=== PATIENT | female | born 1960 | race African-American/Black ===

== ENCOUNTER 2016-08-27 20:35 | Observation (INO) | payer OTHER ==
[~2016-08-27] VITALS: Ht 165.1 cm; Wt 72.6 kg
[~2016-08-27 20:35] MED LIST: ALDACTONE50 MG PO; APRESOLINE10 MG PO; ASPIRIN81 M1 PO; ATROVENT HFA12.5 GM IH; AZITHROMYCIN500 MG PO; BIAXIN500 MG PO; CALCIUM 600600 MG PO; CARDIZEM120 M2 PO; COLACE100 M1 PO; CORDARONE200 MG PO; COREG12.5 MG PO; COREG25 MG PO; COUMADIN5 MG PO; DESYREL50 MG PO; DIGOXIN0.125 M1 PO; DILANTIN100 MG PO; ELIQUIS2.5 MG PO; FERROUS SULFAT325 MG PO; FOLATE1 MG PO; GLUCOPHAGE1000 MG PO; HYDROCODONE APA PO; LASIX40 M1 PO; LASIX40 MG PO; LEVAQUIN250 MG PO; LEVAQUIN500 MG PO; LEVAQUIN750 MG PO; LIPITOR40 MG PO; LOPRESSOR25 MG PO; LOVENOX40 MG/0.1 SUBQ; MEDROL4 MG PO; METOLAZONE2.5 M1 PO; METOLAZONE5 M1 PO; MOTRIN800 MG PO; NEURONTIN300 MG PO; NORCO 325 MG-7.1 TAB PO; OMEPRAZOLE20 M3 PO; PLAVIX75 MG PO; PREDNISONE20 M1 PO; PREDNISONE20 MG PO; PRILOSEC40 MG PO; PROTONIX40 MG PO; PROVENTIL2.5 MG/3 M INH; SLOW-K8 ME1 PO; TAZTIA XT120 MG PO; TYLENOL #3 300/1 TAB PO; VENTOLIN H0.09 MG/Ac IH; VITAMIN D32000 IU PO; XARELTO15 MG PO; ZESTRIL10 MG PO; ZESTRIL20 MG PO; ZITHROMAX250 MG PO; ZITHROMAX500 M1 IV; ZITHROMAX500 M1 PO; ZYRTEC10 MG PO
[2016-08-27 22:11] VITALS: BP 126/96
--- NOTE | 2016-08-27 23:07 | NUR ---
PATIENT AMBULATED TO BED 8.
--- NOTE | 2016-08-27 23:08 | NUR ---
PT BIB [facility] C/O SOB, RUNNY NOSE, FEVERS, PALPITATIONS. PT STATES MED HX COPD, CHF, DIABETES, HTN, NEUROPATHY. DENIES N/V/D; SKIN IS PINK/WARM/DRY; AAOX4 WITH EVEN AND STEADY GAIT; LUNGS CLEAR BL; HR EVEN AND REGULAR; PT DENIES ANY CP OR COUGH AT THIS TIME; PATIENT STATES PAIN OF 9/10 AT THIS TIME; VSS; PATIENT POSITIONED FOR COMFORT; HOB ELEVATED; BEDRAILS UP X2; BED DOWN. ER MD MADE AWARE OF PT STATUS.
--- NOTE | 2016-08-27 23:10 | NUR ---
Patient being evaluated by physician at bedside.
[2016-08-28] MEDS ORDERED: ASPIRIN 81 MG TAB.CHEW PO ONE (00:35)
[2016-08-28] MEDS ORDERED: ACETAMINOPHEN 325 MG TAB PO PRN (01:15)
[2016-08-28] MEDS ORDERED: DEXTROSE 50% 50 ML SYR IVP PRN (01:15)
[2016-08-28] MEDS ORDERED: ALBUTEROL 0.083% 2.5 MG/3 ML NEBU INH PRN ×2 (01:15→01:20)
[2016-08-28] MEDS ORDERED: ONDANSETRON 4 MG/2 ML VIAL IVP PRN (01:15)
[2016-08-28] MEDS ORDERED: LORazepam 2 MG/ML VIAL IVP PRN (01:15)
[2016-08-28] MEDS ORDERED: INSULIN ASPART SLIDING SCALE 100 UNITS/ML VIAL SUBQ PRN (01:15)
--- NOTE | 2016-08-28 01:30 | NUR ---
Patient will be admitted to care of DR HALL. Admited to TELE. Will go to room 119B. Belongings list completed. Report to VIC CARBONE.
[2016-08-28 01:45] VITALS: BP 136/85
--- NOTE | 2016-08-28 01:45 | NUR ---
Admitted from ER TO TELEMETRY UNIT FOR 23 HOUR OBSERVATION, with chief complaint of PALPITATIONS, SOB , 56 y/o ,Female, Cooperative, AWAKE, A/OX3, WITH OCCASIONAL FORGETFULNESS. LUNGS CLEAR ON BILATERAL AUSCULTATION. ON 02 AT 2 LITERS VIA N/C, SLIGHT SOB, RR - 24, SOB ON EXERTION, OCCASIONAL UNPRODUCTIVE COUGH NOTED, 02 SAT - 98%. ABLE TO AMBULATE WITH ASSISTANCE TO BR. HEAD TO TOE ASSESSMENT DONE WITH CHARGE NURSE LISA, SKIN INTACT. DENIES CHEST PAIN 0/10. ON SEIZURE PRECAUTION, REFUSED SIDE RAILS TO BE PADDED. oriented to call light, bed, phone,television, bathroom, smoking policy,visiting hours, procedures, ID bracelet on. Belongings list checked.
--- NOTE | 2016-08-28 01:55 | NUR ---
Patient's Plan of Care was discussed and reviewed with UX ENGINEER: RAF Ca
[2016-08-28 04:00] VITALS: BP_SYST 119; BP_SYST 129; BP_DIAS 77; BP_DIAS 78
[2016-08-28] MEDS ORDERED: HYDROcodone/APAP 5/325 MG 1 TAB TAB PO PRN (04:00)
--- NOTE | 2016-08-28 04:00 | NUR ---
ASSISTED TO GO TO BR TO VOID FOR THE SECOND TIME. BACK TO BED AFTER VOIDING, SAFETY MAINTAINED. PUT ON 02 CANNULA EXTENSION REQUESTED TO BE ABLE TO TO GO BR WITH 02 CANNULA.
[2016-08-28] MEDS: MORPHINE SULFATE 2 MG/ML SYR IVP PRN ×3 (04:21→17:05)
[2016-08-28] MEDS: BLOOD GLUCOSE MONITORING 1 DEV DEV FS SCH ×3 (06:48→16:44)
[2016-08-28] MEDS: IPRATROPIUM 0.02% 0.5 MG/2.5 ML NEBU INH SCH ×3 (06:57→19:45)
[2016-08-28] MEDS: ALBUTEROL 0.083% 2.5 MG/3 ML NEBU INH SCH ×3 (06:57→19:45)
--- NOTE | 2016-08-28 07:15 | NUR ---
CONDITION REMAIN STABLE. ENDORSED TO [facility] FOR CONTINUITY OF CARE.
--- NOTE | 2016-08-28 07:16 | NUR ---
DECREASED FIO2 TO 2L POST HHN
--- NOTE | 2016-08-28 07:17 | NUR ---
RECEIVED REPORT FROM NIGHT NURSE, RAF HO. PATIENT APPEARED TO BE CALM AWAKE AND RESTING WELL IN BED. NO RESPIRATORY DISTRESS, SOB, OR DISCOMFORT. PATIENT ON O2 2L NC WITH O2 SAT AT 96%. INITIAL ASSESSMENT AND BODY CHECK DONE. PATIENT IS AOX4, SKIN IS INTACT, IV ACCESS TO RIGHT WRIST 24G PATENT. PATIENT DENIED ANY CHEST PAIN OR DISCOMFORT. DISCUSSED PLAN OF CARE, MEDICATION REGIMENT, AND PAIN MANAGEMENT WITH PATIENT, PATIENT VERBALIZED UNDERSTANDING. PLACE PATIENT ON SAFETY/FALL PRECAUTIONS. CALL LIGHT LEFT WITHIN REACH, WILL CONTINUE TO MONITOR.
[2016-08-28] MEDS ORDERED: CLINICAL MONITORING MC PRN (07:55)
[2016-08-28 08:00] VITALS: BP 119/85
[2016-08-28] MEDS ORDERED: metFORMIN 500 MG TAB PO SCH (08:00)
[2016-08-28] MEDS: FERROUS SULFATE 325 MG TABEC PO SCH ×3 (08:48→17:03)
[2016-08-28] MEDS: PHENYTOIN 100 MG CAPER PO SCH ×3 (08:49→17:04)
[2016-08-28] MEDS: FUROSEMIDE 40 MG TAB PO SCH ×2 (08:49→17:00)
[2016-08-28] MEDS ORDERED: LISINOPRIL 10 MG TAB PO SCH (09:00)
[2016-08-28] MEDS ORDERED: DILTIAZEM 120 MG CAPER PO SCH (09:00)
[2016-08-28] MEDS ORDERED: FOLIC ACID 1 MG TAB PO SCH (09:00)
[2016-08-28] MEDS ORDERED: AMIODARONE 200 MG TAB PO SCH (09:00)
[2016-08-28] MEDS ORDERED: DOCUSATE SODIUM 100 MG GELCAP PO SCH (09:00)
[2016-08-28] MEDS ORDERED: CHOLECALCIFEROL 1,000 IU TAB PO SCH (09:00)
[2016-08-28] MEDS ORDERED: hydrALAZINE 10 MG TAB PO SCH (09:00)
[2016-08-28] MEDS ORDERED: RIVAROXABAN 15 MG TAB PO SCH (09:00)
[2016-08-28] MEDS ORDERED: ATORVASTATIN 20 MG TAB PO SCH (09:00)
--- NOTE | 2016-08-28 09:00 | NUR ---
PATIENT HAS BEEN SCREENED AND CATEGORIZED MODERATE NUTRITION RISK. PATIENT WILL BE SEEN WITHIN 3-5 DAYS OF ADMISSION. 08/30/16-09/01/[address]
--- NOTE | 2016-08-28 09:02 | NUR ---
NOTIFIED DR HALL AND SHE AWARE METFORMIN IS CONTRAINDICATED WITH PATIENT HAVING CREATININE OF 1.5. SHE ALSO AWARE PATIENT REPORTED HAVING NEUROPATHY PAIN.
--- NOTE | 2016-08-28 09:04 | NUR ---
MORNING DUE MEDICATION GIVEN, PATIENT TOLERATED WELL. NO SIGN OF DISTRESS NOTED. HOLD LISINOPRIL PO PER PATIENT REFUSAL. PATIENT STATED " I'VE NEVER TAKEN THIS MEDICATION BEFORE." MD NOTIFIED
[2016-08-28] MEDS ORDERED: MAGNESIUM OXIDE 400 MG TAB PO SCH (09:58)
[2016-08-28] MEDS ORDERED: MAG SULF 2000 MG/WATER PREMIX 100 ML IV SCH (09:58)
--- NOTE | 2016-08-28 11:17 | NUR ---
PATIENT RESTING WELL IN BED. NO SIGN OF DISTRESS NOTED. MAGNESIUM IVPB STILL INFUSING WELL. ALL NEEDS ARE MET. CALL LIGHT WITHIN REACH. WILL CONTINUE TO MONITOR.
[2016-08-28 12:00] VITALS: BP 112/71
--- NOTE | 2016-08-28 13:57 | NUR ---
PATIENT APPEAR TO HAVING JUNCTIONAL TACHYCARDIA WITH BBB AND BIPHASIC T ON TELE MONITOR. CHECKED IN ON PATIENT. NO SIGN OF DISTRESS NOTED. PATIENT DENIED ANY PAIN OR CHEST DISCOMFORT. DENIED ANY FEELING OF PALPITATION. ALL NEEDS ARE MET. CALL LIGHT WITHIN REACH. WILL CONTINUE TO MONITOR.
[2016-08-28 16:00] VITALS: BP 108/69
--- NOTE | 2016-08-28 18:42 | NUR ---
SY JIN IS HERE TO SEE PATIENT, STATED PATIENT IS CLEARED FOR DISCHARGE.
--- NOTE | 2016-08-28 19:31 | NUR ---
ENDORSED PATIENT CURRENT PLAN OF CARE TO NIGHT NURSE BAN ART. PATIENT RESTING WELL IN BED. NO SIGN OF DISTRESS NOTED. ALL DISCHARGE PAPERS SIGNED BY PATIENT. ALL DISCHARGE MEDICATION AND FOLLOW UP WITH PCP WITHIN 1 WEEK OF DISCHARGE INSTRUCTIONS GIVEN, PATIENT VERBALIZED UNDERSTANDING.
--- NOTE | 2016-08-28 19:32 | NUR ---
RECEIVED REPORT FROM DAY NURSEOBEY, FOR CONTINUITY OF CARE. PATIENT RESTING IN BED. NO RESPIRATORY DISTRESS, SOB, OR DISCOMFORT. INITIAL ASSESSMENT AND BODY CHECK DONE. PATIENT IS AOX4, SKIN IS INTACT, IV ACCESS TO RIGHT WRIST 24G, PATENT. PATIENT DENIES ANY CHEST PAIN AT THIS TIME. DISCUSSED PLAN OF CARE, MEDICATION REGIMENT, AND PAIN MANAGEMENT WITH PATIENT. PATIENT VERBALIZED UNDERSTANDING. ALL DISCHARGE PAPERWORK PREVIOUSLY EDUCATED/EXPLAINED AND SIGNED. AWAITING FOR MAGNESIUM SULFATE IV MEDICATION TO BE COMPLETE BEFORE D/C. PLACED PATIENT ON SAFETY/SEIZURE PRECAUTIONS. CALL LIGHT LEFT WITHIN REACH, WILL CONTINUE TO MONITOR.
[2016-08-28 20:00] VITALS: BP 106/74
--- NOTE | 2016-08-28 21:21 | NUR ---
PATIENT STATING NO RIDE HOME AND REQUESTING IF WE CAN CALL A TAXI. TAXI CALLED AT THIS TIME. ETA 15-20 MIN.
--- NOTE | 2016-08-28 21:55 | NUR ---
PATIENT D/C HOME AT THIS TIME. PATIENT TRANSFERRED FROM ROOM TO [facility] VIA WHEELCHAIR. ALL ID BANDS AND TELE MONITOR REMOVED, IV REMOVED; TIP STILL INTACT 4X4 GAUZE PLACED. ALL BELONGINGS AND PAPERWORK SENT HOME WITH PATIENT.
[2016-11-16] MEDS ORDERED: LEVAQUIN750 MG PO (12:32)
== END 2016-08-28 21:55 | disposition home or self-care (01) ==
LOC: MED 20:35 → MTU 08-28 00:56
PROVIDERS: ADMIT Hospitalist; ATTEND Hospitalist
PROC: 3E0F7GC Introduction of Other Therapeutic Substance into Respiratory Tract, Via Natural or Artificial Opening (ICD-10-PCS; principal; 2016-08-28)
DX: J44.1 Chronic obstructive pulmonary disease with (acute) exacerbation (principal); I50.9 Heart failure, unspecified; E83.42 Hypomagnesemia; E11.42 Type 2 diabetes mellitus with diabetic polyneuropathy; E11.22 Type 2 diabetes mellitus with diabetic chronic kidney disease; I12.9 Hypertensive chronic kidney disease with stage 1 through stage 4 chronic kidney disease, or unspecified chronic kidney disease; N18.9 Chronic kidney disease, unspecified; I82.409 Acute embolism and thrombosis of unspecified deep veins of unspecified lower extremity; G40.909 Epilepsy, unspecified, not intractable, without status epilepticus; K21.9 Gastro-esophageal reflux disease without esophagitis; F17.210 Nicotine dependence, cigarettes, uncomplicated; Z79.84 Long term (current) use of oral hypoglycemic drugs; Z79.01 Long term (current) use of anticoagulants; Z88.0 Allergy status to penicillin
CPT/HCPCS: 36415; 71010; 80053; 82550; 82553; 82948; 83735; 83880; 84443; 84484; 85025; 87081; 93005; 94640; 94760; 96365; 96366; 96375; 96376; 99285; G0378; J2270; J3475; J7030; J7613; J7644

== ENCOUNTER 2016-09-25 13:25 | Inpatient (IN) | payer OTHER ==
[~2016-09-25] VITALS: Ht 165.1 cm; Wt 83.9 kg
[2016-09-25 13:48] VITALS: BP 125/97
--- NOTE | 2016-09-25 14:51 | NUR ---
PT TO BED 1 AT THIS TIME.
--- NOTE | 2016-09-25 14:53 | NUR ---
56F BIB SELF C/O SOB X SATURDAY; WHEEZES HEARD THROUGHOUT; DEEP, LABORED BREATHING AT THIS TIME; PT NOTED W/ TACHYPNEA ON THE MONITOR AT THIS TIME.; A&OX4; PT C/O CHRONIC ACHING BL HAND/FEET PAIN, 04/21 FOR " A COUPLE OF YEARS"; PT DENIES N/V/D AT THIS TIME; SKIN IS WARM/DRY/INTACT AT THIS TIME; PT STATES USES WALKER AT HOME; PT PLACED ON MONITOR, RESTING IN BED W/ HOB ELEVATED AND IN LOWEST POSITION; POSITIONED FOR COMFORT; ER MD MADE AWARE OF STATUS. WILL CONTINUE TO MONITOR.
--- NOTE | 2016-09-25 15:16 | NUR ---
XRAY AT BEDSIDE.
[2016-09-25] MEDS ORDERED: LEVOFLOXACIN 500 MG/D5W PREMIX 100 ML IV ONE (15:30)
[2016-09-25] MEDS ORDERED: methylPREDNISolone SS 125 MG in WATER STERILE 2 ML IV ONE (15:30)
[2016-09-25] MEDS ORDERED: FUROSEMIDE 40 MG/4 ML VIAL IVP ONE (15:30)
[2016-09-25] MEDS ORDERED: ALBUTEROL 0.083% 2.5 MG/3 ML NEBU INH ONE (15:30)
--- NOTE | 2016-09-25 16:17 | NUR ---
REPORT GIVEN TO BAN WOOD.
--- NOTE | 2016-09-25 16:28 | NUR ---
Patient will be admitted to care of DR. MOYA. Admited to TELEMETRY. Will go to room 119A. Belongings list completed. Report to BAN WOOD.
[2016-09-25] MEDS ORDERED: ONDANSETRON 4 MG/2 ML VIAL IVP PRN (16:30)
[2016-09-25] MEDS ORDERED: LORazepam 2 MG/ML VIAL IVP PRN (16:30)
[2016-09-25] MEDS ORDERED: ACETAMINOPHEN 325 MG TAB PO PRN (16:30)
[2016-09-25] MEDS ORDERED: ALBUTEROL 0.083% 2.5 MG/3 ML NEBU INH PRN (16:35)
[2016-09-25 17:00] VITALS: BP 127/87
[2016-09-25] MEDS ORDERED: IPRATROPIUM HFA MDI 17 MCG/ACTUATION 12.9 GM INH SCH (17:00)
--- NOTE | 2016-09-25 17:00 | NUR ---
ADMITTED PT TO TELE [id number] FROM ED, AAOX4, ABLE TO VERBALIZE NEEDS; VSS, NO C/O PAIN OR S/S ACUTE DISTRESS AT THIS TIME.ROUTINE/PLAN OF CARE DISCUSSED AND REVIEWED, PT VERBALIZES UNDERSTANDING AND COMPLIANCE. O2@2L/MIN VIA NC, SLIGHT LABORED BREATHING UPON EXERTION, SaO2 96%. IV SL, SITE ASYMPTOMATIC. SAFETY PRECAUTIONS OBSERVED AND MAINTAINED, CALL LIGHT IN REACH. WILL CONTINUE TO MONITOR.
[2016-09-25] MEDS: PHENYTOIN 100 MG CAPER PO SCH (17:10)
[2016-09-25] MEDS: FERROUS SULFATE 325 MG TABEC PO SCH (17:10)
[2016-09-25] MEDS ORDERED: GLUCOTROL5 MG PO (17:16)
[2016-09-25] MEDS ORDERED: COREG12.5 MG PO (17:16)
[2016-09-25] MEDS ORDERED: TOPCARE ASPIRIN81 MG PO (17:16)
--- NOTE | 2016-09-25 19:24 | NUR ---
CONDITION STABLE, ENDORSED PLAN OF CARE TO NEW CAR GET READY MECHANIC RN.
--- NOTE | 2016-09-25 19:25 | NUR ---
RECEIVED PT FROM NAHID CEVALLOS PT IS AAOX4 AMBULATORY WITH BARN WORKER BUT PT HAS SOB TO LITTLE EXERTION, PT ON 2 LTS VIA NC;, HL ON RT AC PATENT ON TELEMETRY SR INITIAL ASSESSMENT DONE
[2016-09-25] MEDS: IPRATROPIUM 0.02% 0.5 MG/2.5 ML NEBU INH SCH (19:39)
[2016-09-25 20:00] VITALS: BP 128/98
[2016-09-25] MEDS ORDERED: DOCUSATE SODIUM 100 MG GELCAP PO SCH (21:00)
[2016-09-25] MEDS ORDERED: RIVAROXABAN 15 MG TAB PO SCH (21:00)
[2016-09-25] MEDS ORDERED: metFORMIN 500 MG TAB PO SCH (21:00)
[2016-09-25] MEDS ORDERED: FUROSEMIDE 40 MG TAB PO SCH (21:00)
--- NOTE | 2016-09-25 21:00 | NUR ---
PT IS ASSISTED TO USE BSC VOIDING WELL ON TELEMETRY SR
[2016-09-25] MEDS: PIPER/TAZO 3.375GM/D5W PREMIX 50 ML IV SCH (21:13)
[2016-09-25] MEDS: MORPHINE SULFATE 2 MG/ML SYR IVP PRN (21:41)
[2016-09-25] MEDS: hydrALAZINE 10 MG TAB PO SCH (21:43)
[2016-09-25] MEDS: CARVEDILOL 12.5 MG TAB PO SCH (21:43)
--- NOTE | 2016-09-25 22:29 | NUR ---
AFTER PAIN MEDIC GIVEN PT GETTING SLEEP NOT DISTRESS NOTED
[2016-09-26] VITALS: BP 137/96
--- NOTE | 2016-09-26 00:03 | NUR ---
PT AWAKE USING BSC VOIDING WELL, SOB TO LITTLE EXERTION, ON TELEMETRY SR NOT DISTRESS NOTED
[2016-09-26] MEDS: ALBUTEROL 0.083% 2.5 MG/3 ML NEBU INH PRN (01:40)
[2016-09-26] MEDS: IPRATROPIUM 0.02% 0.5 MG/2.5 ML NEBU INH SCH ×4 (01:40→18:30)
[2016-09-26] MEDS: MORPHINE SULFATE 2 MG/ML SYR IVP PRN ×5 (01:48→22:37)
--- NOTE | 2016-09-26 02:00 | NUR ---
PT SITTING ON BED RESP THERAPY IS HERE AND GIVE A BREATHING TX
[2016-09-26 04:00] VITALS: BP 147/99
--- NOTE | 2016-09-26 04:00 | NUR ---
SPONGE BATH GIVEN , LINEN CHANGED PT ON TELEMETRY SR IV IS REINSERTED ON RT HAND GAUGE 24
[2016-09-26] MEDS: PIPER/TAZO 3.375GM/D5W PREMIX 50 ML IV SCH ×3 (04:19→21:00)
--- NOTE | 2016-09-26 06:18 | NUR ---
PT RESTING ON BED QUIET DENIES ANY PAIN ON TELEMETRY SR BBB , NOT DISTRESS NOTED AT THIS TIME
--- NOTE | 2016-09-26 07:05 | NUR ---
ASSUMED CONTINUITY OF CARE. NO SIGNS AND SYMPTOMS OF ACUTE DISTRESS NOTED. INITIAL ASSESSMENT DONE. HOB ELEVATED. KEEP COMFORTABLE ON BED. EXPLAINED DIAGNOSIS, PLAN OF CARE, PAIN MANAGEMENT TEACHING, USE OF CALL LIGHT/BED/TV/BATHROOM. VERBALIZED UNDERSTANDING. FALL PRECAUTION APPLIED. CALL LIGHT WITHIN REACH.
--- NOTE | 2016-09-26 07:19 | NUR ---
PT IS ENDORSED TO [facility] FOR CONTINUITY OF CARE
[2016-09-26 08:00] VITALS: BP 139/92
--- NOTE | 2016-09-26 08:23 | NUR ---
PATIENT HAS BEEN SCREENED AND CATEGORIZED MODERATE NUTRITION RISK. PATIENT WILL BE SEEN WITHIN 3-5 DAYS OF ADMISSION. 09/28/16-09/30/[address]
--- NOTE | 2016-09-26 08:40 | NUR ---
Patient's Plan of Care was discussed and reviewed with TUG HAND: SARAH
[2016-09-26] MEDS: ECOTRIN 81 MG TABEC PO SCH (08:42)
[2016-09-26] MEDS: FERROUS SULFATE 325 MG TABEC PO SCH ×3 (08:42→16:38)
[2016-09-26] MEDS: FUROSEMIDE 40 MG/4 ML VIAL IVP SCH ×2 (08:44→17:01)
[2016-09-26] MEDS: CHOLECALCIFEROL 1,000 IU TAB PO SCH (08:46)
[2016-09-26] MEDS: AMIODARONE 200 MG TAB PO SCH (08:46)
[2016-09-26] MEDS: ATORVASTATIN 20 MG TAB PO SCH (08:46)
[2016-09-26] MEDS: CARVEDILOL 12.5 MG TAB PO SCH ×2 (08:46→21:03)
[2016-09-26] MEDS: hydrALAZINE 10 MG TAB PO SCH ×2 (08:47→21:03)
[2016-09-26] MEDS: PHENYTOIN 100 MG CAPER PO SCH ×3 (08:47→16:37)
[2016-09-26] MEDS: FOLIC ACID 1 MG TAB PO SCH (08:48)
[2016-09-26] MEDS ORDERED: ENOXAPARIN 40 MG/0.4 ML SYR SUBQ SCH (09:00)
[2016-09-26] MEDS ORDERED: LISINOPRIL 10 MG TAB PO SCH (09:00)
[2016-09-26] MEDS ORDERED: DILTIAZEM 120 MG CAPER PO SCH (09:00)
[2016-09-26 12:00] VITALS: BP 119/90
--- NOTE | 2016-09-26 12:00 | NUR ---
VITALS SIGNS STABLE. NO C/O PAIN. WILL MONITOR.
--- NOTE | 2016-09-26 13:20 | NUR ---
FAXED INITIAL REVIEW TO [facility] [phone] PHONE DIANNE [phone]
--- NOTE | 2016-09-26 15:45 | NUR ---
ASSISTED TO BEDSIDE COMMODE. TOLERATED WELL. NO SOB, NOTED. CONTINUE MONITORING.
[2016-09-26 16:00] VITALS: BP 124/93
--- NOTE | 2016-09-26 19:15 | NUR ---
BEDSIDE REPORT GIVEN TO MICHELLE CROW -BAN. IN STABLE CONDITION.
--- NOTE | 2016-09-26 19:16 | NUR ---
RECEIVED REPORT FROM DAY PRISON GUARD SUPERVISOR AT BEDSIDE, PATIENT IS AAOX4 SITTING UP IN BED, PATIENT ON O2 2L NC, NO SOB OR SIGN OF DISTRESS. PATIENT HAS IV TO RH 24G PATENT, SALINE LOCKED. BLE EDEMA NOTED. DISCUSSED PLAN OF CARE WITH PATIENT, PATIENT VERBALIZED UNDERSTANDING, SAFETY MEASURES CHECKED, CALL LIGHT WITHIN REACH. WILL CONTINUE TO MONITOR.
[2016-09-26 20:00] VITALS: BP 113/86
--- NOTE | 2016-09-26 20:59 | NUR ---
GOT A CALL FROM BAN MARTINEZ THAT PT IS SOB UPON ARRIVAL PATIENT SAT 100% ON 2 L NC. BS CLEAR. HR 84. RR 20. PT IS OKAY. BAN MARTINEZ AT BEDSIDE . WILL CONTINUE TO MONITOR.
--- NOTE | 2016-09-26 21:16 | NUR ---
PM MEDS ADMINISTERED PATIENT TOLERATED WELL. PATIENT C/O SOB, CHECKED PATIENTS O2 SAT, WAS AT 100% ON 2L NC, CALLED RT PER PATIENT REQUEST. PATIENT NOTIFIED SHE IS NOT DUE FOR ANOTHER BREATHING TX YET. PATIENT LUNGS CLEAR. ADVISED PATIENT TO LAY DOWN WITH HOB UP TO AID IN BREATHING. CALL LIGHT WITHIN REACH. WILL CONTINUE TO MONITOR.
--- NOTE | 2016-09-26 22:45 | NUR ---
PATIENT C/O PAIN IN HANDS AND FEET, ADMINISTERED PAIN MED PER MD ORDER, CALL LIGHT WITHIN REACH.WILL CONTINUE TO MONITOR.
--- NOTE | 2016-09-26 23:22 | NUR ---
PATIENT SLEEPING, COMFORTABLE IN BED, NO SOB OR SIGN OF DISTRESS, CALL LIGHT WITHIN REACH. WILL CONTINUE TO MONITOR.
[2016-09-27] VITALS: BP 109/80
--- NOTE | 2016-09-27 00:08 | NUR ---
VITAL SIGNS STABLE, PATIENT UP TO USE THE BEDSIDE COMMODE. PATIENT STATES THE SOB FELT EARLIER HAS GONE AWAY. CALL LIGHT WITHIN REACH. WILL CONTINUE TO MONITOR.
[2016-09-27] MEDS: IPRATROPIUM 0.02% 0.5 MG/2.5 ML NEBU INH SCH ×2 (01:05→06:37)
--- NOTE | 2016-09-27 01:45 | NUR ---
PATIENT SLEEPING COMFORTABLY IN BED, NO SOB OR SIGN OF DISTRESS, CALL LIGHT WITHIN REACH. WILL CONTINUE TO MONITOR.
[2016-09-27 04:00] VITALS: BP 115/81
--- NOTE | 2016-09-27 04:56 | NUR ---
PATIENT SLEEPING, NO SOB OR SIGN OF DISTRESS, VITAL SIGNS STABLE, WILL CONTINUE TO MONITOR
[2016-09-27] MEDS: PIPER/TAZO 3.375GM/D5W PREMIX 50 ML IV SCH (05:13)
[2016-09-27] MEDS: ALBUTEROL 0.083% 2.5 MG/3 ML NEBU INH PRN (06:37)
--- NOTE | 2016-09-27 07:15 | NUR ---
ASSUMED CONTINUITY OF CARE. NO SIGNS AND SYMPTOMS OF ACUTE DISTRESS NOTICED. INITIAL ASSESSMENT DONE. KEEP COMFORTABLE ON BED. EXPLAINED DIAGNOSIS, PLAN OF CARE, PAIN MANAGEMENT TEACHING, USE OF CALL LIGHT/BED/TV/BATHROOM. VERBALIZED UNDERSTANDING. FALL PRECAUTION APPLIED. CALL LIGHT WITHIN REACH.
--- NOTE | 2016-09-27 07:15 | NUR ---
ENDORSED PATIENT TO DAY MEDICAL TECHNOLOGIST HEMATOLOGY AT BEDSIDE, PATIENT IN STABLE CONDITION
[2016-09-27 08:00] VITALS: BP 127/95
--- NOTE | 2016-09-27 08:00 | NUR ---
Patient's Plan of Care was discussed and reviewed with STONE UNLOADER: REX FRANCOIS
[2016-09-27] MEDS ORDERED: LEVAQUIN750 MG PO (08:06)
[2016-09-27] MEDS: CHOLECALCIFEROL 1,000 IU TAB PO SCH (08:43)
[2016-09-27] MEDS: FERROUS SULFATE 325 MG TABEC PO SCH (08:44)
[2016-09-27] MEDS: CARVEDILOL 12.5 MG TAB PO SCH (08:44)
[2016-09-27] MEDS: PHENYTOIN 100 MG CAPER PO SCH (08:44)
[2016-09-27] MEDS: AMIODARONE 200 MG TAB PO SCH (08:44)
[2016-09-27] MEDS: hydrALAZINE 10 MG TAB PO SCH (08:44)
[2016-09-27] MEDS: ECOTRIN 81 MG TABEC PO SCH (08:45)
[2016-09-27] MEDS: ATORVASTATIN 20 MG TAB PO SCH (08:45)
[2016-09-27] MEDS: FOLIC ACID 1 MG TAB PO SCH (08:46)
[2016-09-27] MEDS: FUROSEMIDE 40 MG/4 ML VIAL IVP SCH (09:00)
[2016-09-27] MEDS ORDERED: LEVOFLOXACIN 750 MG/D5W PREMIX 150 ML IV SCH (09:00)
--- NOTE | 2016-09-27 09:00 | NUR ---
EXPLAINED DIAGNOSIS, MD D/C ORDER, D/C INSTRUCTIONS AND TEACHING, MD FOLLOW-UP, MD D/C PRESCRIPTION LIST EDUCATION, DISEASE MANAGEMENT, DIET. VERBALIZED UNDERSTANDING.
--- NOTE | 2016-09-27 09:14 | NUR ---
PT REFUSED LASIX IVP, RISKS AND BENEFITS EXPLAINED, PT VERBALIZED UNDERSTANDING.
--- NOTE | 2016-09-27 10:52 | NUR ---
CM NOTE CONCURRENT REVIEW FAXED TO [facility] / FAX# [phone], ATTN: DIANNE #[phone]
--- NOTE | 2016-09-27 11:10 | NUR ---
D/C HOME VIA WHEELCHAIR WITH ASSISTANCE FROM SHANNEN RIOS. AWAKE, ALERT, AND ORIENTED X4. SPEECH CLEAR. NO C/O PAIN. NO SOB, NOTED. IN STABLE CONDITION. INFORMED CHARGE NURSE BALJEET BEARD.
[2016-11-16] MEDS ORDERED: LEVAQUIN750 MG PO (12:32)
== END 2016-09-27 11:10 | disposition home or self-care (01) | DRG 194 ==
LOC: MED 13:25 → MTU 16:13
PROVIDERS: ADMIT Hospitalist; ATTEND Hospitalist
DX: I13.0 Hypertensive heart and chronic kidney disease with heart failure and stage 1 through stage 4 chronic kidney disease, or unspecified chronic kidney disease (principal); J96.10 Chronic respiratory failure, unspecified whether with hypoxia or hypercapnia; J18.9 Pneumonia, unspecified organism; I42.9 Cardiomyopathy, unspecified; E11.22 Type 2 diabetes mellitus with diabetic chronic kidney disease; J44.0 Chronic obstructive pulmonary disease with (acute) lower respiratory infection; D64.9 Anemia, unspecified; I50.9 Heart failure, unspecified; Z99.81 Dependence on supplemental oxygen; I48.0 Paroxysmal atrial fibrillation; N18.9 Chronic kidney disease, unspecified; J44.1 Chronic obstructive pulmonary disease with (acute) exacerbation; K21.9 Gastro-esophageal reflux disease without esophagitis; G40.909 Epilepsy, unspecified, not intractable, without status epilepticus; F17.210 Nicotine dependence, cigarettes, uncomplicated; Z79.01 Long term (current) use of anticoagulants; Z86.718 Personal history of other venous thrombosis and embolism; Z88.0 Allergy status to penicillin

== ENCOUNTER 2016-10-04 14:28 | Emergency (ER) | payer OTHER ==
[~2016-10-04] VITALS: Ht 165.1 cm; Wt 74.8 kg
[~2016-10-04 14:28] MED LIST changes: +GLUCOTROL5 MG PO; +TOPCARE ASPIRIN81 MG PO
[2016-10-04 14:45] VITALS: BP 128/101
--- NOTE | 2016-10-04 14:56 | NUR ---
Patient to bed 06.
--- NOTE | 2016-10-04 15:04 | NUR ---
PATIENT PRESENTS TO ED WITH C/O PAIN TO LLQ ABD THAT RADIATES TO BACK X 1 WEEK, PT. REPORTS DIFFICULTY URINATING. DENIES N/V/D; SKIN IS PINK/WARM/DRY; AAOX4; LUNGS CLEAR BL; HR EVEN AND REGULAR; PT DENIES ANY FEVER, CP, AT THIS TIME; PATIENT STATES PAIN OF 4/10 AT THIS TIME; VSS; PATIENT POSITIONED FOR COMFORT; HOB ELEVATED; BEDRAILS UP X2; BED DOWN. ER MD MADE AWARE OF PT STATUS.
--- NOTE | 2016-10-04 15:18 | NUR ---
Dr. Rasmussen evaluating patient at bedside.
[2016-10-04] MEDS ORDERED: HYDROcodone/APAP 5/325 MG 1 TAB TAB PO ONE (15:25)
[2016-10-04 17:10] VITALS: BP 122/90
--- NOTE | 2016-10-04 17:10 | NUR ---
Patient discharged with v/s stable. Written and verbal after care instructions given and explained. Patient alert, oriented and verbalized understanding of instructions. Wheel Chair Assisted with to car. All questions addressed prior to discharge. ID band removed. Patient advised to follow up with PMD. Rx of NORCO 5 /325 AND MOTRIN 600MG given. Patient educated on indication of medication including possible reaction and side effects. Opportunity to ask questions provided and answered.
[2016-11-16] MEDS ORDERED: LEVAQUIN750 MG PO (12:32)
== END 2016-10-04 17:10 | disposition home or self-care (01) ==
LOC: MED 14:28
DX: R60.0 Localized edema (principal); J44.9 Chronic obstructive pulmonary disease, unspecified; I11.0 Hypertensive heart disease with heart failure; I50.9 Heart failure, unspecified; K21.9 Gastro-esophageal reflux disease without esophagitis; Z88.0 Allergy status to penicillin; Z79.82 Long term (current) use of aspirin
CPT/HCPCS: 36415; 80053; 85025; 85610; 85730; 93971; 99285; Q0092

== ENCOUNTER 2016-10-14 05:53 | Inpatient (IN) | payer OTHER ==
[~2016-10-14] VITALS: Ht 167.6 cm; Wt 83.9 kg
[2016-10-14] VITALS (16 sets, daily range): BP systolic 110–161; BP diastolic 41–118
--- NOTE | 2016-10-14 05:53 | NUR ---
0551 [facility] TO ER BED 1
[2016-10-14] MEDS ORDERED: ALBUTEROL SULFATE/IPRATROPIU 3 ML SOL IH ONE (05:55)
[2016-10-14] MEDS ORDERED: methylPREDNISolone SS 125 MG in WATER STERILE 2 ML IV ONE (05:55)
[2016-10-14] MEDS ORDERED: NITROGLYCERIN 0.4 MG TAB SL ONE ×3 (05:55→06:45)
[2016-10-14] MEDS ORDERED: methylPREDNISolone SS 125 MG/2 ML VIAL ONE (06:01)
--- NOTE | 2016-10-14 06:01 | NUR ---
PATIENT PRESENTS TO ED BIBA WITH RESPIRATORY DISTRESS. AMS STATES C/O SOB x 30 MINUTES AGO. PRINCETON FIRE/EMS STATES PT WAS AT HOME CALDED 911, DUE TO SOB. PT ARRIVED WITH CPAP, CPAP APPLIED ON THE FIELD. SKIN IS PINK/WARM/DRY; HR TACHYCARDIC; PATIENT POSITIONED FOR COMFORT; HOB ELEVATED; BEDRAILS UP X2; BED DOWN. ER MD MADE AWARE OF PT STATUS.
[2016-10-14] MEDS ORDERED: LEVOFLOXACIN 750 MG/D5W PREMIX 150 ML IV ONE (06:20)
[2016-10-14] MEDS ORDERED: FUROSEMIDE 40 MG/4 ML VIAL IVP ONE ×2 (06:20→07:22)
--- NOTE | 2016-10-14 06:37 | NUR ---
ABG RESULTS REPORTED TO DR CASH NO CHANGES MADE DR NATH CANCEL HHN ORDER
[2016-10-14] MEDS ORDERED: NITROGLYCERIN 50 MG/D5W PREMIX 250 ML IV ONE (06:45)
--- NOTE | 2016-10-14 07:11 | NUR ---
REPORT CALLED TO BAN MA; FOR CONTINUITY OF CARE.
[2016-10-14] MEDS ORDERED: FUROSEMIDE 100 MG/10 ML VIAL IV ONE (07:15)
--- NOTE | 2016-10-14 07:20 | NUR ---
PATIENT TRANSFERRED TO ICU BED 5 VIA GURNEY.
[2016-10-14] MEDS: SODIUM CHLORIDE FLUSH 10 ML SYR IVF SCH ×2 (07:30→19:41)
--- NOTE | 2016-10-14 07:30 | NUR ---
REC'D PT ON VISION BIPAP SETTINGS 07/17 RR12 FIO2 100% ALARMS ON AND FUNCTIONING PROPERLY, AMBU BAG AT BEDSIDE PT WEARING LARGE FACE MASK PT IS SITTING UP IN BED B\S ARE COARSE BILATERALLY, PT WAS MOVED FROM ER 1 TO ICU 5 PLACED BACK ON BIPAP WITH SAME SETTINGS
--- NOTE | 2016-10-14 07:35 | NUR ---
RECEIVED PT FROM FOR COPD EXACERBATION, PT AAO x4, ON BIPAP, BIPAP SETTINGS 12/6 RR12 FIO2 100% ALARMS ON AND FUNCTIONING PROPERLY, AMBU BAG AT BEDSIDE PT WEARING LARGE FACE MASK, ST ON THE MONITOR, LUNG SOUND DIMINISHED TO LOWER BL LOBES, BOWEL SOUNDS PRESENT TO ALL QUADRANTS, BLADER NON DISTENDED, ABLE TO MOVE ALL EXTREMITIES, SKIN INTACT, HOB ELEVATED , BED IN LOW POSITION, WILL CONTINUE TO MONITOR.
[2016-10-14] MEDS: METOLAZONE 5 MG TAB PO SCH (09:03)
--- NOTE | 2016-10-14 09:12 | NUR ---
BIPAP CHECK, PT IS NOW RESTING, DECREASED FIO2 TO 70% AND NOTIFIED BAN GRIGGS
--- NOTE | 2016-10-14 10:00 | NUR ---
CALLED PT DAUGHTER, WIAYDIN COME BACK IN THE EVENING TO SHE HER MOM
[2016-10-14] MEDS ORDERED: ALBUTEROL 0.083% 2.5 MG/3 ML NEBU INH PRN (10:30)
--- NOTE | 2016-10-14 10:33 | NUR ---
PT OFF THE BIPAP PER DR. HALL AND PLACED ON 4L OXY[address] DR[address] CORADO NOTIFIED
[2016-10-14] MEDS ORDERED: traMADol 50 MG TAB PO PRN (10:50)
--- NOTE | 2016-10-14 11:14 | NUR ---
CALLED TO BEDSIDE BY PT TO PLACED BACK ON BIPAP WITH THE SAME SETTINGS
[2016-10-14] MEDS: MORPHINE SULFATE 2 MG/ML SYR IVP PRN ×4 (11:30→23:14)
[2016-10-14] MEDS ORDERED: DEXTROSE 50% 50 ML SYR IVP PRN (11:50)
--- NOTE | 2016-10-14 12:00 | NUR ---
PT HAD LUNCH 25%, BREATHING OK, OXYMIZER USED WHILE EATING
[2016-10-14] MEDS ORDERED: hydrALAZINE 25 MG TAB PO SCH (12:45)
[2016-10-14] MEDS ORDERED: amLODIPine 5 MG TAB PO SCH (12:45)
[2016-10-14] MEDS ORDERED: AMIODARONE 200 MG TAB PO SCH (12:45)
[2016-10-14] MEDS: methylPREDNISolone SS 125 MG/2 ML VIAL IVP SCH ×2 (12:56→18:44)
[2016-10-14] MEDS ORDERED: IPRATROPIUM HFA MDI 17 MCG/ACTUATION 12.9 GM INH SCH (13:00)
[2016-10-14] MEDS: PHENYTOIN 100 MG CAPER PO SCH ×2 (13:00→16:31)
[2016-10-14] MEDS: FERROUS SULFATE 325 MG TABEC PO SCH ×2 (13:00→16:29)
--- NOTE | 2016-10-14 13:00 | NUR ---
CALLED TO BEDSIDE TO TAKE PT OFF BIPAP TO EAT PLACED ON 4LOXYMIZER
[2016-10-14] MEDS: IPRATROPIUM 0.02% 0.5 MG/2.5 ML NEBU INH SCH ×2 (13:16→19:23)
--- NOTE | 2016-10-14 13:24 | NUR ---
PT PLACED BACK ON BIPAP AFTER EATING LUNCH, PT IS AWAKE AND ALERT, PT IS NOW RESTING
[2016-10-14] MEDS ORDERED: CARVEDILOL 12.5 MG TAB PO SCH (13:45)
--- NOTE | 2016-10-14 15:06 | NUR ---
PT OFF BIPAP PLACED ON 4LN OXYMIZER
--- NOTE | 2016-10-14 15:10 | NUR ---
RT AT BEDSIDE, PT COMFORTABLE, NO S/S OF ANY DISTRESS, PT ON BIPAP.
--- NOTE | 2016-10-14 15:18 | NUR ---
PT WANTED BACK ON BIPAP DUE TO LOW O2 SAT OF 77% PT IS NOW RESTING
[2016-10-14] MEDS ORDERED: CLINICAL MONITORING MC PRN (16:00)
[2016-10-14] MEDS: BLOOD GLUCOSE MONITORING 1 DEV DEV FS SCH ×2 (16:26→20:51)
[2016-10-14] MEDS: glipiZIDE 5 MG TAB PO SCH (16:29)
[2016-10-14] MEDS: INSULIN LISPRO SLIDING SCALE 100 UNITS/ML VIAL SUBQ PRN (16:35)
--- NOTE | 2016-10-14 16:35 | NUR ---
PT IS OFF BIPAP ON 4LOXYMIZER BAN GRIGGS AT BEDSIDE
--- NOTE | 2016-10-14 19:12 | NUR ---
REPORT GIVEN TO BAN DOMINGUEZ , WILL CONTINUE CARE FOR THE PT.
--- NOTE | 2016-10-14 19:15 | NUR ---
RECEIVED REPORT FROM DAY NURSEANSON. PATIENT RESTING IN BED, WATCHING TELEVISION, CURRENTLY ON BIPAP; 07/17, RR 12, O2: 50%. INITIAL ASSESSMENT AND BODY CHECK DONE. PATIENT IS AOX4, SKIN IS INTACT, IV ACCESS TO RIGHT WRIST 24G, PATENT. PATIENT HAS F/C IN PLACE DRAINING CLEAR, YELLOW. NO RESPIRATORY DISTRESS, SOB, OR DISCOMFORT NOTED AT THIS TIME. DISCUSSED PLAN OF CARE, MEDICATION REGIMENT, AND PAIN MANAGEMENT WITH PATIENT. PATIENT VERBALIZED UNDERSTANDING. PLACED PATIENT ON SAFETY/FALL PRECAUTIONS. PATIENT POSITIONED FOR COMFORT, BED IN LOWEST POSITION, SIDE RAILS UP. WILL CONTINUE TO MONITOR.
[2016-10-14] MEDS: BUDESONIDE 0.5 MG/2 ML NEBU INH SCH (19:23)
[2016-10-14] MEDS: ALBUTEROL 0.083% 2.5 MG/3 ML NEBU INH PRN (19:23)
[2016-10-14] MEDS: FUROSEMIDE 100 MG/10 ML VIAL IV SCH (20:53)
[2016-10-14] MEDS: hydrALAZINE 25 MG TAB PO SCH (20:53)
--- NOTE | 2016-10-14 20:53 | NUR ---
DUE MEDS ADMINISTERED. PATIENT TOLERATED WELL. NO RESPIRATORY DISTRESS, SOB, OR DISCOMFORT. BIPAP IN PLACE, PATIENT TOLERATING WELL. PATIENT POSITIONED FOR COMFORT. BED IN LOWEST POSITION, SIDE RAILS UP, HOB ELEVATED TO 30 DEGREES. WILL CONTINUE TO MONITOR.
--- NOTE | 2016-10-14 23:22 | NUR ---
PATIENT RESTING IN BED, WATCHING TELEVISION. BIPAP IN PLACE, TOLERATING WELL. NO RESPIRATORY DISTRESS, SOB, OR DISCOMFORT. PATIENT POSITIONED FOR COMFORT. BED IN LOWEST POSITION, SIDE RAILS UP, HOB ELEVATED TO 30 DEGREES. WILL CONTINUE TO MONITOR.
[2016-10-15] VITALS (13 sets, daily range): BP systolic 112–130; BP diastolic 69–93
[2016-10-15] MEDS: methylPREDNISolone SS 125 MG/2 ML VIAL IVP SCH ×4 (00:15→17:01)
[2016-10-15] MEDS: IPRATROPIUM 0.02% 0.5 MG/2.5 ML NEBU INH SCH ×4 (01:09→20:00)
[2016-10-15] MEDS: ALBUTEROL 0.083% 2.5 MG/3 ML NEBU INH PRN ×3 (01:09→12:54)
--- NOTE | 2016-10-15 01:10 | NUR ---
PATIENT REQUESTING SNACKS, PROVIDED TO PATIENT. PATIENT EATING IN BED, OXIMIZER IN PLACE. PATIENT TOLERATING WELL; O2 SAT 95%. BED IN LOWEST POSITION, SIDE RAILS UP. PATIENT POSITIONED FOR COMFORT, HOB ELEVATED TO 30 DEGREES, WILL CONTINUE TO MONITOR.
--- NOTE | 2016-10-15 03:09 | NUR ---
PATIENT ASLEEP. NO RESPIRATORY DISTRESS, SOB, OR DISCOMFORT. BED IN LOWEST POSITION, SIDE RAILS UP, HOB BED AT 30 DEGREES. WILL CONTINUE TO MONITOR.
[2016-10-15] MEDS: MORPHINE SULFATE 2 MG/ML SYR IVP PRN ×5 (03:38→20:57)
[2016-10-15] MEDS: LEVOFLOXACIN 250 MG/D5 PREMIX 50 ML IV SCH (05:17)
--- NOTE | 2016-10-15 05:17 | NUR ---
PATIENT REQUESTED TO REMOVE BIPAP AND BE PLACED ON OXIMIZER. PATIENT ON 8L OXIMIZER, TOLERATING WELL. O2 SAT: 94%. NO RESPIRATORY DISTRESS, SOB, OR DISCOMFORT. PATIENT RESTING IN BED, WATCHING TELEVISION. BED IN LOWEST POSITION, POSITION FOR COMFORT, HOB 30 DEGREES, SIDE RAILS UP. WILL CONTINUE TO MONITOR.
--- NOTE | 2016-10-15 05:25 | NUR ---
PT TAKEN OFF BIPAP TO GIVE PT A BREAK. PT PLACED ON OXYMIZER AT 6L BUT SATS WERE 85% SO INCREASED FIO2 TO 8L. SATS 93%. WILL TITRATE
[2016-10-15] MEDS: glipiZIDE 5 MG TAB PO SCH ×2 (06:44→16:41)
[2016-10-15] MEDS: INSULIN LISPRO SLIDING SCALE 100 UNITS/ML VIAL SUBQ PRN ×4 (06:46→20:29)
[2016-10-15] MEDS: BUDESONIDE 0.5 MG/2 ML NEBU INH SCH ×2 (06:47→20:00)
[2016-10-15] MEDS: SODIUM CHLORIDE FLUSH 10 ML SYR IVF SCH ×2 (06:47→20:23)
[2016-10-15] MEDS: BLOOD GLUCOSE MONITORING 1 DEV DEV FS SCH ×4 (06:47→20:20)
--- NOTE | 2016-10-15 07:05 | NUR ---
REPORT GIVEN TO DAY NURSE, ANSON RN, FOR CONTINUITY OF CARE. PATIENT RESTING IN BED, WATCHING TELEVISION. NO RESPIRATORY DISTRESS, SOB, OR DISCOMFORT. ALL NEEDS ATTENDED TO DURING SHIFT, PATIENT POSITIONED FOR COMFORT. BED IN LOWEST POSITION, SIDE RAILS UP, HOB ELEVATED TO 30 DEGREES.
--- NOTE | 2016-10-15 07:30 | NUR ---
RECEIVED REPORT FROM BAN DOMINGUEZ. NO S/S OF ANY ACUTE DISTRESS NOTED, PT ON OXYMIZER 8L O2 ONGOING, LUNG SOUNDS ARE DIMINISHED TO LOWER LOBES, SR ON THE MONITOR, BOWEL SOUNDS ARE PRESENT TO ALL QUADRANTS, BLADDER NON DISTENDED, AND VARGAS CATHETER INTACT AND DRAINING YELLOW CLEAR URINE. ABLE TO MOVE ALL EXTREMITIES, SWELLING TO LOWER EXTREMITIES IS GOING DOWN, SKIN INTACT WITH MULTIPLE BRUISES, DENIES PAIN AT THIS MOMENT. WILL CONTINUE TO MONITOR.
[2016-10-15] MEDS: FUROSEMIDE 100 MG/10 ML VIAL IV SCH ×2 (08:21→20:23)
--- NOTE | 2016-10-15 08:21 | NUR ---
PATIENT HAS BEEN SCREENED AND CATEGORIZED MODERATE NUTRITION RISK. PATIENT WILL BE SEEN WITHIN 3-5 DAYS OF ADMISSION. 10/16/16-10/18/[address]
[2016-10-15] MEDS: ECOTRIN 81 MG TABEC PO SCH (08:22)
[2016-10-15] MEDS: FOLIC ACID 1 MG TAB PO SCH (08:22)
[2016-10-15] MEDS: AMIODARONE 200 MG TAB PO SCH (08:22)
[2016-10-15] MEDS: hydrALAZINE 25 MG TAB PO SCH ×2 (08:22→20:23)
[2016-10-15] MEDS: CARVEDILOL 12.5 MG TAB PO SCH (08:23)
[2016-10-15] MEDS: ATORVASTATIN 20 MG TAB PO SCH (08:23)
[2016-10-15] MEDS: CHOLECALCIFEROL 1,000 IU TAB PO SCH (08:24)
[2016-10-15] MEDS: amLODIPine 5 MG TAB PO SCH (08:24)
[2016-10-15] MEDS: METOLAZONE 5 MG TAB PO SCH (08:24)
[2016-10-15] MEDS: ENOXAPARIN 40 MG/0.4 ML SYR SUBQ SCH (08:25)
[2016-10-15] MEDS: FERROUS SULFATE 325 MG TABEC PO SCH ×3 (08:26→16:42)
[2016-10-15] MEDS: PHENYTOIN 100 MG CAPER PO SCH ×3 (08:26→16:42)
[2016-10-15] MEDS ORDERED: NON-FORMULARY ITEM (Cholecalciferol (Vitamin D3) (Vitamin D3) 1,000 IU) PO SCH (09:00)
--- NOTE | 2016-10-15 09:44 | NUR ---
DAUGHTER JENNIFER IS AT BED SIDE
--- NOTE | 2016-10-15 11:06 | NUR ---
DECREASE OXYMIZER TO 6L SPO2 95
--- NOTE | 2016-10-15 11:43 | NUR ---
PT ASLEEP, NO S/S OF ANY DISTRESS, WILL CONTINUE TO MONITOR.
--- NOTE | 2016-10-15 13:38 | NUR ---
PT REPOSITIONED, ORAL CARE GIVEN, NO S/S OF ACUTE DISTRESS NOTED.
--- NOTE | 2016-10-15 15:24 | NUR ---
DECREASE OXYMIZER TO 5 L SPO2 96
--- NOTE | 2016-10-15 16:42 | NUR ---
FAXED INITIAL REVIEW TO [facility] [phone] PHONE DIANNE [phone]
--- NOTE | 2016-10-15 17:35 | NUR ---
DR. CORADO AT BEDSIDE, UPDATED DRSukumar WITH PTS LATEST STATUS AND LABS
[2016-10-15] MEDS ORDERED: MAGNESIUM OXIDE 400 MG TAB PO SCH (17:45)
[2016-10-15] MEDS ORDERED: methylPREDNISolone SS 125 MG/2 ML VIAL IVP SCH (18:00)
--- NOTE | 2016-10-15 18:43 | NUR ---
VARGAS CATHETER DISCONTINUED, NO S/S OF ANY DISTRESS NOTED CATHETER INTACT
--- NOTE | 2016-10-15 19:28 | NUR ---
RECEIVED TRANSFERRING PATIENT TO TELE UNIT FROM ICU AND REPORT FROM BAN GRIGGS, AT BEDSIDE. INITIAL ASSESSMENT AND BODY CHECK DONE. PATIENT AAO X 4, ABLE TO FOLLOW COMMAND AND MAKE NEEDS KNOWN AND AMBULATORY WITH BOILER HOUSE SUPERVISOR. NO S/S OF DISTRESS OR SOB NOTED UPON TRANSFERRING. SKIN WARM/ DRY TO TOUCH WITH NORMAL COLOR AND INTACT. NOTED SOME BRUISES TO BUE AND +2 EDEMA TO BLE. INSTRUCTED PATIENT TO ROOM/UNIT. ALSO, DISCUSSED PLAN OF CARE, PAIN MANAGEMENT AND MEDICATION REGIMEN WITH PATIENT AND PATIENT VERBALIZED UNDERSTANDING. PLACED PATIENT ON SAFETY/FALL/SEIZURE PRECAUTIONS AND WILL CONTINUE TO MONITOR. CALL LIGHT LEFT WITHIN REACH.
--- NOTE | 2016-10-15 19:30 | NUR ---
PT SAFELY TRANSFERRED TO [facility] FLOOR, BAN MC AT BEDSIDE, GIVEN REPORT AT BEDSIDE.
--- NOTE | 2016-10-15 21:40 | NUR ---
ADMINISTERED DUE AND PAIN MEDICATIONS MD'S ORDERED WITH EDUCATION GIVEN. PATIENT COMPLYING WITH MEDICATIONS AND TOLERATED WELL. PATIENT ALREADY URINATE AFTER D/C VARGAS CATHETER. ALL NEEDS ARE ATTENDED. KEPT PATIENT IN COMFORTABLE POSITION/WARM AND WILL CONTINUE TO MONITOR.
[2016-10-16] VITALS: BP 123/76
[2016-10-16] MEDS: methylPREDNISolone SS 40 MG/ML VIAL IVP SCH ×3 (00:03→12:08)
--- NOTE | 2016-10-16 00:44 | NUR ---
PATIENT RESTED WELL AND REMAINED IN STABLE CONDITION. NO APPARENT DISTRESS NOTED. WILL CONTINUE TO MONITOR.
[2016-10-16] MEDS: IPRATROPIUM 0.02% 0.5 MG/2.5 ML NEBU INH SCH ×2 (00:53→07:14)
[2016-10-16 04:00] VITALS: BP 119/78
[2016-10-16] MEDS: MORPHINE SULFATE 2 MG/ML SYR IVP PRN ×2 (04:15→09:05)
--- NOTE | 2016-10-16 04:20 | NUR ---
PATIENT IS CLINICALLY STABLE WITH UNCHANGED V/S. ADMINISTERED PAIN MEDICATION FOR C/O GENERALIZED PAIN, 03/21. WILL CONTINUE TO MONITOR FOR EFFECTIVENESS.
[2016-10-16] MEDS: LEVOFLOXACIN 250 MG/D5 PREMIX 50 ML IV SCH (05:20)
[2016-10-16] MEDS: BLOOD GLUCOSE MONITORING 1 DEV DEV FS SCH ×2 (05:28→11:30)
[2016-10-16] MEDS: INSULIN LISPRO SLIDING SCALE 100 UNITS/ML VIAL SUBQ PRN (05:30)
[2016-10-16] MEDS: glipiZIDE 5 MG TAB PO SCH (06:44)
[2016-10-16] MEDS: SODIUM CHLORIDE FLUSH 10 ML SYR IVF SCH (06:44)
--- NOTE | 2016-10-16 07:10 | NUR ---
ENDORSED PLAN OF CARE TO [facility], AT BEDSIDE. PATIENT REMAINED IN STABLE CONDITION WITHOUT S/S OF DISTRESS NOTED.
--- NOTE | 2016-10-16 07:10 | NUR ---
RECEIVED FROM [facility] SHIFT.PT IS AT THE COMMODE WITH [facility]ER INPLACE. NO REPORT OF PAIN AND CP WILL CONTINUE TO MONITOR. CALL LIGHT WITHIN REACH
[2016-10-16] MEDS: BUDESONIDE 0.5 MG/2 ML NEBU INH SCH (07:23)
--- NOTE | 2016-10-16 08:19 | NUR ---
PAGED DR YOUNGBLOOD. PER DR HLAL (AT THE STATION) PT IS BEING TAKEN CARE OF BY DR YOUNGBLOOD
[2016-10-16] MEDS ORDERED: POTASSIUM CHLORIDE 10 MEQ TABER PO SCH ×2 (09:00→11:00)
[2016-10-16] MEDS ORDERED: MAGNESIUM OXIDE 400 MG TAB PO SCH (09:00)
[2016-10-16] MEDS: FUROSEMIDE 100 MG/10 ML VIAL IV SCH (09:09)
[2016-10-16] MEDS: hydrALAZINE 25 MG TAB PO SCH (09:09)
[2016-10-16] MEDS: ATORVASTATIN 20 MG TAB PO SCH (09:11)
[2016-10-16] MEDS: AMIODARONE 200 MG TAB PO SCH (09:12)
[2016-10-16] MEDS: CHOLECALCIFEROL 1,000 IU TAB PO SCH (09:12)
[2016-10-16] MEDS: METOLAZONE 5 MG TAB PO SCH (09:12)
[2016-10-16] MEDS: FOLIC ACID 1 MG TAB PO SCH (09:13)
[2016-10-16] MEDS: FERROUS SULFATE 325 MG TABEC PO SCH ×2 (09:13→12:07)
[2016-10-16] MEDS: ECOTRIN 81 MG TABEC PO SCH (09:13)
[2016-10-16] MEDS: CARVEDILOL 12.5 MG TAB PO SCH (09:15)
[2016-10-16] MEDS: amLODIPine 5 MG TAB PO SCH (09:15)
[2016-10-16] MEDS: ENOXAPARIN 40 MG/0.4 ML SYR SUBQ SCH (09:20)
[2016-10-16] MEDS: PHENYTOIN 100 MG CAPER PO SCH ×2 (09:28→12:07)
[2016-10-16 10:53] VITALS: BP 123/85
--- NOTE | 2016-10-16 12:12 | NUR ---
PT IS PENDING FOR DISCHARGE. PER DR CORADO. CM IS WORKKING ON OXYGEN AT HOME TO TRNASFER THE APTIENT. PT REFUSED BS CHECK "I AM GOING HOME ALREADY".
[2016-10-16 12:42] VITALS: BP 131/77
--- NOTE | 2016-10-16 12:54 | NUR ---
PATIENT IS ADAMANTLY WANTED TO GO HOME NOW. DISCHRAGE ORDER IN PLACE. CALLED SONJA HERNANDEZ TO NOTIFY AND FOLLOW UP RE: NEED FOR OXYGEN AT HOME. " PER CM, IF THE PATIENT WANTS TO GO HOME WITHOUT THE OXYGEN, SHE CAN GO HOME. WE CANNOT HOLD HER HERE." EXPLAINED TO THE PATIENT. PATIENT INSISTED OF GOING HOME NOW.
--- NOTE | 2016-10-16 13:00 | NUR ---
REMOVED IV,INTACT. NO SX OF INFILTRATION. PERSONAL BELONGING GIVEN TO THE PATIENT.PRESCRIPTION ENDORSED TO PATIENT AND DAUGHTER. PT SIGNED DISCHARGE INSTRUCTION,, PLACED IN THE CHART
--- NOTE | 2016-10-16 13:08 | NUR ---
FAXED CONCURRENT REVIEW TO [facility] [phone] PHONE DIANNE [phone] DIANNE SAID SHE WOULD CONTACT CHARTER FOR FOLLOW UP. DEVENDRA HERE FROM [employer] WITH PORTABLE O2 TANK.
--- NOTE | 2016-10-16 13:22 | NUR ---
WHEELED PATIENT OUT. [employer] CAME AND SEND HER WITH 2 PORTABLE ETANK. PT WAS SENT HOME WITH OXYMIZER AT 5 LPM. PT LEFT HOSPITAL IN SAFE AND STABLE CONDITIN
[2016-11-16] MEDS ORDERED: LEVAQUIN750 MG PO (12:32)
== END 2016-10-16 13:22 | disposition home or self-care (01) | DRG 194 ==
LOC: MED 05:53 → MIC 06:57 → MTU 10-15 19:09
PROVIDERS: ADMIT Hospitalist; ATTEND Hospitalist
PROC: 5A09357 Assistance with Respiratory Ventilation, Less than 24 Consecutive Hours, Continuous Positive Airway Pressure (ICD-10-PCS; principal; 2016-10-14)
DX: I13.0 Hypertensive heart and chronic kidney disease with heart failure and stage 1 through stage 4 chronic kidney disease, or unspecified chronic kidney disease (principal); J96.00 Acute respiratory failure, unspecified whether with hypoxia or hypercapnia; I42.9 Cardiomyopathy, unspecified; N18.3 Chronic kidney disease, stage 3 (moderate); J18.9 Pneumonia, unspecified organism; I50.23 Acute on chronic systolic (congestive) heart failure; J44.1 Chronic obstructive pulmonary disease with (acute) exacerbation; K21.9 Gastro-esophageal reflux disease without esophagitis; E11.9 Type 2 diabetes mellitus without complications; G40.909 Epilepsy, unspecified, not intractable, without status epilepticus; E78.5 Hyperlipidemia, unspecified; F17.210 Nicotine dependence, cigarettes, uncomplicated; Z88.0 Allergy status to penicillin; Z91.19 Patient's noncompliance with other medical treatment and regimen

== ENCOUNTER 2016-11-13 15:50 | Inpatient (IN) | payer OTHER ==
[~2016-11-13] VITALS: Ht 165.1 cm; Wt 77.6 kg
[~2016-11-13 15:50] MED LIST changes: -ALDACTONE50 MG PO; +AMIO200T PO; -APRESOLINE10 MG PO; +ASPI-1081 PO; -ASPIRIN81 M1 PO; +ATOR40TA PO; +ATRMDI IH; -ATROVENT HFA12.5 GM IH; -AZITHROMYCIN500 MG PO; -BIAXIN500 MG PO; -CALCIUM 600600 MG PO; -CARDIZEM120 M2 PO; +CARV12.5 PO; -COLACE100 M1 PO; -CORDARONE200 MG PO; -COREG12.5 MG PO; -COREG25 MG PO; -COUMADIN5 MG PO; -DESYREL50 MG PO; -DIGOXIN0.125 M1 PO; -DILANTIN100 MG PO; -ELIQUIS2.5 MG PO; +FERR325E14 PO; -FERROUS SULFAT325 MG PO; -FOLATE1 MG PO; +FOLI1TAB19 PO; +FURO-570 PO; +GLIP5TAB4 PO; -GLUCOPHAGE1000 MG PO; -GLUCOTROL5 MG PO; +HYDR-3229 PO; -HYDROCODONE APA PO; -LASIX40 M1 PO; -LASIX40 MG PO; -LEVAQUIN250 MG PO; -LEVAQUIN500 MG PO; -LEVAQUIN750 MG PO; +LEVO750T2 PO; -LIPITOR40 MG PO; -LOPRESSOR25 MG PO; -LOVENOX40 MG/0.1 SUBQ; -MEDROL4 MG PO; -METOLAZONE2.5 M1 PO; -METOLAZONE5 M1 PO; -MOTRIN800 MG PO; -NEURONTIN300 MG PO; -NORCO 325 MG-7.1 TAB PO; -OMEPRAZOLE20 M3 PO; +PHEN100C3 PO; -PLAVIX75 MG PO; -PREDNISONE20 M1 PO; -PREDNISONE20 MG PO; -PRILOSEC40 MG PO; +PRON INH; -PROTONIX40 MG PO; -PROVENTIL2.5 MG/3 M INH; -SLOW-K8 ME1 PO; -TAZTIA XT120 MG PO; -TOPCARE ASPIRIN81 MG PO; -TYLENOL #3 300/1 TAB PO; -VENTOLIN H0.09 MG/Ac IH; +VITA20002 PO; -VITAMIN D32000 IU PO; -XARELTO15 MG PO; -ZESTRIL10 MG PO; -ZESTRIL20 MG PO; -ZITHROMAX250 MG PO; -ZITHROMAX500 M1 IV; -ZITHROMAX500 M1 PO; -ZYRTEC10 MG PO
[2016-11-13 15:53] VITALS: BP 149/100
[2016-11-13] MEDS ORDERED: methylPREDNISolone SS 125 MG/2 ML VIAL IVP ONE (16:15)
[2016-11-13] MEDS ORDERED: ALBUTEROL SULFATE/IPRATROPIU 3 ML SOL IH ONE (16:15)
[2016-11-13 16:22] VITALS: BP 156/107
[2016-11-13 17:23] LABS: BASOPHILS # (AUTO) 0.1 K/uL (0.00-0.22); BASOPHILS % (AUTO) 0.9 % (0.0-2.0); EOSINOPHILS # (AUTO) 0.2 K/uL (0-0.4); EOSINOPHILS % (AUTO) 2.1 % (0.0-4.0); HEMATOCRIT 30.5 % (36-48); HEMOGLOBIN 9.8 g/dL (12.0-16.0); LYMPHOCYTES # (AUTO) 0.8 K/uL (2.5-16.5); LYMPHOCYTES % (AUTO) 11.8 % (20.5-51.1); MEAN CORPUSCULAR HEMOGLOBIN 30 pg (27-31); MEAN CORPUSCULAR HGB CONC 32 g/dL (33-37); MEAN CORPUSCULAR VOLUME 94 fL (80-94); MONOCYTES # (AUTO) 0.4 K/uL (0.8-1.0); MONOCYTES % (AUTO) 5.3 % (1.7-9.3); NEUTROPHILS # (AUTO) 5.7 K/uL (1.8-7.7); NEUTROPHILS % (AUTO) 79.9 % (42.2-75.2); PLATELET COUNT (AUTO) 233 K/uL (140-450); RED BLOOD CELL COUNT(AUTO) 3.27 MIL/uL (4.20-5.40); RED CELL DISTRIBUTION WIDTH 15.8 % (11.6-13.7); WHITE BLOOD COUNT (AUTO) 7.2 K/uL (4.8-10.8)
[2016-11-13] MEDS ORDERED: LEVOFLOXACIN 750 MG/D5W PREMIX 150 ML IV ONE (17:30)
[2016-11-13 17:37] LABS: ANION GAP 15.5 (8-16); CALCIUM 8.5 mg/dL (8.5-10.1); CARBON DIOXIDE 22.4 mmol/L (21-32); CREATININE 1.3 mg/dL (0.6-1.3); POTASSIUM 3.9 mmol/L (3.5-5.1)
[2016-11-13 17:40] LABS: INR 1.2 (0.8-1.2); PARTIAL THROMBOPLASTIN TIME 25.1 secs (22-35.6); PROTHROMBIN TIME 11.8 secs (10.8-13.4)
[2016-11-13] MEDS ORDERED: HYDROmorphone 1 MG/ML AMP IVP ONE (17:40)
[2016-11-13 17:42] LABS: TOTAL BILIRUBIN 0.4 mg/dL (0.0-1.0)
[2016-11-13] MEDS ORDERED: ACETAMINOPHEN 325 MG TAB PO PRN (18:30)
[2016-11-13] MEDS ORDERED: ONDANSETRON 4 MG/2 ML VIAL IVP PRN (18:30)
[2016-11-13] MEDS ORDERED: INSULIN LISPRO SLIDING SCALE 100 UNITS/ML VIAL SUBQ PRN (18:35)
[2016-11-13] MEDS: ALBUTEROL 0.083% 2.5 MG/3 ML NEBU IH SCH ×2 (19:00→20:35)
[2016-11-13] MEDS: IPRATROPIUM 0.02% 0.5 MG/2.5 ML NEBU IH SCH ×2 (19:00→20:34)
[2016-11-13] MEDS ORDERED: MORPHINE SULFATE 4 MG/ML SYR IVP ONE (19:05)
[2016-11-13 20:00] VITALS: BP 134/83
[2016-11-13] MEDS: BLOOD GLUCOSE MONITORING 1 DEV DEV FS SCH (20:58)
[2016-11-13] MEDS: hydrALAZINE 10 MG TAB PO SCH (21:11)
[2016-11-13] MEDS: FUROSEMIDE 40 MG/4 ML VIAL IVP SCH (21:11)
[2016-11-13] MEDS: CARVEDILOL 12.5 MG TAB PO SCH (21:11)
[2016-11-13] MEDS: MORPHINE SULFATE 2 MG/ML SYR IVP PRN (23:34)
[2016-11-14] VITALS: BP 119/77
[2016-11-14] MEDS: IPRATROPIUM 0.02% 0.5 MG/2.5 ML NEBU IH SCH ×4 (01:25→19:53)
[2016-11-14] MEDS: ALBUTEROL 0.083% 2.5 MG/3 ML NEBU IH SCH ×4 (01:25→19:53)
[2016-11-14 04:00] VITALS: BP 123/82
[2016-11-14] MEDS: FUROSEMIDE 40 MG/4 ML VIAL IVP SCH ×3 (04:32→20:27)
[2016-11-14] MEDS: MORPHINE SULFATE 2 MG/ML SYR IVP PRN ×4 (04:47→21:16)
[2016-11-14] MEDS: BLOOD GLUCOSE MONITORING 1 DEV DEV FS SCH ×4 (05:42→20:38)
[2016-11-14 06:20] LABS: BASOPHILS % (AUTO) 0.1 % (0.0-2.0); EOSINOPHILS % (AUTO) 0.9 % (0.0-4.0); HEMATOCRIT 29.4 % (36-48); HEMOGLOBIN 9.5 g/dL (12.0-16.0); LYMPHOCYTES # (AUTO) 0.4 K/uL (2.5-16.5); MEAN CORPUSCULAR HEMOGLOBIN 30 pg (27-31); MEAN CORPUSCULAR HGB CONC 32 g/dL (33-37); MEAN CORPUSCULAR VOLUME 94 fL (80-94); MONOCYTES # (AUTO) 0.2 K/uL (0.8-1.0); MONOCYTES % (AUTO) 4.5 % (1.7-9.3); NEUTROPHILS # (AUTO) 4.4 K/uL (1.8-7.7); NEUTROPHILS % (AUTO) 85.5 % (42.2-75.2); PLATELET COUNT (AUTO) 211 K/uL (140-450); RED BLOOD CELL COUNT(AUTO) 3.12 MIL/uL (4.20-5.40)
[2016-11-14] MEDS: glipiZIDE 5 MG TAB PO SCH ×2 (06:35→16:28)
[2016-11-14 06:51] LABS: ALBUMIN 2.9 g/dL (3.4-5.0); CALCIUM 8.1 mg/dL (8.5-10.1); CARBON DIOXIDE 23.1 mmol/L (21-32); CREATININE 1.4 mg/dL (0.6-1.3); POTASSIUM 4.1 mmol/L (3.5-5.1); TOTAL BILIRUBIN 0.3 mg/dL (0.0-1.0); TOTAL PROTEIN, SERUM 6.9 g/dL (6.4-8.2)
[2016-11-14 08:00] VITALS: BP 131/86
[2016-11-14] MEDS: CARVEDILOL 12.5 MG TAB PO SCH ×2 (08:57→20:27)
[2016-11-14] MEDS: CHOLECALCIFEROL 1,000 IU TAB PO SCH (08:57)
[2016-11-14] MEDS: FOLIC ACID 1 MG TAB PO SCH (08:57)
[2016-11-14] MEDS: PHENYTOIN 100 MG CAPER PO SCH ×3 (08:57→16:27)
[2016-11-14] MEDS: FERROUS SULFATE 325 MG TABEC PO SCH ×3 (08:57→16:27)
[2016-11-14] MEDS: ECOTRIN 81 MG TABEC PO SCH (08:57)
[2016-11-14] MEDS: AMIODARONE 200 MG TAB PO SCH (08:57)
[2016-11-14] MEDS: ATORVASTATIN 20 MG TAB PO SCH (08:58)
[2016-11-14] MEDS: hydrALAZINE 10 MG TAB PO SCH ×2 (08:58→20:26)
[2016-11-14 12:00] VITALS: BP 121/80
[2016-11-14 16:00] VITALS: BP 116/77
[2016-11-14 20:00] VITALS: BP 124/83
[2016-11-14] MEDS: LEVOFLOXACIN 500 MG/D5W PREMIX 100 ML IV SCH (20:27)
[2016-11-15] VITALS: BP 117/88
[2016-11-15] MEDS: IPRATROPIUM 0.02% 0.5 MG/2.5 ML NEBU IH SCH ×4 (00:10→19:10)
[2016-11-15] MEDS: ALBUTEROL 0.083% 2.5 MG/3 ML NEBU IH SCH ×4 (00:10→19:10)
[2016-11-15] MEDS: MORPHINE SULFATE 2 MG/ML SYR IVP PRN ×6 (02:03→22:06)
[2016-11-15 04:00] VITALS: BP 119/77
[2016-11-15] MEDS: FUROSEMIDE 40 MG/4 ML VIAL IVP SCH ×3 (04:48→21:20)
[2016-11-15] MEDS: BLOOD GLUCOSE MONITORING 1 DEV DEV FS SCH ×4 (06:10→21:20)
[2016-11-15 07:25] LABS: BASOPHILS % (AUTO) 0.3 % (0.0-2.0); EOSINOPHILS # (AUTO) 0.2 K/uL (0-0.4); EOSINOPHILS % (AUTO) 2.4 % (0.0-4.0); HEMATOCRIT 31.3 % (36-48); HEMOGLOBIN 9.8 g/dL (12.0-16.0); LYMPHOCYTES # (AUTO) 1.1 K/uL (2.5-16.5); LYMPHOCYTES % (AUTO) 15.7 % (20.5-51.1); MEAN CORPUSCULAR HEMOGLOBIN 30 pg (27-31); MEAN CORPUSCULAR HGB CONC 31 g/dL (33-37); MEAN CORPUSCULAR VOLUME 95 fL (80-94); MONOCYTES # (AUTO) 0.6 K/uL (0.8-1.0); MONOCYTES % (AUTO) 8.4 % (1.7-9.3); NEUTROPHILS % (AUTO) 73.2 % (42.2-75.2); PLATELET COUNT (AUTO) 228 K/uL (140-450); RED BLOOD CELL COUNT(AUTO) 3.28 MIL/uL (4.20-5.40); RED CELL DISTRIBUTION WIDTH 16.3 % (11.6-13.7); WHITE BLOOD COUNT (AUTO) 6.9 K/uL (4.8-10.8)
[2016-11-15 07:30] LABS: ANION GAP 14.6 (8-16); CALCIUM 8.4 mg/dL (8.5-10.1); CARBON DIOXIDE 24.1 mmol/L (21-32); CREATININE 1.5 mg/dL (0.6-1.3); POTASSIUM 3.7 mmol/L (3.5-5.1)
[2016-11-15] MEDS: glipiZIDE 5 MG TAB PO SCH ×2 (07:30→17:12)
[2016-11-15 08:00] VITALS: BP 113/75
[2016-11-15] MEDS: hydrALAZINE 10 MG TAB PO SCH ×2 (08:46→21:21)
[2016-11-15] MEDS: CHOLECALCIFEROL 1,000 IU TAB PO SCH (08:46)
[2016-11-15] MEDS: AMIODARONE 200 MG TAB PO SCH (08:46)
[2016-11-15] MEDS: ATORVASTATIN 20 MG TAB PO SCH (08:46)
[2016-11-15] MEDS: FOLIC ACID 1 MG TAB PO SCH (08:46)
[2016-11-15] MEDS: ECOTRIN 81 MG TABEC PO SCH (08:46)
[2016-11-15] MEDS: FERROUS SULFATE 325 MG TABEC PO SCH ×3 (08:47→17:12)
[2016-11-15] MEDS: CARVEDILOL 12.5 MG TAB PO SCH ×2 (08:47→21:21)
[2016-11-15] MEDS: PHENYTOIN 100 MG CAPER PO SCH ×3 (08:47→17:12)
[2016-11-15 12:00] VITALS: BP 112/69
[2016-11-15 16:00] VITALS: BP 132/81
[2016-11-15 20:00] VITALS: BP 118/71
[2016-11-15] MEDS: LEVOFLOXACIN 500 MG/D5W PREMIX 100 ML IV SCH (21:19)
[2016-11-16] VITALS: BP 101/69
[2016-11-16] MEDS: IPRATROPIUM 0.02% 0.5 MG/2.5 ML NEBU IH SCH ×3 (01:06→13:50)
[2016-11-16] MEDS: ALBUTEROL 0.083% 2.5 MG/3 ML NEBU IH SCH ×3 (01:07→13:50)
[2016-11-16] MEDS: MORPHINE SULFATE 2 MG/ML SYR IVP PRN ×3 (02:20→11:34)
[2016-11-16 04:00] VITALS: BP 117/73
[2016-11-16] MEDS: FUROSEMIDE 40 MG/4 ML VIAL IVP SCH ×2 (05:15→13:00)
[2016-11-16] MEDS: BLOOD GLUCOSE MONITORING 1 DEV DEV FS SCH ×2 (06:22→12:01)
[2016-11-16] MEDS: glipiZIDE 5 MG TAB PO SCH (06:28)
[2016-11-16 08:00] VITALS: BP 121/76
[2016-11-16] MEDS: ECOTRIN 81 MG TABEC PO SCH (09:38)
[2016-11-16] MEDS: hydrALAZINE 10 MG TAB PO SCH (09:39)
[2016-11-16] MEDS: PHENYTOIN 100 MG CAPER PO SCH ×2 (09:39→13:08)
[2016-11-16] MEDS: AMIODARONE 200 MG TAB PO SCH (09:39)
[2016-11-16] MEDS: FERROUS SULFATE 325 MG TABEC PO SCH ×2 (09:39→13:08)
[2016-11-16] MEDS: ATORVASTATIN 20 MG TAB PO SCH (09:39)
[2016-11-16] MEDS: CARVEDILOL 12.5 MG TAB PO SCH (09:39)
[2016-11-16] MEDS: FOLIC ACID 1 MG TAB PO SCH (09:40)
[2016-11-16] MEDS: CHOLECALCIFEROL 1,000 IU TAB PO SCH (09:40)
[2016-11-16 11:06] LABS: BASOPHILS % (AUTO) 0.4 % (0.0-2.0); EOSINOPHILS # (AUTO) 0.1 K/uL (0-0.4); EOSINOPHILS % (AUTO) 2.4 % (0.0-4.0); HEMATOCRIT 34.6 % (36-48); HEMOGLOBIN 11.1 g/dL (12.0-16.0); LYMPHOCYTES # (AUTO) 0.9 K/uL (2.5-16.5); LYMPHOCYTES % (AUTO) 16.7 % (20.5-51.1); MEAN CORPUSCULAR HEMOGLOBIN 30 pg (27-31); MEAN CORPUSCULAR HGB CONC 32 g/dL (33-37); MEAN CORPUSCULAR VOLUME 95 fL (80-94); MONOCYTES # (AUTO) 0.7 K/uL (0.8-1.0); MONOCYTES % (AUTO) 11.9 % (1.7-9.3); NEUTROPHILS % (AUTO) 68.6 % (42.2-75.2); PLATELET COUNT (AUTO) 244 K/uL (140-450); RED BLOOD CELL COUNT(AUTO) 3.65 MIL/uL (4.20-5.40); RED CELL DISTRIBUTION WIDTH 16.1 % (11.6-13.7); WHITE BLOOD COUNT (AUTO) 5.7 K/uL (4.8-10.8)
[2016-11-16 12:00] VITALS: BP 104/70
[2016-11-16 12:21] LABS: CALCIUM 8.5 mg/dL (8.5-10.1); CARBON DIOXIDE 31.2 mmol/L (21-32); CREATININE 1.2 mg/dL (0.6-1.3); POTASSIUM 3.2 mmol/L (3.5-5.1)
[2016-11-16] MEDS ORDERED: LEVO750T2 PO (12:32)
== END 2016-11-16 14:45 | disposition home or self-care (01) | DRG 133 ==
LOC: MED 15:50 → MTU 18:34
PROVIDERS: ADMIT Hospitalist; ATTEND Hospitalist
PROC: 5A09357 Assistance with Respiratory Ventilation, Less than 24 Consecutive Hours, Continuous Positive Airway Pressure (ICD-10-PCS; principal; 2016-11-13)
DX: J96.21 Acute and chronic respiratory failure with hypoxia (principal); J18.9 Pneumonia, unspecified organism; I13.0 Hypertensive heart and chronic kidney disease with heart failure and stage 1 through stage 4 chronic kidney disease, or unspecified chronic kidney disease; J44.0 Chronic obstructive pulmonary disease with (acute) lower respiratory infection; E11.22 Type 2 diabetes mellitus with diabetic chronic kidney disease; I50.9 Heart failure, unspecified; I25.10 Atherosclerotic heart disease of native coronary artery without angina pectoris; J44.1 Chronic obstructive pulmonary disease with (acute) exacerbation; D64.9 Anemia, unspecified; N18.3 Chronic kidney disease, stage 3 (moderate); G40.909 Epilepsy, unspecified, not intractable, without status epilepticus; K21.9 Gastro-esophageal reflux disease without esophagitis; I10 Essential (primary) hypertension; I48.0 Paroxysmal atrial fibrillation; E78.5 Hyperlipidemia, unspecified; Z88.0 Allergy status to penicillin; Z87.891 Personal history of nicotine dependence; Z95.810 Presence of automatic (implantable) cardiac defibrillator; Z79.01 Long term (current) use of anticoagulants; Z99.81 Dependence on supplemental oxygen; Z86.718 Personal history of other venous thrombosis and embolism
CPT/HCPCS: 36415; 71010; 80048; 80053; 82948; 83880; 84484; 85025; 85610; 85730; 87040; 87081; 93005; 94640; 96365; 96375; 99291; 99292; J1170; J1940; J1956; J2270; J2930; J7030; J7613; J7620; J7644; Q0092

== ENCOUNTER 2016-12-01 22:09 | Observation (INO) | payer OTHER ==
[~2016-12-01] VITALS: Ht 165.1 cm; Wt 78.0 kg
--- NOTE | 2016-12-01 01:10 | NUR ---
PATIENT IS CURRENTLY AWAKE ALERT ORIENTED RESTING IN BED ADMIT DX CHF EXACERBATION NO COMPLAINS OF PAIN OR CHEST PAIN UPON ADMISSION.CONNECTED TO OXYGEN AT 2LITERS VIA NASAL CANNULA. PATIENT'S FEET CHECKED BY BAN BLOCK UNABLE TO ASSESS PATIENT BACK AND STOMACH PATIENT REFUSES TO REMOVE HER PJ PANTS.TELEMONITOR PLACED ON THE PATIENT.IV SL TO RT HAND G#22.PLAN OF CARE DISCUSSED WITH THE PATIENT AND ALSO EDUCATED ON FALL AND SAFETY PRECAUTIONS AND CALL LIGHT AND ROOM AND VISITING HOURS.MRSA OF THE NARES WILL BE COLLECTED AND WILL BE SENT TO THE LAB. Addendum: 12/02/16 at 0319 by Vanessa Sanchez LVN WRONG DATE ENTRY.
[2016-12-01 22:13] VITALS: BP 113/74
[2016-12-01] MEDS ORDERED: NACL 0.9% 1,000 ML IV ONE ×2 (22:25)
[2016-12-01] MEDS ORDERED: ALBUTEROL SULFATE/IPRATROPIU 3 ML SOL IH ONE ×2 (22:25→22:33)
[2016-12-01] MEDS ORDERED: methylPREDNISolone SS 125 MG in WATER STERILE 2 ML IV ONE (22:25)
--- NOTE | 2016-12-01 22:31 | NUR ---
PT TAKEN TO BED 6
--- NOTE | 2016-12-01 22:33 | NUR ---
Respiratory Therapist at bedside for respiratory intervention
--- NOTE | 2016-12-01 22:35 | NUR ---
56 Y/O F W/C/O c/o cough and congestion, short of breath, CHEST TIGHTNESS, AND HEADACHES X2 DAYS AND runny nose for 3 months. PT O2 SAT 93% ER MD NOTIFIED, PT ON O2 3LT. ER MD MADE AWARE. med hx: chf/copd
[2016-12-01] MEDS ORDERED: NITROGLYCERIN 2% 1 GM PKT TP ONE (22:45)
[2016-12-01 23:05] LABS: BASOPHILS # (AUTO) 0.1 K/uL (0.00-0.22); BASOPHILS % (AUTO) 1.1 % (0.0-2.0); EOSINOPHILS # (AUTO) 0.1 K/uL (0-0.4); EOSINOPHILS % (AUTO) 1.2 % (0.0-4.0); HEMATOCRIT 34.3 % (36-48); HEMOGLOBIN 11.3 g/dL (12.0-16.0); LYMPHOCYTES % (AUTO) 16.6 % (20.5-51.1); MEAN CORPUSCULAR HEMOGLOBIN 31 pg (27-31); MEAN CORPUSCULAR HGB CONC 33 g/dL (33-37); MEAN CORPUSCULAR VOLUME 94 fL (80-94); MONOCYTES # (AUTO) 0.4 K/uL (0.8-1.0); MONOCYTES % (AUTO) 6.8 % (1.7-9.3); NEUTROPHILS # (AUTO) 4.7 K/uL (1.8-7.7); NEUTROPHILS % (AUTO) 74.3 % (42.2-75.2); PLATELET COUNT (AUTO) 245 K/uL (140-450); RED BLOOD CELL COUNT(AUTO) 3.66 MIL/uL (4.20-5.40); RED CELL DISTRIBUTION WIDTH 15.6 % (11.6-13.7); WHITE BLOOD COUNT (AUTO) 6.3 K/uL (4.8-10.8)
[2016-12-01 23:07] LABS: ANION GAP 15.9 (8-16); CARBON DIOXIDE 22.1 mmol/L (21-32); CREATININE 1.3 mg/dL (0.6-1.3)
[2016-12-01 23:12] LABS: ALBUMIN 3.3 g/dL (3.4-5.0); TOTAL BILIRUBIN 0.4 mg/dL (0.0-1.0); TOTAL PROTEIN, SERUM 7.4 g/dL (6.4-8.2)
[2016-12-01 23:13] LABS: INR 1.2 (0.8-1.2); PROTHROMBIN TIME 11.6 secs (10.8-13.4)
[2016-12-01 23:16] LABS: LACTIC ACID 0.7 mmol/L (0.4-2.0)
[2016-12-01] MEDS ORDERED: MORPHINE SULFATE 4 MG/ML SYR IVP ONE (23:20)
[2016-12-01] MEDS ORDERED: FUROSEMIDE 40 MG/4 ML VIAL IVP ONE (23:25)
--- NOTE | 2016-12-02 00:15 | NUR ---
N ADR NOTED FOR LASIX.
[2016-12-02] MEDS ORDERED: ONDANSETRON 4 MG/2 ML VIAL IVP PRN (00:30)
--- NOTE | 2016-12-02 00:44 | NUR ---
Patient will be admitted to care of . Admited to TELEMETRY. Will go to [id number]. Belongings list completed. Report to BAN VENTURA.
[2016-12-02 01:02] LABS: CREATINE KINASE MB 1.2 ng/mL (0-3.6)
--- NOTE | 2016-12-02 01:08 | NUR ---
PT TRASPORTED TO TELEMTRY ROOM 111B VIA GURNEY, BY RN AND EMT. NO S/S OF DISTRESS DURING TRASPORTED WERE NOTED.
--- NOTE | 2016-12-02 01:10 | NUR ---
PATIENT IS CURRENTLY AWAKE ALERT ORIENTED RESTING IN BED ADMIT DX CHF EXACERBATION NO COMPLAINS OF PAIN OR CHEST PAIN UPON ADMISSION.CONNECTED TO OXYGEN AT 2LITERS VIA NASAL CANNULA. PATIENT'S FEET CHECKED BY RN MCKAYLA UNABLE TO ASSESS PATIENT BACK AND STOMACH PATIENT REFUSES TO REMOVE HER PJ PANTS.TELEMONITOR PLACED ON THE PATIENT.IV SL TO RT HAND G#22.PLAN OF CARE DISCUSSED WITH THE PATIENT AND ALSO EDUCATED ON FALL AND SAFETY PRECAUTIONS AND CALL LIGHT AND ROOM AND VISITING HOURS.MRSA OF THE NARES WILL BE COLLECTED AND WILL BE SENT TO THE LAB.
[2016-12-02 01:22] VITALS: BP 144/95
--- NOTE | 2016-12-02 01:30 | NUR ---
PATIENT REQUESTING FOR A BEDSIDE COMMODE AND IT WAS PROVIDED FOR THE PATIENT. BELONGINGS LIST DONE AND I ALSO INCLUDED THAT PATIENT BROUGHT AND HAS HER OXYGEN TANK AND CARRIER WELL HER NASAL CANNULA.
--- NOTE | 2016-12-02 01:44 | NUR ---
Patient's Plan of Care was discussed and reviewed with REPOSSESSION AGENT: AUDREY CHOPRA
[2016-12-02] MEDS ORDERED: AMIODARONE 200 MG TAB PO SCH (02:15)
[2016-12-02] MEDS ORDERED: PHENYTOIN 100 MG/4 ML UDC PO SCH (02:15)
--- NOTE | 2016-12-02 02:19 | NUR ---
I ADMINISTERED PATIENT AMIODARONE TABLET AND WILL ALSO GIVE DILANTIN ORDERED.EDUCATION GIVEN TO THE PATIENT ON THIS MEDICATION AND SHE VERBALIZES UNDESTANDING AND HAS AGREED TO TAKE THEM.
--- NOTE | 2016-12-02 02:25 | NUR ---
PATIENT WAS ASKING WHEN IS HER NEXT BREATHING TREATMENT.I CALLED RESP THERAPIST ANTON AND I ASKED HER BECAUSE WHEN I CHECKED EMR ITS PINK FOR 0100 ANTON SAID SHE WILL COME AND SEE THE PATIENT.PATIENT AWARE.
[2016-12-02 02:34] LABS: APPEARANCE,URINE CLEAR (CLEAR); BILIRUBIN,URINE NEGATIVE (NEGATIVE); BLOOD, URINE NEGATIVE (NEGATIVE); COLOR,URINE YELLOW (YELLOW); LEUKOCYTE ESTERASE ,URINE NEGATIVE (NEGATIVE); NITRITE, URINE NEGATIVE (NEGATIVE); PH,URINE 5.5 (5.0-9.0); PROTEIN,URINE NEGATIVE (NEGATIVE); UGLUCOSE NEGATIVE (NEGATIVE); UROBILINOGEN,URINE 0.2 EU/dL (0.2 - 1)
[2016-12-02 02:44] LABS: BACTERIA,URINE OCCASSIONAL /HPF (None Seen); RBC,URINE 0-5 (RARE) /HPF (0-5); SQUAMOUS EPITHELIAL CELL,UR 0-3 (FEW) /LPF (0-3 (FEW)); WBC,URINE 0-5 (RARE) /HPF (0-5)
--- NOTE | 2016-12-02 03:11 | NUR ---
PATIENT IS CURRENTLY AWAKE WATCHING TV NO PAIN OR DISCOMFORT WILL CONTINUE TO MONITOR.CALL LIGHT WITHIN REACH.
[2016-12-02] MEDS: IPRATROPIUM 0.02% 0.5 MG/2.5 ML NEBU INH SCH ×4 (03:29→18:15)
[2016-12-02] MEDS: ALBUTEROL 0.083% 2.5 MG/3 ML NEBU INH SCH ×4 (03:29→18:15)
[2016-12-02] MEDS: MORPHINE SULFATE 4 MG/ML SYR IVP PRN ×2 (04:12→09:04)
[2016-12-02 04:45] VITALS: BP 133/77
--- NOTE | 2016-12-02 06:30 | NUR ---
PATIENT IS CURRENTLY RESTING IN BED AT THIS TIME.O2 INCREASED TO 3L PT STATES,"I FEEL MUCH BETTER." PATIENT NEEDS CONTINUE TO BE MET WILL CONTINUE TO MONITOR.CALL LIGHT WITHIN REACH.
--- NOTE | 2016-12-02 07:20 | NUR ---
AWAKE AND ALERT RESPONSIVE TO OPEN DEVELOPER OPERATOR IN SFW POSITION NO DISTRESS NOTED PATIENT C/O OF NASAL DRYNESS WITH SUPPLEMENTAL OXYGEN USE POST THERAPY ADDED HUMIDIFIER
--- NOTE | 2016-12-02 07:21 | NUR ---
RECEIVED PT AWAKE AND LYING ON BED, AAOX4 WITH O2 ON 3LPM VIIA NC, NO S/S OF DISTRESS, WITH IV ACCESS ON RIGHT HAND 22G PATENT AND INTACT. SKIN IS INTACT. WITH COMMODE AT BEDSIDE. DISCUSSED PLAN OF CARE, PT VERBALIZED UNDERSTANDING. SAFETY PRECAUTIONS ENFORCED. CALL LIGHT WITHIN REACH, WILL CONTINUE TO MONITOR.
[2016-12-02 08:00] VITALS: BP 128/83
[2016-12-02 08:10] LABS: CREATINE KINASE MB 1.3 ng/mL (0-3.6)
[2016-12-02] MEDS ORDERED: FUROSEMIDE 40 MG/4 ML VIAL IVP ONE ×2 (09:00→18:33)
[2016-12-02] MEDS: ATORVASTATIN 20 MG TAB PO SCH (09:02)
--- NOTE | 2016-12-02 09:03 | NUR ---
DUE MEDS GIVEN, PT TOLERATED WELL. COMPLAINED OF GENERALIZED BODY PAIN 04/21, WILL ADMINISTER MORPHINE AND REASSESS
[2016-12-02] MEDS ORDERED: DEXTROSE 50% 50 ML SYR IVP PRN (09:05)
[2016-12-02] MEDS: ENOXAPARIN 40 MG/0.4 ML SYR SUBQ SCH (09:05)
[2016-12-02] MEDS ORDERED: FUROSEMIDE 40 MG/4 ML VIAL IVP SCH (09:20)
--- NOTE | 2016-12-02 09:28 | NUR ---
EDUCATED PT ON FLUID RESTRICTION OF 1500 ML/DAY. PT VERBALIZED UNDERSTANDING
--- NOTE | 2016-12-02 11:50 | NUR ---
SPONGE BATH DONE WITH VARNISH BLENDER, SKIN IS INTACT. CALL LIGHT WITHIN REACH, WILL CONTINUE TO MONITOR
[2016-12-02 12:00] VITALS: BP 112/75
[2016-12-02] MEDS: BLOOD GLUCOSE MONITORING 1 DEV DEV FS SCH ×3 (12:25→21:05)
[2016-12-02] MEDS: INSULIN LISPRO SLIDING SCALE 100 UNITS/ML VIAL SUBQ PRN ×4 (12:30→21:32)
--- NOTE | 2016-12-02 13:13 | NUR ---
PT WATCHING TV AT THIS TIME. ALL NEEDS ATTENDED, WILL CONTINUE TO MONITOR
[2016-12-02] MEDS: MORPHINE SULFATE 2 MG/ML SYR IVP PRN ×3 (14:11→22:54)
--- NOTE | 2016-12-02 15:40 | NUR ---
PT ASLEEP. ALL NEEDS ATTENDED. CALL LIGHT WITHIN REACH, WILL CONTINUE TO MONITOR.
[2016-12-02 15:46] LABS: CREATINE KINASE MB 1.4 ng/mL (0-3.6)
[2016-12-02 16:00] VITALS: BP 121/88
--- NOTE | 2016-12-02 17:58 | NUR ---
PT OBSERVED TO HAVE SHORTNESS OF BREATH, REQUESTED TO BE PUT ON BIPAP. CALLED RT TO BEDSIDE.
[2016-12-02] MEDS ORDERED: FUROSEMIDE 20 MG/2 ML VIAL IVP SCH (18:20)
--- NOTE | 2016-12-02 18:20 | NUR ---
DR HALL AT NURSES' STATION, WILL CARRY OUT NEW ORDERS
--- NOTE | 2016-12-02 18:50 | NUR ---
PT NOW ON BIPAP PRN, COMPLAINS OF PAIN, WILL ADMINISTER MORPHINE
--- NOTE | 2016-12-02 19:11 | NUR ---
ENDORSED PT TO BAN VARGAS FOR CONTINUITY OF CARE IN STABLE CONDITION
--- NOTE | 2016-12-02 19:15 | NUR ---
RECEIVED PT ON BED ON HIGH FOWLERS POSITION, PRESENTLY ON BIPAP, TOLERATING, NO SOB NOTED, CRACKLES ON AUSCULTATION, VITAL SIGNS STABLE, POC DISCUSSED, AWARE ON FLUID RESTRICTION 1500/DAY AND STRICT I&O, SAFETY MEASURES IN PLACE, CALL LIGHT WITHIN REACH.
[2016-12-02 20:00] VITALS: BP 127/88
--- NOTE | 2016-12-02 20:20 | NUR ---
PT USES BEDSIDE COMMODE AND VOIDED FREELY, ALL NEEDS ATTENDED.
--- NOTE | 2016-12-02 20:55 | NUR ---
PT TOOK BIPAP MASK OFF. WANTS TO TAKE A BREAK.PT WILL CALL WHEN SHE WANTS BACK ON. NO SOB NOTED. 02 PLACED BACK ON PT 3LNC
[2016-12-02] MEDS: FUROSEMIDE 40 MG/4 ML VIAL IVP SCH (21:00)
--- NOTE | 2016-12-02 21:05 | NUR ---
BLOOD SUGAR CHECKED WITH 167 RESULT, COVERAGE GIVEN, SNACK PROVIDED, DUE LASIX NOT GIVEN, RECEIVED A DOSE OF LASIX AT 1832 GIVEN BY AM RN, MONITORED CLOSELY.
--- NOTE | 2016-12-02 21:10 | NUR ---
1900 PLACED PT OB BIPAP PER DR CHAVIRA ORDER. IPAP 12 EPAP 6 RR 12 ANF KEEP SATS GREATER THAN 90%. PT WILL WHERE IT PRN NEEDED.
--- NOTE | 2016-12-02 23:00 | NUR ---
VITAL SIGNS STABLE, ON O2 AT 3L/NC, NO SOB NOTED, MEDICATED PRN FOR GENERALIZED PAIN, CONTINUE TO MONITOR CLOSELY.
--- NOTE | 2016-12-02 23:06 | NUR ---
2300 CHECKED ON PT. STILL OFF BIPAP. NO SOB NOTED.PT ON 3LNC SATS 98%
--- NOTE | 2016-12-02 23:15 | NUR ---
N ADR FOR SOLUMEROL NOTED.
[2016-12-03] VITALS (7 sets, daily range): BP systolic 119–140; BP diastolic 76–96
[2016-12-03] MEDS: IPRATROPIUM 0.02% 0.5 MG/2.5 ML NEBU INH SCH ×4 (00:53→19:31)
[2016-12-03] MEDS: ALBUTEROL 0.083% 2.5 MG/3 ML NEBU INH SCH ×4 (00:53→19:31)
--- NOTE | 2016-12-03 01:01 | NUR ---
PLACED PT ON BIPAP AND INLINE HHNTX GIVEN. PT HAS CLEAR BS AND NO SOB. PT WANTS TO WEAR BIPAP TO HELP HER SLEEP
[2016-12-03] MEDS: MORPHINE SULFATE 2 MG/ML SYR IVP PRN ×2 (02:50→06:49)
--- NOTE | 2016-12-03 02:55 | NUR ---
MEDICATED PRN FOR GENERALIZED PAIN, PT REQUESTED TO BE OFF ON BIPAP AT THIS TIME, PUT BACK ON O2 AT 3L/NC, SAT-98%, NO SOB NOTED, RT ILENE MADE AWARE.
--- NOTE | 2016-12-03 03:07 | NUR ---
0300 BIPAP TAKEN OFF BY BAN VARGAS AND PLACED BACK ON 3LNC. PT HAS NO SOB. WILL PUT IT BACK ON IF SHE NEEDS IT
--- NOTE | 2016-12-03 05:45 | NUR ---
AM LABS DRAWN, BLOOD SUGAR CHECKED WITH 129 RESULT, CONTINUE ON O2 AT 3L/NC, NO SOB NOTED, MONITORED CLOSELY.
[2016-12-03 06:03] LABS: BASOPHILS % (AUTO) 0.3 % (0.0-2.0); EOSINOPHILS # (AUTO) 0.1 K/uL (0-0.4); HEMATOCRIT 32.3 % (36-48); HEMOGLOBIN 10.6 g/dL (12.0-16.0); LYMPHOCYTES # (AUTO) 1.6 K/uL (2.5-16.5); LYMPHOCYTES % (AUTO) 17.8 % (20.5-51.1); MEAN CORPUSCULAR HEMOGLOBIN 31 pg (27-31); MEAN CORPUSCULAR HGB CONC 33 g/dL (33-37); MEAN CORPUSCULAR VOLUME 94 fL (80-94); MONOCYTES # (AUTO) 0.5 K/uL (0.8-1.0); MONOCYTES % (AUTO) 5.7 % (1.7-9.3); NEUTROPHILS # (AUTO) 6.8 K/uL (1.8-7.7); NEUTROPHILS % (AUTO) 75.2 % (42.2-75.2); PLATELET COUNT (AUTO) 221 K/uL (140-450); RED BLOOD CELL COUNT(AUTO) 3.44 MIL/uL (4.20-5.40); RED CELL DISTRIBUTION WIDTH 16.2 % (11.6-13.7)
[2016-12-03 06:18] LABS: ALBUMIN 3.1 g/dL (3.4-5.0); ANION GAP 14.9 (8-16); CARBON DIOXIDE 22.9 mmol/L (21-32); CREATININE 1.5 mg/dL (0.6-1.3); POTASSIUM 3.8 mmol/L (3.5-5.1)
--- NOTE | 2016-12-03 06:50 | NUR ---
MEDICATED PRN FOR PAIN, O2 AT 3L/NC, NO RESP DISTRESS NOTED, CONTINUE TO MONITOR CLOSELY.
[2016-12-03] MEDS: BLOOD GLUCOSE MONITORING 1 DEV DEV FS SCH ×4 (07:00→20:53)
--- NOTE | 2016-12-03 07:00 | NUR ---
RECEIVED PT ON 3L NC SPO2 97%. PT IS NOT SOB AND NOT IN RESPIRATORY DISTRESS AT THIS TIME.BIPAP IS BEDSIDE NOT INDICATED AT THIS TIME. WILL CONTINUE TO MONITOR.
--- NOTE | 2016-12-03 07:05 | NUR ---
RECEIVED REPORT FROM NIGHT NURSE AT BEDSIDE. PT IS CURRENTLY GETTING A BREATHING TREATMENT. PT IS AAOX4. PT'S IV IS ON THE RIGHT HAND 20 GAUGE. SKIN IS INTACT. BSC IS AT BEDSIDE. PT DENIES ANY PAIN. PT BED IS LOWERED AND CALL LIGHT IS WITHIN REACH. WILL CONTINUE TO MONITOR.
[2016-12-03 07:06] LABS: TOTAL BILIRUBIN 0.3 mg/dL (0.0-1.0)
[2016-12-03 07:07] LABS: MAGNESIUM 1.6 mg/dL (1.8-2.4); PHOSPHORUS 3.9 mg/dL (2.5-4.9)
[2016-12-03 07:19] LABS: TOTAL PROTEIN, SERUM 7.1 g/dL (6.4-8.2)
--- NOTE | 2016-12-03 07:20 | NUR ---
PT AWAKE, PRESENTLY GETTING BREATHING TX, REPORT GIVEN TO BAN DOMINGUEZ FOR CONTINUITY OF CARE.
--- NOTE | 2016-12-03 07:55 | NUR ---
PATIENT HAS BEEN SCREENED AND CATEGORIZED HIGH NUTRITION RISK. PATIENT WILL BE SEEN WITHIN 1-2 DAYS OF ADMISSION. 12/02/16-12/03/[address]
[2016-12-03] MEDS: FUROSEMIDE 40 MG/4 ML VIAL IVP SCH ×2 (09:06→20:54)
[2016-12-03] MEDS: ASPIRIN 81 MG TAB.CHEW PO SCH (09:06)
[2016-12-03] MEDS: ATORVASTATIN 20 MG TAB PO SCH (09:06)
[2016-12-03] MEDS: ENOXAPARIN 40 MG/0.4 ML SYR SUBQ SCH (09:14)
[2016-12-03] MEDS ORDERED: MORPHINE SULFATE 2 MG/ML SYR IVP PRN (09:15)
--- NOTE | 2016-12-03 09:20 | NUR ---
MADE DR. HALL AWARE OF MAGNESIUM LEVEL OF 1.6.
--- NOTE | 2016-12-03 09:20 | NUR ---
ADMINISTERED SCHEDULED MEDS. PT TOLERATED WELL. PT SHOW NO S/S OF DISTRESS AND NO SOB. PT IS ON 3L 02 NC.
[2016-12-03] MEDS ORDERED: MAG SULF 2000 MG/WATER PREMIX 50 ML IV SCH (10:00)
[2016-12-03] MEDS: HYDROcodone/APAP 10/325 MG 1 TAB TAB PO PRN ×2 (10:48→21:06)
--- NOTE | 2016-12-03 12:00 | NUR ---
PT IS SLEEPING. SHOWS NO S/S OF DISTRESS AND NO SOB. WILL CONTINUE TO MONITOR.
--- NOTE | 2016-12-03 13:15 | NUR ---
PT IS WATCHING TV AND RESTING IN BED. PT SHOWS NO S/S OF DISTRESS AND NO SOB.
--- NOTE | 2016-12-03 15:01 | NUR ---
12/06/15 RD INITIAL ASSESSMENT COMPLETED PLEASE REFER TO NUTRITION ASSESSMENT UNDER CARE ACTIVITY FOR ESTIMATED NUTRITIONAL NEEDS. RD RECOMMENDATIONS: 1. CONTINUE NA2GM DIET WITH 1500 ML FLUID RESTRICTION PER MD 2. RECOMMEND ADDING CCHO 60 GM FEATURES TO CURRENT DIET ORDER 3. RD WILL F/U 3-5 DAYS; MODERATE RISK. SAHIL PEERZ RD
[2016-12-03] MEDS: HYDROcodone/APAP 5/325 MG 1 TAB TAB PO PRN (15:36)
--- NOTE | 2016-12-03 19:10 | NUR ---
GAVE PT REPORT AT BEDSIDE. PT ENDORSED IN STABLE CONDITION.
--- NOTE | 2016-12-03 19:45 | NUR ---
RECEIVED PT IN STABLE CONDITION FROM AM NURSE. AWAKE,ALERT AND ORIENTED X4. ON TELE MONITOR. NO ACUTE DISTRESS NOTED. GETTING BREATHING TREATMENT AT THIS TIME. HL ON RT HAND #22, CLEAR AND PATENT. PLAN OF CARE DISCUSSED AND VERBALIZED UNDERSTANDING. CALL LIGHT PLACED WITHIN EASY REACH. INSTRUCTED TO CALL IF NEED TO USE BSC FOR ASSISTANCE. WILL CONTINUE TO MONITOR.
--- NOTE | 2016-12-03 20:53 | NUR ---
BLOOD SUGAR WAS CHECKED RESULT 133. NO INSULIN COVERAGE NEEDED. PROVIDED SOME SNACK.
--- NOTE | 2016-12-03 22:30 | NUR ---
SLEEPING AT THIS TIME. NO S/S OF ANY DISTRESS NOTED. WILL CONTINUE TO MONITOR.
--- NOTE | 2016-12-03 23:45 | NUR ---
AWAKE. NO C/O ANY PAIN AT THIS TIME. VITAL SIGNS TAKEN. STABLE.
[2016-12-04] MEDS: IPRATROPIUM 0.02% 0.5 MG/2.5 ML NEBU INH SCH ×2 (00:48→07:36)
[2016-12-04] MEDS: ALBUTEROL 0.083% 2.5 MG/3 ML NEBU INH SCH ×2 (00:48→07:36)
[2016-12-04] MEDS: HYDROcodone/APAP 10/325 MG 1 TAB TAB PO PRN (02:59)
--- NOTE | 2016-12-04 04:00 | NUR ---
NO ACUTE DISTRESS NOTED DURING THE NIGHT.
[2016-12-04 04:10] VITALS: BP 129/85
[2016-12-04] MEDS: BLOOD GLUCOSE MONITORING 1 DEV DEV FS SCH ×2 (06:11→11:30)
--- NOTE | 2016-12-04 06:20 | NUR ---
BLOOD SUGAR WAS CHECKED RESULT 104. NO INSULIN COVERAGE NEEDED.
--- NOTE | 2016-12-04 07:10 | NUR ---
RECEIVED PATIENT REPORT AT BEDSIDE. PATIENT AWAKE, ALERT AND ORIENTED. NO S/S OF DISTRESS NOTED. PATIENT ON 3L O2. IV LINE NOTED TO THE RIGHT WRIST SALINE LOCKED. PATIENT ON TELE MONITORING. BED LOWERED WITH CALL WITHIN REACH. WILL CONTINUE TO MONITOR
--- NOTE | 2016-12-04 07:23 | NUR ---
ENDORSED PT IN STABLE CONDITION TO AM NURSE.
[2016-12-04 07:47] VITALS: BP 119/83
[2016-12-04] MEDS: ATORVASTATIN 20 MG TAB PO SCH (08:33)
[2016-12-04] MEDS: ASPIRIN 81 MG TAB.CHEW PO SCH (08:34)
[2016-12-04] MEDS: FUROSEMIDE 40 MG/4 ML VIAL IVP SCH (08:34)
[2016-12-04] MEDS: ENOXAPARIN 40 MG/0.4 ML SYR SUBQ SCH (09:00)
[2016-12-04] MEDS: HYDROcodone/APAP 5/325 MG 1 TAB TAB PO PRN (09:38)
--- NOTE | 2016-12-04 09:53 | NUR ---
PATIENT IN BED WATCHING TELEVISION. NO S/S OF DISTRESS NOTED
[2016-12-04 10:35] LABS: ANION GAP 11.6 (8-16); CALCIUM 9.3 mg/dL (8.5-10.1); CARBON DIOXIDE 27.8 mmol/L (21-32); CREATININE 1.4 mg/dL (0.6-1.3); POTASSIUM 3.4 mmol/L (3.5-5.1)
--- NOTE | 2016-12-04 11:30 | NUR ---
PT REFUSED VITAL SIGNS AND BLOOD GLUCOSE MONITORING.
--- NOTE | 2016-12-04 11:50 | NUR ---
NOTIFIED DR. HALL OF POTASSIUM 3.4, BUN 35, CREATININE 1.4. ORDERS RECEIVED. CLEARED PT FOR DISCHARGE.
[2016-12-04] MEDS ORDERED: POTASSIUM CHLORIDE 10 MEQ TABER PO SCH (11:54)
--- NOTE | 2016-12-04 12:35 | NUR ---
PT HAS BEEN DISCHARGED. PT RECEIVED DISCHARGE INSTRUCTIONS AND ALL PAPERWORK WAS SIGNED. ALL QUESTIONS WERE ANSWERED. ALL BELONGINGS ARE IN THE PT'S POSSESSION. IV DISCONTINUED WITH CANNULA INTACT. WRISTBANDS AND TELE MONITOR REMOVED. OFFERED PT WHEELCHAIR. PT WHEELED OFF UNIT WITH DAUGHTER AT PT'S SIDE. PT SHOWS NO S/S OF DISTRESS. PT IS IN STABLE CONDITION.
[2016-12-05] MEDS ORDERED: FUROSEMIDE 40 MG/4 ML VIAL IVP SCH (09:00)
== END 2016-12-04 12:35 | disposition home or self-care (01) ==
LOC: MED 22:10 → MTU 12-02 00:36
PROVIDERS: ADMIT Hospitalist; ATTEND Hospitalist
DX: I50.22 Chronic systolic (congestive) heart failure (principal); J44.1 Chronic obstructive pulmonary disease with (acute) exacerbation; E11.22 Type 2 diabetes mellitus with diabetic chronic kidney disease; N18.3 Chronic kidney disease, stage 3 (moderate); K21.9 Gastro-esophageal reflux disease without esophagitis; G40.909 Epilepsy, unspecified, not intractable, without status epilepticus; E78.5 Hyperlipidemia, unspecified; J96.10 Chronic respiratory failure, unspecified whether with hypoxia or hypercapnia; F17.210 Nicotine dependence, cigarettes, uncomplicated; Z99.81 Dependence on supplemental oxygen; Z91.14 Patient's other noncompliance with medication regimen; Z86.718 Personal history of other venous thrombosis and embolism; Z79.01 Long term (current) use of anticoagulants
CPT/HCPCS: 36415; 71010; 80048; 80053; 81001; 82550; 82553; 82948; 83605; 83735; 83880; 84100; 84484; 85025; 85610; 87040; 87081; 87086; 93005; 94640; 94660; 96365; 96366; 96372; 96374; 96375; 96376; 99285; G0378; J1650; J1815; J1940; J2270; J2405; J2930; J3475; J7030; J7613; J7620; J7644; Q0092

== ENCOUNTER 2017-01-13 19:11 | Emergency (ER) | payer OTHER ==
[~2017-01-13] VITALS: Ht 165.1 cm; Wt 84.4 kg
[~2017-01-13 19:11] MED LIST changes: +ALDACTONE50 MG PO; -AMIO200T PO; +APRESOLINE10 MG PO; -ASPI-1081 PO; +ASPIRIN81 M1 PO; -ATOR40TA PO; -ATRMDI IH; +ATROVENT HFA12.5 GM IH; +AZITHROMYCIN500 MG PO; +BIAXIN500 MG PO; +CALCIUM 600600 MG PO; +CARDIZEM120 M2 PO; -CARV12.5 PO; +COLACE100 M1 PO; +CORDARONE200 MG PO; +COREG12.5 MG PO; +COREG25 MG PO; +COUMADIN5 MG PO; +DESYREL50 MG PO; +DIGOXIN0.125 M1 PO; +DILANTIN100 MG PO; +ELIQUIS2.5 MG PO; -FERR325E14 PO; +FERROUS SULFAT325 MG PO; +FOLATE1 MG PO; -FOLI1TAB19 PO; -FURO-570 PO; -GLIP5TAB4 PO; +GLUCOPHAGE1000 MG PO; +GLUCOTROL5 MG PO; -HYDR-3229 PO; +HYDROCODONE APA PO; +LASIX40 M1 PO; +LASIX40 MG PO; +LEVAQUIN250 MG PO; +LEVAQUIN500 MG PO; +LEVAQUIN750 MG PO; -LEVO750T2 PO; +LIPITOR40 MG PO; +LOPRESSOR25 MG PO; +LOVENOX40 MG/0.1 SUBQ; +MEDROL4 MG PO; +METOLAZONE2.5 M1 PO; +METOLAZONE5 M1 PO; +MOTRIN800 MG PO; +NEURONTIN300 MG PO; +NORCO 325 MG-7.1 TAB PO; +OMEPRAZOLE20 M3 PO; -PHEN100C3 PO; +PLAVIX75 MG PO; +PREDNISONE20 M1 PO; +PREDNISONE20 MG PO; +PRILOSEC40 MG PO; -PRON INH; +PROTONIX40 MG PO; +PROVENTIL2.5 MG/3 M INH; +SLOW-K8 ME1 PO; +TAZTIA XT120 MG PO; +TOPCARE ASPIRIN81 MG PO; +TYLENOL #3 300/1 TAB PO; +VENTOLIN H0.09 MG/Ac IH; -VITA20002 PO; +VITAMIN D32000 IU PO; +XARELTO15 MG PO; +ZESTRIL10 MG PO; +ZESTRIL20 MG PO; +ZITHROMAX250 MG PO; +ZITHROMAX500 M1 IV; +ZITHROMAX500 M1 PO; +ZYRTEC10 MG PO
[2017-01-13 19:27] VITALS: BP 120/78
--- NOTE | 2017-01-13 20:16 | NUR ---
Francois de jesus in [facility] - 01/13/17 at 2018 by MEDJAD TO ER BED 8
--- NOTE | 2017-01-13 21:11 | NUR ---
TO ER BED 7
[2017-01-13] MEDS ORDERED: HYDROmorphone 1 MG/ML AMP IM ONE (21:20)
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
[2017-01-14] VITALS: BP 117/69
--- NOTE | 2017-01-14 | NUR ---
Patient discharged with v/s stable. Written and verbal after care instructions given and explained. Patient alert, oriented and verbalized understanding of instructions. Ambulatory with steady gait. All questions addressed prior to discharge. ID band removed. Patient advised to follow up with PMD. Rx of NORCO 5/325 given. Patient educated on indication of medication including possible reaction and side effects. Opportunity to ask questions provided and answered.
== END 2017-01-14 | disposition home or self-care (01) ==
LOC: MED 19:11
DX: R07.89 Other chest pain (principal); J44.9 Chronic obstructive pulmonary disease, unspecified; I50.9 Heart failure, unspecified; E11.9 Type 2 diabetes mellitus without complications; K21.9 Gastro-esophageal reflux disease without esophagitis; I12.9 Hypertensive chronic kidney disease with stage 1 through stage 4 chronic kidney disease, or unspecified chronic kidney disease; N18.3 Chronic kidney disease, stage 3 (moderate); Z88.1 Allergy status to other antibiotic agents
CPT/HCPCS: 71010; 93005; 96372; 99284; J1170; Q0092

== ENCOUNTER 2017-01-14 07:32 | Emergency (ER) | payer OTHER ==
[~2017-01-14] VITALS: Ht 165.1 cm; Wt 84.4 kg
[2017-01-14 07:41] VITALS: BP 170/100
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
--- NOTE | 2017-01-14 08:54 | NUR ---
CHEMO MCLEOD AT BEDSIDE.
--- NOTE | 2017-01-14 08:59 | NUR ---
BS OF 61;ER NOTIFIED;PROVIDED JUICE;WILL RE CHECK BS;
--- NOTE | 2017-01-14 09:34 | NUR ---
CHEOM MCLEOD AT BEDSIDE;RECHECK BS OF 78.
--- NOTE | 2017-01-14 09:53 | NUR ---
RECHECKED GLUCOSE;BS OF 97;ER NOTIFIED.
--- NOTE | 2017-01-14 10:31 | NUR ---
PT RESTING ON BED;NO ACUTE DSITRESS NOTED;WILL CONTINUE TO MONITOR PT.
--- NOTE | 2017-01-14 11:05 | NUR ---
Patient discharged with v/s stable. Written and verbal after care instructions given and explained. Patient alert, oriented and verbalized understanding of instructions. Wheel Chair Assisted with to car. All questions addressed prior to discharge. ID band removed. Patient advised to follow up with PMD. Rx of SEPTRA given. Patient educated on indication of medication including possible reaction and side effects. Opportunity to ask questions provided and answered.
[2017-01-14 11:06] VITALS: BP 142/98
== END 2017-01-14 11:05 | disposition home or self-care (01) ==
LOC: MED 07:32
DX: T82.7XXA Infection and inflammatory reaction due to other cardiac and vascular devices, implants and grafts, initial encounter (principal); Z88.0 Allergy status to penicillin

== ENCOUNTER 2017-02-14 21:01 | Observation (INO) | payer OTHER ==
[~2017-02-14] VITALS: Ht 165.1 cm; Wt 82.6 kg
[~2017-02-14 21:01] MED LIST changes: -ALDACTONE50 MG PO; +AMIO200T PO; -APRESOLINE10 MG PO; +ASPI-1081 PO; -ASPIRIN81 M1 PO; +ATOR40TA PO; +ATRMDI IH; -ATROVENT HFA12.5 GM IH; -AZITHROMYCIN500 MG PO; -BIAXIN500 MG PO; -CALCIUM 600600 MG PO; -CARDIZEM120 M2 PO; +CARV12.5 PO; -COLACE100 M1 PO; -CORDARONE200 MG PO; -COREG12.5 MG PO; -COREG25 MG PO; -COUMADIN5 MG PO; -DESYREL50 MG PO; -DIGOXIN0.125 M1 PO; -DILANTIN100 MG PO; -ELIQUIS2.5 MG PO; +FERR325E14 PO; -FERROUS SULFAT325 MG PO; -FOLATE1 MG PO; +FOLI1TAB19 PO; +FURO-570 PO; +GLIP5TAB4 PO; -GLUCOPHAGE1000 MG PO; -GLUCOTROL5 MG PO; +HYDR-3229 PO; -HYDROCODONE APA PO; -LASIX40 M1 PO; -LASIX40 MG PO; -LEVAQUIN250 MG PO; -LEVAQUIN500 MG PO; -LEVAQUIN750 MG PO; -LIPITOR40 MG PO; -LOPRESSOR25 MG PO; -LOVENOX40 MG/0.1 SUBQ; -MEDROL4 MG PO; -METOLAZONE2.5 M1 PO; -METOLAZONE5 M1 PO; -MOTRIN800 MG PO; -NEURONTIN300 MG PO; -NORCO 325 MG-7.1 TAB PO; -OMEPRAZOLE20 M3 PO; +PHEN100C3 PO; -PLAVIX75 MG PO; -PREDNISONE20 M1 PO; -PREDNISONE20 MG PO; -PRILOSEC40 MG PO; +PRON INH; -PROTONIX40 MG PO; -PROVENTIL2.5 MG/3 M INH; -SLOW-K8 ME1 PO; -TAZTIA XT120 MG PO; -TOPCARE ASPIRIN81 MG PO; -TYLENOL #3 300/1 TAB PO; -VENTOLIN H0.09 MG/Ac IH; +VITA20002 PO; -VITAMIN D32000 IU PO; -XARELTO15 MG PO; -ZESTRIL10 MG PO; -ZESTRIL20 MG PO; -ZITHROMAX250 MG PO; -ZITHROMAX500 M1 IV; -ZITHROMAX500 M1 PO; -ZYRTEC10 MG PO
[2017-02-14 21:13] VITALS: BP 150/93
--- NOTE | 2017-02-14 21:52 | NUR ---
PT RETURN FROM XRAY TO THE LOBBY
[2017-02-14 21:56] LABS: BASOPHILS # (AUTO) 0.2 K/uL (0.00-0.22); BASOPHILS % (AUTO) 3.3 % (0.0-2.0); EOSINOPHILS # (AUTO) 0.1 K/uL (0-0.4); EOSINOPHILS % (AUTO) 1.8 % (0.0-4.0); HEMOGLOBIN 12.6 g/dL (12.0-16.0); LYMPHOCYTES # (AUTO) 1.7 K/uL (2.5-16.5); LYMPHOCYTES % (AUTO) 34.9 % (20.5-51.1); MEAN CORPUSCULAR HEMOGLOBIN 30 pg (27-31); MEAN CORPUSCULAR HGB CONC 32 g/dL (33-37); MEAN CORPUSCULAR VOLUME 93 fL (80-94); MONOCYTES # (AUTO) 0.3 K/uL (0.8-1.0); MONOCYTES % (AUTO) 6.1 % (1.7-9.3); NEUTROPHILS # (AUTO) 2.5 K/uL (1.8-7.7); NEUTROPHILS % (AUTO) 53.9 % (42.2-75.2); PLATELET COUNT (AUTO) 221 K/uL (140-450); RED BLOOD CELL COUNT(AUTO) 4.18 MIL/uL (4.20-5.40); RED CELL DISTRIBUTION WIDTH 15.8 % (11.6-13.7); WHITE BLOOD COUNT (AUTO) 4.8 K/uL (4.8-10.8)
[2017-02-14 22:05] LABS: ANION GAP 20.4 (8-16); CALCIUM 8.5 mg/dL (8.5-10.1); CARBON DIOXIDE 16.6 mmol/L (21-32); CREATININE 1.7 mg/dL (0.6-1.3)
[2017-02-14 22:16] LABS: ALBUMIN 3.4 g/dL (3.4-5.0); TOTAL BILIRUBIN 0.3 mg/dL (0.0-1.0); TOTAL PROTEIN, SERUM 7.5 g/dL (6.4-8.2)
[2017-02-14 22:18] LABS: INR 1.3 (0.8-1.2); PARTIAL THROMBOPLASTIN TIME 27.4 secs (22-35.6); PROTHROMBIN TIME 12.9 secs (10.8-13.4)
--- NOTE | 2017-02-15 00:04 | NUR ---
PT TAKEN TO BED 3
--- NOTE | 2017-02-15 00:17 | NUR ---
56 Y/O F W/C/O HEART PALPITATIONS, CHEST PAIN THAT COMES AND GOES AND SOB X 2 DAYS. MED HX COPD, HEART SURGERIES, DEFRIBILATOR IMPLANT ON DECEMBER 2016, DM, HTN, SEIZURE, ON OXYGEN AT 3LPM VIA NASAL CANNULA AT HOME. PT STATED SHE HAD NAUSEA AND VOMITING AND BOWEL MOVEMENT X 3 SOFT STOOL YESTERDAY AT HOME, TINGLING SENSATION FINGERS AND TOES, LEFT ARM PAIN; SKIN IS PINK/WARM/DRY; AAOX4 WITH EVEN AND STEADY GAIT; PATIENT STATES PAIN OF 8/10 AT THIS TIME; VSS; PATIENT POSITIONED FOR COMFORT; HOB ELEVATED; BEDRAILS UP X2; BED DOWN. ER MD MADE AWARE OF PT STATUS.
--- NOTE | 2017-02-15 00:30 | NUR ---
BP 168/91 , ERMD DR SALEH AWARE. WILL CONTINUE TO MONITOR.
--- NOTE | 2017-02-15 01:02 | NUR ---
Dr. Varela evaluating patient at bedside.
--- NOTE | 2017-02-15 01:07 | NUR ---
ACCU CHECK, BSL 87MG/DL. DR. SALEH AWARE.
[2017-02-15] MEDS ORDERED: MORPHINE SULFATE 4 MG/ML SYR IVP ONE (01:10)
--- NOTE | 2017-02-15 01:29 | NUR ---
Patient will be admitted to care of DR. MOYA. Admited to TELE . Will go to [facility] 112A. Belongings list completed. Report to BAN DAVIES.
[2017-02-15] MEDS ORDERED: LORazepam 2 MG/ML VIAL IVP PRN (01:30)
[2017-02-15] MEDS ORDERED: ALBUTEROL 0.083% 2.5 MG/3 ML NEBU INH PRN (01:30)
[2017-02-15] MEDS ORDERED: NITROGLYCERIN 0.4 MG TAB SL PRN (01:30)
[2017-02-15] MEDS ORDERED: INSULIN LISPRO SLIDING SCALE 100 UNITS/ML VIAL SUBQ PRN (01:35)
[2017-02-15] MEDS ORDERED: DEXTROSE 50% 50 ML SYR IVP PRN (01:35)
--- NOTE | 2017-02-15 01:35 | NUR ---
PT TRANSFERRED TO THE FLOOR VIA GURNEY ACCOMPANIED BY RN AND EMT ATTACHED TO SPRAY PAINTER ON A GUARDED CONDITION.
--- NOTE | 2017-02-15 01:43 | NUR ---
RECEIVED FROM FIRE PREVENTION CHIEF ON [place] SLEEPING. WAKES UP WHEN TOUCHED OR CALLED BY NAME. A/O X 4. ROM X 4. CLEAR SPEECH. CALL LIGHT WITH IN REACH AND CARE PLANS FOR THE NIGHT DISCUSSED WITH HER. DX. OF CHEST PAIN. TELEMETRY MONITORING. IVF SITE TO RFA#20. AFEBRILE. PACING 79.
[2017-02-15 02:04] VITALS: BP 154/95
--- NOTE | 2017-02-15 03:15 | NUR ---
DAUGHTER AT BEDSIDE AND PT. SLEEPING AT THIS TIME. TELEMETRY MONITORING. PACING 100%.
[2017-02-15] MEDS: HYDROcodone/APAP 5/325 MG 1 TAB TAB PO PRN ×6 (04:58→21:52)
[2017-02-15 05:00] VITALS: BP 153/98
[2017-02-15] MEDS: BLOOD GLUCOSE MONITORING 1 DEV DEV FS SCH ×4 (05:48→20:37)
[2017-02-15 06:03] LABS: ANION GAP 16.8 (8-16); CALCIUM 8.2 mg/dL (8.5-10.1); CARBON DIOXIDE 20.1 mmol/L (21-32); CREATININE 1.7 mg/dL (0.6-1.3); POTASSIUM 3.9 mmol/L (3.5-5.1)
--- NOTE | 2017-02-15 06:16 | NUR ---
TELEMETRY MONITORING. NO SOB. MEDICATED WITH PAIN RELIEVER EARLIER. DENIES PAIN AT THIS TIME. A/O X 4.
[2017-02-15 06:34] LABS: BASOPHILS # (AUTO) 0.2 K/uL (0.00-0.22); BASOPHILS % (AUTO) 3.4 % (0.0-2.0); EOSINOPHILS # (AUTO) 0.1 K/uL (0-0.4); EOSINOPHILS % (AUTO) 2.3 % (0.0-4.0); HEMATOCRIT 35.9 % (36-48); HEMOGLOBIN 11.7 g/dL (12.0-16.0); LYMPHOCYTES # (AUTO) 1.6 K/uL (2.5-16.5); MEAN CORPUSCULAR HEMOGLOBIN 30 pg (27-31); MEAN CORPUSCULAR HGB CONC 33 g/dL (33-37); MEAN CORPUSCULAR VOLUME 92 fL (80-94); MONOCYTES # (AUTO) 0.3 K/uL (0.8-1.0); MONOCYTES % (AUTO) 5.3 % (1.7-9.3); NEUTROPHILS # (AUTO) 3.5 K/uL (1.8-7.7); PLATELET COUNT (AUTO) 160 K/uL (140-450); RED BLOOD CELL COUNT(AUTO) 3.89 MIL/uL (4.20-5.40); RED CELL DISTRIBUTION WIDTH 15.8 % (11.6-13.7); WHITE BLOOD COUNT (AUTO) 5.7 K/uL (4.8-10.8)
[2017-02-15 06:41] LABS: CREATINE KINASE MB 1.9 ng/mL (0-3.6)
[2017-02-15] MEDS: IPRATROPIUM 0.02% 0.5 MG/2.5 ML NEBU INH SCH ×3 (07:05→19:08)
--- NOTE | 2017-02-15 07:25 | NUR ---
REPORT RECEIVED FROM SENIOR LINUX ADMINISTRATOR, PT AWAKE ALERT, RESP EVEN UNLABORED ON ROOM AIR IN NAD, SKIN WARM DRY COLOR WNL, PLAN OF CARE DISCUSSED, CARDIOLOGY NURSE AT BEDSIDE EXPLAINING LEXASCAN, PT MADE AWARE OF NPO UNTIL STUDY GONE, PT VERBALIZED FULL UNDERSTANDING. PT ON HEAD STILL OPERATOR, CALL VALADEZ AT BEDSIDE, SIDE RAILS UP, BED LOCKED IN LOW POSITION, WILL CONTINUE TO MONITOR.
[2017-02-15 08:00] VITALS: BP 142/92
[2017-02-15] MEDS ORDERED: REGADENOSON 0.4 MG/5 ML SYR IV SCH (08:00)
--- NOTE | 2017-02-15 08:51 | NUR ---
MEDICATION DURING NPO CLARIFIED WITH DR BOYD ON THE PHONE, OK TO GIVE ALL MORNING MEDS EXCEPT LASIX, HOLD LASIX THIS AM PER DR BOYD.
[2017-02-15] MEDS: hydrALAZINE 10 MG TAB PO SCH ×2 (09:00→20:38)
[2017-02-15] MEDS: FUROSEMIDE 40 MG TAB PO SCH ×2 (09:00→17:09)
[2017-02-15] MEDS: ENOXAPARIN 40 MG/0.4 ML SYR SUBQ SCH (09:00)
[2017-02-15] MEDS: FERROUS SULFATE 325 MG TABEC PO SCH ×3 (09:02→17:00)
[2017-02-15] MEDS: CARVEDILOL 12.5 MG TAB PO SCH ×2 (09:02→20:37)
[2017-02-15] MEDS: ATORVASTATIN 20 MG TAB PO SCH (09:03)
[2017-02-15] MEDS: PHENYTOIN 100 MG CAPER PO SCH ×3 (09:04→17:09)
[2017-02-15] MEDS: AMIODARONE 200 MG TAB PO SCH (09:04)
[2017-02-15] MEDS: FOLIC ACID 1 MG TAB PO SCH (09:05)
--- NOTE | 2017-02-15 09:40 | NUR ---
PATIENT HAS BEEN SCREENED AND CATEGORIZED MODERATE NUTRITION RISK. PATIENT WILL BE SEEN WITHIN 3-5 DAYS OF ADMISSION. 02/17/17-02/19/[address]
--- NOTE | 2017-02-15 10:45 | NUR ---
PT IN NUCLEAR MED FOR STRESS TEST
[2017-02-15 12:53] VITALS: BP 140/90
--- NOTE | 2017-02-15 12:59 | NUR ---
PT BACK FROM NUCLEAR MED, PT C/O FOOT PAIN, 04/21, MEDICATED WITH NORCO AT THIS TIME.
--- NOTE | 2017-02-15 13:04 | NUR ---
LEXISCAN STRESS TEST COMPLETED
--- NOTE | 2017-02-15 13:55 | NUR ---
PT TAKEN BACK TO CARDIOLOGY FOR FURTHER TESTING
--- NOTE | 2017-02-15 14:30 | NUR ---
PT BACK FROM NUCLEAR MED/CARDIOLOGY, PT BACK ON TELE MONITOR, REMAINS ON 2L NC O2, REPORTS FEELING NAUSEAOUS, PRN ZOFRAN GIVEN AT THIS TIME, PT AWAKE ALERT, RESP EVEN UNLABORED, SPEAKS CLEARLY IN NAD, DENIES CHEST PAIN OR SOB, CALL VALADEZ WITHIN REACH, WILL CONTINUE TO MONITOR
[2017-02-15] MEDS: ONDANSETRON 4 MG/2 ML VIAL IVP PRN ×2 (14:36→18:30)
--- NOTE | 2017-02-15 15:50 | NUR ---
PT SITTING UP IN BED RESTING QUIETLY, RESP EVEN UNLABORED, REMAINS ON 2L NC, DENIES NAUSEA NOW, VSS, DENIES PAIN, PT DENIES ANY IMMEDIATE NEEDS NOW, PT REMAINS ON PICKLE SOLUTION MAKER, WILL CONTINUE TO MONITOR.
[2017-02-15 15:55] VITALS: BP 132/83
--- NOTE | 2017-02-15 17:15 | NUR ---
PT SITTING UP IN BED, TAKING ON THE PHONE, REFUSED SCHEDULED IRON, STATES "I DON'T NEED ANYMORE IRON TODAY" PT C/O FOOT PAIN AGAIN NORCO GIVEN PER ORDER, PT REMAINS ON SPECIAL TESTER, WILL CONTINUE TO MONITOR.
--- NOTE | 2017-02-15 19:27 | NUR ---
Patient's Plan of Care was discussed and reviewed with ANIMAL ECOLOGIST: MOOK
--- NOTE | 2017-02-15 19:28 | NUR ---
PATIENT IS CURRENTLY RESTING IN BED WITH OXYGEN AT 2L VIA NASAL CANNULA.PATIENT IS ABLE TO USE THE BEDSIDE COMMODE.PATIENT DENIES ANY SOB OR CHEST PAIN AT THIS TIME.NEEDS MET WILL CONTINUE TO MONITOR.CALL LIGHT WITHIN REACH WILL CONTINUE TO MONITOR.
--- NOTE | 2017-02-15 19:28 | NUR ---
REPORT GIVEN TO CARTON WRAPPER, PT IN STABLE CONDITION.
[2017-02-15 20:00] VITALS: BP 130/85
--- NOTE | 2017-02-15 20:38 | NUR ---
PATIENT WAS GIVEN EDUCATION ON ROUTINE NIGHT MEDICATION AND PATIENT VERBALIZES UNDERSTANDING.WILL CONTINUE TO MONITOR.CALL LIGHT WITHIN REACH WILL CONTINUE TO MONITOR.
--- NOTE | 2017-02-15 21:52 | NUR ---
PATIENT COMPLAINS OF PAIN WAS MEDICATED WITH NORCO FOR SEVERE PAIN 04/21 ORDERED WILL CONTINUE TO MONITOR.
[2017-02-15 23:34] LABS: CREATINE KINASE MB 2.2 ng/mL (0-3.6)
[2017-02-16] VITALS: BP 124/84
--- NOTE | 2017-02-16 | NUR ---
PATIENT CURRENTLY RESTING IN BED AT THIS TIME NO COMPLAINS OF CHEST PAIN OR SOB.CALL LIGHT WITHIN REACH WILL CONTINUE TO MONITOR.
[2017-02-16] MEDS: IPRATROPIUM 0.02% 0.5 MG/2.5 ML NEBU INH SCH ×3 (00:18→12:59)
[2017-02-16] MEDS: HYDROcodone/APAP 5/325 MG 1 TAB TAB PO PRN ×4 (01:52→15:12)
--- NOTE | 2017-02-16 01:52 | NUR ---
PATIENT COMPLAINS OF SEVERE PAIN 9/10 MEDICATED WITH NORCO ORDERED.WILL CONTINUE TO MONITOR.
--- NOTE | 2017-02-16 02:30 | NUR ---
PATIENT RESTING IN BED AWAKE ON AND OFF.PATIENT DENIES PAIN AT THIS TIME.CALL LIGHT WITHIN REACH WILL CONTINUE TO MONITOR.
[2017-02-16 04:07] VITALS: BP 125/77
--- NOTE | 2017-02-16 04:35 | NUR ---
PATIENT STABLE RESTING IN BED NO DISTRESS WILL CONTINUE TO MONITOR.
--- NOTE | 2017-02-16 04:57 | NUR ---
PATIENT RESTING IN BED NO RESP DISTRESS NOTED.NEEDS MET.WILL CONTINUE TO MONITOR.
[2017-02-16] MEDS: BLOOD GLUCOSE MONITORING 1 DEV DEV FS SCH ×2 (06:17→12:06)
--- NOTE | 2017-02-16 06:40 | NUR ---
PATIENT STABLE RESTING IN BED IN NO DISTRESS WILL CONTINUE TO MONITOR.
--- NOTE | 2017-02-16 07:15 | NUR ---
PATIENT STABLE REPORT ENDORSED TO BAN JALLOH SHE WILL RESUME CARE OF THE PATIENT.
[2017-02-16 08:00] VITALS: BP 119/81
[2017-02-16 08:36] LABS: ANION GAP 15.7 (8-16); CALCIUM 8.8 mg/dL (8.5-10.1); CARBON DIOXIDE 21.7 mmol/L (21-32); CREATININE 1.7 mg/dL (0.6-1.3); POTASSIUM 3.4 mmol/L (3.5-5.1)
[2017-02-16] MEDS: FUROSEMIDE 40 MG TAB PO SCH (08:38)
[2017-02-16] MEDS: PHENYTOIN 100 MG CAPER PO SCH ×2 (08:38→12:32)
[2017-02-16] MEDS: AMIODARONE 200 MG TAB PO SCH (08:38)
[2017-02-16] MEDS: ATORVASTATIN 20 MG TAB PO SCH (08:39)
[2017-02-16] MEDS: FERROUS SULFATE 325 MG TABEC PO SCH ×2 (08:40→12:35)
[2017-02-16] MEDS: CARVEDILOL 12.5 MG TAB PO SCH (08:40)
[2017-02-16] MEDS: FOLIC ACID 1 MG TAB PO SCH (08:40)
[2017-02-16] MEDS: hydrALAZINE 10 MG TAB PO SCH (08:44)
[2017-02-16] MEDS: ENOXAPARIN 40 MG/0.4 ML SYR SUBQ SCH (08:44)
[2017-02-16 08:55] LABS: CREATINE KINASE MB 1.7 ng/mL (0-3.6)
[2017-02-16] MEDS ORDERED: ASPIRIN 325 MG TAB PO SCH (09:00)
[2017-02-16] MEDS: ONDANSETRON 4 MG/2 ML VIAL IVP PRN (11:34)
[2017-02-16 12:00] VITALS: BP 123/82
--- NOTE | 2017-02-16 12:30 | NUR ---
PT MEDICATED WITH DUE MES, PT MARYA WELL, STATES NAUSEA IMPROVED, MARYA LUNCH WELL, RESP EVEN UNALBORED, SPEAKS CLEARLY IN NAD, WILL CONTINUE TO MONTIOR
--- NOTE | 2017-02-16 15:12 | NUR ---
PT C/O INCREASED PAIN, MEDICATED WITH NORCO
[2017-02-16 16:00] VITALS: BP 128/80
--- NOTE | 2017-02-16 16:00 | NUR ---
DISCHARGE INSTRUCTION GIVEN AND EXPLAINED TO PT, PT VERBALIZED FULL UNDERSTANDING, PT TO F/U WITH PRIMARY IN 2-3DAYS AND GPS NAVIGATION INSTALLER WITHIN 2WKS, PT UP OUT OF BED WITHOUT ASSIST, IV DC'D, CATH TIP INTACT, BLEEDING CONTROLLED, DC HOME NOW, PT CALLED CAB TO TAKE HOME, ESCORTED OUT IN WHEEL CHAIR.
[2017-02-16] MEDS ORDERED: MAGNESIUM OXIDE 400 MG TAB PO SCH (17:00)
[2017-02-16] MEDS ORDERED: POTASSIUM CHLORIDE 10 MEQ TABER PO SCH (17:00)
== END 2017-02-16 16:00 | disposition home or self-care (01) ==
LOC: MED 21:01 → MTU 02-15 01:31
PROVIDERS: ADMIT Hospitalist; ATTEND Hospitalist
DX: R07.9 Chest pain, unspecified (principal); R00.0 Tachycardia, unspecified; I25.10 Atherosclerotic heart disease of native coronary artery without angina pectoris; I50.9 Heart failure, unspecified; J96.10 Chronic respiratory failure, unspecified whether with hypoxia or hypercapnia; J44.9 Chronic obstructive pulmonary disease, unspecified; N18.9 Chronic kidney disease, unspecified; K21.9 Gastro-esophageal reflux disease without esophagitis; G40.909 Epilepsy, unspecified, not intractable, without status epilepticus; I82.409 Acute embolism and thrombosis of unspecified deep veins of unspecified lower extremity
CPT/HCPCS: 36415; 71010; 80048; 80053; 80061; 82550; 82553; 82948; 83735; 83880; 84484; 85025; 85610; 85730; 87081; 93005; 93017; 93307; 94640; 94760; 96374; 99285; A9500; A9502; G0378; J1815; J2270; J2405; J2785; J7644; 96375; 96376; J1650

== ENCOUNTER 2017-02-26 10:39 | Emergency (ER) | payer OTHER ==
[~2017-02-26] VITALS: Ht 165.1 cm; Wt 80.7 kg
[2017-02-26 10:59] VITALS: BP 104/76
--- NOTE | 2017-02-26 16:36 | NUR ---
Patient to OF.
--- NOTE | 2017-02-26 16:43 | NUR ---
Dr. Mixon evaluating patient.
[2017-02-26] MEDS ORDERED: HYDROcodone/APAP 5/325 MG 1 TAB TAB PO ONE (16:50)
[2017-02-26] MEDS ORDERED: KETOROLAC 60 MG/2 ML VIAL IM ONE (16:50)
--- NOTE | 2017-02-26 16:51 | NUR ---
SEEN BY DR. MERLOS IN OF.WILL MEDICATE FOR PAIN
[2017-02-26 17:26] VITALS: BP 130/90
--- NOTE | 2017-02-26 17:29 | NUR ---
Patient discharged with v/s stable. Written and verbal after care instructions given and explained. Patient alert, oriented and verbalized understanding of instructions. Wheel Chair Assisted with to home. All questions addressed prior to discharge. ID band removed. Patient advised to follow up with PMD. Rx of NORCO,CLINDAMYCIN given. Patient educated on indication of medication including possible reaction and side effects. Opportunity to ask questions provided and answered.
== END 2017-02-26 17:29 | disposition home or self-care (01) ==
LOC: MED 10:39
DX: L03.116 Cellulitis of left lower limb (principal); J44.9 Chronic obstructive pulmonary disease, unspecified; E11.22 Type 2 diabetes mellitus with diabetic chronic kidney disease; I13.0 Hypertensive heart and chronic kidney disease with heart failure and stage 1 through stage 4 chronic kidney disease, or unspecified chronic kidney disease; N18.3 Chronic kidney disease, stage 3 (moderate); I50.1 Left ventricular failure, unspecified; Z88.0 Allergy status to penicillin
CPT/HCPCS: 73562; 96372; 99284; J1885

== ENCOUNTER 2017-03-25 14:29 | Emergency (ER) | payer OTHER ==
[~2017-03-25] VITALS: Ht 165.1 cm; Wt 81.6 kg
[2017-03-25 14:54] VITALS: BP 112/80
--- NOTE | 2017-03-25 15:24 | NUR ---
Patient transferred to OF via wheelchair by yadira. RN evaluating patient in OF.
--- NOTE | 2017-03-25 15:33 | NUR ---
LOREN Martinez evaluating patient in OF.
--- NOTE | 2017-03-25 15:35 | NUR ---
PATIENT PRESENTS TO ED WITH CHIEF COMPLAINTS OF LEFT HIP PAIN . DENIES N/V/D; SKIN IS PINK/WARM/DRY; AAOX4 WITH EVEN AND STEADY GAIT; LUNGS CLEAR BL; HR EVEN AND REGULAR; PT DENIES ANY FEVER, CP, SOB, OR COUGH AT THIS TIME; PATIENT STATES PAIN OF 10/10 AT THIS TIME; VSS; PATIENT POSITIONED FOR COMFORT; HOB ELEVATED; BEDRAILS UP X2; BED DOWN. ER MD MADE AWARE OF PT STATUS.
--- NOTE | 2017-03-25 15:35 | NUR ---
Patient transferred to bed 7 via wheelchair by [facility] for further care. RN evaluating patient at bedside.
[2017-03-25] MEDS ORDERED: KETOROLAC 60 MG/2 ML VIAL IM ONE ×2 (15:40→17:20)
--- NOTE | 2017-03-25 15:57 | NUR ---
PATIENT TAKEN TO XR FOR L/SPINE AND LT. HIP XR VIA WHEELCHAIR
[2017-03-25] MEDS ORDERED: MORPHINE SULFATE 4 MG/ML SYR IM ONE (16:30)
[2017-03-25 18:25] VITALS: BP 130/93
--- NOTE | 2017-03-25 18:30 | NUR ---
Patient discharged with v/s stable. Written and verbal after care instructions given and explained. Patient alert, oriented and verbalized understanding of instructions. Wheel Chair Assisted with to home. All questions addressed prior to discharge. ID band removed. Patient advised to follow up with PMD. Rx of CELEBREX, BACTRIM DS AND NORCO given. Patient educated on indication of medication including possible reaction and side effects. Opportunity to ask questions provided and answered.
== END 2017-03-25 18:30 | disposition home or self-care (01) ==
LOC: MED 14:29
DX: M71.22 Synovial cyst of popliteal space [Baker], left knee (principal); M16.12 Unilateral primary osteoarthritis, left hip; M54.5 Low back pain; K21.9 Gastro-esophageal reflux disease without esophagitis; E11.22 Type 2 diabetes mellitus with diabetic chronic kidney disease; I13.0 Hypertensive heart and chronic kidney disease with heart failure and stage 1 through stage 4 chronic kidney disease, or unspecified chronic kidney disease; N18.3 Chronic kidney disease, stage 3 (moderate); J45.909 Unspecified asthma, uncomplicated; J44.9 Chronic obstructive pulmonary disease, unspecified; Z79.82 Long term (current) use of aspirin; Z79.899 Other long term (current) drug therapy; Z79.84 Long term (current) use of oral hypoglycemic drugs; Z88.0 Allergy status to penicillin
CPT/HCPCS: 72100; 73502; 81002; 96372; 99284; J1885; J2270

== ENCOUNTER 2017-06-24 13:08 | Observation (INO) | payer OTHER ==
[~2017-06-24] VITALS: Ht 165.1 cm; Wt 86.6 kg
[~2017-06-24 13:08] MED LIST changes: -ASPI-1081 PO; +ASPI-1129 PO; +FAMO-90 PO; -FOLI1TAB19 PO; -VITA20002 PO
[2017-06-24 13:40] VITALS: BP 108/76
--- NOTE | 2017-06-24 13:50 | NUR ---
PT AMBULATED TO BED 3.
--- NOTE | 2017-06-24 13:52 | NUR ---
56F BIB FAMILY C/O RT FOOT PAIN, SHARP, NON-RADIATING, 9/10 X 1 WEEK; PT STATES NO TRAUMA OR INJURY TO RT FOOT AT THIS TIME; SWELLING NOTED TO RT FOOT AT THIS TIME; RT PEDAL PULSE PALPABLE, RT CAP REFILL < 2 SECONDS, NO LOSS OF SENSATION TO RT FOOT AT THIS TIME; PT NOTED WITH ERYTHEMA TO RT EYE X 1 DAY; PT STATES " I JUST WOKE UP LIKE THIS"; PT STATES NO VISION LOSS OR BLURRY VISION AT THIS TIME; PT AA&OX4, PERRLA, BL LUNG SOUNDS CLEAR, RR EVEN/UNLABORED, SKIN IS WARM/DRY/INTACT AT THIS TIME; STEADY GAIT; PT RESTING IN BED WITH HOB ELEVATED AND IN LOWEST POSITION; POSITIONED FOR COMFORT; ER MD MADE AWARE OF STATUS. WILL CONTINUE TO MONITOR.
--- NOTE | 2017-06-24 13:56 | NUR ---
ER MD DR. SLAEH EVALUATING PT AT BEDSIDE.
[2017-06-24] MEDS ORDERED: NACL 0.9% 1,000 ML IV SCH (14:04)
[2017-06-24] MEDS ORDERED: VANCOMYCIN 1,000 MG in DEXTROSE 5% 250 ML IV ONE (14:05)
[2017-06-24] MEDS ORDERED: KETOROLAC 30 MG/ML VIAL IVP ONE (14:05)
--- NOTE | 2017-06-24 14:19 | NUR ---
XRAY AT BEDSIDE.
[2017-06-24] MEDS ORDERED: VANCOMYCIN 1,000 MG VIAL ONE (14:27)
[2017-06-24 14:55] LABS: BASOPHILS # (AUTO) 0.1 K/uL (0.00-0.22); BASOPHILS % (AUTO) 1.8 % (0.0-2.0); EOSINOPHILS # (AUTO) 0.2 K/uL (0-0.4); EOSINOPHILS % (AUTO) 3.8 % (0.0-4.0); LYMPHOCYTES # (AUTO) 1.6 K/uL (2.5-16.5); LYMPHOCYTES % (AUTO) 25.4 % (20.5-51.1); MEAN CORPUSCULAR HEMOGLOBIN 32 pg (27-31); MEAN CORPUSCULAR HGB CONC 33 g/dL (33-37); MEAN CORPUSCULAR VOLUME 95 fL (80-94); MONOCYTES # (AUTO) 0.6 K/uL (0.8-1.0); MONOCYTES % (AUTO) 10.2 % (1.7-9.3); NEUTROPHILS # (AUTO) 3.7 K/uL (1.8-7.7); NEUTROPHILS % (AUTO) 58.8 % (42.2-75.2); PLATELET COUNT (AUTO) 205 K/uL (140-450); RED BLOOD CELL COUNT(AUTO) 3.48 MIL/uL (4.20-5.40); RED CELL DISTRIBUTION WIDTH 14.6 % (11.6-13.7); WHITE BLOOD COUNT (AUTO) 6.2 K/uL (4.8-10.8)
[2017-06-24 15:09] LABS: ANION GAP 14.3 (8-16); CARBON DIOXIDE 24.9 mmol/L (21-32); CREATININE 2.2 mg/dL (0.6-1.3); POTASSIUM 4.2 mmol/L (3.5-5.1)
--- NOTE | 2017-06-24 15:10 | NUR ---
PT APPEARS TO BE RESTING COMFORTABLY IN BED; RR EVEN/UNLABORED; POSITIONED FOR COMFORT; WILL CONTINUE TO MONITOR.
[2017-06-24 15:15] LABS: ALBUMIN 3.3 g/dL (3.4-5.0); TOTAL BILIRUBIN 0.2 mg/dL (0.0-1.0)
[2017-06-24 15:21] LABS: BILIRUBIN,URINE NEGATIVE (NEGATIVE); BLOOD, URINE NEGATIVE (NEGATIVE); LEUKOCYTE ESTERASE ,URINE NEGATIVE (NEGATIVE); NITRITE, URINE NEGATIVE (NEGATIVE); UGLUCOSE NEGATIVE (NEGATIVE)
[2017-06-24 15:22] LABS: APPEARANCE,URINE CLEAR (CLEAR); COLOR,URINE YELLOW (YELLOW)
[2017-06-24 15:26] LABS: PROTHROMBIN TIME 10.6 secs (10.8-13.4)
[2017-06-24] MEDS ORDERED: MORPHINE SULFATE 4 MG/ML SYR IVP ONE (16:10)
[2017-06-24] MEDS ORDERED: ONDANSETRON 4 MG/2 ML VIAL IVP PRN (16:20)
[2017-06-24] MEDS ORDERED: ACETAMINOPHEN 325 MG TAB PO PRN (16:20)
--- NOTE | 2017-06-24 16:41 | NUR ---
Patient will be admitted to care of DR. HOGAN. Admited to MED SURG OBS. Will go to room 108B. Belongings list completed. Report to [facility].
[2017-06-24 16:50] VITALS: BP 132/81
--- NOTE | 2017-06-24 16:50 | NUR ---
PATIENT ARRIVED ON [facility] UNIT VIA GURNEY/BED. PATIENT AMBULATED TO BED FROM [facility] WITH UNSTEADY GAIT AND STANDBY ASSISTANCE. PATIENT IN STABLE CONDITION, NO DISTRESS NOTED. DENIES ANY PAIN AT THIS TIME. LEFT FA 20 G IV INTACT, PATENT, ON SALINE LOCK. AAOX4, CALM, COOPERATIVE, APPROPRIATE AFFECT. SKIN COLOR APPROPRIATE TO ETHNICITY, WARM TO TOUCH. SKIN IS INTACT THROUGHOUT BODY. LEFT FOOT CELLULITIS WITH NON-PITTING EDEMA, NO OPEN/LESIONS WOUNDS ON FOOT. HAS LEFT UPPER CHEST SCAR DUE TO IMPLANT OF DEFIBRILLATOR. MRSA OF NARES TAKEN PER PROTOCOL, ORIENTED PATIENT TO ROOM, REVIEWED PLAN OF CARE WITH PATIENT. PATIENT VERBALIZED UNDERSTANDING. SAFETY MEASURES IN PLACE, CALL LIGHT WITHIN REACH, BEDSIDE COMMODE PLACED NEXT TO BEDSIDE, ID BANDS PLACED ON PATIENT WRIST. WILL CONTINUE TO MONITOR.
--- NOTE | 2017-06-24 18:15 | NUR ---
PATIENT SITTING IN BED WITH GRANDSON AT BEDSIDE. NO DISTRESS NOTED, RESPIRATORY EVEN, UNLABORED ON O2 3L/MIN VIA NC. DENIES ANY PAIN. SAFETY MEASURES IN PLACE. WILL CONTINUE TO MONITOR.
--- NOTE | 2017-06-24 19:20 | NUR ---
GAVE REPORT TO ROTARY CUTTER OPERATOR NURSE FOR CONTINUITY OF CARE. PATIENT IN STABLE CONDITION.
--- NOTE | 2017-06-24 19:21 | NUR ---
RECEIVED REPORT FROM AM NURSE. PT IS AAOX4. ON 02 3L VIA NC. IV ACCESS IS INTACT, PATENT AND ASYMPTOMATIC. RIGHT FOOT CELLULITIS. BOWEL SOUNDS ACTIVE ON ALL FOUR QUADRANTS, NO SIGNS OF ACUTE DISTRESS NOTED. SKIN COLOR APPROPRIATE TO ETHNICITY, SKIN TEMP WARM TO TOUCH. PLAN OF CARE DISCUSSED, PT VERBALIZED UNDERSTANDING. BED IN LOW POSITION, BILATERAL HALF SIDE RAILS UP, CALL LIGHT WITHIN REACH, WILL CONTINUE TO MONITOR.
[2017-06-24 20:00] VITALS: BP 135/80
[2017-06-24] MEDS: MORPHINE SULFATE 2 MG/ML SYR IVP PRN (20:08)
--- NOTE | 2017-06-24 23:17 | NUR ---
PT IS SLEEPING, EASY TO AROUSE. ON 02 3L NC. NO SIGNS OF ACUTE DISTRESS. BED IN LOW POSITION, BILATERAL HALF SIDE RAILS UP, CALL LIGHT WITHIN REACH, WILL CONTINUE TO MONITOR.
[2017-06-25] VITALS: BP 122/71
[2017-06-25] MEDS: MORPHINE SULFATE 2 MG/ML SYR IVP PRN ×2 (03:00→07:00)
[2017-06-25 07:01] LABS: EOSINOPHILS # (AUTO) 0.2 K/uL (0-0.4); EOSINOPHILS % (AUTO) 4.3 % (0.0-4.0); HEMATOCRIT 31.4 % (36-48); HEMOGLOBIN 10.2 g/dL (12.0-16.0); LYMPHOCYTES # (AUTO) 1.2 K/uL (2.5-16.5); LYMPHOCYTES % (AUTO) 25.3 % (20.5-51.1); MEAN CORPUSCULAR HEMOGLOBIN 32 pg (27-31); MEAN CORPUSCULAR HGB CONC 33 g/dL (33-37); MEAN CORPUSCULAR VOLUME 97 fL (80-94); MONOCYTES # (AUTO) 0.5 K/uL (0.8-1.0); MONOCYTES % (AUTO) 10.2 % (1.7-9.3); NEUTROPHILS # (AUTO) 2.9 K/uL (1.8-7.7); NEUTROPHILS % (AUTO) 59.2 % (42.2-75.2); PLATELET COUNT (AUTO) 180 K/uL (140-450); RED BLOOD CELL COUNT(AUTO) 3.25 MIL/uL (4.20-5.40); RED CELL DISTRIBUTION WIDTH 14.6 % (11.6-13.7); WHITE BLOOD COUNT (AUTO) 4.8 K/uL (4.8-10.8)
--- NOTE | 2017-06-25 07:15 | NUR ---
ENDORSED PT TO AM NURSE FOR CONTINUITY OF CARE. PT IN STABLE CONDITION.
--- NOTE | 2017-06-25 07:16 | NUR ---
PATIENT SITTING IN BED WITH BREAKFAST TRAY IN FRONT. IN STABLE CONDITION. NO DISTRESS NOTED. RESPIRATIONS EVEN, UNLABORED ON ROOM AIR. AAOX4, CALM, COOPERATIVE. IV INTACT, PATENT, ON SALINE LOCK. SKIN COLOR APPROPRIATE TO ETHNICITY, WARM TO TOUCH. RIGHT FOOT NON-PITTING EDEMA NOTED, SKIN IS INTACT. PAIN ON RIGHT FOOT WITHIN TOLERABLE AT THIS TIME. LUNGS CTA ON ALL LOBES. REVIEWED PLAN OF CARE WITH PATIENT. PATIENT VERBALIZED UNDERSTANDING. SAFETY MEASURES IN PLACE, CALL LIGHT WITHIN REACH. WILL CONTINUE TO MONITOR. Addendum: 06/25/17 at 0827 by Quentin Hurley RN DISREGARD "ON ROOM AIR" ABOVE. PATIENT ON O2 3L/MIN VIA NC
[2017-06-25 07:37] LABS: ALBUMIN 2.8 g/dL (3.4-5.0); ANION GAP 14.1 (8-16); CARBON DIOXIDE 23.3 mmol/L (21-32); MAGNESIUM 1.9 mg/dL (1.8-2.4); PHOSPHORUS 4.1 mg/dL (2.5-4.9); POTASSIUM 4.4 mmol/L (3.5-5.1); TOTAL BILIRUBIN 0.2 mg/dL (0.0-1.0)
--- NOTE | 2017-06-25 07:43 | NUR ---
ENDORSED PT TO AM NURSE FOR CONTINUITY OF CARE. PT IN STABLE CONDITION. Addendum: 06/25/17 at 0746 by Carmelina Sanchez RN DISREGARD ABOVE NOTATION.
[2017-06-25 08:00] VITALS: BP 125/74
[2017-06-25] MEDS ORDERED: ENOXAPARIN 40 MG/0.4 ML SYR SUBQ SCH ×2 (09:00)
[2017-06-25] MEDS ORDERED: ENOXAPARIN 30 MG/0.3 ML SYR SUBQ SCH (09:00)
--- NOTE | 2017-06-25 09:00 | NUR ---
DR. HOGAN AT BEDSIDE REVIEWING PLAN OF CARE WITH PATIENT. PATIENT TO BE DISCHARGED HOME TODAY WITH ORAL ANTIBIOTICS. PATIENT AWARE. WILL CONTINUE TO MONITOR.
--- NOTE | 2017-06-25 09:19 | NUR ---
PATIENT HAS BEEN SCREENED AND CATEGORIZED MODERATE NUTRITION RISK. PATIENT WILL BE SEEN WITHIN 3-5 DAYS OF ADMISSION. 06/27/17-06/29/[address]
[2017-06-25] MEDS ORDERED: CLIN300C2 PO (10:00)
--- NOTE | 2017-06-25 10:10 | NUR ---
PATIENT SITTING IN BED. NO DISTRESS NOTED. PATIENT IN A HURRY TO GO HOME DAUGHTER IS WAITING IN [facility] VIA PRIVATE VEHICLE. EXPLAINED TO PATIENT VERBAL INSTRUCTIONS FROM DR. HOGAN TO CONTINUE ORAL ANTIBIOTICS AT HOME THAT THE PATIENT IS CURRENTLY ON AND TO FOLLOW-UP WITH PCP WITHIN 1 WEEK. PATIENT VERBALIZED UNDERSTANDING. ASKED PATIENT TO WAIT FOR RN TO FINISH DISCHARGE PAPER WORK, BUT PATIENT NOT WILLING TO WAIT FOR PAPERWORK. PATIENT ALL DRESSED UP AND STARTED AMBULATING, WITH STEADY GAIT, BY HERSELF OUT TO [facility]. COULD NOT CONVINCE PATIENT TO STAY FOR 3 MINUTES FOR THE DISCHARGE PAPERWORK. DISCHARGE PAPERWORK IN PATIENT FILE UNSIGNED. IV REMOVED WITH MINIMAL BLOOD AND CANNULA COMPLETELY INTACT. PATIENT DISCHARGED HOME VIA PRIVATE VEHICLE. ALL BELONGINGS WITH PATIENT. PATIENT OWN OXYGEN TANK WITH PATIENT ON 3L/MIN VIA NC. IN STABLE CONDITION UPON DISCHARGE.
== END 2017-06-25 10:10 | disposition home or self-care (01) ==
LOC: MED 13:08 → MTU 16:24
PROVIDERS: ADMIT Hospitalist; ATTEND Hospitalist
DX: L03.115 Cellulitis of right lower limb (principal); E11.43 Type 2 diabetes mellitus with diabetic autonomic (poly)neuropathy; J44.9 Chronic obstructive pulmonary disease, unspecified; I50.9 Heart failure, unspecified; I11.0 Hypertensive heart disease with heart failure; I25.10 Atherosclerotic heart disease of native coronary artery without angina pectoris; I25.2 Old myocardial infarction; Z95.0 Presence of cardiac pacemaker; Z87.891 Personal history of nicotine dependence
CPT/HCPCS: 36415; 71010; 80053; 81003; 82550; 82553; 83605; 83735; 83880; 84100; 84484; 85025; 85610; 85730; 87040; 87081; 87086; 93005; 96365; 96366; 96375; 96376; 99285; G0378; J1885; J2270; J3370; J7030; J7060; Q0092

== ENCOUNTER 2017-06-30 13:34 | Inpatient (IN) | payer OTHER ==
[~2017-06-30] VITALS: Ht 165.1 cm; Wt 86.2 kg
[~2017-06-30 13:34] MED LIST changes: +CLIN300C2 PO
[2017-06-30 13:41] VITALS: BP 128/84
--- NOTE | 2017-06-30 13:44 | NUR ---
Patient ambulated to bed 3. RN evaluating patient at bedside.
--- NOTE | 2017-06-30 13:48 | NUR ---
56F BIB FAMILY C/O BL CHEST PAIN, SHARP, RADIATES TO BACK AND RT ABDOMEN, 9/10 X YESTERDAY; PT C/O 1 EPISODE OF DIARRHEA, BUT STATES NO NAUSEA OR VOMITING AT THIS TIME; ABDOMEN SOFT, NON-TENDER, ACTIVE BOWEL SOUNDS X 4 QUADRANTS; PT AA&OX4, PERRLA, BL LUNG SOUNDS CLEAR, RR EVEN/UNLABORED, SKIN IS WARM/DRY/INTACT AT THIS TIME; PT NOTED WITH HEALED SCAR TO LEFT CHEST FROM INSERTION OF DEFIBRILLATOR; PT STATES NO PAIN TO SITE AT THIS TIME; STEADY GAIT; PT RESTING IN BED WITH HOB ELEVATED AND IN LOWEST POSITION; POSITIONED FOR COMFORT; ER MD MADE AWARE OF STATUS. WILL CONTINUE TO MONITOR.
--- NOTE | 2017-06-30 13:50 | NUR ---
Dr. Mixon evaluating patient at bedside.
[2017-06-30] MEDS ORDERED: PANTOPRAZOLE 40 MG INJ VIAL IVP ONE (14:10)
[2017-06-30] MEDS ORDERED: KETOROLAC 15 MG/ML VIAL IVP ONE (14:10)
[2017-06-30] MEDS ORDERED: ASPIRIN 81 MG TAB.CHEW PO ONE (14:10)
--- NOTE | 2017-06-30 14:27 | NUR ---
PT STATES TOOK ASPIRIN TODAY; ER MD DR. SHAFER INFORMED AND STATES TO NOT GIVE PT ASPIRIN. WILL CONTINUE TO MONITOR.
[2017-06-30 14:51] LABS: BASOPHILS # (AUTO) 0.2 K/uL (0.00-0.22); BASOPHILS % (AUTO) 2.5 % (0.0-2.0); EOSINOPHILS # (AUTO) 0.1 K/uL (0-0.4); EOSINOPHILS % (AUTO) 2.3 % (0.0-4.0); HEMATOCRIT 31.3 % (36-48); HEMOGLOBIN 10.6 g/dL (12.0-16.0); LYMPHOCYTES # (AUTO) 1.4 K/uL (2.5-16.5); LYMPHOCYTES % (AUTO) 22.7 % (20.5-51.1); MEAN CORPUSCULAR HEMOGLOBIN 32 pg (27-31); MEAN CORPUSCULAR HGB CONC 34 g/dL (33-37); MEAN CORPUSCULAR VOLUME 95 fL (80-94); MONOCYTES # (AUTO) 0.8 K/uL (0.8-1.0); MONOCYTES % (AUTO) 12.1 % (1.7-9.3); NEUTROPHILS # (AUTO) 3.8 K/uL (1.8-7.7); NEUTROPHILS % (AUTO) 60.4 % (42.2-75.2); PLATELET COUNT (AUTO) 245 K/uL (140-450); RED BLOOD CELL COUNT(AUTO) 3.28 MIL/uL (4.20-5.40); RED CELL DISTRIBUTION WIDTH 15.1 % (11.6-13.7); WHITE BLOOD COUNT (AUTO) 6.4 K/uL (4.8-10.8)
--- NOTE | 2017-06-30 14:52 | NUR ---
XRAY AT BEDSIDE.
[2017-06-30] MEDS ORDERED: fentaNYL 0.05 MG/ML VIAL IVP ONE (15:05)
[2017-06-30 15:25] LABS: CARBON DIOXIDE 32.7 mmol/L (21-32); CREATININE 1.8 mg/dL (0.6-1.3); POTASSIUM 3.7 mmol/L (3.5-5.1)
[2017-06-30 15:31] LABS: ALBUMIN 3.3 g/dL (3.4-5.0); TOTAL BILIRUBIN 0.2 mg/dL (0.0-1.0)
--- NOTE | 2017-06-30 15:46 | NUR ---
US AT BEDSIDE.
[2017-06-30 15:48] LABS: PROTHROMBIN TIME 10.8 secs (10.8-13.4)
--- NOTE | 2017-06-30 17:12 | NUR ---
Dr. Mixon re-evaluating patient at bedside.
[2017-06-30] MEDS ORDERED: NACL 0.9% 1,000 ML IV SCH (17:13)
[2017-06-30] MEDS ORDERED: ALBUTEROL 0.083% 2.5 MG/3 ML NEBU INH PRN (17:15)
[2017-06-30] MEDS ORDERED: LORazepam 2 MG/ML VIAL IVP PRN (17:15)
[2017-06-30] MEDS ORDERED: ACETAMINOPHEN 325 MG TAB PO PRN (17:15)
[2017-06-30] MEDS ORDERED: ONDANSETRON 4 MG/2 ML VIAL IVP PRN (17:15)
--- NOTE | 2017-06-30 17:25 | NUR ---
RECEIVED REPORT FROM ER NURSE MYNOR. WILL GET ROOM 11B READY AND AWAIT FOR PT ARRIVAL.
--- NOTE | 2017-06-30 17:26 | NUR ---
Patient will be admitted to care of DR. HOGAN. Admited to MED-SURG. Will go to room 111B. Belongings list completed. Report to BAN MARTIN.
--- NOTE | 2017-06-30 18:00 | NUR ---
PT ARRIVED TO UNIT VIA GURNEY ACCOMPANIED BY RN. TRANSFERRED TO BED WITH MINIMAL ASSIST. PT IS AWAKE AND ORIENTED. INTRODUCED SELF AND UPDATED BOARD. VS: BP 149/87 HR 71 O2 99% ON O2 NC 3L. RR 22 TEMP 97.1 DEGREES. ID BAND APPLIED. MRSA SWAB DONE. IV ON LEFT HAND 24G INTACT. PT IS NPO AT THIS TIME. BED IN LOW POSITION, WHEELS LOCKED. CALL LIGHT WITHIN REACH. PLACED BEDSIDE COMMODE IN ROOM. WILL CONTINUE TO MONITOR.
--- NOTE | 2017-06-30 18:10 | NUR ---
DR. BAUTISTA CAME AND SAW PT.
[2017-06-30] MEDS: MORPHINE SULFATE 2 MG/ML SYR IVP PRN ×2 (18:18→22:20)
[2017-06-30 18:38] LABS: APPEARANCE,URINE CLEAR (CLEAR); BILIRUBIN,URINE NEGATIVE (NEGATIVE); BLOOD, URINE NEGATIVE (NEGATIVE); LEUKOCYTE ESTERASE ,URINE NEGATIVE (NEGATIVE); NITRITE, URINE NEGATIVE (NEGATIVE); PH,URINE 7.5 (5.0-9.0); UGLUCOSE NEGATIVE (NEGATIVE)
[2017-06-30 18:40] LABS: COLOR,URINE YELLOW (YELLOW)
--- NOTE | 2017-06-30 19:17 | NUR ---
ENDORSED PT TO HEADING MAKER NURSE VIANEY AT BEDSIDE. PT IS LYING IN BED RIGHT NOW IN STABLE CONDITION.
--- NOTE | 2017-06-30 19:18 | NUR ---
RECEIVED BEDSIDE REPORT FROM DAY SHIFT NURSE, EDWIN RN, PT STABLE, NO DISTRESS NOTED, AAOX4, IV TO THE L HAND 24G SL, PATENT, DRESSING CLEAN DRY AND INTACT, REPORTING HAVING NO PAIN AT THIS MOMENT, CALL LIGHT WITHIN REACH, ALL SAFETY PRECAUTION MET, INITIAL ASSESSMENT DONE.
[2017-06-30 19:30] VITALS: BP 149/81
[2017-06-30] MEDS ORDERED: DEXTROSE 50% 50 ML SYR IVP PRN (19:35)
--- NOTE | 2017-06-30 20:25 | NUR ---
PT PICKED UP FOR CT, ON GURNEY WITH 2L NC, NO DISTRESS NOTED.
--- NOTE | 2017-06-30 20:47 | NUR ---
PT BACK ON THE UNIT, NO DISTRESS NOTED, CALL LIGHT WITHIN REACH, WILL CONTINUE TO MONITOR.
[2017-06-30] MEDS: BLOOD GLUCOSE MONITORING 1 DEV DEV FS SCH (21:15)
[2017-06-30] MEDS ORDERED: LORazepam 1 MG TAB PO PRN (21:50)
--- NOTE | 2017-06-30 21:51 | NUR ---
PT C/O OF FEELING HUNGRY, PAGED DR. ALVAREZ, [address] ALVAREZ, ORDERED CLEAR LIQ DIET, WILL CONTINUE WITH ORDER. Addendum: 06/30/17 at 2158 by Ciara Khan RN [address] ALVAREZ REGARDING NS ORDER, TO SL PT. WILL CONTINUE WITH ORDER.
--- NOTE | 2017-06-30 22:20 | NUR ---
PT C/O OF PAIN 6/10 ON THE ABD RADIATING TO THE BACK, PAIN MEDICATION GIVEN, PT TOLERATED WELL, WILL CONTINUE TO MONITOR.
[2017-07-01 00:05] VITALS: BP 130/81
--- NOTE | 2017-07-01 00:53 | NUR ---
CHECKED ON PT, PT SLEEPING, NO DISTRESS NOTED, CALL LIGHT WITHIN REACH, WILL CONTINUE TO MONITOR.
[2017-07-01] MEDS: MORPHINE SULFATE 2 MG/ML SYR IVP PRN (02:27)
--- NOTE | 2017-07-01 03:10 | NUR ---
PT C/O OF PAIN ON IV SITE, IV STILL PATENT BUT HURTS DURING FLUSHING, IV D/C, NEW IV INSERTED ON R FA 24G, IV PATENT, DRESSING CLEAN DRY AND INTACT, PT TOLERATED WELL, PT RESTING, NO DISTRESS NOTED, CALL LIGHT WITHIN REACH, WILL CONTINUE TO MONITOR.
--- NOTE | 2017-07-01 04:25 | NUR ---
CHECKED ON PT, PT SLEEPING, NO DISTRESS NOTED, CALL LIGHT WITHIN REACH, WILL CONTINUE TO MONITOR.
[2017-07-01] MEDS: HYDROmorphone 1 MG/ML AMP IVP PRN ×5 (04:59→22:26)
--- NOTE | 2017-07-01 04:59 | NUR ---
PT C/O PAIN 10/10 ON THE BACK, PT CRYING AND MOANING, PAIN MEDICATION ADMINISTERED, PT TOLERATED WELL, STABLE, NO DISTRESS, CALL LIGHT WITHIN REACH, WILL CONTINUE TO MONITOR.
--- NOTE | 2017-07-01 06:10 | NUR ---
AMBULATE PT TO BEDSIDE COMMODE AND BACK TO BED, PT TOLERATED WELL, NO DISTRESS NOTED, CALL LIGHT WITHIN REACH, WILL CONTINUE TO MONITOR.
[2017-07-01] MEDS: BLOOD GLUCOSE MONITORING 1 DEV DEV FS SCH ×4 (06:19→20:31)
--- NOTE | 2017-07-01 07:23 | NUR ---
GAVE BEDSIDE REPORT TO DAY SHIFT NURSE JESSI RN, PT STABLE NO DISTRESS NOTED.
--- NOTE | 2017-07-01 07:25 | NUR ---
RECEIVED BEDSIDE REPORT FROM COSMETIC SALES NURSE, NO S/S OF DISTRESS NOTED, PT IS AAOX4. IV NOTED TO THE LEFT FA 24G SL, INTACT AND PATENT, FLUSHED WITH NS, NO RESISTANCE FELT. PAIN IS TOLERABLE AT THIS MOMENT, CALL LIGHT WITHIN REACH, ALL SAFETY PRECAUTION MET, INITIAL ASSESSMENT DONE. WILL CONTINUE TO MONITOR.
[2017-07-01 07:27] LABS: ANION GAP 14.4 (8-16); CARBON DIOXIDE 28.3 mmol/L (21-32); CREATININE 1.8 mg/dL (0.6-1.3); POTASSIUM 3.7 mmol/L (3.5-5.1)
[2017-07-01 07:31] LABS: BASOPHILS # (AUTO) 0.1 K/uL (0.00-0.22); BASOPHILS % (AUTO) 1.7 % (0.0-2.0); EOSINOPHILS # (AUTO) 0.2 K/uL (0-0.4); EOSINOPHILS % (AUTO) 3.1 % (0.0-4.0); HEMOGLOBIN 10.4 g/dL (12.0-16.0); LYMPHOCYTES # (AUTO) 1.4 K/uL (2.5-16.5); LYMPHOCYTES % (AUTO) 23.6 % (20.5-51.1); MEAN CORPUSCULAR HEMOGLOBIN 33 pg (27-31); MEAN CORPUSCULAR HGB CONC 34 g/dL (33-37); MEAN CORPUSCULAR VOLUME 96 fL (80-94); MONOCYTES # (AUTO) 0.7 K/uL (0.8-1.0); MONOCYTES % (AUTO) 11.7 % (1.7-9.3); NEUTROPHILS # (AUTO) 3.7 K/uL (1.8-7.7); NEUTROPHILS % (AUTO) 59.9 % (42.2-75.2); PLATELET COUNT (AUTO) 193 K/uL (140-450); RED BLOOD CELL COUNT(AUTO) 3.21 MIL/uL (4.20-5.40); RED CELL DISTRIBUTION WIDTH 14.9 % (11.6-13.7); WHITE BLOOD COUNT (AUTO) 6.1 K/uL (4.8-10.8)
[2017-07-01 08:00] VITALS: BP 104/74
--- NOTE | 2017-07-01 09:00 | NUR ---
PT C/O OF PAIN 04/21 ABD PAIN, WILL GIVE PAIN MEDICATION, WILL CONTINUE TO MONITOR VITALS AND RESPIRATION EFFORT.
[2017-07-01] MEDS: INSULIN LISPRO SLIDING SCALE 100 UNITS/ML VIAL SUBQ PRN ×2 (12:52→20:33)
--- NOTE | 2017-07-01 12:55 | NUR ---
PATIENT HAS BEEN SCREENED AND CATEGORIZED MODERATE NUTRITION RISK. PATIENT WILL BE SEEN WITHIN 3-5 DAYS OF ADMISSION. 07/03/17-07/05/[address]
--- NOTE | 2017-07-01 13:03 | NUR ---
PT C/O OF PAIN 03/21 ABD PAIN, WILL GIVE PAIN MEDICATION, WILL CONTINUE TO MONITOR VITALS AND RESPIRATION EFFORT.
--- NOTE | 2017-07-01 13:27 | NUR ---
CM NOTE INITIAL REVIEW FAXED TO [facility] [phone] DIANNE # [phone]
[2017-07-01 16:00] VITALS: BP 110/67
--- NOTE | 2017-07-01 18:00 | NUR ---
PT C/O OF PAIN 04/21 ABD PAIN, WILL GIVE PAIN MEDICATION, WILL CONTINUE TO MONITOR VITALS AND RESPIRATION EFFORT. PT ON 2L O2 VIA NC.
--- NOTE | 2017-07-01 19:35 | NUR ---
ENDORSED PT TO FURNACE MECHANIC NURSE FOR CONTINUITY OF CARE. PT REPORT GIVEN AT BEDSIDE. PT IS IN STABLE CONDITION.
--- NOTE | 2017-07-01 19:36 | NUR ---
RECEIVED PT IN STABLE CONDITION FROM AM NURSE. AWAKE,ALERT AND ORIENTED X4. ON MED SURG. WITH O23L/NC. NO ACUTE DISTRESS NOTED. NO C/O ANY PAIN AT THIS TIME. PLAN OF CARE DISCUSSED AND VERBALIZED UNDERSTANDING. BED ON LOW POSITION. CALL LIGHT PLACED WITHIN EASY REACH. WILL CONTINUE TO MONITOR.
--- NOTE | 2017-07-01 20:33 | NUR ---
BLOOD SUGAR WAS CHECKED RESULT 166. INSULIN COVERAGE GIVEN SUBQ. HAD SOME JUICE . WILL CONTINUE TO MONITOR.
[2017-07-01 22:24] VITALS: BP 141/85
--- NOTE | 2017-07-01 22:56 | NUR ---
MADE ROUNDS. PT IS ASLEEP. NO MORE S/S OF ANY PAIN NOTED.
[2017-07-01 23:47] VITALS: BP 128/75
--- NOTE | 2017-07-02 01:40 | NUR ---
ASSISTED UP TO BSC, VOIDED WELL. BACK TO BED WITH SOME DISCOMFORT. ASSISTED TO POSITION COMFORTABLY IN BED.
[2017-07-02] MEDS: HYDROmorphone 1 MG/ML AMP IVP PRN ×3 (02:33→21:32)
--- NOTE | 2017-07-02 03:45 | NUR ---
IV ACCESS ON THE LT FA INFILTRATED. DISCONTINUED, A NEW IV ACCESS STARTED BY ER NURSE ON THE LT SHOULDER G#24. CLEAR AND PATENT.
[2017-07-02] MEDS: BLOOD GLUCOSE MONITORING 1 DEV DEV FS SCH ×4 (06:15→21:19)
--- NOTE | 2017-07-02 06:15 | NUR ---
BLOOD SUGAR THIS AM 95. NO INSULIN NEEDED.
[2017-07-02] MEDS ORDERED: MAG SULF 2000 MG/WATER PREMIX 50 ML IV SCH (07:15)
--- NOTE | 2017-07-02 07:30 | NUR ---
RECEIVED PT IN BED. AWAKE. ALERT ORIENTEDX4. NO SOB NOTED AT THIS TIME. ON O2 AT 2LPM NC. PT AMBULATORY WITH ASSIST. SAFETY PRECAUTION IN PLACE. CALL LIGHT WITHIN REACH.
--- NOTE | 2017-07-02 07:31 | NUR ---
ENDORSED PT IN STABLE CONDITION TO AM NURSE.
[2017-07-02 08:00] VITALS: BP 144/78
--- NOTE | 2017-07-02 08:50 | NUR ---
DR. HOGAN CAME TO SEE PT. MADE AWARE THAT PT REFUSED HEPARIN SQ. DR. HOGAN MADE ORDERS AND CARRIED OUT.
--- NOTE | 2017-07-02 10:56 | NUR ---
CALLED DR. HOGAN REGARDING MED REC NOT CONTINUED, TO REVIEW AND CONTINUE MED REC. AND PT COMPLAINS OF LEFT HIP PAIN. WITH ORDERS MADE AND CARRIED OUT TORB.
[2017-07-02] MEDS: MORPHINE SULFATE 2 MG/ML SYR IVP PRN (11:05)
[2017-07-02] MEDS ORDERED: ALBUTEROL 0.083% 2.5 MG/3 ML NEBU INH PRN (11:40)
[2017-07-02] MEDS: PHENYTOIN 100 MG CAPER PO SCH ×2 (12:11→17:41)
--- NOTE | 2017-07-02 12:34 | NUR ---
CALLED DR. MCGRAW MADE AWARE OF NEPHRO CONSULT. HE SAID THAT HE WILL COME TO SEE PT BERNABE.
[2017-07-02 13:03] LABS: ANION GAP 13.6 (8-16); CARBON DIOXIDE 27.6 mmol/L (21-32); CREATININE 1.7 mg/dL (0.6-1.3); POTASSIUM 4.2 mmol/L (3.5-5.1); TOTAL BILIRUBIN 0.3 mg/dL (0.0-1.0)
--- NOTE | 2017-07-02 14:36 | NUR ---
CM NOTE CONCURRENT REVIEW FAXED TO [facility] [phone] DIANNE # [phone]
[2017-07-02 16:00] VITALS: BP 133/82
[2017-07-02] MEDS: HYDROcodone/APAP 5/325 MG 1 TAB TAB PO PRN (16:02)
[2017-07-02] MEDS: FUROSEMIDE 40 MG TAB PO SCH (17:41)
--- NOTE | 2017-07-02 19:30 | NUR ---
RECEIVE DPT IN STABLE CONDITION FROM AM NURSE. AWAKE,ALERT AND ORIENTED X4. ON MED SURG . BEDREST. WITH ASSISTANCE ON BSC. HAS O22L/NC. NO RESPIRATORY DISTRESS NOTED. HAS OCCASIONAL NON PRODUCTIVE COUGH. IV ACCESS ON THE LT FA#24. CLEAR AND PATENT. PLAN OF CARE DISCUSSED AND VERBALIZED UNDERSTANDING. BED ON LOW POSITION, FREQUENT ROUNDS NEEDED. CALL LIGHT PLACED WITHIN EASY REACH. WILL CONTINUE TO MONITOR.
--- NOTE | 2017-07-02 19:42 | NUR ---
PT KEPT, CLEAN, DRY AND COMFORTABLE, NEEDS ATTENDED. ENDORSED TO NEXT SHIFT, PT ON STABLE CONDITION, FOR CONTINUITY OF CARE.
[2017-07-02] MEDS: CARVEDILOL 12.5 MG TAB PO SCH (21:19)
[2017-07-02 21:20] VITALS: BP 137/84
--- NOTE | 2017-07-02 21:30 | NUR ---
PT C/O SEVERE PAIN ON THE LOWER BACK 05/21. SHE SAID THE NORCO DIDN'T REALLY WORK EARLIER. WILL MEDICATE ORDERED.
[2017-07-02] MEDS: hydrALAZINE 10 MG TAB PO SCH (21:32)
[2017-07-02] MEDS: INSULIN LISPRO SLIDING SCALE 100 UNITS/ML VIAL SUBQ PRN (21:54)
--- NOTE | 2017-07-02 21:54 | NUR ---
BLOOD SUGAR WAS CHECKED RESULT 178. INSULIN COVERAGE GIVEN SUBQ. PROVIDED WITH SOME SANDWICH AND JUICE. WILL CONTINUE TO MONITOR.
--- NOTE | 2017-07-02 23:00 | NUR ---
PT SLEEPING AT THIS TIME. NO S/S OF ANY DISCOMFORT NOR PAIN NOTED.
[2017-07-02 23:59] VITALS: BP 119/73
[2017-07-03 02:36] VITALS: BP 130/78
[2017-07-03] MEDS: HYDROmorphone 1 MG/ML AMP IVP PRN (02:39)
--- NOTE | 2017-07-03 03:45 | NUR ---
MADE ROUNDS . PT IS ASLEEP. NO S/SOF ANY DISCOMFORT NOR PAIN NOTED.
[2017-07-03] MEDS: BLOOD GLUCOSE MONITORING 1 DEV DEV FS SCH ×2 (06:04→11:44)
--- NOTE | 2017-07-03 06:04 | NUR ---
BLOOD SUGAR THIS AM 141. NO INSULIN NEEDED.
--- NOTE | 2017-07-03 07:28 | NUR ---
ENDORSED PT IN STABLE CONDITION TO AM NURSE.
[2017-07-03 08:00] VITALS: BP 122/70
[2017-07-03] MEDS ORDERED: CYCLOBENZAPRINE 10 MG TAB PO PRN (08:25)
[2017-07-03] MEDS ORDERED: ECOTRIN 81 MG TABEC PO SCH (09:00)
[2017-07-03] MEDS ORDERED: AMIODARONE 200 MG TAB PO SCH (09:00)
[2017-07-03] MEDS ORDERED: FAMOTIDINE 20 MG TAB PO SCH (09:00)
[2017-07-03] MEDS: CAPSAICIN 0.025% CRE 60 GM TUBE TP SCH ×2 (09:00→13:00)
[2017-07-03] MEDS ORDERED: ACET-2858 PO (09:04)
[2017-07-03] MEDS ORDERED: CYCL10TA14 PO (09:07)
[2017-07-03] MEDS ORDERED: CAPS0.026 TP (09:07)
[2017-07-03] MEDS: PHENYTOIN 100 MG CAPER PO SCH ×2 (09:12→14:09)
[2017-07-03] MEDS: CARVEDILOL 12.5 MG TAB PO SCH (09:12)
[2017-07-03] MEDS: FUROSEMIDE 40 MG TAB PO SCH (09:13)
[2017-07-03] MEDS: HYDROcodone/APAP 5/325 MG 1 TAB TAB PO PRN (09:37)
[2017-07-03] MEDS: hydrALAZINE 10 MG TAB PO SCH (09:37)
--- NOTE | 2017-07-03 10:39 | NUR ---
CM NOTE CONCURRENT REVIEW FAXED TO [facility] [phone] DIANNE PH# [phone]. PER HAN OF [facility] PH# [phone], [facility] CAN TAKE THE PATIENT AND THEY CAN SEND A NURSE TOMORROW IF PATIENT GETS DISCHARGED TODAY. [facility] SONJA DEAN AND NURSE GEOVANNA AWARE. Addendum: 07/03/17 at 1522 by Cande Bey CM LATE ENTRY PER [facility] SONJA DEAN, FOR [facility]# [id number]
--- NOTE | 2017-07-03 11:00 | NUR ---
PT NOTE 2754 CHART REVIEWED; Pt REFUSED TO PARTICIPATE WITH PT DUE TO PAIN ON HIPS WITH MOVEMENT REPORTED 9/10 DESPITE INTAKE OF PAIN MEDS. Pt WAS EDUCATED ON HEP INSTEAD. PVE1 ([phone]) PVE(2) 1ST 2 ATTEMPTS FOR PT TX, Pt REQUESTED TO HAVE PAIN MEDS PRIOR TO TX; UPON RETURN AFTER 30 MINS, Pt REQUESTED THIS PTTO COME BACK AT A LATER TIME FOR PAIN MEDS TO TAKE EFFECT. ([phone])
[2017-07-03] MEDS: INSULIN LISPRO SLIDING SCALE 100 UNITS/ML VIAL SUBQ PRN (11:46)
--- NOTE | 2017-07-03 14:11 | NUR ---
RECEIVED REPORT FROM BAN AUSTIN, PT LYING IN BED ON RA, PT DENIES PAIN, NO S/S OF ACUTE DISTRESS, WILL CONT TO MONITOR.
--- NOTE | 2017-07-03 14:11 | NUR ---
ENDORSE THE CARE TO DHARMESH
--- NOTE | 2017-07-03 15:55 | NUR ---
PT READY FOR DISCHARGE, IV TAKEN OUT TIP INTACT, NO S/S OF ACUTE DISTRESS, PT WHEELED TO FRONT LOBBY WITH PATROL SERGEANT SHERIFF'S OFFICE VIA WHEELCHAIR, DAUGHTER WAITING IN FRONT LOBBY, PT STABLE CONDITION.
== END 2017-07-03 15:50 | disposition home health service (06) | DRG 282 ==
LOC: MED 13:34 → MTU 17:13
PROVIDERS: ADMIT Hospitalist; ATTEND Hospitalist
DX: K85.10 Biliary acute pancreatitis without necrosis or infection (principal); E11.22 Type 2 diabetes mellitus with diabetic chronic kidney disease; N17.9 Acute kidney failure, unspecified; I13.0 Hypertensive heart and chronic kidney disease with heart failure and stage 1 through stage 4 chronic kidney disease, or unspecified chronic kidney disease; I50.20 Unspecified systolic (congestive) heart failure; N18.3 Chronic kidney disease, stage 3 (moderate); K86.1 Other chronic pancreatitis; Z99.81 Dependence on supplemental oxygen; J44.9 Chronic obstructive pulmonary disease, unspecified; D64.9 Anemia, unspecified; K80.20 Calculus of gallbladder without cholecystitis without obstruction; M16.12 Unilateral primary osteoarthritis, left hip; E11.40 Type 2 diabetes mellitus with diabetic neuropathy, unspecified; I25.10 Atherosclerotic heart disease of native coronary artery without angina pectoris; E66.9 Obesity, unspecified; Z68.31 Body mass index [BMI] 31.0-31.9, adult; Z88.0 Allergy status to penicillin; I25.2 Old myocardial infarction; Z86.73 Personal history of transient ischemic attack (TIA), and cerebral infarction without residual deficits; Z98.891 History of uterine scar from previous surgery; Z79.899 Other long term (current) drug therapy; Z86.718 Personal history of other venous thrombosis and embolism; Z83.3 Family history of diabetes mellitus; Z82.49 Family history of ischemic heart disease and other diseases of the circulatory system; Z83.79 Family history of other diseases of the digestive system; Z87.891 Personal history of nicotine dependence; Z95.810 Presence of automatic (implantable) cardiac defibrillator
CPT/HCPCS: 36415; 71010; 73501; 76705; 80048; 80053; 81003; 82948; 83690; 83735; 83880; 84484; 85025; 85610; 85730; 87081; 93005; 96374; 96375; 97140; 99285; C9113; J1170; J1644; J1815; J1885; J2270; J3010; J3475; J7030; J7613; Q0092

== ENCOUNTER 2017-07-20 16:16 | Inpatient (IN) | payer OTHER ==
[~2017-07-20] VITALS: Ht 165.1 cm; Wt 88.9 kg
[~2017-07-20 16:16] MED LIST changes: +ACET-2858 PO; +CAPS0.026 TP; -CLIN300C2 PO; +CYCL10TA14 PO
[2017-07-20 17:12] VITALS: BP 128/83
--- NOTE | 2017-07-20 17:15 | NUR ---
NOTIFIED OF PT---PERFECT BIND MACHINE OPERATOR AWARE---WORKING ON GETTING BED AVAILABLE. WILL START IV AND MEDS IN TRIAGE
[2017-07-20] MEDS ORDERED: diphenhydrAMINE 50 MG/ML VIAL IVP ONE (17:20)
[2017-07-20] MEDS ORDERED: methylPREDNISolone SS 125 MG/2 ML VIAL IVP ONE (17:20)
--- NOTE | 2017-07-20 17:43 | NUR ---
Patient transferred to bed 10 via wheelchair by tech. RN evaluating patient at bedside.
--- NOTE | 2017-07-20 18:01 | NUR ---
PATIENT PRESENTS TO ED WITH C/O TONGUE SWELLING , DROOLING X 1400HRS TODAY---- TAKING CYCLOBENZAPRINE (FLEXERIL) 10MG TID 06/18/2017 HX----CHF (3L nc), CAD, SEIZURE, PACEMAKER Defibrillator RX--- DENIES N/V/D; SKIN IS PINK/WARM/DRY; AAOX4 WITH EVEN AND STEADY GAIT; LUNGS CLEAR BL; HR EVEN AND REGULAR; PT DENIES ANY FEVER, CP, SOB, OR COUGH AT THIS TIME; PATIENT STATES PAIN OF 0/10 AT THIS TIME; VSS; PATIENT POSITIONED FOR COMFORT; HOB ELEVATED; BEDRAILS UP X2; BED DOWN. ER MD MADE AWARE OF PT STATUS.
--- NOTE | 2017-07-20 19:07 | NUR ---
Patient being evaluated by Dr. Jarrell at bedside.
--- NOTE | 2017-07-20 19:25 | NUR ---
Pt found sitting in [facility] bed calm, relaxed, no distress noted. AOX4. Oxygen 3L nasal canula. O2 sat 98%. Pt denies any pain. Pt reports she woke up from a nap and her tongue was swollen. Unknown etiology. Respirations even and unlabored. VSS. Family at bedside. Comfort needs met.
[2017-07-20] MEDS ORDERED: ONDANSETRON 4 MG/2 ML VIAL IVP ONE ×2 (19:30→21:40)
[2017-07-20] MEDS ORDERED: GLUCAGON 1 MG VIAL IVP ONE (19:30)
--- NOTE | 2017-07-20 19:30 | NUR ---
REPORT GIVEN TO BAN ROSAS FOR CONTINUATION OF CARE
[2017-07-20 20:38] LABS: BASOPHILS # (AUTO) 0.1 K/uL (0.00-0.22); BASOPHILS % (AUTO) 1.4 % (0.0-2.0); EOSINOPHILS # (AUTO) 0.1 K/uL (0-0.4); EOSINOPHILS % (AUTO) 0.7 % (0.0-4.0); HEMATOCRIT 35.1 % (36-48); HEMOGLOBIN 11.4 g/dL (12.0-16.0); LYMPHOCYTES # (AUTO) 1.1 K/uL (2.5-16.5); LYMPHOCYTES % (AUTO) 11.6 % (20.5-51.1); MEAN CORPUSCULAR HEMOGLOBIN 32 pg (27-31); MEAN CORPUSCULAR HGB CONC 33 g/dL (33-37); MEAN CORPUSCULAR VOLUME 97 fL (80-94); MONOCYTES # (AUTO) 0.1 K/uL (0.8-1.0); PLATELET COUNT (AUTO) 289 K/uL (140-450); RED BLOOD CELL COUNT(AUTO) 3.61 MIL/uL (4.20-5.40); RED CELL DISTRIBUTION WIDTH 16.3 % (11.6-13.7); WHITE BLOOD COUNT (AUTO) 9.4 K/uL (4.8-10.8)
--- NOTE | 2017-07-20 20:48 | NUR ---
Patient resting comfortably in bed. Family is at bedside. VSS. No distress noted. Comfort needs met.
[2017-07-20 20:52] LABS: PROTHROMBIN TIME 10.7 secs (10.8-13.4)
[2017-07-20 20:55] LABS: NEUTROPHILS % (AUTO) 85.3 % (42.2-75.2)
[2017-07-20 20:56] LABS: ALBUMIN 3.4 g/dL (3.4-5.0); ANION GAP 16.3 (8-16); CARBON DIOXIDE 19.9 mmol/L (21-32); CREATININE 1.6 mg/dL (0.6-1.3); POTASSIUM 5.2 mmol/L (3.5-5.1); TOTAL BILIRUBIN 0.3 mg/dL (0.0-1.0)
--- NOTE | 2017-07-20 21:11 | NUR ---
Dr. Jarrell re-evaluating patient at bedside.
[2017-07-20] MEDS ORDERED: MORPHINE SULFATE 4 MG/ML SYR IVP ONE (21:40)
--- NOTE | 2017-07-20 22:25 | NUR ---
PT PMD DR CORADO AT BEDSIDE FOR EVAL
--- NOTE | 2017-07-20 22:27 | NUR ---
Patient appears to be resting comfortably in bed. Vital Signs within normal limits. Respirations even and unlabored.
[2017-07-20] MEDS ORDERED: ONDANSETRON 4 MG/2 ML VIAL IVP PRN (22:35)
[2017-07-20] MEDS ORDERED: ALBUTEROL 0.083% 2.5 MG/3 ML NEBU INH PRN (22:35)
[2017-07-20] MEDS ORDERED: ACETAMINOPHEN 325 MG TAB PO PRN (22:35)
--- NOTE | 2017-07-20 23:24 | NUR ---
Patient will be admitted to care of DR MICHAEL. Admited to TELE. Will go to room. Belongings list completed. Report to .
[2017-07-20 23:25] VITALS: BP 127/82
--- NOTE | 2017-07-20 23:25 | NUR ---
ADMITTED 57F FROM ER. CAME BY JANA . ABLE TO AMBULATE FROM [facility] TO BED. ON O23L/NC. AWAKE,ALERT AND ORIENTED X4. TELE MONITOR STARTED. CAME DUE TO SWELLING OF TONGUE WITH SOME SOB. PT SAID SHE HAS DEFIBRILLATOR PUT IN December. NO C/O PAIN AT THIS TIME. WITH HL ON LT AC AND RT HAND BOTH G#22. CLEAR AND PATENT. INITIAL SKIN ASSESSMENT DONE, INTACT . PLAN OF CARE DISCUSSED AND VERBALIZED UNDERSTANDING. NO RESPIRATORY DISTRESS NOTED AT THIS TIME. BUT HAS OCCASIONAL PRODUCTIVE COUGH. ORIENTED TO HOSPITAL ROUTINES. BED ON LOW POSITION, FREQUENT ROUNDS NEEDED. CALL LIGHT PLACED WITHIN EASY REACH. WILL FOLLOW UP ADMIT ORDERS.
--- NOTE | 2017-07-21 01:00 | NUR ---
PAGED DR. RAI TO CLARIFY ORDER FOR PLASMA. DR. Meliza GROSSMAN RESIDENCE MANAGER. CALLED BACK. HE SAID TO TALK TO ER DOCTOR REGARDING THIS FOR HE WAS NOT THE ONE WHO ORDERED IT.
--- NOTE | 2017-07-21 01:20 | NUR ---
CALLED ER AND ABLE TO TALKED TO CHEMO RAM RESAW OPERATOR. SHE SAID DR. ALLEN TO CANCEL THE PLASMA ORDER.
--- NOTE | 2017-07-21 01:30 | NUR ---
CALLED LAB AND TALKED TO HERNANDO. MADE HER AWARE THAT PRBC WITH NO ORDER AND PLASMA NOT NEEDED PER ER DR. ALLEN. WILL CANCEL PLASMA.
[2017-07-21] MEDS ORDERED: DEXTROSE 50% 50 ML SYR IVP PRN (01:45)
--- NOTE | 2017-07-21 01:45 | NUR ---
PAGED AGAIN DR. GROSSMAN. CALLED BACK . WITH DIET ,PAIN MED AND BS CHECK ORDERS.
--- NOTE | 2017-07-21 02:00 | NUR ---
ASSISTED UP TO BSC. VOIDED WELL. BACK TO BED WITH NO SOB NOTED.
[2017-07-21 03:03] VITALS: BP 124/72
[2017-07-21] MEDS: MORPHINE SULFATE 2 MG/ML SYR IVP PRN ×3 (03:05→21:15)
--- NOTE | 2017-07-21 03:35 | NUR ---
MADE ROUNDS. ASLEEP. NO S/S OF ANY DISCOMFORT NOR PAIN NOTED. WILL CONTINUE TO MONITOR.
[2017-07-21] MEDS ORDERED: methylPREDNISolone SS 40 MG in WATER STERILE 1 ML IV SCH (05:00)
[2017-07-21] MEDS: methylPREDNISolone SS 40 MG/ML VIAL IVP SCH ×3 (05:25→21:09)
--- NOTE | 2017-07-21 05:30 | NUR ---
AWAKE. NO DISTRESS NOTED. WITH O2 3L/NC. REQUESTED FOR SOME JELLO. TOLERATING WELL.
[2017-07-21] MEDS: BLOOD GLUCOSE MONITORING 1 DEV DEV FS SCH ×4 (06:10→21:08)
--- NOTE | 2017-07-21 06:10 | NUR ---
BLOOD SUGAR CHECKED THIS AM RESULT 135. NO INSULIN COVERAGE NEEDED.
--- NOTE | 2017-07-21 07:15 | NUR ---
ENDORSED PT IN STABLE CONDITION TO AM NURSE.
--- NOTE | 2017-07-21 07:20 | NUR ---
REPORT RECEIVED FROM SALES APPLICATIONS ENGINEER NURSE PERCY, PT RESTING QUIETLY IN NAD, RESP EVEN UNLABORED ON 2L NC O2,, SKIN WARM DRY COLOR WNL FOR RACE, PT AAOX4, SPEAKS CLEARLY, NO DROOLING NOTED, NO SOB, BS CLEAR BILAT, SWELLING OF NECK NOTED, PT STATES SWELLING HAS IMPROVED ALOT SINCE MEDS GIVEN IN ER, PT MARYA PO CLEAR LIQ WELL WITHOUT PROBLEM, C/O NECK PAIN 04/21, WILL MEDICATE PER ORDER, PLAN OF CARE REVIEWED, SAFETY MEASURES IN PLACE, CALL VALADEZ WITHIN REACH, SIDE RAILS UP, IV SITE INTACT, WILL CONTINEU TO MONITOR.
[2017-07-21] MEDS: HYDROcodone/APAP 5/325 MG 1 TAB TAB PO PRN ×2 (07:39→16:14)
[2017-07-21 08:00] VITALS: BP 144/89
--- NOTE | 2017-07-21 10:00 | NUR ---
PATIENT HAS BEEN SCREENED AND CATEGORIZED MODERATE NUTRITION RISK. PATIENT WILL BE SEEN WITHIN 3-5 DAYS OF ADMISSION. 07/23/17-07/25/[address]
--- NOTE | 2017-07-21 11:50 | NUR ---
PT STATES THROAT PAIN IS BACK AFTER EATING ORANGE, PT SPEAKS CLEARLY, SWELLING UNCHANGED FROM THIS AM, NO DROOLING OR DIFFICULTY BREATHING, MEDICATED WITH MORPHINE, WILL CONTINUE TO MONITOR.
[2017-07-21] MEDS: INSULIN LISPRO SLIDING SCALE 100 UNITS/ML VIAL SUBQ PRN ×2 (11:56→17:34)
[2017-07-21 12:00] VITALS: BP 143/87
[2017-07-21 13:21] LABS: HEMATOCRIT 32.5 % (36-48); HEMOGLOBIN 10.7 g/dL (12.0-16.0); MEAN CORPUSCULAR HEMOGLOBIN 32 pg (27-31); MEAN CORPUSCULAR HGB CONC 33 g/dL (33-37); MEAN CORPUSCULAR VOLUME 97 fL (80-94); PLATELET COUNT (AUTO) 263 K/uL (140-450); RED BLOOD CELL COUNT(AUTO) 3.36 MIL/uL (4.20-5.40); RED CELL DISTRIBUTION WIDTH 16.5 % (11.6-13.7); WHITE BLOOD COUNT (AUTO) 11.1 K/uL (4.8-10.8)
[2017-07-21 13:31] LABS: ANION GAP 18.4 (8-16); CARBON DIOXIDE 20.6 mmol/L (21-32); CREATININE 1.7 mg/dL (0.6-1.3)
[2017-07-21 13:37] LABS: ALBUMIN 3.2 g/dL (3.4-5.0); TOTAL BILIRUBIN 0.2 mg/dL (0.0-1.0)
[2017-07-21 13:38] LABS: BASOPHILS % (MANUAL) 0 % (0-2); EOSINOPHILS % (MANUAL) 0 % (0-4); LYMPHOCYTES % (MANUAL) 11 % (20-46); MONOCYTES % (MANUAL) 1 % (5-12)
[2017-07-21 16:00] VITALS: BP 148/93
--- NOTE | 2017-07-21 17:28 | NUR ---
INSULIN GIVEN PER SLIDING SCALE, PT MARYA WELL, PT TALKING WITH SMILES IN GOOD MOOD, NO C/O PAIN OR DISCOMFORT, SAFETY MEASURES IN PLACE, WILL CONTINUE TO MONITOR.
--- NOTE | 2017-07-21 18:15 | NUR ---
NG FEEDING STARTED AT 10ML/HR Addendum: 07/21/17 at 1927 by Sherice Caldwell RN PLEASE DISREGARD ABOVE NOTE, WRONG PT.
--- NOTE | 2017-07-21 19:05 | NUR ---
REPORT GIVEN TO BATCH DUMPER NURSE, PT IN STABLE CONDITION WITH TRACH TO ARLENE HODGSON FEEDING IN PROGRESS. Addendum: 07/21/17 at 1927 by Sherice Caldwell RN WRONG PT, PLEASE DISREGARD ABOVE NOTE
--- NOTE | 2017-07-21 19:10 | NUR ---
REPORT GIVEN TO TAXI SERVICER NURSE, PT IN STABLE CONDITION.
--- NOTE | 2017-07-21 19:15 | NUR ---
RECEIVED PT IN STABLE CONDITION FROM AM NURSE. AWAKE,ALERT AND ORIENTED X4. ON TELE MONITOR. O22L/NC. NO RESPIRATORY PROBLEM NOTED AT THIS TIME. BEDREST WITH BSC. UP WITH SOME ASSISTANCE. NO C/O ANY PAIN AT THIS TIME. HL ON RT HAND $20 AND LT AC #22. BOTH CLEAR AND PATENT. PT SAID SHE WAS ABLE TO TOLERATE DIET TODAY. FREQUENT ROUNDS NEEDED. BED ON LOW POSITION, CALL LIGHT PLACED WITHIN EASY REACH. PLAN OF CARE DISCUSSED AND VERBALIZED UNDERSTANDING. WILL CONTINUE TO MONITOR.
[2017-07-21 20:00] VITALS: BP 141/91
--- NOTE | 2017-07-21 21:00 | NUR ---
BLOOD SUGAR WAS CHECKED RESULT 127. NO INSULIN COVERAGE NEEDED. PROVIDED WITH SOME SNACKS. WILL CONTINUE TO MONITOR.
--- NOTE | 2017-07-21 22:00 | NUR ---
MADE ROUNDS. PT SLEEPING AT THIS TIME. NO S/S FO ANY DISTRESS NOTED.
--- NOTE | 2017-07-21 23:00 | NUR ---
SCD MACHINE TO BE PLACED TO PT BLE PROTOCOL FOR VTE RISK PT.
[2017-07-22 00:10] VITALS: BP 148/69
--- NOTE | 2017-07-22 01:00 | NUR ---
MADE ROUNDS. PT ASLEEP. NO S/S OF ANY DISCOMFORT NOR DISTRESS NOTED.
[2017-07-22 03:42] VITALS: BP 149/90
--- NOTE | 2017-07-22 04:00 | NUR ---
SLEPT WELL DURING THE NIGHT. NO DISTRESS NOTED.
[2017-07-22] MEDS: methylPREDNISolone SS 40 MG/ML VIAL IVP SCH (04:34)
[2017-07-22] MEDS: HYDROcodone/APAP 5/325 MG 1 TAB TAB PO PRN (04:44)
[2017-07-22] MEDS: BLOOD GLUCOSE MONITORING 1 DEV DEV FS SCH (06:07)
--- NOTE | 2017-07-22 06:07 | NUR ---
BLOOD SUGAR THIS AM 151. INSULIN COVERAGE GIVEN.
[2017-07-22] MEDS: INSULIN LISPRO SLIDING SCALE 100 UNITS/ML VIAL SUBQ PRN (06:08)
--- NOTE | 2017-07-22 07:23 | NUR ---
ENDORSED PT IN STABLE CONDITION TO AM NURSE.
--- NOTE | 2017-07-22 07:24 | NUR ---
RECEIVED REPORT FROM NEWS LIBRARY DIRECTOR NURSE PERCY AT BEDSIDE FOR CONTINUITY OF CARE. PT IS AWAKE AND ORIENTED. INTRODUCED SELF AND UPDATED BOARD. PT IS ON CONTINUOUS OS NC 2L. NO SIGNS OF RESPIRATORY DISTRESS. PT DENIES PAIN. BED IN LOW POSITION, WHEELS LOCKED, CALL LIGHT WITHIN REACH AND BSC NEXT TO LEFT SIDE OF BED. PT IN STABLE CONDITION. WILL CONTINUE TO MONITOR.
[2017-07-22 08:00] VITALS: BP 147/98
[2017-07-22] MEDS ORDERED: LORATADINE 10 MG TAB PO SCH (09:00)
--- NOTE | 2017-07-22 09:30 | NUR ---
PT REFUSED 0900 MEDS. STATED SHE IS READY TO GO HOME. AWARE OF D/C TODAY. NO SIGNS OF DISTRESS. CALL LIGHT WITHIN REACH. WILL CONTINUE TO MONITOR.
--- NOTE | 2017-07-22 11:00 | NUR ---
PT D/C'D TO GO HOME. GAVE D/C FORMS AND INSTRUCTIONS. PT VERBALIZED UNDERSTANDING AND SIGNED FORMS. REMOVED IV FROM RIGHT HAND 20G AND LEFT AC 22G. IV CATHETER TIP INTACT. APPLIED DRESSING AND PRESSURE TO SITE. NO BLEEDING NOTED. REMOVED TELE BOX AND ID BANDS. PT CHANGED IN OWN CLOTHES AND LEFT WITH ALL PERSONAL BELONGINGS AND HOME OXYGEN. PT LEFT UNIT VIA WHEELCHAIR ACCOMPANIED BY RN. PT LEFT INSTABLE CONDITION.
--- NOTE | 2017-07-22 15:13 | NUR ---
CM NOTE RETRO REVIEW W/ DISCHARGE SUMMARY FAXED TO [facility] / FAX# [phone], ATTN: DIANNE #[phone]
== END 2017-07-22 11:00 | disposition home or self-care (01) | DRG 811 ==
LOC: MED 16:16 → MTU 22:35
PROVIDERS: ADMIT Internal Medicine; ATTEND Internal Medicine
DX: T78.3XXA Angioneurotic edema, initial encounter (principal); N17.9 Acute kidney failure, unspecified; I11.0 Hypertensive heart disease with heart failure; I50.9 Heart failure, unspecified; E87.5 Hyperkalemia; J44.9 Chronic obstructive pulmonary disease, unspecified; E11.9 Type 2 diabetes mellitus without complications; E66.9 Obesity, unspecified; Z68.32 Body mass index [BMI] 32.0-32.9, adult; Z88.0 Allergy status to penicillin; I25.2 Old myocardial infarction; E78.00 Pure hypercholesterolemia, unspecified; Z86.73 Personal history of transient ischemic attack (TIA), and cerebral infarction without residual deficits; G40.909 Epilepsy, unspecified, not intractable, without status epilepticus; Z95.1 Presence of aortocoronary bypass graft; I25.10 Atherosclerotic heart disease of native coronary artery without angina pectoris; Z95.810 Presence of automatic (implantable) cardiac defibrillator; Z87.891 Personal history of nicotine dependence; X58.XXXA Exposure to other specified factors, initial encounter; Y93.89 Activity, other specified; Y92.89 Other specified places as the place of occurrence of the external cause; Y99.8 Other external cause status; Z79.4 Long term (current) use of insulin; T46.4X5A Adverse effect of angiotensin-converting-enzyme inhibitors, initial encounter
CPT/HCPCS: 36415; 80053; 82948; 84484; 85025; 85610; 85730; 86886; 86900; 86901; 86920; 87081; 93005; 96372; 96374; 96375; 96376; 99291; J0171; J1200; J1610; J2270; J2405; J2920; J2930; J7613

== ENCOUNTER 2017-08-17 11:49 | Emergency (ER) | payer OTHER ==
[~2017-08-17] VITALS: Ht 165.1 cm; Wt 85.9 kg
[2017-08-17 12:10] VITALS: BP 103/78
--- NOTE | 2017-08-17 14:20 | NUR ---
Patient to bed 3. RN evaluating patient at bedside.
--- NOTE | 2017-08-17 14:24 | NUR ---
PATIENT PRESENTS TO ED WITH RIGHT UPPER QUAD ABD PAIN X 3 DAYS . PT STATES THE PAIN RADIATES TO THE BACK, SHE STATES SHE HAS COPD AND IS ALWAYS SOB . DENIES N/V/D; SKIN IS PINK/WARM/DRY; AAOX4 WITH EVEN AND STEADY GAIT; LUNGS CLEAR BL; HR EVEN AND REGULAR; PT DENIES ANY FEVER, CP, OR COUGH AT THIS TIME; PATIENT STATES PAIN OF 10/10 AT THIS TIME; VSS; PATIENT POSITIONED FOR COMFORT; HOB ELEVATED; BEDRAILS UP X2; BED DOWN. ER MD MADE AWARE OF PT STATUS.
[2017-08-17] MEDS ORDERED: MORPHINE SULFATE 2 MG/ML SYR IVP ONE (14:50)
[2017-08-17] MEDS ORDERED: ALBUTEROL SULFATE/IPRATROPIU 3 ML SOL IH ONE (14:50)
[2017-08-17] MEDS ORDERED: KETOROLAC 30 MG/ML VIAL IVP ONE (14:50)
[2017-08-17 15:38] LABS: BASOPHILS # (AUTO) 0.1 K/uL (0.00-0.22); EOSINOPHILS # (AUTO) 0.1 K/uL (0-0.4); HEMOGLOBIN 11.9 g/dL (12.0-16.0); LYMPHOCYTES # (AUTO) 1.3 K/uL (2.5-16.5); LYMPHOCYTES % (AUTO) 12.7 % (20.5-51.1); MEAN CORPUSCULAR HEMOGLOBIN 32 pg (27-31); MEAN CORPUSCULAR HGB CONC 33 g/dL (33-37); MEAN CORPUSCULAR VOLUME 96 fL (80-94); MONOCYTES # (AUTO) 0.8 K/uL (0.8-1.0); MONOCYTES % (AUTO) 7.7 % (1.7-9.3); NEUTROPHILS # (AUTO) 8.2 K/uL (1.8-7.7); NEUTROPHILS % (AUTO) 77.6 % (42.2-75.2); PLATELET COUNT (AUTO) 213 K/uL (140-450); RED BLOOD CELL COUNT(AUTO) 3.76 MIL/uL (4.20-5.40); RED CELL DISTRIBUTION WIDTH 14.9 % (11.6-13.7); WHITE BLOOD COUNT (AUTO) 10.5 K/uL (4.8-10.8)
[2017-08-17 15:48] LABS: ANION GAP 13.5 (8-16); CARBON DIOXIDE 22.8 mmol/L (21-32); CREATININE 1.6 mg/dL (0.6-1.3); POTASSIUM 4.3 mmol/L (3.5-5.1)
--- NOTE | 2017-08-17 15:48 | NUR ---
PATIENT REFUSED IV, DR TEJEDA NOTIFIED OK TO GIVE MEDS IM
[2017-08-17 16:00] LABS: ALBUMIN 3.3 g/dL (3.4-5.0); TOTAL BILIRUBIN 0.4 mg/dL (0.0-1.0)
--- NOTE | 2017-08-17 17:18 | NUR ---
Patient discharged with v/s stable. Written and verbal after care instructions given and explained. Patient alert, oriented and verbalized understanding of instructions. Ambulatory with steady gait. All questions addressed prior to discharge. ID band removed. Patient advised to follow up with PMD. Rx of PANCREASE MT AND TRAMADOL given. Patient educated on indication of medication including possible reaction and side effects. Opportunity to ask questions provided and answered.
[2017-08-17 17:21] VITALS: BP 122/81
[2017-08-18 21:08] LABS: PROTHROMBIN TIME 10.1 secs (10.8-13.4)
== END 2017-08-17 17:18 | disposition home or self-care (01) ==
LOC: MED 11:49
DX: K86.1 Other chronic pancreatitis (principal); J44.9 Chronic obstructive pulmonary disease, unspecified; I11.0 Hypertensive heart disease with heart failure; I50.9 Heart failure, unspecified; E11.9 Type 2 diabetes mellitus without complications; Z95.1 Presence of aortocoronary bypass graft; Z88.0 Allergy status to penicillin
CPT/HCPCS: 36415; 71045; 80053; 82948; 83880; 84484; 85025; 85610; 85730; 93005; 94640; 96372; 99285; J1885; J2270; J7620; Q0092

== ENCOUNTER 2017-09-23 17:45 | Emergency (ER) | payer OTHER ==
[~2017-09-23] VITALS: Ht 162.6 cm; Wt 82.7 kg
[2017-09-23 18:53] VITALS: BP 159/101
--- NOTE | 2017-09-23 19:06 | NUR ---
PT W/C ASSISTED TO BED 1.
--- NOTE | 2017-09-23 19:14 | NUR ---
PT TAKEN TO X-RAY VIA WHEELCHAIR W/ N.C AND OXYGEN.
--- NOTE | 2017-09-23 19:15 | NUR ---
PT C/O SOB, COUGH, N/V/D, HEADACHE X5 DAYS. RR ARE EVEN AND LABORED, BL UPPER BS CLEAR, BL LOWER BASES DIMINSHED, PT STATES SHE HAS PRODUCTIVE COUGH W/ WHITE SPUTUM. ABD IS ROUND, SOFT, TENDER, ACTIVE BS X4. PT STATES SHE HAS COPD AND USES N.C. AT HOME, ON 3L AT THIS TIME O2 98%. HEADACHE 8/10, NON RADIATING, SHARP PAIN. HX PACE MAKER, DM, COPD
[2017-09-23] MEDS ORDERED: LORazepam 2 MG/ML VIAL IVP ONE (20:00)
[2017-09-23 21:08] LABS: BASOPHILS # (AUTO) 0.2 K/uL (0.00-0.22); EOSINOPHILS # (AUTO) 0.1 K/uL (0-0.4); HEMATOCRIT 35.3 % (36-48); HEMOGLOBIN 11.8 g/dL (12.0-16.0); LYMPHOCYTES # (AUTO) 1.8 K/uL (2.5-16.5); MEAN CORPUSCULAR HEMOGLOBIN 30 pg (27-31); MEAN CORPUSCULAR HGB CONC 34 g/dL (33-37); MEAN CORPUSCULAR VOLUME 90 fL (80-94); MONOCYTES # (AUTO) 0.4 K/uL (0.8-1.0); NEUTROPHILS # (AUTO) 3.8 K/uL (1.8-7.7); PLATELET COUNT (AUTO) 256 K/uL (140-450); RED BLOOD CELL COUNT(AUTO) 3.91 MIL/uL (4.20-5.40); RED CELL DISTRIBUTION WIDTH 15.1 % (11.6-13.7); WHITE BLOOD COUNT (AUTO) 6.3 K/uL (4.8-10.8)
[2017-09-23 21:12] LABS: ANION GAP 18.1 (8-16); CARBON DIOXIDE 18.7 mmol/L (21-32); CREATININE 1.2 mg/dL (0.6-1.3); POTASSIUM 3.8 mmol/L (3.5-5.1)
[2017-09-23 21:18] LABS: ALBUMIN 3.4 g/dL (3.4-5.0); TOTAL BILIRUBIN 0.4 mg/dL (0.0-1.0)
[2017-09-23 21:33] LABS: BARBITURATE, URINE NEG. ng/ml (NEG <=200); BENZODIAZEPINE, URINE NEG. ng/mL (NEG <=200); CANNABINOID, URINE NEG. ng/mL (NEG <=50); COCAINE, URINE NEG. ng/mL (NEG <=300); OPIATE, URINE NEG. ng/mL (NEG <=2000); PHENCYCLIDINE SCREEN,URINE NEG. ng/mL (NEG <=25)
[2017-09-23] MEDS ORDERED: ACETAMINOPHEN EXTRA STRENGTH 500 MG TAB PO ONE (22:30)
[2017-09-23 22:45] VITALS: BP 145/89
--- NOTE | 2017-09-23 22:46 | NUR ---
Patient discharged with v/s stable. Written and verbal after care instructions given and explained. Patient alert, oriented and verbalized understanding of instructions. Wheel Chair Assisted with by caregiver. All questions addressed prior to discharge. ID band removed. Patient advised to follow up with PMD. Rx of CODEINE PHOSPAHTE/PROMETHAZINE, ZITHROMAX given. Patient educated on indication of medication including possible reaction and side effects. Opportunity to ask questions provided and answered.
[2017-09-23] MEDS ORDERED: guaiFENesin 20 MG/ML UDC PO ONE (22:50)
[2017-09-23] MEDS ORDERED: guaiFENesin 20 MG/ML UDC ONE (22:50)
== END 2017-09-23 22:46 | disposition home or self-care (01) ==
LOC: MED 17:45
DX: J44.1 Chronic obstructive pulmonary disease with (acute) exacerbation (principal); E11.9 Type 2 diabetes mellitus without complications; I10 Essential (primary) hypertension; Z79.899 Other long term (current) drug therapy; Z79.82 Long term (current) use of aspirin; Z88.0 Allergy status to penicillin; Z87.891 Personal history of nicotine dependence
CPT/HCPCS: 36415; 71046; 80053; 80305; 82948; 83880; 84484; 85025; 85610; 85730; 93005; 96374; 99285; J2060

== ENCOUNTER 2017-11-06 14:53 | Inpatient (IN) | payer OTHER ==
[~2017-11-06] VITALS: Ht 165.1 cm; Wt 85.3 kg
[2017-11-06 15:07] VITALS: BP 107/68
--- NOTE | 2017-11-06 15:13 | NUR ---
PATIENT PRESENTS TO ED WITH ABDOMINAL PAIN IN UPPER QUADRENT AND SOB ; SKIN IS PINK/WARM/DRY; AAOX4 WITH EVEN AND STEADY GAIT; LUNGS CLEAR BL; HR EVEN AND REGULAR; PT DENIES ANY FEVER, CP OR COUGH AT THIS TIME; PATIENT STATES PAIN OF 10/10 AT THIS TIME; VSS; PATIENT POSITIONED FOR COMFORT; HOB ELEVATED; BEDRAILS UP X2; BED DOWN. ER MD MADE AWARE OF PT STATUS.
[2017-11-06] MEDS ORDERED: NACL 0.9% 1,000 ML IV ONE ×2 (15:35→17:45)
[2017-11-06] MEDS ORDERED: MORPHINE SULFATE 4 MG/ML SYR IVP ONE ×2 (15:35→17:45)
--- NOTE | 2017-11-06 16:00 | NUR ---
ct at bedside
[2017-11-06 16:40] LABS: BASOPHILS # (AUTO) 0.1 K/uL (0.00-0.22); EOSINOPHILS # (AUTO) 0.1 K/uL (0-0.4); NEUTROPHILS # (AUTO) 3.2 K/uL (1.8-7.7); WHITE BLOOD COUNT (AUTO) 5.3 K/uL (4.8-10.8)
[2017-11-06 16:46] LABS: BASOPHILS % (AUTO) 1.7 % (0.0-2.0); EOSINOPHILS % (AUTO) 2.7 % (0.0-4.0); HEMATOCRIT 34.4 % (36-48); HEMOGLOBIN 11.1 g/dL (12.0-16.0); LYMPHOCYTES # (AUTO) 1.4 K/uL (2.5-16.5); LYMPHOCYTES % (AUTO) 26.9 % (20.5-51.1); MEAN CORPUSCULAR HEMOGLOBIN 30 pg (27-31); MEAN CORPUSCULAR HGB CONC 32 g/dL (33-37); MEAN CORPUSCULAR VOLUME 93.1 fL (80-94); MONOCYTES # (AUTO) 0.5 K/uL (0.8-1.0); MONOCYTES % (AUTO) 9.9 % (1.7-9.3); NEUTROPHILS % (AUTO) 58.8 % (42.2-75.2); PLATELET COUNT (AUTO) 185 K/uL (140-450); RED CELL DISTRIBUTION WIDTH 17.7 % (11.6-13.7)
[2017-11-06 17:23] LABS: CARBON DIOXIDE 22.7 mmol/L (21-32); CREATININE 1.2 mg/dL (0.6-1.3); POTASSIUM 3.7 mmol/L (3.5-5.1)
[2017-11-06 17:29] LABS: ALBUMIN 3.1 g/dL (3.4-5.0); TOTAL BILIRUBIN 0.3 mg/dL (0.0-1.0)
[2017-11-06] MEDS ORDERED: NACL 0.9% 1,000 ML IV SCH (17:41)
[2017-11-06] MEDS ORDERED: ONDANSETRON 4 MG/2 ML VIAL IVP PRN (17:45)
[2017-11-06] MEDS ORDERED: ALBUTEROL 0.083% 2.5 MG/3 ML NEBU INH PRN (17:45)
[2017-11-06] MEDS ORDERED: ALBUTEROL SULFATE/IPRATROPIU 3 ML SOL IH ONE (17:45)
[2017-11-06] MEDS ORDERED: MORPHINE SULFATE 2 MG/ML SYR IVP PRN (17:45)
[2017-11-06] MEDS ORDERED: ACETAMINOPHEN 325 MG TAB PO PRN (17:45)
[2017-11-06] MEDS ORDERED: CYCLOBENZAPRINE 10 MG TAB PO PRN (17:55)
[2017-11-06] MEDS ORDERED: DEXT 5% / NACL 0.9% 1,000 ML IV ONE (18:00)
[2017-11-06] MEDS ORDERED: INSULIN LISPRO SLIDING SCALE 100 UNITS/ML VIAL SUBQ PRN (18:00)
[2017-11-06] MEDS: DEXT 5% / NACL 0.9% 1,000 ML IV SCH ×2 (18:05→22:46)
--- NOTE | 2017-11-06 18:30 | NUR ---
PATIENT ARRIVED ON UNIT, WHILE ASSESSING PATIENT DR HOGAN CAME TO SEE PATIENT, PATIENT WAS EXPLAINED POC AND SHE DISAGREES WITH DR'S ORDERS. PATIENT WAS UPSET ONCE DR ORDERED FOR HER TO BE NPO. STATED THE BENEFITS OF BEING NPO IN REGARDS TO HER DX OF ACUTE PANCREATITIS. PATIENT DISAGREES AND STATES, "I AM HUNGRY, I ONLY HAD COFFEE ON AN EMPTY STOMACH. I WANT SOME FOOD, I WILL EAT WHAT I HAVE IN MY PURSE." DR HOGAN DISCUSSED THE RISKS OF HER HAVING FOOD AND PATIENT INSISTED SHE WANTS TO EAT. PATIENT IS NON COMPLIANT AND REFUSES TO FOLLOW DR ORDERS. PER DR HOGAN OKAY FOR PATIENT TO EAT AFTER CT OF ABD/PELVIS EXAM. ASKED PATIENT IF IT WAS OKAY TO TAKE V/S AT THIS TIME AND SHE STATED, "COME BACK LATER." UNABLE TO TAKE V/S OR MRSA SCREEN.
--- NOTE | 2017-11-06 18:32 | NUR ---
Patient will be admitted to care of dr hastings. Admited to tele rm 112b. all Belongings list completed and sent with pt. Report to jolly.
[2017-11-06] MEDS ORDERED: SODIUM PHOSPHATE 118 ML ENEM RC ONE (18:50)
--- NOTE | 2017-11-06 18:55 | NUR ---
CALLED SURGICAL TECHNICIAN AND STATED, " I DON'T KNOW WHAT TIME I CAN DO THE CT SCAN, IF YOU WANT IT NOW BRING PATIENT TO ME." MEKHI LINARES WAS ASKED TO TAKE PATIENT TO CT SCAN HOWEVER PATIENT IS IN THE BATHROOM AT THIS TIME.
[2017-11-06] MEDS: ALBUTEROL 0.083% 2.5 MG/3 ML NEBU INH SCH (19:00)
[2017-11-06] MEDS: IPRATROPIUM 0.02% 0.5 MG/2.5 ML NEBU INH SCH (19:00)
--- NOTE | 2017-11-06 19:15 | NUR ---
PATIENT IN BED AND WAS NOTIFIED SHE MAY EAT AFTER SHE HAS THE CT SCAN, PATIENT WAS UPSET AND STATED, "AM I GETTING IT NOW." PATIENT WILL BE WHEELED TO RADIOLOGY, WHILE PATIENT WAS WALKING TO SIT ON THE WHEELCHAIR, PATIENT DECIDED TO USE THE RESTROOM AGAIN. SHE STATED, "TELL DR HOGAN I DON'T NEED THE ENEMA ANYMORE, I HAD A BOWEL MOVEMENT A LITTLE WHILE AGO AND I FEEL LIKE I'MA HAVE ONE NOW." PATIENT ON 3L VIA NC, AMB WIT STEADY GAIT TO RESTROOM, PATIENT SL AT THIS TIME, IV NOTED ON THE LEFT HAND 24G. PATIENT IV BOLUS STOPPED AT THIS TIME.
--- NOTE | 2017-11-06 19:20 | NUR ---
PATIENT REPORT GIVEN TO NIGHT NURSE, PATIENT ENDORSED IN STABLE CONDITION.
--- NOTE | 2017-11-06 19:25 | NUR ---
RECEIVED PT FROM DAY SHIFT NURSE JUANITA-BAN. PT RESTING IN BED. AOX4. LEFT HAND #24G D5 1/2NS @500ML/HR BOLUS. PT IS NPO AFTER MIDNIGHT. ON 3L/NC. AMBULATORY. BED IN LOWEST POSITION. CALL LIGHT WITHIN REACH. WILL CONTINUE TO MONITOR.
--- NOTE | 2017-11-06 19:40 | NUR ---
PT WAS TAKEN BY VIJAY GAMING FOR CT SCAN VIA WHEELCHAIR. PT STABLE AT THIS TIME. OXYGEN TANK TAKEN, 3L/NC.
[2017-11-06 20:00] VITALS: BP 114/73
--- NOTE | 2017-11-06 20:00 | NUR ---
PT RETURNED BACK TO UNIT.
--- NOTE | 2017-11-06 20:18 | NUR ---
WAS NOT ABLE TO GIVE PATIENT Q6 BREATHING TX DUE TO IT NOT BEING IN THE PIXIS YET. HOWEVER, I DID AN ASSESSMENT ON THE PATIENT AND SHE APPEARED TO BE IN NO DISTRESS. @2018
[2017-11-06] MEDS: CARVEDILOL 12.5 MG TAB PO SCH (20:32)
[2017-11-06] MEDS: hydrALAZINE 10 MG TAB PO SCH (20:32)
[2017-11-06] MEDS: FUROSEMIDE 40 MG TAB PO SCH (20:44)
[2017-11-06] MEDS: BLOOD GLUCOSE MONITORING 1 DEV DEV FS SCH (20:45)
--- NOTE | 2017-11-06 21:00 | NUR ---
PB 114/73- BP MEDICATION NOT GIVEN. PT REFUSED LASIX STATING THAT SHE ONLY TAKES THAT MEDICATION IN THE MORNING. BLOOD GLUCOSE 93, NO INSULIN GIVEN. PT EATING A SANDWICH.
[2017-11-06] MEDS: MORPHINE SULFATE 4 MG/ML SYR IVP PRN (22:53)
--- NOTE | 2017-11-06 22:55 | NUR ---
PT C/O PAIN 05/21. PAIN MEDICATION ADMINISTERED PRN ORDERED. TOLERATED WELL. NASAL CANNULA EXTENDED TUBING APPLIED. NO S/S OF RESPIRATORY DISTRESS NOTED AT THIS TIME. BED IN LOWEST POSITION. CALL LIGHT WITHIN REACH. WILL CONTINUE TO MONITOR.
[2017-11-07] VITALS: BP 112/73
--- NOTE | 2017-11-07 00:10 | NUR ---
PT SLEEPING IN BED AT THIS TIME. NO S/S OF RESPIRATORY DISTRESS AT THIS TIME. PAIN 5/10 PT STATED THAT IT IS AT A TOLERABLE LEVEL. WILL CONTINUE TO MONITOR.
[2017-11-07] MEDS: ALBUTEROL 0.083% 2.5 MG/3 ML NEBU INH SCH ×4 (01:12→19:00)
[2017-11-07] MEDS: IPRATROPIUM 0.02% 0.5 MG/2.5 ML NEBU INH SCH ×4 (01:12→19:00)
--- NOTE | 2017-11-07 02:05 | NUR ---
PT SLEEPING IN BED. NO S/S OF RESPIRATORY DISTRESS OR DISCOMFORT NOTED AT THIS TIME. BED IN LOWEST POSITION. CALL LIGHT WITHIN REACH. WILL CONTINUE TO MONITOR.
[2017-11-07] MEDS: MORPHINE SULFATE 4 MG/ML SYR IVP PRN ×3 (03:47→20:04)
[2017-11-07 04:00] VITALS: BP 113/78
--- NOTE | 2017-11-07 05:45 | NUR ---
PT REFUSED LAB DRAW BY INVESTMENT ASSOCIATE.
[2017-11-07] MEDS: BLOOD GLUCOSE MONITORING 1 DEV DEV FS SCH ×4 (06:36→21:14)
--- NOTE | 2017-11-07 06:49 | NUR ---
LABS WERE DRAWN. PT SAID SHE WAS HALF ASLEEP WHEN SKIN WASHER CAME INTO HER ROOM AND THERE WAS A MISUNDERSTANDING. SHE WANTED HIM TO COME BACK WHEN SHE WAS AWAKE TO LET HER SLEEP. BLOOD GLUCOSE 115, INSULIN NOT NEEDED.
--- NOTE | 2017-11-07 07:26 | NUR ---
ENDORSED TO DAY SHIFT NURSE JEMAL. PT STABLE AT THIS TIME.
--- NOTE | 2017-11-07 07:30 | NUR ---
ENDORSEMENT RECEIVED FROM TORPEDO WORKER NURSE. PATIENT IS AWAKE, ALERT. RESPIRATION EVEN, UNLABOR ON 3L NC. SKIN DRY AND WARM. IV PATENT AND INTACT. COMPLAINED PAIN 8/10 ON RUQ, WILL MEDICATE PER ORDER. DENIED SOB AT THIS TIME. PLAN OF CARE WAS DISCUSSED WITH PATIENT. BED AT LOW POSITION, SIDE RAILS UP. CALL LIGHT WITHIN REACH
[2017-11-07 07:33] LABS: ALBUMIN 2.8 g/dL (3.4-5.0); ANION GAP 12.2 (8-16); CARBON DIOXIDE 23.2 mmol/L (21-32); POTASSIUM 4.4 mmol/L (3.5-5.1); TOTAL BILIRUBIN 0.3 mg/dL (0.0-1.0)
[2017-11-07 07:35] LABS: BASOPHILS # (AUTO) 0.1 K/uL (0.00-0.22); BASOPHILS % (AUTO) 1.4 % (0.0-2.0); EOSINOPHILS # (AUTO) 0.1 K/uL (0-0.4); EOSINOPHILS % (AUTO) 2.4 % (0.0-4.0); HEMATOCRIT 32.1 % (36-48); HEMOGLOBIN 10.4 g/dL (12.0-16.0); LYMPHOCYTES # (AUTO) 1.1 K/uL (2.5-16.5); LYMPHOCYTES % (AUTO) 19.3 % (20.5-51.1); MEAN CORPUSCULAR HEMOGLOBIN 30 pg (27-31); MEAN CORPUSCULAR HGB CONC 32 g/dL (33-37); MEAN CORPUSCULAR VOLUME 93.6 fL (80-94); MONOCYTES # (AUTO) 0.5 K/uL (0.8-1.0); MONOCYTES % (AUTO) 8.8 % (1.7-9.3); NEUTROPHILS % (AUTO) 68.1 % (42.2-75.2); PLATELET COUNT (AUTO) 173 K/uL (140-450); RED BLOOD CELL COUNT(AUTO) 3.43 MIL/uL (4.20-5.40); RED CELL DISTRIBUTION WIDTH 18.1 % (11.6-13.7); WHITE BLOOD COUNT (AUTO) 5.8 K/uL (4.8-10.8)
[2017-11-07 08:00] VITALS: BP 111/72
[2017-11-07] MEDS: ATORVASTATIN 20 MG TAB PO SCH (08:24)
[2017-11-07] MEDS: hydrALAZINE 10 MG TAB PO SCH ×2 (08:25→21:22)
[2017-11-07] MEDS: FAMOTIDINE 20 MG TAB PO SCH (08:25)
[2017-11-07] MEDS: PHENYTOIN 100 MG CAPER PO SCH ×3 (08:25→18:35)
[2017-11-07] MEDS: CARVEDILOL 12.5 MG TAB PO SCH ×2 (08:25→21:22)
[2017-11-07] MEDS: ECOTRIN 81 MG TABEC PO SCH (08:26)
[2017-11-07] MEDS: FUROSEMIDE 40 MG TAB PO SCH ×2 (08:33→21:00)
[2017-11-07] MEDS ORDERED: CAPSAICIN 0.025% CRE 60 GM TUBE TP SCH (09:00)
[2017-11-07] MEDS ORDERED: AMIODARONE 200 MG TAB PO SCH (09:00)
[2017-11-07] MEDS ORDERED: FERROUS SULFATE 325 MG TABEC PO SCH (09:00)
--- NOTE | 2017-11-07 09:00 | NUR ---
PATIENT AWAKE, ALERT. DR. HOGAN AND DR HERNANDEZ WERE AT BEDSIDE, DISCUSSING AT LENGTH REGARDING PATIENT'S CONDITION.
--- NOTE | 2017-11-07 10:09 | NUR ---
INSTRUCTION REGARDING HYDA SCAN WAS EXPLAINED TO THE PATIENT. PATIENT VERBALIZED UNDERSTANDING THAT SHE NEEDS TO BE NPO, AND NO OPIOID FOR 6 HOURS.
[2017-11-07] MEDS: DEXT 5% /NACL 0.9% 1,000 ML IV SCH ×2 (10:54→23:45)
--- NOTE | 2017-11-07 11:13 | NUR ---
PATIENT HAS BEEN SCREENED AND CATEGORIZED MODERATE NUTRITION RISK. PATIENT WILL BE SEEN WITHIN 3-5 DAYS OF ADMISSION. 11/09/17 - 11/11/[address]
[2017-11-07 12:00] VITALS: BP 111/70
[2017-11-07] MEDS: CAPSAICIN 0.025% CRE 60 GM TUBE TP SCH ×3 (12:39→17:00)
--- NOTE | 2017-11-07 12:53 | NUR ---
CM NOTE INITIAL REVIEW FAXED TO [facility] [phone] DIANNE [phone]
--- NOTE | 2017-11-07 15:00 | NUR ---
PATIENT WAS TRANSFERRED TO [facility]. ENDORSEMENT GIVEN TO MARIO FOR CONTINUITY OF CARE. PATIENT IS STABLE AT THIS TIME
[2017-11-07 16:00] VITALS: BP 133/88
--- NOTE | 2017-11-07 16:02 | NUR ---
ADMINISTERED MORPHINE 2MG IVP FOR NM. PT IN RADIOLOGY FOR HYDA SCAN
--- NOTE | 2017-11-07 17:35 | NUR ---
PT BACK FROM HYDA SCAN. NO SIGNS OF DISTRESS. PT EATING DINNER TRAY. WILL CONTINUE TO MONITOR
--- NOTE | 2017-11-07 19:20 | NUR ---
REPORT GIVE TO LIAISON OFFICER NURSE REHAN AT BEDSIDE FOR CONTINUITY OF CARE. PT IN STABLE CONDITION.
--- NOTE | 2017-11-07 19:21 | NUR ---
RECEIVED PT FROM DAY SHIFT NURSE MARIO-BAN. PT RESTING IN BED. AOX4. LEFT HAND #24G. ON 3L/NC. AMBULATORY. DISCUSSED PLAN OF CARE WITH PT. AWAITING HIDA SCAN RESULTS. NO S/S OF RESPIRATORY DISTRESS OR DISCOMFORT NOTED AT THIS TIME. BED IN LOWEST POSITION. CALL LIGHT WITHIN REACH. WILL CONTINUE TO MONITOR.
[2017-11-07 20:00] VITALS: BP 134/94
--- NOTE | 2017-11-07 20:04 | NUR ---
PT C/O PAIN 05/21. MEDICATED PER MD ORDER PRN. PT TOLERATED WELL. WILL CONTINUE TO MONITOR.
--- NOTE | 2017-11-07 21:14 | NUR ---
BLOOD GLUCOSE 120. NO INSULIN NEEDED. PT TOLERATED WELL. WILL CONTINUE TO MONITOR.
--- NOTE | 2017-11-07 21:22 | NUR ---
SCHEDULED MEDICATIONS GIVEN. PT REFUSED LASIX STATING SHE ONLY TAKES THIS MED IN THE MORNING. ALSO REFUSED HEPARIN INJECTION DESPITE EDUCATION PROVIDED. REQUESTING RT BREATHING TX. WILL CONTINUE TO MONITOR.
[2017-11-08] VITALS: BP 124/77
[2017-11-08] MEDS: ALBUTEROL 0.083% 2.5 MG/3 ML NEBU INH SCH ×2 (00:18→06:44)
[2017-11-08] MEDS: IPRATROPIUM 0.02% 0.5 MG/2.5 ML NEBU INH SCH ×2 (00:19→06:44)
[2017-11-08] MEDS: MORPHINE SULFATE 4 MG/ML SYR IVP PRN ×2 (00:55→05:00)
--- NOTE | 2017-11-08 00:55 | NUR ---
PT C/O PAIN 05/21. MEDICATED PER DR ORDER PRN. PT TOLERATED WELL. WILL CONTINUE TO MONITOR.
[2017-11-08 04:00] VITALS: BP 146/91
--- NOTE | 2017-11-08 04:14 | NUR ---
PT RESTING IN BED. PAIN 5/10 PT STATES THIS IS A TOLERABLE LEVEL. BED IN LOWEST POSITION. CALL LIGHT WITHIN REACH. NO S/S OF RESPIRATORY DISTRESS. WILL CONTINUE TO MONITOR.
--- NOTE | 2017-11-08 05:09 | NUR ---
PT C/O PAIN 05/21. MEDICATED PER MD ORDER PRN. WILL CONTINUE TO MONITOR.
--- NOTE | 2017-11-08 05:41 | NUR ---
PT REFUSED LAB DRAW SINCE SHE IS TO BE DISCHARGED LATER THIS MORNING.
[2017-11-08] MEDS: BLOOD GLUCOSE MONITORING 1 DEV DEV FS SCH (05:55)
--- NOTE | 2017-11-08 05:57 | NUR ---
BLOOD GLUCOSE 96. NO INSULIN COVERAGE NEEDED. ENCOURAGED PT TO EAT SNACK. WILL CONTINUE TO MONITOR.
--- NOTE | 2017-11-08 07:13 | NUR ---
ENDORSED PT CARE TO NURSE RICH-RN. PT IN STABLE CONDITION AT THIS TIME.
--- NOTE | 2017-11-08 07:14 | NUR ---
RECEIVED REPORT FROM INFORMATION SYSTEMS AUDIT MANAGER NURSE AT BEDSIDE FOR CONTINUITY OF CARE. PT RESTING IN BED. AOX4. LEFT HAND #24G SL, PATENT, ASYMPTOMATIC, AND INTACT. ON 3L O2 VIA NC. AMBULATORY. UPDATED BOARD DISCUSSED PLAN OF CARE WITH PT. PATIENT VERBALIZED UNDERSTANDING. NO S/S OF RESPIRATORY DISTRESS OR DISCOMFORT NOTED AT THIS TIME. PT C/O HEADACHE. WILL ADMINISTER TYLENOL AND REASSESS. SAFETY PRECAUTION IN PLACE, BED IN LOWEST POSITION. CALL LIGHT WITHIN REACH. WILL CONTINUE TO MONITOR PATIENT.
[2017-11-08 08:00] VITALS: BP 135/91
[2017-11-08] MEDS: FAMOTIDINE 20 MG TAB PO SCH (08:03)
[2017-11-08] MEDS: PHENYTOIN 100 MG CAPER PO SCH (08:03)
[2017-11-08] MEDS: ATORVASTATIN 20 MG TAB PO SCH (08:04)
[2017-11-08] MEDS: ECOTRIN 81 MG TABEC PO SCH (08:04)
[2017-11-08] MEDS: CARVEDILOL 12.5 MG TAB PO SCH (08:04)
[2017-11-08] MEDS: FUROSEMIDE 40 MG TAB PO SCH (08:04)
[2017-11-08] MEDS: hydrALAZINE 10 MG TAB PO SCH (08:04)
--- NOTE | 2017-11-08 08:05 | NUR ---
ORDERED MEDICATIONS ADMINISTERED. PATIENT TOLERATED THEM WELL. PATIENT REFUSED HEPARIN AND TRIXAICIN STATING THAT SHE WILL BE GOING HOME TODAY SO DO NOT WANT THOSE TWO MEDICATIONS. TYLENOL PRN ALSO GIVEN FOR PATIENT'S HEADACHE. WILL REASSESS. PATIENT REFUSED HER BREAKFAST, ONLY WANTED A BANANA. PATIENT ALSO STATED THAT SHE WAS COLD, TEMP, 98.2, WARM BLANKET GIVEN. VITAL SIGNS WITHIN NORMAL LIMITS. SAFETY PRECAUTION IN PLACE, CALL LIGHT WITHIN REACH, WILL CONTINUE TO MONITOR PATIENT.
[2017-11-08] MEDS: CAPSAICIN 0.025% CRE 60 GM TUBE TP SCH (09:00)
--- NOTE | 2017-11-08 10:20 | NUR ---
PAGED DR. HOGAN AT 1011, HE CALLED BACK AT 1014. UPDATED HIM WITH THE RESULTS OF THE HIDA SCAN. DR. HOGAN WANTED TO TALK TO THE PATIENT VIA TELEPHONE. PATIENT AND DR. HOGAN SPOKE. WILL AWAIT HIS UPDATED ORDERS. PATIENT SITTING UP IN BED, RESTLESS BECAUSE SHE WANTS TO BE DISCHARGED. SPOKE TO HER DAUGHTER AND STATED THAT "HER DAUGHTER WILL BE HERE BY 11:30 AND I WILL BE LEAVING." SAFETY PRECAUTION IN PLACE, CALL LIGHT WITHIN REACH, WILL CONTINUE TO MONITOR PATIENT. WILL UPDATE HER WHEN THE DISCHARGE ORDER IS IN.
--- NOTE | 2017-11-08 10:42 | NUR ---
PAGED DR. HOGAN AGAIN TO SEE IF HE WILL BE DISCHARGING PATIENT TODAY. AWAITING HIS CALL BACK.
--- NOTE | 2017-11-08 11:10 | NUR ---
PAGED DR HOGAN AGAIN ABOUT PATIENT'S DISCHARGE PLANNING AND ORDER.
--- NOTE | 2017-11-08 11:15 | NUR ---
DR. HOGAN CALLED BACK, DISCHARGE ORDERED. WILL INFORM PATIENT AND GET PAPERWORK STARTED.
--- NOTE | 2017-11-08 11:16 | NUR ---
CM NOTE CONCURRENT REVIEW FAXED TO [facility] [phone] DIANNE [phone]
[2017-11-08] MEDS ORDERED: ACET-8386 PO (11:18)
--- NOTE | 2017-11-08 11:18 | NUR ---
DISCHARGE INSTRUCTION AND EDUCATION GIVEN. PATIENT VERBALIZED UNDERSTANDING. IV REMOVED, IV CATHETER INTACT. MINIMAL BLOOD NOTED. ID BANDS CUT. TELE MONITOR REMOVED. PATIENT GETTING DRESSED IN PREPARATION TO BE DISCHARGED, WILL BE PICKED UP BY GRANDDAUGHTER.
[2017-11-08] MEDS ORDERED: LACT10SO1 PO (11:19)
[2017-11-08] MEDS ORDERED: COL100L GT/PO (11:21)
--- NOTE | 2017-11-08 11:30 | NUR ---
PATIENT WAS WHEELED OFF THE FLOOR BY RN, ACCOMPANIED BY GRANDDAUGHTER. PATIENT TOOK ALL HER BELONGINGS WITH HER. PATIENT IN STABLE CONDITION.
--- NOTE | 2017-11-22 14:34 | NUR ---
Discharge summary faxed to [facility] AT [phone]
== END 2017-11-08 11:30 | disposition home or self-care (01) | DRG 282 ==
LOC: MED 14:53 → MTU 17:54
PROVIDERS: ADMIT Hospitalist; ATTEND Hospitalist
DX: K85.90 Acute pancreatitis without necrosis or infection, unspecified (principal); J96.00 Acute respiratory failure, unspecified whether with hypoxia or hypercapnia; N18.4 Chronic kidney disease, stage 4 (severe); E11.22 Type 2 diabetes mellitus with diabetic chronic kidney disease; E11.40 Type 2 diabetes mellitus with diabetic neuropathy, unspecified; E44.1 Mild protein-calorie malnutrition; K80.10 Calculus of gallbladder with chronic cholecystitis without obstruction; K86.1 Other chronic pancreatitis; E66.9 Obesity, unspecified; K59.00 Constipation, unspecified; J44.9 Chronic obstructive pulmonary disease, unspecified; I25.10 Atherosclerotic heart disease of native coronary artery without angina pectoris; I12.9 Hypertensive chronic kidney disease with stage 1 through stage 4 chronic kidney disease, or unspecified chronic kidney disease; M19.90 Unspecified osteoarthritis, unspecified site; E03.9 Hypothyroidism, unspecified; G40.909 Epilepsy, unspecified, not intractable, without status epilepticus; Z99.81 Dependence on supplemental oxygen; Z88.0 Allergy status to penicillin; Z68.31 Body mass index [BMI] 31.0-31.9, adult; Z79.82 Long term (current) use of aspirin; Z79.899 Other long term (current) drug therapy; Z87.891 Personal history of nicotine dependence; Z98.51 Tubal ligation status; Z79.4 Long term (current) use of insulin; Z95.5 Presence of coronary angioplasty implant and graft; Z95.810 Presence of automatic (implantable) cardiac defibrillator; Z53.29 Procedure and treatment not carried out because of patient's decision for other reasons; K57.90 Diverticulosis of intestine, part unspecified, without perforation or abscess without bleeding; Z60.2 Problems related to living alone
CPT/HCPCS: 36415; 71045; 76705; 78445; 80053; 82948; 83605; 83690; 85025; 87040; 87081; 94640; 96374; 99285; J2270; J7030; J7042; J7613; J7620; J7644; Q0092

== ENCOUNTER 2018-02-14 11:50 | Emergency (ER) | payer OTHER ==
[~2018-02-14] VITALS: Ht 165.1 cm; Wt 81.6 kg
[~2018-02-14 11:50] MED LIST changes: +ACET-8386 PO; +COL100L GT/PO; +LACT10SO1 PO
[2018-02-14 11:53] VITALS: BP 108/68
--- NOTE | 2018-02-14 12:03 | NUR ---
PATIENT WHEELCHAIR ASSISTED TO BED 2.
--- NOTE | 2018-02-14 12:14 | NUR ---
57/F PRESENT TO ER C/O RT FOOT PAIN x ONE WEEK. PT DENIES INJURY OR TRAUMA. HX: DM, RENAL PROBLEMS, COPD, CHF, HTN AND EPILEPSY; DENIES N/V/D; SKIN IS PINK/WARM/DRY; AAOX4 WITH EVEN AND STEADY GAIT; LUNGS CLEAR BL; HR EVEN AND REGULAR; PT DENIES ANY FEVER, CP, SOB, OR COUGH AT THIS TIME; PATIENT STATES PAIN OF 10/10 AT THIS TIME; VSS; PATIENT POSITIONED FOR COMFORT; HOB ELEVATED; BEDRAILS UP X2; BED DOWN. ER MD MADE AWARE OF PT STATUS.
[2018-02-14] MEDS ORDERED: ACETAMINOPHEN 325 MG TAB PO ONE (12:15)
[2018-02-14 13:35] VITALS: BP 112/71
--- NOTE | 2018-02-14 13:35 | NUR ---
Patient discharged with v/s stable. Written and verbal after care instructions given and explained. Patient alert, oriented and verbalized understanding of instructions. Wheel Chair Assisted with to the lobby. All questions addressed prior to discharge. ID band removed. Patient advised to follow up with PMD. Rx of norco given. Patient educated on indication of medication including possible reaction and side effects. Opportunity to ask questions provided and answered.
== END 2018-02-14 13:35 | disposition home or self-care (01) ==
LOC: MED 11:50
DX: M79.671 Pain in right foot (principal); R20.0 Anesthesia of skin; J44.9 Chronic obstructive pulmonary disease, unspecified; E11.9 Type 2 diabetes mellitus without complications; I10 Essential (primary) hypertension; Z95.0 Presence of cardiac pacemaker; Z79.899 Other long term (current) drug therapy; Z88.0 Allergy status to penicillin
CPT/HCPCS: 73610; 73630; 99284; Q0092

== ENCOUNTER 2018-03-20 12:47 | Inpatient (IN) | payer OTHER ==
[~2018-03-20] VITALS: Ht 165.1 cm; Wt 105.7 kg
[2018-03-20 12:48] VITALS: BP 154/84
--- NOTE | 2018-03-20 13:03 | NUR ---
PT TAKEN TO BED 10 AT THIT TIME VIA W/C. ABLE TO TRANSFER HERSELF FROM WHEELCHAIR TO BED W/O INCIDENT. SAFETY PRECAUTIONS IN PLACE. CHEMO MCLEOD NOTIFIED. REPORT GIVEN TO BAN BACON.
[2018-03-20] MEDS ORDERED: methylPREDNISolone SS 125 MG/2 ML VIAL IM ONE (13:10)
[2018-03-20] MEDS ORDERED: ALBUTEROL SULFATE/IPRATROPIU 3 ML SOL IH ONE (13:10)
--- NOTE | 2018-03-20 13:20 | NUR ---
57 YO F PRESENTS W/ SOB X 3 DAYS EXACERBATION, WORSE TODAY. TALKING IN FULL, APPROPRIATE AND COMPLETE SENTENCES, BUT TIRES, GETS OUT OF BREATH EASILY. HAS HAD A HEADACHE ON AND OFF, BUT IT WENT AWAY ABOUT 30 MINUTES AGO. PRESENTS W/ O2 AT 3L/MIN, SATTING AT 95% AT THIS TIME. LUNG OTERO CLEAR AT THIS TIME, BUT PT IS TACHYPNIC. DENIES CHEST PAIN AT THIS TIME. REPORTS THAT SHE HAS BEEN NAUSEOUS, WITH DRY HEAVE/CLEAR VOMIT, BUT NONE TODAY. RIGHT FOOT IN A BOOT RELATED TO SOME RIGHT FOOT SWELLING. NO FRACTURES, TOLD IT WAS TENDON INFLAMMATION. HX: COPD, DM, CHF, KIDNEY DISEASE, HTN, A-FIB
[2018-03-20 14:45] LABS: BASOPHILS % (AUTO) 0.9 % (0.0-2.0); EOSINOPHILS # (AUTO) 0.1 K/uL (0-0.4); EOSINOPHILS % (AUTO) 1.6 % (0.0-4.0); HEMATOCRIT 33.7 % (36-48); HEMOGLOBIN 11.1 g/dL (12.0-16.0); LYMPHOCYTES # (AUTO) 1.3 K/uL (2.5-16.5); LYMPHOCYTES % (AUTO) 29.6 % (20.5-51.1); MEAN CORPUSCULAR HEMOGLOBIN 31 pg (27-31); MEAN CORPUSCULAR HGB CONC 33 g/dL (33-37); MEAN CORPUSCULAR VOLUME 93.5 fL (80-94); MONOCYTES # (AUTO) 0.3 K/uL (0.8-1.0); MONOCYTES % (AUTO) 7.1 % (1.7-9.3); NEUTROPHILS # (AUTO) 2.6 K/uL (1.8-7.7); NEUTROPHILS % (AUTO) 60.8 % (42.2-75.2); PLATELET COUNT (AUTO) 199 K/uL (140-450); RED CELL DISTRIBUTION WIDTH 17.3 % (11.6-13.7); WHITE BLOOD COUNT (AUTO) 4.3 K/uL (4.8-10.8)
--- NOTE | 2018-03-20 14:45 | NUR ---
PT. RESTING COMFROTABLY IN BED, RR EVEN AND UNLABORED. WILL CONTINUE TO MONITOR.
[2018-03-20] MEDS ORDERED: KETOROLAC 15 MG/ML VIAL IVP ONE (15:20)
[2018-03-20] MEDS ORDERED: LEVOFLOXACIN 750 MG/D5W PREMIX 150 ML IV ONE (15:20)
[2018-03-20] MEDS ORDERED: FUROSEMIDE 40 MG/4 ML VIAL IVP ONE (15:20)
[2018-03-20 15:23] LABS: ANION GAP 16.1 (8-16); CARBON DIOXIDE 22.5 mmol/L (21-32); POTASSIUM 3.6 mmol/L (3.5-5.1)
[2018-03-20 15:31] LABS: ALBUMIN 3.6 g/dL (3.4-5.0); TOTAL BILIRUBIN 0.4 mg/dL (0.0-1.0)
[2018-03-20] MEDS ORDERED: ACETAMINOPHEN 325 MG TAB PO PRN (15:40)
[2018-03-20] MEDS ORDERED: ONDANSETRON 4 MG/2 ML VIAL IVP PRN (15:40)
--- NOTE | 2018-03-20 15:45 | NUR ---
PT. RESTING COMFORTABLY IN BED, RR EVEN AND UNLABORED. FAMILY MEMBER AT BEDSIDE. WILL CONTINUE TO MONITOR
--- NOTE | 2018-03-20 16:45 | NUR ---
PATIENT ADMITTED TO THE UNIT FROM ER. PATIENT AWAKE, ALERT AND ORIENTED. PATIENT RECEIVING 3L O2 VIA NC. SOB UPON EXERTION NOTED. O2 SAT 92% AT THIS TIME. NO C/O PAIN. PATIENT PLACED ON TELE MONITORING. BED LOWERED WITH CALL LIGHT WITHIN REACH. WILL CONTINUE TO MONITOR
--- NOTE | 2018-03-20 16:46 | NUR ---
Patient will be admitted to care of DR. PEREZ . Admited to TELE . Will go to room 112A. Belongings list completed. Report to BAN DOMINGUEZ .
[2018-03-20 16:52] VITALS: BP 141/97
--- NOTE | 2018-03-20 17:00 | NUR ---
ASSISTED PATIENT TO THE BEDSIDE COMMODE. PATIENT VOIDED
[2018-03-20] MEDS: BLOOD GLUCOSE MONITORING 1 DEV DEV FS SCH ×2 (17:05→21:18)
[2018-03-20] MEDS: FUROSEMIDE 40 MG/4 ML VIAL IVP SCH (17:13)
--- NOTE | 2018-03-20 17:40 | NUR ---
INFORMED DR PEREZ OF PATIENT'S LACTIC ACID LEVEL OF 2.8. ORDERS TO DRAW LACTIC ACID LEVELS IN THE MORNING TOMORROW
[2018-03-20] MEDS: ALBUTEROL 0.083% 2.5 MG/3 ML NEBU IH PRN (17:44)
[2018-03-20] MEDS ORDERED: methylPREDNISolone SS 40 MG in WATER STERILE 1 ML IV SCH (18:00)
[2018-03-20] MEDS: INSULIN LISPRO SLIDING SCALE 100 UNITS/ML VIAL SUBQ PRN ×2 (18:01→21:21)
[2018-03-20] MEDS: MORPHINE SULFATE 2 MG/ML SYR IVP PRN ×2 (18:46→22:51)
--- NOTE | 2018-03-20 19:15 | NUR ---
RECEIVED BEDSIDE REPORT FROM DAY SHIFT NURSE ALBERTO RN, PT IN STABLE CONDITION, NO DISTRESS NOTED, IV TO L THUMB 22G PATENT, INTACT, PT ON 3LPM O2 VIA NC, NO SOB, PT ABLE TO AMBULATE TO BEDSIDE COMMODE, INITIAL ASSESSMENT DONE, ALL SAFETY PRECAUTION MET, WILL CONTINUE TO MONITOR.
--- NOTE | 2018-03-20 19:20 | NUR ---
PT REFUSED BLOOD DRAW FOR LACTIC ACID THAT WAS ORDERED.
[2018-03-20] MEDS: IPRATROPIUM 0.02% 0.5 MG/2.5 ML NEBU IH SCH (19:26)
[2018-03-20] MEDS: ALBUTEROL 0.083% 2.5 MG/3 ML NEBU IH SCH (19:26)
[2018-03-20 20:00] VITALS: BP 147/99
--- NOTE | 2018-03-20 20:30 | NUR ---
PT STATED DOES NOT WANT SCD ON, REQUESTED TO TAKE OF SCD, INFORMED PT REGARDING SCD. PT STATED UNDERSTANDING BUT STILL DOES NOT WANT THE SCD ON.
--- NOTE | 2018-03-20 21:21 | NUR ---
CHECKED ON PT BLOOD SUGAR, 185, INSULIN GIVEN PER PROTOCOL, PT TOLERATED WELL, NO DISTRESS NOTED, CALL LIGHT WITHIN REACH, WILL CONTINUE TO MONITOR.
--- NOTE | 2018-03-20 22:51 | NUR ---
PT STATED HAVING GENERALIZED PAIN, MAINLY IN THE JOINTS, PAIN MEDICATION ORDERED ADMINISTERED, PT TOLERATED WELL, NO DISTRESS NOTED, CALL LIGHT WITHIN REACH, WILL CONTINUE TO MONITOR.
[2018-03-21] VITALS: BP 151/105
[2018-03-21] MEDS ORDERED: methylPREDNISolone SS 40 MG/ML VIAL IVP SCH
--- NOTE | 2018-03-21 00:01 | NUR ---
CHECKED ON PT, PT RESTING, NO DISTRESS NOTED, CALL LIGHT WITHIN REACH, WILL CONTINUE TO MONITOR.
[2018-03-21] MEDS: IPRATROPIUM 0.02% 0.5 MG/2.5 ML NEBU IH SCH ×4 (00:43→19:04)
[2018-03-21] MEDS: ALBUTEROL 0.083% 2.5 MG/3 ML NEBU IH SCH ×4 (00:43→19:04)
--- NOTE | 2018-03-21 02:11 | NUR ---
PT RESTING, NO DISTRESS NOTED, CALL LIGHT WITHIN REACH, WILL CONTINUE TO MONITOR.
[2018-03-21 04:00] VITALS: BP 141/97
[2018-03-21] MEDS: MORPHINE SULFATE 2 MG/ML SYR IVP PRN ×5 (04:26→23:01)
--- NOTE | 2018-03-21 04:26 | NUR ---
PT STATED FEELING PAIN, PAIN MEDICATION GIVEN PT TOLERATED WELL, NO DISTRESS NOTED, CALL LIGHT WITHIN REACH, WILL CONTINUE TO MONITOR.
[2018-03-21 05:57] LABS: BASOPHILS % (AUTO) 0.2 % (0.0-2.0); HEMATOCRIT 33.7 % (36-48); LYMPHOCYTES # (AUTO) 0.5 K/uL (2.5-16.5); MEAN CORPUSCULAR HEMOGLOBIN 30 pg (27-31); MEAN CORPUSCULAR HGB CONC 33 g/dL (33-37); NEUTROPHILS # (AUTO) 3.1 K/uL (1.8-7.7); NEUTROPHILS % (AUTO) 84.8 % (42.2-75.2); PLATELET COUNT (AUTO) 171 K/uL (140-450); RED BLOOD CELL COUNT(AUTO) 3.62 MIL/uL (4.20-5.40); RED CELL DISTRIBUTION WIDTH 17.1 % (11.6-13.7); WHITE BLOOD COUNT (AUTO) 3.6 K/uL (4.8-10.8)
[2018-03-21] MEDS: BLOOD GLUCOSE MONITORING 1 DEV DEV FS SCH ×4 (06:30→21:26)
[2018-03-21] MEDS: INSULIN LISPRO SLIDING SCALE 100 UNITS/ML VIAL SUBQ PRN ×2 (06:31→13:00)
[2018-03-21 06:44] LABS: ALBUMIN 3.7 g/dL (3.4-5.0); ANION GAP 17.4 (8-16); CARBON DIOXIDE 22.3 mmol/L (21-32); CREATININE 1.1 mg/dL (0.6-1.3); POTASSIUM 3.7 mmol/L (3.5-5.1); TOTAL BILIRUBIN 0.6 mg/dL (0.0-1.0)
--- NOTE | 2018-03-21 07:10 | NUR ---
RECEIVED PATIENT REPORT AT BEDSIDE. PATIENT AWAKE AND ALERT. PATIENT CURRENTLY RECEIVING BREATHING TX. NO S/S OF DISTRESS. PATIENT ON TELE MONITORING. BED LOWERED WITH CALL LIGHT WITHIN REACH. WILL CONTINUE TO MONITOR
--- NOTE | 2018-03-21 07:30 | NUR ---
ENDORSED PT TO DAY SHIFT NURSE ALBERTO RN, PT STABLE, NO DISTRESS NOTED, CALL LIGHT WITHIN REACH.
[2018-03-21 07:45] VITALS: BP 142/96
[2018-03-21] MEDS: FUROSEMIDE 40 MG/4 ML VIAL IVP SCH ×2 (08:27→16:51)
[2018-03-21] MEDS: PANTOPRAZOLE 40 MG INJ VIAL IVP SCH (08:31)
[2018-03-21] MEDS: ENOXAPARIN 40 MG/0.4 ML SYR SUBQ SCH (08:35)
--- NOTE | 2018-03-21 11:00 | NUR ---
PATIENT AWAKE IN BED, WATCHING TELEVISION. NO S/S OF DISTRESS NOTED
--- NOTE | 2018-03-21 11:20 | NUR ---
PATIENT HAS BEEN SCREENED AND CATEGORIZED MODERATE NUTRITION RISK. PATIENT WILL BE SEEN WITHIN 3-5 DAYS OF ADMISSION. 03/23/18 -03/25/[address]
[2018-03-21 11:44] VITALS: BP 139/93
[2018-03-21] MEDS ORDERED: GABAPENTIN 100 MG CAP ONE (12:49)
[2018-03-21] MEDS: GABAPENTIN 300 MG, GABAPENTIN 100 MG PO SCH ×6 (12:54→21:28)
[2018-03-21] MEDS ORDERED: GABAPENTIN 100 MG CAP PO SCH (13:00)
--- NOTE | 2018-03-21 13:07 | NUR ---
CM NOTE INITIAL REVIEW FAXED TO [facility] [phone] DIANNE # [phone]
[2018-03-21] MEDS ORDERED: CYCLOBENZAPRINE 10 MG TAB PO PRN (13:50)
[2018-03-21] MEDS ORDERED: NON-FORMULARY ITEM (Lactulose 30 ML) PO PRN (13:50)
[2018-03-21] MEDS ORDERED: DOCUSATE 100 MG/10 ML UDC PO PRN (13:50)
--- NOTE | 2018-03-21 14:45 | NUR ---
PATIENT VOIDED IN THE BEDSIDE COMMODE. NO S/S OF DISTRESS NOTED
[2018-03-21 16:34] VITALS: BP 133/91
[2018-03-21] MEDS: PHENYTOIN 100 MG CAPER PO SCH (16:49)
[2018-03-21] MEDS: FERROUS SULFATE 325 MG TABEC PO SCH (16:50)
--- NOTE | 2018-03-21 19:25 | NUR ---
PATIENT REPORT GIVEN AT BEDSIDE. PATIENT ENDORSED IN STABLE CONDITION
--- NOTE | 2018-03-21 19:26 | NUR ---
RECEIVED REPORT FROM DAY SHIFT NURSE LIDA-RN AT BEDSIDE. PT AOX4- CURRENTLY RECEIVING BREATHING TX. IV SITE LEFT THUMB 22G-SL, ON 3L/NC. DISCUSSED PLAN OF CARE AND PT VERBALIZED UNDERSTANDING. NO S/S OF RESPIRATORY DISTRESS OR DISCOMFORT NOTED AT THIS TIME. BED LOWEST POSITION, BOTH SIDE RAILS UP, BED BREAKS ON. BED SIDE TABLE AND CALL LIGHT ARE WITHIN REACH. WILL CONTINUE TO MONITOR
[2018-03-21 20:00] VITALS: BP 130/88
--- NOTE | 2018-03-21 20:00 | NUR ---
VITAL SIGNS TAKEN AND TOLERATED WELL. BLOOD GLUCOSE 138-NO INSULIN COVERAGE NEEDED. NO S/S OF RESPIRATORY DISTRESS OR DISCOMFORT NOTED AT THIS TIME. WILL CONTINUE TO MONITOR.
[2018-03-21] MEDS: hydrALAZINE 10 MG TAB PO SCH (21:28)
[2018-03-21] MEDS: CARVEDILOL 12.5 MG TAB PO SCH (21:29)
--- NOTE | 2018-03-21 21:30 | NUR ---
SCHEDULED MEDICATION GIVEN AND TOLERATED WELL. NO S/S OF RESPIRATORY DISTRESS OR DISCOMFORT NOTED AT THIS TIME. WILL CONTINUE TO MONITOR.
--- NOTE | 2018-03-21 23:01 | NUR ---
PT C/O PAIN 6/10 LEFT HIP PAIN. MEDICATED PT WITH MORPHINE SULFATE. PT TOLERATED WELL. NO S/S OF RESPIRATORY DISTRESS. WILL CONTINUE TO MONITOR.
[2018-03-22] VITALS: BP 122/80
--- NOTE | 2018-03-22 | NUR ---
VITAL SIGNS TAKEN AND TOLERATED WELL. NO S/S OF RESPIRATORY DISTRESS OR DISCOMFORT NOTED AT THIS TIME. WILL CONTINUE TO MONITOR.
[2018-03-22] MEDS: ALBUTEROL 0.083% 2.5 MG/3 ML NEBU IH SCH ×3 (00:29→13:36)
[2018-03-22] MEDS: ALBUTEROL 0.083% 2.5 MG/3 ML NEBU IH PRN (00:30)
--- NOTE | 2018-03-22 02:00 | NUR ---
PT RESTING IN BED. NO S/S OF RESPIRATORY DISTRESS OR DISCOMFORT NOTED AT THIS TIME. WILL CONTINUE TO MONITOR.
[2018-03-22 04:00] VITALS: BP 124/86
--- NOTE | 2018-03-22 04:00 | NUR ---
VITAL SIGNS TAKEN AND TOLERATED WELL. PT C/O PAIN 01/19- WILL MEDICATE WITH MORPHINE. NO S/S OF RESPIRATORY DISTRESS. WILL CONTINUE TO MONITOR.
[2018-03-22] MEDS: MORPHINE SULFATE 2 MG/ML SYR IVP PRN ×3 (04:26→14:32)
--- NOTE | 2018-03-22 04:30 | NUR ---
MEDICATED WITH MORPHINE FOR PAIN 01/19. PT TOLERATED WELL. NO S/S OF RESPIRATORY DISTRESS OR DISCOMFORT NOTED AT THIS TIME. WILL CONTINUE TO MONITOR.
--- NOTE | 2018-03-22 06:00 | NUR ---
BLOOD GLUCOSE 113- NO INSULIN COVERAGE
[2018-03-22 07:13] LABS: BASOPHILS % (AUTO) 0.5 % (0.0-2.0); EOSINOPHILS % (AUTO) 0.3 % (0.0-4.0); HEMATOCRIT 33.2 % (36-48); HEMOGLOBIN 10.7 g/dL (12.0-16.0); LYMPHOCYTES % (AUTO) 23.6 % (20.5-51.1); MEAN CORPUSCULAR HEMOGLOBIN 30 pg (27-31); MEAN CORPUSCULAR HGB CONC 32 g/dL (33-37); MEAN CORPUSCULAR VOLUME 94.2 fL (80-94); MONOCYTES # (AUTO) 0.5 K/uL (0.8-1.0); MONOCYTES % (AUTO) 5.6 % (1.7-9.3); PLATELET COUNT (AUTO) 169 K/uL (140-450); RED BLOOD CELL COUNT(AUTO) 3.52 MIL/uL (4.20-5.40); RED CELL DISTRIBUTION WIDTH 17.5 % (11.6-13.7); WHITE BLOOD COUNT (AUTO) 8.6 K/uL (4.8-10.8)
--- NOTE | 2018-03-22 07:19 | NUR ---
ENDORSED PT CARE TO DAY SHIFT NURSE JYOTI FOR CONTINUITY OF CARE.
--- NOTE | 2018-03-22 07:20 | NUR ---
RECEIVED REPORT FROM DIAL PAINTER NURSE REHAN AT BEDSIDE FOR CONTINUITY OF CARE. PT IS AWAKE AND ORIENTED X4. INTRODUCED SELF AND UPDATED BOARD. PT ON O2 NC 3L/MIN. NO SOB. NO COUGH. O2 SAT 97%. BSC ON LEFT SIDE OF BED. IV TO L THUMB 22G SL. SKIN INTACT. PT COMPLAINED OF L SIDE PAIN "THAT GOES IN AND OUT SOMETIMES." NO PAIN MED REQUESTED. NO SIGNS OF DISTRESS. CALL LIGHT WITHIN REACH. BED IN LOW POSITION. WHEELS LOCKED. WILL CONTINUE TO MONITOR.
[2018-03-22 07:29] LABS: ALBUMIN 3.7 g/dL (3.4-5.0); ANION GAP 10.9 (8-16); CARBON DIOXIDE 25.3 mmol/L (21-32); CREATININE 1.3 mg/dL (0.6-1.3); POTASSIUM 3.2 mmol/L (3.5-5.1); TOTAL BILIRUBIN 0.6 mg/dL (0.0-1.0)
[2018-03-22] MEDS: BLOOD GLUCOSE MONITORING 1 DEV DEV FS SCH ×2 (07:30→11:40)
[2018-03-22] MEDS: IPRATROPIUM 0.02% 0.5 MG/2.5 ML NEBU IH SCH ×2 (07:42→13:36)
[2018-03-22 08:00] VITALS: BP 119/84
[2018-03-22] MEDS ORDERED: AMIODARONE 200 MG TAB PO SCH (09:00)
[2018-03-22] MEDS ORDERED: NON-FORMULARY ITEM (Aspirin (Aspirin EC) 81 MG) PO SCH (09:00)
[2018-03-22] MEDS ORDERED: ECOTRIN 81 MG TABEC PO SCH (09:00)
[2018-03-22] MEDS ORDERED: ATORVASTATIN 20 MG TAB PO SCH (09:00)
[2018-03-22] MEDS: ENOXAPARIN 40 MG/0.4 ML SYR SUBQ SCH (09:00)
[2018-03-22] MEDS: FERROUS SULFATE 325 MG TABEC PO SCH ×2 (09:37→12:47)
[2018-03-22] MEDS: PANTOPRAZOLE 40 MG INJ VIAL IVP SCH (09:38)
[2018-03-22] MEDS: CARVEDILOL 12.5 MG TAB PO SCH (09:38)
[2018-03-22] MEDS: FUROSEMIDE 40 MG/4 ML VIAL IVP SCH (09:38)
[2018-03-22] MEDS: PHENYTOIN 100 MG CAPER PO SCH ×2 (09:38→12:47)
[2018-03-22] MEDS: hydrALAZINE 10 MG TAB PO SCH (09:39)
[2018-03-22] MEDS: GABAPENTIN 300 MG, GABAPENTIN 100 MG PO SCH ×4 (09:39→12:47)
--- NOTE | 2018-03-22 09:48 | NUR ---
ADMINISTERED SCHEDULED MEDS. PT REFUSED LOVENOX. STATED SHE DOES NOT WANT TO TAKE MED. TOLD PT THAT IT IS BLOOD THINNER AND BENEFITS OF MED. PT STILL REFUSED. NON ADMIN LOVENOX AND RETURNED TO [facility]. PT WAS COMPLAINING OF PAIN ON L HIP 01/19. ADMINISTERED MORPHINE IVP FOR PAIN. PT TOLERATED ADMIN MEDS WELL. NO SIGNS OF DISTRESS. WITH PHYSICAL THERAPY NOW. WILL CONTINUE TO MONITOR.
[2018-03-22 11:56] VITALS: BP 119/88
--- NOTE | 2018-03-22 12:04 | NUR ---
PT AWAKE AND ORIENTED. NO COMPLAINTS AT THIS TIME. PT WAS ASKING FOR DR. CALVO WHEN SHE WILL GET DISCHARGED. SAID NO ORDER FOR D/C TODAY BUT WILL WAIT FOR DR. PEREZ WHEN SHE GETS HERE.
[2018-03-22] MEDS ORDERED: GABAPENTIN 300 MG CAP ONE (12:42)
--- NOTE | 2018-03-22 13:10 | NUR ---
PT WAS ASKING ABOUT D/C TODAY. TOLD HER NO ORDER STILL. PAGED DR. PEREZ. NO CALL BACK RETURN YET.
[2018-03-22] MEDS ORDERED: POTASSIUM CHLORIDE 10 MEQ TABER PO SCH (13:30)
[2018-03-22] MEDS ORDERED: LACT10SO1 PO (15:56)
[2018-03-22] MEDS ORDERED: ACET-2858 PO (15:56)
[2018-03-22] MEDS ORDERED: FAMO-90 PO (15:57)
--- NOTE | 2018-03-22 16:00 | NUR ---
PT D/C TO GO HOME. GAVE D/C FORMS, INSTRUCTIONS, RX, LABS, AND FOLLOW UP APPOINTMENT. PT VERBALIZED UNDERSTANDING AND SIGNED FORMS. REMOVED IV TO L THUMB. IV CATHETER TIP INTACT, APPLIED DRESSING AND PRESSURE TO SITE. NO BLEEDING NOTED. REMOVED ID BAND AND TELE MONITOR. PT CHANGED IN OWN CLOTHES AND LEFT WITH ALL PERSONAL BELONGINGS AND PORTABLE O2 TANK FROM HOME. LEFT UNIT VIA WHEELCHAIR ACCOMPANIED BY RN AND FAMILY MEMBER. PT LEFT IN STABLE CONDITION.
--- NOTE | 2018-03-24 10:44 | NUR ---
CM NOTE DC SUMMARY FAXED TO [facility] [phone] DIANNE # [phone]
== END 2018-03-22 16:00 | disposition home or self-care (01) | DRG 194 ==
LOC: MED 12:47 → MTU 15:44
PROVIDERS: ADMIT Hospitalist; ATTEND Hospitalist
DX: I13.0 Hypertensive heart and chronic kidney disease with heart failure and stage 1 through stage 4 chronic kidney disease, or unspecified chronic kidney disease (principal); J96.20 Acute and chronic respiratory failure, unspecified whether with hypoxia or hypercapnia; E87.2 Acidosis; E11.22 Type 2 diabetes mellitus with diabetic chronic kidney disease; I50.43 Acute on chronic combined systolic (congestive) and diastolic (congestive) heart failure; N18.9 Chronic kidney disease, unspecified; J44.1 Chronic obstructive pulmonary disease with (acute) exacerbation; D64.9 Anemia, unspecified; E78.5 Hyperlipidemia, unspecified; F17.200 Nicotine dependence, unspecified, uncomplicated; Z88.0 Allergy status to penicillin; Z95.810 Presence of automatic (implantable) cardiac defibrillator; I25.10 Atherosclerotic heart disease of native coronary artery without angina pectoris
CPT/HCPCS: 36415; 71045; 80053; 82948; 83605; 83880; 84484; 85025; 87040; 87081; 94640; 96372; 96374; 96375; 97110; 99285; C9113; J1650; J1815; J1885; J1940; J1956; J2270; J2930; J7613; J7620; J7644; Q0092

== ENCOUNTER 2018-04-05 21:36 | Inpatient (IN) | payer OTHER ==
[~2018-04-05] VITALS: Ht 175.3 cm; Wt 76.7 kg
[~2018-04-05 21:36] MED LIST changes: -ACET-8386 PO
--- NOTE | 2018-04-05 21:36 | NUR ---
2130- PT BIBA BLS. TAKEN TO BED 4
[2018-04-05 21:43] VITALS: BP 122/95
--- NOTE | 2018-04-05 21:47 | NUR ---
PT BIBA FOR ETOH AND POSSIBLE SEIZURE ACTIVITY AT HOME. PT REPORTS DRINKING VODKA AT HOME TODAY AFTER BEING UPSET BECAUSE OF A ARGUMENT. PT IS CALM AND COOPERATIVE AT THIS TIME. PT ARRIVES ON 3L OXYGEN. RR EVEN AND UNLABORED, PT POSITIONED UPRIGHT, BL BS DIMINISHED TO LOWER LOBES, CLEAR TO UPPER LOBES. PMH CHF, COPD, SEIZURES, DM, HTN, PT ALSO HAS DEFIBRILLATOR. ALLERGY TO PCN
--- NOTE | 2018-04-05 21:50 | NUR ---
Dr. Lares evaluating patient at bedside.
--- NOTE | 2018-04-05 22:06 | NUR ---
X-Ray at bedside.
[2018-04-05 22:59] LABS: BASOPHILS # (AUTO) 0.1 K/uL (0.00-0.22); BASOPHILS % (AUTO) 1.2 % (0.0-2.0); EOSINOPHILS # (AUTO) 0.1 K/uL (0-0.4); EOSINOPHILS % (AUTO) 1.7 % (0.0-4.0); HEMATOCRIT 36.6 % (36-48); HEMOGLOBIN 11.8 g/dL (12.0-16.0); LYMPHOCYTES # (AUTO) 1.8 K/uL (2.5-16.5); LYMPHOCYTES % (AUTO) 40.9 % (20.5-51.1); MEAN CORPUSCULAR HEMOGLOBIN 30 pg (27-31); MEAN CORPUSCULAR HGB CONC 32 g/dL (33-37); MEAN CORPUSCULAR VOLUME 93.7 fL (80-94); MONOCYTES # (AUTO) 0.4 K/uL (0.8-1.0); MONOCYTES % (AUTO) 8.7 % (1.7-9.3); NEUTROPHILS # (AUTO) 2.1 K/uL (1.8-7.7); NEUTROPHILS % (AUTO) 47.5 % (42.2-75.2); PLATELET COUNT (AUTO) 214 K/uL (140-450); RED BLOOD CELL COUNT(AUTO) 3.91 MIL/uL (4.20-5.40); RED CELL DISTRIBUTION WIDTH 17.5 % (11.6-13.7); WHITE BLOOD COUNT (AUTO) 4.4 K/uL (4.8-10.8)
[2018-04-05 23:12] LABS: ANION GAP 13.7 (8-16); CARBON DIOXIDE 25.8 mmol/L (21-32); CREATININE 1.2 mg/dL (0.6-1.3); POTASSIUM 3.5 mmol/L (3.5-5.1)
[2018-04-05 23:16] LABS: ALBUMIN 3.7 g/dL (3.4-5.0); TOTAL BILIRUBIN 0.2 mg/dL (0.0-1.0)
[2018-04-05 23:47] LABS: APPEARANCE,URINE CLEAR (CLEAR); BILIRUBIN,URINE NEGATIVE (NEGATIVE); BLOOD, URINE TRACE-L (NEGATIVE); COLOR,URINE YELLOW (YELLOW); LEUKOCYTE ESTERASE ,URINE NEGATIVE (NEGATIVE); NITRITE, URINE NEGATIVE (NEGATIVE); UGLUCOSE NEGATIVE (NEGATIVE)
[2018-04-05 23:57] LABS: RBC,URINE 0-5 (RARE) /HPF (0-5)
[2018-04-05 23:58] LABS: WBC,URINE 0-5 (RARE) /HPF (0-5)
--- NOTE | 2018-04-06 | NUR ---
PT LAYING IN BED, VSS, WILL CONTINUE TO MONITOR.
[2018-04-06] MEDS ORDERED: VANCOMYCIN 1,000 MG in DEXTROSE 5% 250 ML IV ONE (00:25)
[2018-04-06] MEDS ORDERED: LEVOFLOXACIN 750 MG/D5W PREMIX 150 ML IV ONE (00:25)
--- NOTE | 2018-04-06 00:40 | NUR ---
PT WHEELCHAIR ASSISTED TO BATHROOM.
[2018-04-06] MEDS ORDERED: ALBUTEROL 0.083% 2.5 MG/3 ML NEBU INH PRN (00:55)
[2018-04-06] MEDS ORDERED: ONDANSETRON 4 MG/2 ML VIAL IVP PRN (00:55)
[2018-04-06] MEDS ORDERED: PHENYTOIN 1,000 MG in NACL 0.9% 100 ML IV ONE (00:55)
[2018-04-06] MEDS: ALBUTEROL 0.083% 2.5 MG/3 ML NEBU INH SCH ×2 (01:00→07:59)
[2018-04-06] MEDS ORDERED: PHENYTOIN 250 MG/5 ML VIAL IV ONE (01:12)
[2018-04-06] MEDS ORDERED: VANCOMYCIN 1,000 MG VIAL ONE (01:12)
[2018-04-06] MEDS ORDERED: HYDROcodone/APAP 10/325 MG 1 TAB TAB PO ONE (01:25)
[2018-04-06 01:37] LABS: CREATINE KINASE MB 0.7 ng/mL (0-3.6)
--- NOTE | 2018-04-06 01:50 | NUR ---
Patient will be admitted to care of DR STAPLETON. Admited to TELE. Will go to room 119-B. Belongings list completed. Report to [facility].
--- NOTE | 2018-04-06 01:50 | NUR ---
VANCO, AND DILANTIN MIXED AND SENT TO FLOOR TO BE INFUSED BY FLOOR NURSE. 0ML INFUSED IN ER, LEVAQUIN RUNNING UPON TRANSFER PT NADR.
--- NOTE | 2018-04-06 01:53 | NUR ---
ADMITTED PT FROM ER VIA JANA. AAOX4. NO C/O PAIN OR SOB. ON O2 AT 3L/MIN VIA NC. IV TO RIGHT FA #22G, LEVOFLOXACIN ANTIBIOTIC INFUSING WELL. SKIN INTACT. ORIENTED PT TO ROOM. RECEIVED VANCOMYCIN BAG AND DILANTIN BAG FROM ER NURSE. WILL GIVE/ADMINISTER AFTER LEVOFLOXACIN. SAFETY PRECAUTION IN PLACE. CALL LIGHT WITHIN REACH.
[2018-04-06 02:00] VITALS: BP 138/90
--- NOTE | 2018-04-06 02:15 | NUR ---
PT ASKED FOR SNACK. SNACK PROVIDED. NEEDS MET AT THIS TIME. SAFETY PRECAUTION IN PLACE. CALL LIGHT WITHIN REACH.
--- NOTE | 2018-04-06 03:28 | NUR ---
LEVOFLOXACIN DONE. PT LYING COMFORTABLY IN BED. NO RESP DISTRESS NOTED.
--- NOTE | 2018-04-06 03:32 | NUR ---
STARTED DILANTIN 1000MG IN NS 100 ML AT 240 ML/HR.
--- NOTE | 2018-04-06 03:39 | NUR ---
PT COME TO MED SURG AT 0200, ORDER IN OCT WAS FOR 99, PT IS NOT IN DISTRESS OR SOB
[2018-04-06 04:00] VITALS: BP 104/79
--- NOTE | 2018-04-06 04:35 | NUR ---
DILANTIN DONE. PT C/O BACK PAIN 02/18. PAGED DR. MOYA, DR. WISEMAN PROJECT MANAGER ENTERTAINMENT AND MEDIA. DR. WISEMAN ORDERED NORCO 10/325 MG PO ONCE.
--- NOTE | 2018-04-06 04:50 | NUR ---
PT C/O BURNING SENSATION ON THE IV SITE. PT WAS SO MAD AND ASKED TO STOP VANCOMYCIN. PER PT SHE DOESN'T WANT THE IV ANTIBIOTIC VANCO. I ASKED THE PT IF WE CAN TRY AGAIN LATER OR START ANOTHER IV LINE, PT REFUSED. EXPLAINED TO PT THE BENEFITS OF THE MEDICINE AND RISK OF REFUSING IT. PT STILL REFUSED.
[2018-04-06] MEDS ORDERED: HYDROcodone/APAP 10/325 MG 1 TAB TAB PO SCH (05:00)
--- NOTE | 2018-04-06 06:18 | NUR ---
TRIED TO FLUSH IV LINE. PER PT IT'S BURNING. PT ASKED ME TO REMOVE THE CANNULA. REMOVED CANNULA. TIP INTACT. PT REFUSED TO INSERT ANOTHER LINE.
--- NOTE | 2018-04-06 07:20 | NUR ---
ENDORSED PT TO DAY SHIFT NURSE. PT IN STABLE CONDITION.
--- NOTE | 2018-04-06 07:30 | NUR ---
RECEIVED REPORT FROM PACKER NURSE. PT IS SLEEPING IN BED BUT EASILY AWAKEN, PT IS AAOX4, AMBULATORY, PT HAS NO IV ACCESS, PT DOES NOT WANT A NEW IV LINE AT THIS TIME, PT IS ON 3L NC, PT USES BEDSIDE COMMODE, NO S/S OF RESPIRATORY DISTRESS OR DISCOMFORT NOTED, DISCUSSED PLAN OF CARE WITH PT, PT VERBALIZED UNDERSTANDING, SAFETY/FALL/SEIZURE PRECAUTIONS ARE IN PLACE, CALL LIGHT IS WITHIN REACH, WILL CONTINUE TO MONITOR.
[2018-04-06 08:00] VITALS: BP 116/86
[2018-04-06] MEDS ORDERED: ENOXAPARIN 40 MG/0.4 ML SYR SUBQ SCH (09:00)
--- NOTE | 2018-04-06 09:45 | NUR ---
PT RESTING IN BED, NO S/S OF RESPIRATORY DISTRESS OR DISCOMFORT NOTED, CALL LIGHT WITHIN REACH.
[2018-04-06] MEDS ORDERED: AZIT250T3 PO (10:20)
[2018-04-06] MEDS ORDERED: FUROSEMIDE 20 MG/2 ML VIAL IVP SCH (10:20)
[2018-04-06] MEDS ORDERED: METH4TAB1 PO (10:20)
--- NOTE | 2018-04-06 10:20 | NUR ---
DR. MOYA HERE TO SEE PATIENT.
[2018-04-06] MEDS ORDERED: ACETAMINOPHEN 325 MG TAB PO PRN (10:55)
[2018-04-06] MEDS ORDERED: FUROSEMIDE 40 MG TAB PO SCH (11:25)
--- NOTE | 2018-04-06 11:59 | NUR ---
DISCHARGE INSTRUCTIONS GIVEN, ID WRIST BAND REMOVED, PT DID NOT HAVE AN IV IN PLACE. PT STATED SHE WAS GOING TO CALL HER FAMILY TO ASK THEM TO BRING HER A PAIR OF SHOES AND HER PORTABLE OXYGEN.
--- NOTE | 2018-04-06 12:30 | NUR ---
PT STABLE UPON DISCHARGE. ACCOMPANIED BY HER FAMILY MEMBER.
[2018-04-07] MEDS ORDERED: LEVOFLOXACIN 500 MG/D5W PREMIX 100 ML IV SCH
--- NOTE | 2018-04-07 07:23 | NUR ---
RETRO FAXED ER REPORT AND H&P TO [facility] [phone] NO DISCHARGE SUMMARY
== END 2018-04-06 12:30 | disposition home or self-care (01) | DRG 133 ==
LOC: MED 21:36 → MTU 04-06 01:03
PROVIDERS: ADMIT Hospitalist; ATTEND Hospitalist
DX: J96.20 Acute and chronic respiratory failure, unspecified whether with hypoxia or hypercapnia (principal); I50.43 Acute on chronic combined systolic (congestive) and diastolic (congestive) heart failure; E11.22 Type 2 diabetes mellitus with diabetic chronic kidney disease; I48.91 Unspecified atrial fibrillation; J44.1 Chronic obstructive pulmonary disease with (acute) exacerbation; G40.909 Epilepsy, unspecified, not intractable, without status epilepticus; I13.0 Hypertensive heart and chronic kidney disease with heart failure and stage 1 through stage 4 chronic kidney disease, or unspecified chronic kidney disease; E78.5 Hyperlipidemia, unspecified; F10.129 Alcohol abuse with intoxication, unspecified; Y90.7 Blood alcohol level of 200-239 mg/100 ml; F17.210 Nicotine dependence, cigarettes, uncomplicated; N18.9 Chronic kidney disease, unspecified; Z95.810 Presence of automatic (implantable) cardiac defibrillator; Z88.0 Allergy status to penicillin; Z79.899 Other long term (current) drug therapy; Z79.84 Long term (current) use of oral hypoglycemic drugs
CPT/HCPCS: 36415; 71045; 80053; 80185; 81001; 82550; 82553; 83880; 84484; 85025; 87040; 87081; 87086; 93005; 94640; 96374; 99291; G0482; J1165; J1940; J1956; J3370; J7030; J7613; Q0092

== ENCOUNTER 2018-04-22 08:04 | Inpatient (IN) | payer OTHER ==
[~2018-04-22] VITALS: Ht 162.6 cm; Wt 70.8 kg
[~2018-04-22 08:04] MED LIST changes: +AZIT250T3 PO; +METH4TAB1 PO
--- NOTE | 2018-04-22 08:11 | NUR ---
PT TAKEN IN WHEELCHAIR TO BED 11
[2018-04-22 08:15] VITALS: BP 130/95
--- NOTE | 2018-04-22 08:20 | NUR ---
PATIENT PRESENTS TO ED WITH COMPLAINTS OF SOB X 2 DAYS. PATIENT HAS AUDIBLE WHEEZING LYNDA. RT WAS CALLED FOR BREATHING TREATMENT, AWAITING DR. KELLER ORDERS. SKIN APPEARS FELICIANO. PATIENT STATES PAIN OF 9/10 AT THIS TIME; VSS; PATIENT POSITIONED FOR COMFORT; HOB ELEVATED; BEDRAILS UP X2; BED DOWN. ER MD MADE AWARE OF PT STATUS.
[2018-04-22] MEDS ORDERED: ASPIRIN 81 MG TAB.CHEW PO ONE (08:30)
[2018-04-22] MEDS ORDERED: methylPREDNISolone SS 125 MG/2 ML VIAL IVP ONE (08:30)
[2018-04-22] MEDS ORDERED: ALBUTEROL 0.083% 2.5 MG/3 ML NEBU INH ONE (08:30)
[2018-04-22] MEDS ORDERED: IPRATROPIUM 0.02% 0.5 MG/2.5 ML NEBU INH ONE (08:30)
[2018-04-22 08:57] LABS: BASOPHILS % (AUTO) 0.2 % (0.0-2.0); EOSINOPHILS % (AUTO) 0.1 % (0.0-4.0); HEMATOCRIT 30.4 % (36-48); HEMOGLOBIN 9.9 g/dL (12.0-16.0); LYMPHOCYTES # (AUTO) 0.6 K/uL (2.5-16.5); LYMPHOCYTES % (AUTO) 7.2 % (20.5-51.1); MEAN CORPUSCULAR HEMOGLOBIN 30 pg (27-31); MEAN CORPUSCULAR HGB CONC 33 g/dL (33-37); MEAN CORPUSCULAR VOLUME 93.3 fL (80-94); MONOCYTES # (AUTO) 0.4 K/uL (0.8-1.0); MONOCYTES % (AUTO) 5.4 % (1.7-9.3); NEUTROPHILS # (AUTO) 6.9 K/uL (1.8-7.7); NEUTROPHILS % (AUTO) 87.1 % (42.2-75.2); PLATELET COUNT (AUTO) 202 K/uL (140-450); RED BLOOD CELL COUNT(AUTO) 3.26 MIL/uL (4.20-5.40); RED CELL DISTRIBUTION WIDTH 17.5 % (11.6-13.7)
--- NOTE | 2018-04-22 09:09 | NUR ---
STARTED ATROVENT TX AT 0829, WAS CALLED TO RAPID RESPONSE AT 124 AT 0831. FINISHED CHARTING AT 09 IN DIFFERENT TIMEFRAME. PT EXPRESSED FEELING LESS SHORT OF BREATH AND WAS RETURNED TO 2L NASAL CANNULA.
[2018-04-22 09:20] LABS: ALBUMIN 3.5 g/dL (3.4-5.0); ANION GAP 15.2 (8-16); CARBON DIOXIDE 20.9 mmol/L (21-32); CREATININE 1.5 mg/dL (0.6-1.3); POTASSIUM 4.1 mmol/L (3.5-5.1); TOTAL BILIRUBIN 0.4 mg/dL (0.0-1.0)
[2018-04-22] MEDS ORDERED: NITROGLYCERIN 2% 1 GM PKT TP ONE (09:45)
[2018-04-22] MEDS ORDERED: ONDANSETRON 4 MG/2 ML VIAL IVP PRN (10:00)
[2018-04-22] MEDS ORDERED: ALBUTEROL 0.083% 2.5 MG/3 ML NEBU IH PRN (10:00)
[2018-04-22] MEDS ORDERED: ACETAMINOPHEN 325 MG TAB PO PRN (10:00)
[2018-04-22] MEDS ORDERED: LORazepam 2 MG/ML VIAL IVP PRN (10:00)
--- NOTE | 2018-04-22 10:38 | NUR ---
Patient will be admitted to care of DR. HOAGN. Admited to TELE. Will go to [facility] [address]. Belongings list completed. Report to SANTY.
--- NOTE | 2018-04-22 11:10 | NUR ---
RECEIVED PT FROM ER. PT A/O X4. VERBALIZES NEEDS. SKIN DRY AND WARM TO TOUCH. LABORED BREATHING NOTE. O2 AT 3 LTR/MIN VIA NC. SATURATING 94 %. LUNGS WHEEZES ON AUSCULTATION. SURGICAL SCAR NOTED ON LEFT UPPER CHEST. DEFIBRILLATOR IN LEFT UPPER CHEST PLACED PER PATIENT. PERIPHERAL LINE NOTED ON RIGHT WRIST 22G. INTACT. SALINE LOCK. ABDOMEN SOFT ROUND AND NON-TENDER. ACTIVE BOWEL SOUND. SKIN INTACT. KEPT HOB ELEVATED. BED IN LOW POSITION, LOCKED. EDEMATOUS BOTH LOWER EXTREMITIES. PT C/O BACK PAIN 05/21. WILL MEDICATE ORDERED. CONTINUE TO MONITOR.
[2018-04-22 11:15] VITALS: BP 139/98
[2018-04-22] MEDS: HYDROcodone/APAP 5/325 MG 1 TAB TAB PO PRN ×2 (11:33→20:52)
--- NOTE | 2018-04-22 11:34 | NUR ---
PT C/O PAIN ON LOWER BACK. ADMINISTERED PAIN MEDICATION ORDER.
--- NOTE | 2018-04-22 11:35 | NUR ---
SAMPLE FOR MRSA NARES TAKEN TO THE LABS.
[2018-04-22] MEDS ORDERED: ALBUTEROL 0.083% 2.5 MG/3 ML NEBU IH SCH (13:00)
[2018-04-22] MEDS ORDERED: IPRATROPIUM 0.02% 0.5 MG/2.5 ML NEBU IH SCH (13:00)
--- NOTE | 2018-04-22 13:09 | NUR ---
DR. HOGAN MADE AWARE ABOUT PT C/O PAIN. SAID WILL SEE PT. Addendum: 04/22/18 at 1531 by Lidia Duque RN PT MADE AWARE.
[2018-04-22] MEDS: FUROSEMIDE 40 MG/4 ML VIAL IVP SCH ×2 (13:38→20:51)
--- NOTE | 2018-04-22 13:41 | NUR ---
ADMINISTERED MEDICINE ORDERED. NO C/O PAIN AT THIS TIME.
[2018-04-22] MEDS: ALBUTEROL SULFATE/IPRATROPIU 3 ML SOL IH SCH ×2 (13:54→18:38)
--- NOTE | 2018-04-22 14:55 | NUR ---
ECHO ON PROCESS.
--- NOTE | 2018-04-22 15:54 | NUR ---
PT SEEMS STABLE THAN EARLIER. RESTING IN BED. DECREASED LABORED BREATHING NOTED. WILL CONTINUE TO MONITOR.
[2018-04-22 16:00] VITALS: BP 132/91
--- NOTE | 2018-04-22 18:21 | NUR ---
SLEEPING IN BED NO ACUTE DISTRESS NOTED. WILL CONTINUE TO MONITOR.
--- NOTE | 2018-04-22 19:35 | NUR ---
RECEIVED PT REPORT FROM DAY SHIFT NURSE AT PT BEDSIDE. PT IN STABLE CONDITION. PT IS A/O X4. PT HAS NC 2L. BILATERAL WHEEZING LUNG SOUNDS. SKIN IS INTACT. LE EDEMA NOTED. IV ACCESS IN R WRIST 22G SALINE LOCKED. IV IS PATENT AND INTACT. PT HAS NO C/O PAIN AT THIS TIME. BED IS LOCKED, LOW POSITION, WITH SIDE RAILS UP X2. BOARD UPDATED. CALL LIGHT IS WITHIN REACH. WILL CONTINUE TO MONITOR PT.
--- NOTE | 2018-04-22 19:35 | NUR ---
ENDORSED TO CHAIRLIFT OPERATOR RN FOR CONTINUITY OF CARE. PT ON STABLE CONDITION.
[2018-04-22 20:00] VITALS: BP 132/92
--- NOTE | 2018-04-22 20:03 | NUR ---
DR IS AT BEDSIDE WITH PT.
--- NOTE | 2018-04-22 20:52 | NUR ---
ADMINISTERED SCHEDULED LASIX. PT REFUSED HEPARIN. EDUCATED PT ON PURPOSE AND IMPORTANCE OF THE HEPARIN. PT STATED "SHE DOES NOT NEED HEPARIN BECAUSE SHE WILL NOT GET BLOOD CLOT." PT C/O PAIN NORCO GIVEN. WILL CONTINUE TO MONITOR PT.
--- NOTE | 2018-04-22 23:31 | NUR ---
PT ASLEEP IN BED. NO S/SX OF DISTRESS. WILL CONTINUE TO MONITOR PT.
[2018-04-23] VITALS: BP 129/93
[2018-04-23] MEDS: ALBUTEROL SULFATE/IPRATROPIU 3 ML SOL IH SCH ×2 (00:16→06:50)
--- NOTE | 2018-04-23 01:44 | NUR ---
NO CHANGE IN CONDITION. WILL CONTINUE TO MONITOR PT.
[2018-04-23] MEDS: HYDROcodone/APAP 5/325 MG 1 TAB TAB PO PRN ×3 (02:25→11:10)
--- NOTE | 2018-04-23 02:25 | NUR ---
PT C/O PAIN. NORCO GIVEN. WILL CONTINUE TO MONITOR.
[2018-04-23 04:00] VITALS: BP 127/89
[2018-04-23] MEDS: guaiFENesin 20 MG/ML UDC PO PRN ×2 (04:30→09:43)
[2018-04-23] MEDS: FUROSEMIDE 40 MG/4 ML VIAL IVP SCH ×2 (04:30→13:00)
--- NOTE | 2018-04-23 04:30 | NUR ---
SCHEDULED MEDICATION ADMINISTERED. PT C/O COUGH. ROBITUSSIN GIVEN. WILL CONTINUE TO MONITOR PT.
--- NOTE | 2018-04-23 06:46 | NUR ---
PT C/O PAIN. NORCO GIVEN. WILL CONTINUE TO MONITOR PT.
--- NOTE | 2018-04-23 07:21 | NUR ---
ENDORSED PT TO DAY SHIFT NURSE FOR CONTINUITY OF CARE. PT IN STABLE CONDITION.
--- NOTE | 2018-04-23 07:22 | NUR ---
RECEIVED SBAR REPORT FROM BAN BLANCAS AT PT BEDSIDE. PATIENT IS ALERT AND ORIENTED, FOLLOWS COMMANDS. ON 2L NC, NO ACUTE DISTRESS NOTED. RESTING IN BED. CALL LIGHT WITHIN REACH. IV SITE PATENT AND INTACT. MADE AWARE OF CURRENT PLAN OF CARE, IN AGREEMENT. DENIES CHEST PAIN.
[2018-04-23 08:00] VITALS: BP 129/84
[2018-04-23] MEDS ORDERED: GABAPENTIN 300 MG CAP ONE (08:35)
[2018-04-23] MEDS: GABAPENTIN 300 MG CAP PO SCH ×2 (08:36→12:00)
--- NOTE | 2018-04-23 09:03 | NUR ---
PATIENT HAS BEEN SCREENED AND CATEGORIZED MODERATE NUTRITION RISK. PATIENT WILL BE SEEN WITHIN 3-5 DAYS OF ADMISSION. 04/24/18 04/26/[address]
--- NOTE | 2018-04-23 10:00 | NUR ---
PATIENT GIVEN CLEAN LINENS AND HYGIENE CARE SUPPLIES. PATIENT ABLE TO CLEAN SELF. ALL NEEDS MET. NO ACUTE DISTRESS NOTED.
[2018-04-23] MEDS ORDERED: LEVOFLOXACIN 500 MG TAB PO SCH (10:37)
--- NOTE | 2018-04-23 11:10 | NUR ---
PATIENT C/O LOWER BACK PAIN, MEDICATED ORDERED, NO ACUTE DISTRESS NOTED.
--- NOTE | 2018-04-23 11:17 | NUR ---
CM NOTE ADMISSION CHART REVIEW DONE. INITIAL REVIEW FAXED TO [facility] [phone] DIANNE # [phone]
[2018-04-23 11:39] LABS: BASOPHILS % (AUTO) 0.2 % (0.0-2.0); HEMATOCRIT 28.3 % (36-48); HEMOGLOBIN 9.3 g/dL (12.0-16.0); LYMPHOCYTES # (AUTO) 0.8 K/uL (2.5-16.5); LYMPHOCYTES % (AUTO) 10.2 % (20.5-51.1); MEAN CORPUSCULAR HEMOGLOBIN 31 pg (27-31); MEAN CORPUSCULAR HGB CONC 33 g/dL (33-37); MEAN CORPUSCULAR VOLUME 94.2 fL (80-94); MONOCYTES # (AUTO) 0.6 K/uL (0.8-1.0); MONOCYTES % (AUTO) 7.3 % (1.7-9.3); NEUTROPHILS # (AUTO) 6.6 K/uL (1.8-7.7); NEUTROPHILS % (AUTO) 82.3 % (42.2-75.2); PLATELET COUNT (AUTO) 176 K/uL (140-450); RED BLOOD CELL COUNT(AUTO) 3.01 MIL/uL (4.20-5.40); RED CELL DISTRIBUTION WIDTH 17.7 % (11.6-13.7)
--- NOTE | 2018-04-23 12:20 | NUR ---
PATIENT SEEN BY DR. HOGAN. ALEX FOR PATIENT TO BE DISCHARGED HOME TODAY.
[2018-04-23] MEDS ORDERED: ACET-2858 PO (12:23)
[2018-04-23] MEDS ORDERED: ROB PO (12:25)
--- NOTE | 2018-04-23 12:40 | NUR ---
PT SEEN BY DR. MAYA AT BEDSIDE. NO NEW ORDERS.
[2018-04-23 13:04] LABS: ALBUMIN 3.1 g/dL (3.4-5.0); ANION GAP 13.3 (8-16); CARBON DIOXIDE 25.3 mmol/L (21-32); CREATININE 1.3 mg/dL (0.6-1.3); MAGNESIUM 1.7 mg/dL (1.8-2.4); POTASSIUM 3.6 mmol/L (3.5-5.1); TOTAL BILIRUBIN 0.3 mg/dL (0.0-1.0)
--- NOTE | 2018-04-23 13:20 | NUR ---
DISCHARGE INSTRUCTIONS AND DISCHARGE TEACHING GIVEN, VERBALIZED UNDERSTANDING. IV REMOVED, CANULA INTACT. DENIES PAIN. PATIENT TO BE DISCHARGED HOME WITH F/U APPOINTMENT, IN AGREEMENT. PATIENT WHEELED TO FRONT LOBBY. NO ACUTE DISTRESS NOTED. AMBULATORY WITH HOME O2 @ 3L NC, PICKED UP BY DAUGHTER.
[2018-04-24] MEDS ORDERED: LEVOFLOXACIN 500 MG TAB PO SCH (09:00)
== END 2018-04-23 13:20 | disposition home or self-care (01) | DRG 194 ==
LOC: MED 08:04 → MTU 09:57
PROVIDERS: ADMIT Hospitalist; ATTEND Hospitalist
DX: I50.23 Acute on chronic systolic (congestive) heart failure (principal); J96.20 Acute and chronic respiratory failure, unspecified whether with hypoxia or hypercapnia; E11.22 Type 2 diabetes mellitus with diabetic chronic kidney disease; I13.0 Hypertensive heart and chronic kidney disease with heart failure and stage 1 through stage 4 chronic kidney disease, or unspecified chronic kidney disease; J44.1 Chronic obstructive pulmonary disease with (acute) exacerbation; N18.4 Chronic kidney disease, stage 4 (severe); D64.9 Anemia, unspecified; E78.5 Hyperlipidemia, unspecified; F17.210 Nicotine dependence, cigarettes, uncomplicated; M17.10 Unilateral primary osteoarthritis, unspecified knee; Z88.0 Allergy status to penicillin; Z99.2 Dependence on renal dialysis; Z95.0 Presence of cardiac pacemaker; B34.9 Viral infection, unspecified
CPT/HCPCS: 36415; 71045; 80053; 83605; 83735; 83880; 84484; 85025; 87040; 87081; 93005; 94640; 96374; 99285; G0482; J1644; J1940; J2930; J7620; J7644; Q0092

== ENCOUNTER 2018-07-04 23:59 | Emergency (ER) | payer OTHER ==
[~2018-07-04] VITALS: Ht 165.1 cm; Wt 82.6 kg
[~2018-07-04 23:59] MED LIST changes: -ACET-2858 PO; -AMIO200T PO; -CAPS0.026 TP; +HYDR-5092 PO; +ROB PO
[2018-07-05 00:03] VITALS: BP 150/90
--- NOTE | 2018-07-05 00:03 | NUR ---
TO BED # 9 AMBULATORY WITH 02 VIA DE, REPORT GIVEN TO ISRAEL CEVALLOS
--- NOTE | 2018-07-05 00:05 | NUR ---
58/F CAME IN W C/O SPONTANEOUS BLEEDING FROM MOUTH X1 HOUR INVESTMENT UNDERWRITER. DENIES TRAUMA/INJURY/PAIN. NO ACTIVE BLEEDING AT THIS TIME. ARRIVED WITH NC ON 3LPM PMH: CHF, COPD, SZ, DM, HTN, CKD
--- NOTE | 2018-07-05 00:14 | NUR ---
Patient discharged with v/s stable. Written and verbal after care instructions given and explained. Patient alert, oriented and verbalized understanding of instructions. Ambulatory with steady gait. All questions addressed prior to discharge. ID band removed. Patient advised to follow up with PMD. Rx of CLINDAMYCIN given. Patient educated on indication of medication including possible reaction and side effects. Opportunity to ask questions provided and answered.
--- NOTE | 2018-07-05 00:36 | NUR ---
Dr. Quick evaluating patient at bedside.
[2018-07-05] MEDS ORDERED: TRANEXAMIC ACID 1,000 MG in NACL 0.9% 50 ML IV STA (00:39)
[2018-07-05] MEDS ORDERED: TRANEXAMIC ACID 1,000 MG/10 ML VIAL IV ONE (00:50)
[2018-07-05 01:17] VITALS: BP 141/86
== END 2018-07-05 01:14 | disposition home or self-care (01) ==
LOC: MED 23:59
DX: S02.5XXA Fracture of tooth (traumatic), initial encounter for closed fracture (principal); I11.0 Hypertensive heart disease with heart failure; I50.9 Heart failure, unspecified; E11.9 Type 2 diabetes mellitus without complications; J44.9 Chronic obstructive pulmonary disease, unspecified; Z88.1 Allergy status to other antibiotic agents; Z88.8 Allergy status to other drugs, medicaments and biological substances; Z88.0 Allergy status to penicillin; Z79.899 Other long term (current) drug therapy; Z79.82 Long term (current) use of aspirin; X58.XXXA Exposure to other specified factors, initial encounter; Y93.89 Activity, other specified; Y92.89 Other specified places as the place of occurrence of the external cause; Y99.8 Other external cause status
CPT/HCPCS: 99283; J3490

== ENCOUNTER 2018-07-12 05:49 | Inpatient (IN) | payer OTHER ==
[~2018-07-12] VITALS: Ht 165.1 cm; Wt 81.6 kg
[2018-07-12 05:54] VITALS: BP 124/90
--- NOTE | 2018-07-12 05:54 | NUR ---
TO BED # 8 AMBULATORY , REPORT GIVEN TO ILENE CEVALLOS
--- NOTE | 2018-07-12 05:56 | NUR ---
PT PRESENTED TO ER WITH C/O CHEST AND BACK PAIN X 3 DAYS. PT STATED THAT SHE STARTED HAVING BACK PAIN AND NOW IT IS RADIATING TO THE CHEST. PAIN LEVEL At THIS TIME IS 10/10. PT HAS DIFFIBULATOR ON LEFT UPPER CHEST. PT IS A/O x 4. PT DENIES HAVING ABDOMINAL PAIN. PT STATED SHE IS HAVING SOB. PT O2 SAT IS 100 PERCENT ON 2 L AT THIS TIME. VSS; PATIENT POSITIONED FOR COMFORT; HOB ELEVATED; BEDRAILS UP X2; BED DOWN. ER MD MADE AWARE OF PT STATUS.
[2018-07-12] MEDS ORDERED: ALBUTEROL SULFATE/IPRATROPIU 3 ML SOL IH ONE (06:50)
--- NOTE | 2018-07-12 07:16 | NUR ---
GAVE REPORT TO BYRON RN, PT VITALS STABLE.
[2018-07-12] MEDS ORDERED: ONDANSETRON 4 MG/2 ML VIAL IVP PRN (07:30)
[2018-07-12] MEDS ORDERED: ALBUTEROL 0.083% 2.5 MG/3 ML NEBU IH PRN ×2 (07:30→08:20)
[2018-07-12] MEDS ORDERED: ACETAMINOPHEN 325 MG TAB PO PRN (07:30)
--- NOTE | 2018-07-12 07:30 | NUR ---
PT C/O BACK PAIN EVERYTIME SHE MOVES. ASKING FOR PAIN MEDICATION; INFORMED ER MD. AWAITING NEW ORDER.
[2018-07-12 07:32] LABS: BASOPHILS % (AUTO) 0.4 % (0.0-2.0); EOSINOPHILS # (AUTO) 0.1 K/uL (0-0.4); EOSINOPHILS % (AUTO) 1.6 % (0.0-4.0); HEMATOCRIT 34.1 % (36-48); HEMOGLOBIN 11.1 g/dL (12.0-16.0); LYMPHOCYTES # (AUTO) 1.3 K/uL (2.5-16.5); LYMPHOCYTES % (AUTO) 22.2 % (20.5-51.1); MEAN CORPUSCULAR HEMOGLOBIN 31 pg (27-31); MEAN CORPUSCULAR HGB CONC 33 g/dL (33-37); MEAN CORPUSCULAR VOLUME 95.4 fL (80-94); MONOCYTES # (AUTO) 0.7 K/uL (0.8-1.0); MONOCYTES % (AUTO) 11.4 % (1.7-9.3); NEUTROPHILS # (AUTO) 3.9 K/uL (1.8-7.7); NEUTROPHILS % (AUTO) 64.4 % (42.2-75.2); PLATELET COUNT (AUTO) 190 K/uL (140-450); RED BLOOD CELL COUNT(AUTO) 3.58 MIL/uL (4.20-5.40); RED CELL DISTRIBUTION WIDTH 16.8 % (11.6-13.7)
[2018-07-12] MEDS ORDERED: DEXTROSE 50% 50 ML SYR IVP PRN (07:35)
[2018-07-12] MEDS ORDERED: INSULIN LISPRO SLIDING SCALE 100 UNITS/ML VIAL SUBQ PRN (07:35)
--- NOTE | 2018-07-12 07:40 | NUR ---
DR LAGUNA AT BEDSIDE.
[2018-07-12 07:41] LABS: ANION GAP 11.2 (8-16); CARBON DIOXIDE 28.3 mmol/L (21-32); CREATININE 1.3 mg/dL (0.6-1.3); POTASSIUM 3.5 mmol/L (3.5-5.1)
[2018-07-12 07:45] LABS: PROTHROMBIN TIME 11.2 secs (10.8-13.4)
[2018-07-12 07:47] LABS: ALBUMIN 3.3 g/dL (3.4-5.0); TOTAL BILIRUBIN 0.2 mg/dL (0.0-1.0)
--- NOTE | 2018-07-12 08:30 | NUR ---
RECEIVED REPORT FROM ER NURSE. PT ADMITTED WITH DX OF SOB AND COPD. PT ON 3LPM O2 VIA NC. SKIN INTACT. PT ON TELEMONITOR. HAS RT WRIST SL IV ACCESS 24 G. VS RECORDED BP 108/64, HR 73, O2 98% ON O2@3LPM, T 97.5. PT STTAES OF HAVING BACK PAIN WHICH IS RADIATING TOWARDS HER CHEST AT THE LEFT SIDE. PT LYING ON HER BED. ASKING IF SHE CAN GET PAIN MEDS. DR RAI TO SEE THE PT. ALL SAFETY MEASURE IN PLACE. PT HAS BSC. WILL CONTINUE TO MONITOR PT.
--- NOTE | 2018-07-12 08:37 | NUR ---
Patient will be admitted to care of Dr Riddle. Admited tele. Will go to [id number]. Belongings list completed. Report to BAN Paredes.
[2018-07-12] MEDS ORDERED: HYDROcodone/APAP 5/325 MG 1 TAB TAB PO PRN (08:50)
[2018-07-12] MEDS ORDERED: FUROSEMIDE 40 MG TAB PO SCH (09:00)
[2018-07-12] MEDS: ENOXAPARIN 40 MG/0.4 ML SYR SUBQ SCH (09:00)
--- NOTE | 2018-07-12 10:15 | NUR ---
ADMINISTERED MEDS TO PT ORDERED. REFUSED LEVONOX. PT STILL CONMPLAINING OF PAIN AFTER GIVING NORCO. CN NOTIFIED, DR RM TO PUT ORDER FOR MORPHINE. PT SITTING ON HER BED. CALL LIGHT WITHIN PT REACH. WILL CONTINUE TO MONITOR PT.
[2018-07-12] MEDS: DOCUSATE SODIUM 100 MG GELCAP PO SCH ×2 (10:17→20:52)
[2018-07-12] MEDS: CARVEDILOL 12.5 MG TAB PO SCH ×2 (10:18→20:52)
[2018-07-12] MEDS: hydrALAZINE 10 MG TAB PO SCH ×3 (10:18→16:53)
[2018-07-12] MEDS: FAMOTIDINE 20 MG TAB PO SCH (10:19)
[2018-07-12] MEDS: ATORVASTATIN 20 MG TAB PO SCH (10:19)
[2018-07-12] MEDS: PHENYTOIN 100 MG CAPER PO SCH ×3 (10:19→16:53)
[2018-07-12] MEDS ORDERED: FUROSEMIDE 40 MG/4 ML VIAL IVP SCH (10:50)
[2018-07-12] MEDS: MORPHINE SULFATE 4 MG/ML SYR IVP PRN ×3 (11:10→20:46)
[2018-07-12 12:00] VITALS: BP 110/62
--- NOTE | 2018-07-12 12:00 | NUR ---
CHECKED ON PT . ADMINISTERED MORPHINE FOR PAIN MANAGEMNET. PER LAB STAFF, PT REFUSED HER BLOOD DRAW. BS 87 NOTED AT THIS ROSHAN,E. PT STATES TO HAVE PAIN TOLERABLE, SLEEPING AT THIS TIME. NO SIGN OF DISTRESS NOTED. CALL LIGHT WITHIN PT REACH. WILL CONTINUE TO MONITOR PT.
[2018-07-12] MEDS: BLOOD GLUCOSE MONITORING 1 DEV DEV FS SCH ×3 (12:20→20:56)
--- NOTE | 2018-07-12 13:22 | NUR ---
PT BP 102/72 . HYDRALAZINE KEPT IN HOLD. WILL CONTINUE TO MONITOR PT.
--- NOTE | 2018-07-12 13:45 | NUR ---
PAGED DR RAI ABOUT MEDS HYDRALAZINE. PT BP LOW 104/67 UPON RE- CHECK. WAITING FOR RETURN CALL. BP MEDS HELD AT THIS TIME. PT LYING ON HER BED COMFORTABLY . NO SIGN OF DISTRESS NOTED. WILL CONTINUE TO MONITOR PT.
[2018-07-12] MEDS: IPRATROPIUM 0.02% 0.5 MG/2.5 ML NEBU IH SCH ×2 (13:46→19:22)
[2018-07-12] MEDS: ALBUTEROL 0.083% 2.5 MG/3 ML NEBU IH SCH ×2 (13:46→19:22)
[2018-07-12 16:00] VITALS: BP 112/75
[2018-07-12] MEDS: glipiZIDE 5 MG TAB PO SCH (16:53)
[2018-07-12] MEDS: FUROSEMIDE 40 MG/4 ML VIAL IVP SCH (16:54)
--- NOTE | 2018-07-12 17:05 | NUR ---
ADMINISTERED MEDS TO PT ORDERED. TOLERTAED WELL. NO SIGN OF DISTRESS. PT LYING ON HER BED COMFORTABLY. PT ON 3 LPM OXYGEN. WILL CONTINUE TO MONIOTR PT.
--- NOTE | 2018-07-12 17:30 | NUR ---
ADMINISTERED MEDS TO PT ORDERED. PT REFUSED HER PM LAB DRAW AGAIN. PT COMPLAINING OF PAIN, ADMINISTERED MORPHINE FOR PAIN MANAGEMENT. NO SIGN OF DISTRESS NOTED. WILL CONTINUE TO MONITOR PT.
--- NOTE | 2018-07-12 19:15 | NUR ---
ENDORSED PT TO PM NURSE AT BEDSIDE, PT IN STABLE CONDITION.
--- NOTE | 2018-07-12 19:16 | NUR ---
RECEIVED PT SLEEPING, EASILY AROUSABLE, VITAL SIGNS STABLE, NO SOB NOTED WITH DIMINISHED LUNG SOUNDS, VERBALIZED CHEST PAIN STARTING TO COME BACK, WILL MEDICATE PRN WHEN DUE, PLAN OF CARE DISCUSS, SAFETY MEASURES IN PLACE, CALL LIGHT WITHIN REACH.
[2018-07-12 20:00] VITALS: BP 112/85
--- NOTE | 2018-07-12 21:35 | NUR ---
PT ASSISTED TO BEDSIDE COMMODE, VOIDED FREELY WITH CLEAR YELLOW OUTPUT, MONITORED CLOSELY.
[2018-07-13] VITALS: BP 106/68
--- NOTE | 2018-07-13 | NUR ---
VITAL SIGNS STABLE, NO SOB NOTED, COMPLAINING OF PAIN, WILL MEDICATE PRN WHEN DUE, CONTINUE TO MONITOR CLOSELY.
[2018-07-13] MEDS: ALBUTEROL 0.083% 2.5 MG/3 ML NEBU IH SCH ×4 (00:44→18:53)
[2018-07-13] MEDS: IPRATROPIUM 0.02% 0.5 MG/2.5 ML NEBU IH SCH ×4 (00:44→18:53)
[2018-07-13] MEDS: MORPHINE SULFATE 4 MG/ML SYR IVP PRN ×5 (00:57→19:59)
--- NOTE | 2018-07-13 01:00 | NUR ---
PT SITTING ON SIDE OF BED, COMPLAINING OF PAIN, MEDICATED PRN WITH MORPHINE IVP, CALL LIGHT WITHIN REACH, CONTINUE TO MONITOR CLOSELY.
--- NOTE | 2018-07-13 03:50 | NUR ---
PT SLEEPING, EASILY AROUSABLE, VITAL SIGNS STABLE, TOLERABLE BACK AND CHEST PAIN AT THIS TIME, WILL MEDICATE WHEN DUE, NO RESP DISTRESS NOTED, MONITORED CLOSELY.
[2018-07-13 04:00] VITALS: BP 109/71
--- NOTE | 2018-07-13 06:30 | NUR ---
PT DOESN'T WANT TO TAKE HER DUE GLIPIZIDE AT THIS TIME DUE TO DECREASE BLOOD SUGAR THE WHOLE SHIFT, STATED SHE WILL TAKE THE NEXT DOSE LATER TODAY IF HER BLOOD SUGAR IS BETTER, WILL ENDORSE TO AM NURSE.
[2018-07-13] MEDS: BLOOD GLUCOSE MONITORING 1 DEV DEV FS SCH ×4 (06:37→20:33)
[2018-07-13] MEDS: glipiZIDE 5 MG TAB PO SCH ×2 (06:37→17:18)
--- NOTE | 2018-07-13 07:20 | NUR ---
PT SLEEPING, NO SIGNS OF DISTRESS, REPORT GIVEN TO BAN VIDES FOR CONTINUITY OF CARE. Addendum: 07/13/18 at 0728 by Giuseppe Carmona RN REPORT GIVEN BAN NAYAK.
[2018-07-13 07:21] LABS: BASOPHILS % (AUTO) 0.3 % (0.0-2.0); EOSINOPHILS # (AUTO) 0.1 K/uL (0-0.4); EOSINOPHILS % (AUTO) 2.1 % (0.0-4.0); HEMATOCRIT 33.7 % (36-48); LYMPHOCYTES # (AUTO) 1.3 K/uL (2.5-16.5); LYMPHOCYTES % (AUTO) 25.3 % (20.5-51.1); MEAN CORPUSCULAR HEMOGLOBIN 31 pg (27-31); MEAN CORPUSCULAR HGB CONC 33 g/dL (33-37); MEAN CORPUSCULAR VOLUME 95.5 fL (80-94); MONOCYTES # (AUTO) 0.6 K/uL (0.8-1.0); MONOCYTES % (AUTO) 12.8 % (1.7-9.3); NEUTROPHILS % (AUTO) 59.5 % (42.2-75.2); PLATELET COUNT (AUTO) 209 K/uL (140-450); RED BLOOD CELL COUNT(AUTO) 3.53 MIL/uL (4.20-5.40); RED CELL DISTRIBUTION WIDTH 16.2 % (11.6-13.7)
--- NOTE | 2018-07-13 07:21 | NUR ---
RECEIVED REPORT FROM PM NURSE AT BEDSIDE. PT LYING ON HER BED. ON O2@2LPM . UPDATED BOARD AND INTRODUCED SELF. CALL LIGHT WITHIN PT REACH. NO SIGN OF DISTRESS NOTED. PT HAS IV ACCESS ON RT WRIST. SALINE LOCK. INTACT AND PATENT. WILL CONTINUE TO MONITOR PT.
[2018-07-13 07:48] VITALS: BP 91/72
[2018-07-13 08:17] LABS: POTASSIUM 4.6 mmol/L (3.5-5.1)
[2018-07-13 08:18] LABS: ANION GAP 12.8 (8-16); CARBON DIOXIDE 28.8 mmol/L (21-32); CREATININE 1.3 mg/dL (0.6-1.3)
[2018-07-13] MEDS: ENOXAPARIN 40 MG/0.4 ML SYR SUBQ SCH (09:00)
[2018-07-13] MEDS: ASPIRIN 81 MG TAB.CHEW PO SCH (09:29)
[2018-07-13] MEDS: hydrALAZINE 10 MG TAB PO SCH (09:30)
[2018-07-13] MEDS: CARVEDILOL 12.5 MG TAB PO SCH ×2 (09:31→20:09)
[2018-07-13] MEDS: FAMOTIDINE 20 MG TAB PO SCH (09:31)
[2018-07-13] MEDS: PHENYTOIN 100 MG CAPER PO SCH ×3 (09:32→17:18)
[2018-07-13] MEDS: DOCUSATE SODIUM 100 MG GELCAP PO SCH ×2 (09:32→20:09)
[2018-07-13] MEDS: ATORVASTATIN 20 MG TAB PO SCH (09:33)
[2018-07-13] MEDS: FUROSEMIDE 40 MG/4 ML VIAL IVP SCH ×2 (09:34→17:18)
--- NOTE | 2018-07-13 09:50 | NUR ---
ADMINISTERED MEDS TO PT TOLERATED. DENIED LEVONOX. STATES SHE TAKES XARELTO 15 MG X1 AT HOME. INFORMED DR RAI. NO SIGN OF DISTRESS NOTED. CALL LIGHT WITHIN PT REACH. INFORMED HER TO USE CALL LIGHT FOR ANY HELP. PT RESTING COMFORTABLY ON HER BED. WILL CONTINUE TO MONITOR PT.
[2018-07-13] MEDS ORDERED: MAG SULF 2000 MG/WATER PREMIX 50 ML IV ONE (10:45)
[2018-07-13] MEDS ORDERED: MAG SULF 2000 MG/WATER PREMIX 50 ML IV SCH (11:00)
--- NOTE | 2018-07-13 11:35 | NUR ---
PATIENT HAS BEEN SCREENED AND CATEGORIZED HIGH NUTRITION RISK. PATIENT WILL BE SEEN WITHIN 1-2 DAYS OF ADMISSION. 07/13/18RAFAEL WHITE MBA, RD
[2018-07-13 12:00] VITALS: BP 93/62
--- NOTE | 2018-07-13 12:41 | NUR ---
ADMINISTERED MEDS ORDERED TO PT. STARTED NEW IV , 22G ON RT FA, SITE IS INTACT AND PATENT. NO SIGN OF DISTRESS NOTED. CALL LIGHT WITHIN PT REACH. INFORMED HER TO USE CALL LIGHT FOR ANY HELP. WILL CONTINUE TO MONITOR PT.
[2018-07-13] MEDS: GABAPENTIN 300 MG CAP PO SCH ×2 (13:31→17:18)
--- NOTE | 2018-07-13 13:41 | NUR ---
ADMINISTERED MEDS ORDERED TO PT. ADMINISTERED PAIN MEDS , COMPLAINING OF PAIN. WILL REASSESS PAIN IN AN HOUR. PT SITTING ON HER BED. WILL CONTINUE TO MONITOR PT.
[2018-07-13 16:06] VITALS: BP 113/82
[2018-07-13] MEDS ORDERED: RIVAROXABAN 15 MG TAB PO SCH (17:00)
--- NOTE | 2018-07-13 17:24 | NUR ---
ADMINISTERED MEDS TO PT ORDERED , PT TOLERATED WELL. PT DENIES ANY ROUSSEAU AT THIS TIME. NO SIGN OF DISTRESS NOTED. PT UP , SITTING IN HER BED AND WATCHING TV. CALL LIGHT WITHIN REACH. WILL CONTINUE TO MONITOR PT.
--- NOTE | 2018-07-13 19:05 | NUR ---
endorsed pt to pm nurse. pt stable.
--- NOTE | 2018-07-13 19:10 | NUR ---
RECEIVED PT SLEEPING, EASILY AROUSABLE, VITAL SIGNS TAKEN, BP ON THE LOW SIDE BUT STABLE, NO SOB NOTED WITH DIMINISHED LUNG SOUNDS, COMPLAINING OF PAIN, WILL MEDICATE PRN WHEN DUE, PLAN OF CARE DISCUSS, SAFETY MEASURES IN PLACE, CALL LIGHT WITHIN REACH.
[2018-07-13 20:00] VITALS: BP 100/79
--- NOTE | 2018-07-13 20:35 | NUR ---
BLOOD SUGAR CHECKED WITH 211 RESULT, COVERAGE GIVEN, SNACK PROVIDED, DUE MEDS ADMINISTERED, ALL NEEDS ATTENDED.
[2018-07-14] VITALS: BP 110/85
--- NOTE | 2018-07-14 | NUR ---
VITAL SIGNS STABLE, NO SOB NOTED, COMPLAINING OF PAIN, WILL MEDICATE PRN WHEN DUE, CONTINUE TO MONITOR CLOSELY.
[2018-07-14] MEDS: MORPHINE SULFATE 4 MG/ML SYR IVP PRN ×3 (00:24→09:14)
[2018-07-14] MEDS: ALBUTEROL 0.083% 2.5 MG/3 ML NEBU IH SCH ×2 (01:17→07:20)
[2018-07-14] MEDS: IPRATROPIUM 0.02% 0.5 MG/2.5 ML NEBU IH SCH ×2 (01:17→07:20)
[2018-07-14 04:00] VITALS: BP 114/78
--- NOTE | 2018-07-14 04:20 | NUR ---
PT AWAKE, COMPLAINING OF PAIN, VITAL SIGNS STABLE, MEDICATED PRN FOR PAIN, NO SOB NOTED, MONITORED CLOSELY.
[2018-07-14] MEDS: glipiZIDE 5 MG TAB PO SCH (06:32)
--- NOTE | 2018-07-14 06:35 | NUR ---
BLOOD SUGAR CHECKED WITH 94 RESULT, PT REFUSED DUE GLIPIZIDE BECAUSE IT WILL LOWER HER BLOOD SUGAR MORE, STILL REFUSING AFTER RISK AND BENEFITS EXPLAINED, MONITORED CLOSELY.
[2018-07-14 07:03] LABS: BASOPHILS % (AUTO) 0.4 % (0.0-2.0); EOSINOPHILS # (AUTO) 0.1 K/uL (0-0.4); EOSINOPHILS % (AUTO) 2.3 % (0.0-4.0); HEMATOCRIT 31.7 % (36-48); HEMOGLOBIN 10.4 g/dL (12.0-16.0); LYMPHOCYTES # (AUTO) 1.4 K/uL (2.5-16.5); LYMPHOCYTES % (AUTO) 29.3 % (20.5-51.1); MEAN CORPUSCULAR HEMOGLOBIN 31 pg (27-31); MEAN CORPUSCULAR HGB CONC 33 g/dL (33-37); MEAN CORPUSCULAR VOLUME 94.3 fL (80-94); MONOCYTES # (AUTO) 0.6 K/uL (0.8-1.0); MONOCYTES % (AUTO) 12.8 % (1.7-9.3); NEUTROPHILS # (AUTO) 2.6 K/uL (1.8-7.7); NEUTROPHILS % (AUTO) 55.2 % (42.2-75.2); PLATELET COUNT (AUTO) 208 K/uL (140-450); RED BLOOD CELL COUNT(AUTO) 3.36 MIL/uL (4.20-5.40); RED CELL DISTRIBUTION WIDTH 16.6 % (11.6-13.7); WHITE BLOOD COUNT (AUTO) 4.6 K/uL (4.8-10.8)
--- NOTE | 2018-07-14 07:20 | NUR ---
PT AWAKE, NO SIGNS OF DISTRESS, REPORT GIVEN TO BAN WHITMAN FOR CONTINUITY OF CARE.
--- NOTE | 2018-07-14 07:21 | NUR ---
RECEIVED REPORT FROM NIGHT NURSE. PT IN STABLE CONDITION. RESPIRATIONS EVEN AND UNLABORED. O2 2L VIA NC. IV 22G, RIGHT FA, INTACT AND PATENT. BED IN LOW POSITION. REVIEWED CARE PLAN WITH PT, PT VERBALIZED UNDERSTANDING OF PLAN. SAFETY MEASURES IN PLACE. CALL LIGHT AT BEDSIDE. WILL CONTINUE TO MONITOR.
[2018-07-14] MEDS: BLOOD GLUCOSE MONITORING 1 DEV DEV FS SCH (07:41)
[2018-07-14 07:53] LABS: POTASSIUM 3.8 mmol/L (3.5-5.1)
[2018-07-14 07:54] LABS: ANION GAP 9.5 (8-16); CARBON DIOXIDE 31.3 mmol/L (21-32); CREATININE 1.2 mg/dL (0.6-1.3)
[2018-07-14 08:00] VITALS: BP 117/75
[2018-07-14] MEDS ORDERED: HYDR-5092 PO (08:55)
[2018-07-14] MEDS: ASPIRIN 81 MG TAB.CHEW PO SCH (08:57)
[2018-07-14] MEDS: FUROSEMIDE 40 MG/4 ML VIAL IVP SCH (08:57)
[2018-07-14] MEDS: FAMOTIDINE 20 MG TAB PO SCH (08:58)
[2018-07-14] MEDS: ATORVASTATIN 20 MG TAB PO SCH (08:58)
[2018-07-14] MEDS: PHENYTOIN 100 MG CAPER PO SCH (08:58)
[2018-07-14] MEDS: CARVEDILOL 12.5 MG TAB PO SCH (08:58)
[2018-07-14] MEDS: GABAPENTIN 300 MG CAP PO SCH (08:59)
[2018-07-14] MEDS: DOCUSATE SODIUM 100 MG GELCAP PO SCH (08:59)
[2018-07-14] MEDS ORDERED: SPIRONOLACTONE 25 MG TAB PO SCH (09:00)
[2018-07-14] MEDS ORDERED: LOSARTAN 25 MG TAB PO SCH (09:00)
[2018-07-14] MEDS ORDERED: AMIODARONE 200 MG TAB PO SCH (09:00)
--- NOTE | 2018-07-14 09:10 | NUR ---
GAVE ORDERED DUE MEDICATIONS, PT TOLERATED WELL. PT SITTING UP IN BED LEGS DANGLING, IN STABLE CONDITION. BED IN LOW POSITION. CALL LIGHT AT BEDSIDE. WILL CONTINUE TO MONITOR.
--- NOTE | 2018-07-14 10:02 | NUR ---
SONJA NOTE RECEIVED ORDER FOR OUTPATIENT HIGH RISK FOLLOW UP WHICH WAS FAXED TO [facility] [phone] ATTN: SONJA DEAN. I SPOKE WITH NEO GAINES # [phone] OF [facility], I REQUESTED TO SCHEDULE AN APPOINTMENT FOR PATIENT. NEO SCHEDULED AN APPOINTMENT FOR PATIENT ON JULY 16, 2018 [address] RAI. SHE REQUESTED THAT I FAX FACESHEET, H&P, LIST OF MEDS AND MD HIGH RISK APPOINTMENT ORDER TO HER FAX# [phone]. I FAXED HER INFORMATION. I GAVE PATIENT A COPY OF HER OUTPATIENT HIGH RISK FOLLOW UP SCHEDULE. CHARGE NURSE GEOVANNA MANZANO.
--- NOTE | 2018-07-14 10:15 | NUR ---
PT WAS GIVEN DISCHARGE INFORMATION PACKET AND RX PRESCRIPTION. ALL QUESTIONS ANSWERED AT THIS TIME. IV REMOVED, LUMEN INTACT. PT REFUSED FLU/PNA VACCINE. PT REFUSED WHEELCHAIR ASSIST, PT STATED SHE WANTED TO WALK FOR THE EXERCISE. PT LEFT ON O2 VIA NC BROUGHT BY DAUGHTER. WALKED PT TO LOBBY WHERE FAMILY WAS WAITING WITH CAR. REMOVED ID BANDS. PT IN STABLE CONDITION.
== END 2018-07-14 10:15 | disposition home or self-care (01) | DRG 140 ==
LOC: MED 05:49 → MTU 07:46
PROVIDERS: ADMIT Internal Medicine; ATTEND Internal Medicine
DX: J44.1 Chronic obstructive pulmonary disease with (acute) exacerbation (principal); I50.23 Acute on chronic systolic (congestive) heart failure; E11.22 Type 2 diabetes mellitus with diabetic chronic kidney disease; I42.0 Dilated cardiomyopathy; Z99.81 Dependence on supplemental oxygen; E83.42 Hypomagnesemia; I13.0 Hypertensive heart and chronic kidney disease with heart failure and stage 1 through stage 4 chronic kidney disease, or unspecified chronic kidney disease; N18.3 Chronic kidney disease, stage 3 (moderate); E78.5 Hyperlipidemia, unspecified; G40.909 Epilepsy, unspecified, not intractable, without status epilepticus; I25.10 Atherosclerotic heart disease of native coronary artery without angina pectoris; Z88.0 Allergy status to penicillin; Z79.82 Long term (current) use of aspirin; Z79.84 Long term (current) use of oral hypoglycemic drugs; Z79.899 Other long term (current) drug therapy; Z95.5 Presence of coronary angioplasty implant and graft; Z98.891 History of uterine scar from previous surgery; R07.89 Other chest pain
CPT/HCPCS: 36415; 71045; 80048; 80053; 82948; 83735; 83880; 84484; 85025; 85610; 85730; 87081; 93005; 94640; 99285; J1650; J1815; J1940; J2270; J3475; J7030; J7613; J7620; J7644; Q0092

== ENCOUNTER 2018-07-26 23:24 | Inpatient (IN) | payer OTHER ==
[~2018-07-26] VITALS: Ht 165.1 cm; Wt 73.5 kg
[~2018-07-26 23:24] MED LIST changes: -AZIT250T3 PO; -METH4TAB1 PO
[2018-07-26 23:27] VITALS: BP 148/96
[2018-07-27 00:09] LABS: BASOPHILS # (AUTO) 0.1 K/uL (0.00-0.22); BASOPHILS % (AUTO) 2.9 % (0.0-2.0); EOSINOPHILS # (AUTO) 0.1 K/uL (0-0.4); EOSINOPHILS % (AUTO) 1.6 % (0.0-4.0); HEMOGLOBIN 11.8 g/dL (12.0-16.0); LYMPHOCYTES # (AUTO) 1.3 K/uL (2.5-16.5); LYMPHOCYTES % (AUTO) 39.9 % (20.5-51.1); MEAN CORPUSCULAR HEMOGLOBIN 30 pg (27-31); MEAN CORPUSCULAR HGB CONC 32 g/dL (33-37); MEAN CORPUSCULAR VOLUME 94.6 fL (80-94); MONOCYTES # (AUTO) 0.2 K/uL (0.8-1.0); MONOCYTES % (AUTO) 7.4 % (1.7-9.3); NEUTROPHILS # (AUTO) 1.5 K/uL (1.8-7.7); NEUTROPHILS % (AUTO) 48.2 % (42.2-75.2); PLATELET COUNT (AUTO) 245 K/uL (140-450); RED BLOOD CELL COUNT(AUTO) 3.91 MIL/uL (4.20-5.40); RED CELL DISTRIBUTION WIDTH 16.6 % (11.6-13.7); WHITE BLOOD COUNT (AUTO) 3.2 K/uL (4.8-10.8)
--- NOTE | 2018-07-27 00:16 | NUR ---
PT TAKEN TO BED 1
--- NOTE | 2018-07-27 00:20 | NUR ---
CAME IN WITH C/O SOB, GEN WEAKNESS FOR 3 DAYS, WITH N/C @ 3L home 02, sao2 100%
[2018-07-27 00:26] LABS: ALBUMIN 3.5 g/dL (3.4-5.0); ANION GAP 15.5 (8-16); CARBON DIOXIDE 23.2 mmol/L (21-32); CREATININE 1.7 mg/dL (0.6-1.3); POTASSIUM 3.7 mmol/L (3.5-5.1); TOTAL BILIRUBIN 0.2 mg/dL (0.0-1.0)
--- NOTE | 2018-07-27 01:20 | NUR ---
X-Ray at bedside.
--- NOTE | 2018-07-27 02:12 | NUR ---
Dr. Melissa evaluating patient at bedside.
[2018-07-27] MEDS ORDERED: ALBUTEROL SULFATE/IPRATROPIU 3 ML SOL IH ONE (02:25)
[2018-07-27] MEDS ORDERED: LEVOFLOXACIN 750 MG/D5W PREMIX 150 ML IV ONE (02:25)
[2018-07-27] MEDS ORDERED: DEXAMETHASONE 10 MG/ML VIAL IVP ONE (02:25)
[2018-07-27] MEDS ORDERED: GABA300C PO (02:33)
[2018-07-27] MEDS: NACL 0.9% 1,000 ML IV SCH ×3 (03:22→17:15)
[2018-07-27] MEDS ORDERED: ONDANSETRON 4 MG/2 ML VIAL IVP PRN (03:25)
[2018-07-27] MEDS ORDERED: ACETAMINOPHEN 325 MG TAB PO PRN (03:25)
--- NOTE | 2018-07-27 03:30 | NUR ---
all results back and noted by ermd and for admission
--- NOTE | 2018-07-27 03:33 | NUR ---
Patient will be admitted to care of DR MOYA. Admited to TELEMETRY Will go to [id number]. Belongings list completed.
--- NOTE | 2018-07-27 03:56 | NUR ---
ADMITTED PT FROM ER VIA JANA. AAOX4. PT IS AMBULATORY. NO C/O PAIN. NO RESP DISTRESS NOTED. ON O2 AT 2L/MIN VIA NC. IV TO RIGHT FA #22G, PATENT AND INTACT. SKIN INTACT. ORIENTED PT TO ROOM. DISCUSSED PLAN OF CARE, PT VERBALIZED UNDERSTANDING. SAFETY AND SEIZURE PRECAUTIONS IN PLACE. CALL LIGHT WITHIN REACH.
[2018-07-27 04:00] VITALS: BP 140/89
[2018-07-27] MEDS ORDERED: AZITHROMYCIN 500 MG INJ VIAL IV ONE (04:46)
[2018-07-27] MEDS ORDERED: AZITHROMYCIN 500 MG in DEXTROSE 5% 250 ML IV SCH (05:00)
--- NOTE | 2018-07-27 05:00 | NUR ---
PAGED DR. WISEMAN RE: ANTIBIOTIC ROCEPHIN. PT HAS ALLERGY WITH PENICILLIN. DR. WISEMAN ORDERED TO D/C ROCEPHIN AND AZITHROMYCIN AND GIVE LEVOFLOXACIN 500 MG IVPB DAILY. MD MADE AWARE OF PT'S ELEVATED LFT AND ASKED IF IT IS OKAY TO GIVE NORCO. PER MD, IT'S OKAY TO GIVE NORCO. PHARMACIST MADE AWARE.
--- NOTE | 2018-07-27 05:12 | NUR ---
URINE COLLECTED FOR UA PROFILE AND SENT TO LAB.
[2018-07-27] MEDS: HYDROcodone/APAP 5/325 MG 1 TAB TAB PO PRN ×3 (05:44→23:07)
--- NOTE | 2018-07-27 06:00 | NUR ---
PT REFUSED SCD. EXPLAINED TO PT THE BENEFITS OF SCDS AND RISK OF REFUSING. PT VERBALIZED UNDERSTANDING BUT STILL REFUSED.
[2018-07-27 06:53] LABS: APPEARANCE,URINE CLEAR (CLEAR); BILIRUBIN,URINE NEGATIVE (NEGATIVE); BLOOD, URINE TRACE-L (NEGATIVE); COLOR,URINE YELLOW (YELLOW); LEUKOCYTE ESTERASE ,URINE NEGATIVE (NEGATIVE); NITRITE, URINE NEGATIVE (NEGATIVE); PH,URINE 5.5 (5.0-9.0); UGLUCOSE NEGATIVE (NEGATIVE)
[2018-07-27 06:57] LABS: RBC,URINE 3-10 (FEW) /HPF (0-5); WBC,URINE 0-5 (RARE) /HPF (0-5)
--- NOTE | 2018-07-27 07:25 | NUR ---
ENDORSED PT TO DAY SHIFT NURSE. PT IN STABLE CONDITION.
--- NOTE | 2018-07-27 07:30 | NUR ---
RECEIVED BEDSIDE REPORT FROM TUTORING ASSISTANT RN. PT IS SLEEPING IN BED, AROUSABLE BY VOICE. NO S/S RESPIRATORY DISTRESS. NO C/O PAIN OR DISCOMFORT AT THIS TIME. AOX4. STRICT I&O. AMBULATORY. PT IS CONTINENT. USES BEDSIDE COMMODE. SKIN INTACT. IV SITE PATENT AND ASYMPTOMATIC, INFUSING IVF PER MD ORDERS. ALL SAFETY PRECAUTIONS IN PLACE, WILL CONTINUE TO MONITOR.
[2018-07-27 08:00] VITALS: BP 152/94
[2018-07-27] MEDS: IPRATROPIUM 0.02% 0.5 MG/2.5 ML NEBU INH SCH ×3 (08:07→20:51)
--- NOTE | 2018-07-27 08:42 | NUR ---
PAGED DR. MOYA REGARDING CRITICAL LACTIC ACID VALUE. WILL ASK DR. MOYA ABOUT PT'S HOME MEDICATIONS.
--- NOTE | 2018-07-27 08:45 | NUR ---
NOTIFIED DR. MOYA OF PATIENT'S LACTIC ACID VALUE. PER DR. MOYA, HE WILL REVIEW HOME MEDICATIONS WHEN HE GETS HERE TODAY.
[2018-07-27] MEDS ORDERED: LEVOFLOXACIN 750 MG/D5W PREMIX 150 ML IV SCH (09:00)
[2018-07-27 09:13] LABS: CREATINE KINASE MB 0.9 ng/mL (0-3.6)
--- NOTE | 2018-07-27 10:14 | NUR ---
NUC MED TOOK PATIENT FOR V/Q SCAN.
[2018-07-27] MEDS: ALBUTEROL 0.083% 2.5 MG/3 ML NEBU INH PRN ×2 (11:33→20:51)
--- NOTE | 2018-07-27 11:48 | NUR ---
ADMINISTERED NORCO FOR PT C/O 02/18 GENERALIZED BODY PAIN .
[2018-07-27 12:00] VITALS: BP 158/103
--- NOTE | 2018-07-27 12:25 | NUR ---
PATIENT HAS BEEN SCREENED AND CATEGORIZED MODERATE NUTRITION RISK. PATIENT WILL BE SEEN WITHIN 3-5 DAYS OF ADMISSION. 07/30/18 08/01/18 RAFAEL WIHTE MBA, RD
--- NOTE | 2018-07-27 13:40 | NUR ---
HELPED PT GATHER SUPPLIES FOR BED BATH. PT ABLE TO BATHE SELF.
--- NOTE | 2018-07-27 15:12 | NUR ---
PER US TECH, PT NEEDS TO BE NPO FOR 6 HOURS FOR US GALLBLADDER. WILL HOLD DINNER TRALos. Addendum: 07/27/18 at 1807 by Yvonne Coello Meng, RN PER US PRIMARY CARE SALES REPRESENTATIVE, SHE WILL GET THE PATIENT AROUND 1900
[2018-07-27 15:35] LABS: ANION GAP 17.3 (8-16); CARBON DIOXIDE 19.8 mmol/L (21-32); CREATININE 1.7 mg/dL (0.6-1.3); POTASSIUM 4.1 mmol/L (3.5-5.1)
[2018-07-27 15:47] LABS: CREATINE KINASE MB 1.4 ng/mL (0-3.6)
[2018-07-27 16:00] VITALS: BP 161/101
[2018-07-27] MEDS ORDERED: ALBUTEROL 0.083% 2.5 MG/3 ML NEBU INH PRN (16:15)
[2018-07-27] MEDS ORDERED: DOCUSATE 100 MG/10 ML UDC PO PRN (16:15)
[2018-07-27] MEDS ORDERED: CYCLOBENZAPRINE 10 MG TAB PO PRN (16:15)
[2018-07-27] MEDS ORDERED: NON-FORMULARY ITEM (Lactulose 30 ML) PO PRN (16:15)
[2018-07-27] MEDS ORDERED: HYDROcodone/APAP 10/325 MG 1 TAB TAB PO PRN (16:15)
[2018-07-27] MEDS ORDERED: NON-FORMULARY ITEM (Ipratropium Bromide* (Atrovent Hfa Mdi*) 2 PUFF) IH SCH (17:00)
[2018-07-27] MEDS ORDERED: FERROUS SULFATE 325 MG TABEC PO SCH (17:30)
--- NOTE | 2018-07-27 18:00 | NUR ---
WILL HOLD PATIENT'S DINNER TRAY. PT NEEDS TO BE NPO BEFORE US GALLBLADDER.
--- NOTE | 2018-07-27 19:15 | NUR ---
ENDORSED POC TO MOLECULAR BIOLOGY DIRECTOR RN. PT IN STABLE CONDITION.
--- NOTE | 2018-07-27 19:16 | NUR ---
RECEIVED REPORT FROM DAY SHIFT NURSE. PT SITTING IN BED. AAOX4. NO C/O PAIN OR SOB. ON O2 AT 2L/MIN VIA NC. IV TO RIGHT FA#22G, NS AT 60 ML/HR INFUSING WELL. SKIN INTACT. PT IS NPO FOR ULTRASOUND OF GALLBLADDER TONIGHT. SAFETY AND SEIZURES PRECAUTION IN PLACE. CALL LIGHT WITHIN REACH.
[2018-07-27 20:00] VITALS: BP 156/90
--- NOTE | 2018-07-27 20:00 | NUR ---
DISPOSITION CLERK IN THE ROOM FOR GALLBLADDER US. PT LYING IN BED, NO ACUTE DISTRESS NOTED.
--- NOTE | 2018-07-27 21:00 | NUR ---
PT REFUSED HEPARIN 5000 UNITS SUBQ. EXPLAINED THE RISK AND BENEFITS, PT VERBALIZED UNDERSTANDING BUT STILL REFUSED.
[2018-07-27] MEDS: methylPREDNISolone SS 40 MG/ML VIAL IVP SCH (21:12)
[2018-07-27] MEDS: GABAPENTIN 100 MG CAP PO SCH (21:14)
[2018-07-27] MEDS: glipiZIDE 5 MG TAB PO SCH (21:15)
[2018-07-27] MEDS: FUROSEMIDE 40 MG TAB PO SCH (21:15)
[2018-07-27] MEDS: CARVEDILOL 12.5 MG TAB PO SCH (21:15)
--- NOTE | 2018-07-27 21:30 | NUR ---
PT ASKED FOR SNACK. SNACK PROVIDED. ALL NEEDS MET AT THIS TIME. CALL LIGHT WITHIN REACH.
[2018-07-27] MEDS ORDERED: LEVOFLOXACIN 500 MG/D5W PREMIX 100 ML IV SCH (22:00)
[2018-07-28] VITALS: BP 156/88
--- NOTE | 2018-07-28 | NUR ---
PT SITTING IN BED. NO ACUTE DISTRESS NOTED.
[2018-07-28] MEDS: IPRATROPIUM 0.02% 0.5 MG/2.5 ML NEBU INH SCH ×2 (01:55→07:52)
[2018-07-28] MEDS: ALBUTEROL 0.083% 2.5 MG/3 ML NEBU INH PRN (01:55)
--- NOTE | 2018-07-28 02:40 | NUR ---
PT SLEEPING BUT EASILY AROUSABLE. NO S/S OF PAIN OR DISCOMFORT. NO S/S OF SOB.
[2018-07-28 04:00] VITALS: BP 143/88
[2018-07-28] MEDS: methylPREDNISolone SS 40 MG/ML VIAL IVP SCH (04:36)
[2018-07-28] MEDS: HYDROcodone/APAP 5/325 MG 1 TAB TAB PO PRN ×2 (04:37→09:17)
--- NOTE | 2018-07-28 04:37 | NUR ---
PT C/O GENERALIZED PAIN. NORCO 5/325 MG PO GIVEN. NO RESP DISTRESS NOTED.
--- NOTE | 2018-07-28 05:45 | NUR ---
PT IN BED WATCHING TV. NO C/O PAIN AT THIS TIME. ALL NEEDS MET AT THIS TIME. PT KEPT COMFORTABLE.
--- NOTE | 2018-07-28 07:00 | NUR ---
PT REFUSED BLOOD DRAW FOR AM LABS. EXPLAINED TO PT THAT HER DOCTOR ORDERED TO DO SOME TESTS. PT STILL REFUSED.
--- NOTE | 2018-07-28 07:15 | NUR ---
ENDORSED PT TO DAY SHIFT NURSE. PT IN STABLE CONDITION.
--- NOTE | 2018-07-28 07:20 | NUR ---
RECEIVED PATIENT REPORT AT BEDSIDE. PATIENT AWAKE AND ALERT. NO S/S OF DISTRESS NOTED. PATIENT ON 2L O2. NO SOB. PATIENT ON TELE MONITORING. FALL PRECAUTIONS IN PLACE. WILL CONTINUE TO MONITOR
[2018-07-28 07:48] VITALS: BP 141/88
[2018-07-28] MEDS ORDERED: ASPIRIN 81 MG TAB.CHEW PO SCH (09:00)
[2018-07-28] MEDS ORDERED: ATORVASTATIN 20 MG TAB PO SCH (09:00)
[2018-07-28] MEDS ORDERED: FERROUS SULFATE 325 MG TABEC PO SCH (09:00)
--- NOTE | 2018-07-28 09:00 | NUR ---
PATIENT SEEN BY DR MOYA
[2018-07-28] MEDS: CARVEDILOL 12.5 MG TAB PO SCH (09:04)
[2018-07-28] MEDS: GABAPENTIN 100 MG CAP PO SCH (09:04)
[2018-07-28] MEDS: FUROSEMIDE 40 MG TAB PO SCH (09:04)
[2018-07-28] MEDS: glipiZIDE 5 MG TAB PO SCH (09:05)
[2018-07-28] MEDS ORDERED: LEVO750T51 PO (09:58)
[2018-07-28] MEDS ORDERED: METH4TAB1 PO (09:59)
--- NOTE | 2018-07-28 10:04 | NUR ---
CM NOTE PER [facility] SONJA DEAN PATIENT HAS OUTPATIENT HIGH RISK FOLLOW UP AUTHORIZED FOR 3 VISITS IN 6 MONTHS. PER [facility], PATIENT IS SCHEDULED FOR OUTPATIENT HIGH RISK FOLLOW UP ON JULY 30, 2018 AT 3:[address] MOYA AT THE CLINIC IN [address] [place] [address]. NOTIFIED ALBERTO, NURSE OF PATIENT, TO GIVE INSTRUCTIONS UPON DISCHARGE. CHARGE NURSE GEOVANNA. Addendum: 07/28/18 at 1032 by Cande Bey [facility] PH# [phone]
--- NOTE | 2018-07-28 11:45 | NUR ---
PATIENT DISCHARGED TO HOME. DISCHARGE INSTRUCTIONS AND DISCHARGE PRESCRIPTIONS GIVEN. PATIENT VERBALIZED UNDERSTANDING. IV LINE DISCONTINUED. TELE MONITOR TAKEN OFF. PATIENT LEFT WITH ALL HER BELONGINGS AND DISCHARGE PAPERS. PATIENT LEFT IN STABLE CONDITION
[2018-07-28] MEDS ORDERED: LEVOFLOXACIN 250 MG/D5 PREMIX 50 ML IV SCH (22:00)
== END 2018-07-28 11:40 | disposition home or self-care (01) | DRG 720 ==
LOC: MED 23:24 → MTU 07-27 03:33
PROVIDERS: ADMIT Hospitalist; ATTEND Hospitalist
DX: A41.9 Sepsis, unspecified organism (principal); J96.20 Acute and chronic respiratory failure, unspecified whether with hypoxia or hypercapnia; E11.22 Type 2 diabetes mellitus with diabetic chronic kidney disease; I13.0 Hypertensive heart and chronic kidney disease with heart failure and stage 1 through stage 4 chronic kidney disease, or unspecified chronic kidney disease; I50.20 Unspecified systolic (congestive) heart failure; I42.0 Dilated cardiomyopathy; J44.1 Chronic obstructive pulmonary disease with (acute) exacerbation; F17.210 Nicotine dependence, cigarettes, uncomplicated; G40.909 Epilepsy, unspecified, not intractable, without status epilepticus; E78.5 Hyperlipidemia, unspecified; N18.3 Chronic kidney disease, stage 3 (moderate); J20.9 Acute bronchitis, unspecified; J44.0 Chronic obstructive pulmonary disease with (acute) lower respiratory infection; I25.10 Atherosclerotic heart disease of native coronary artery without angina pectoris; Z95.810 Presence of automatic (implantable) cardiac defibrillator; Z99.81 Dependence on supplemental oxygen; Z88.0 Allergy status to penicillin; Z79.899 Other long term (current) drug therapy; Z79.84 Long term (current) use of oral hypoglycemic drugs; Z95.5 Presence of coronary angioplasty implant and graft; Z83.3 Family history of diabetes mellitus; Z82.49 Family history of ischemic heart disease and other diseases of the circulatory system; E87.2 Acidosis
CPT/HCPCS: 36415; 71045; 76705; 78582; 80048; 80053; 81001; 82550; 82553; 82948; 83605; 83880; 84484; 85025; 87040; 87081; 87086; 93005; 94640; 96365; 96375; 99285; A9540; J0456; J1100; J1644; J1956; J2920; J7030; J7060; J7613; J7620; J7644; Q0092

== ENCOUNTER 2018-08-12 11:31 | Emergency (ER) | payer OTHER ==
[~2018-08-12] VITALS: Ht 165.1 cm; Wt 72.6 kg
[~2018-08-12 11:31] MED LIST changes: -ASPI-1129 PO; -FAMO-90 PO; +GABA300C PO; -HYDR-3229 PO; +LEVO750T51 PO; +METH4TAB1 PO; -PHEN100C3 PO; -ROB PO
[2018-08-12 11:36] VITALS: BP 118/85
--- NOTE | 2018-08-12 11:38 | NUR ---
pt wc'd to bed 5
--- NOTE | 2018-08-12 11:47 | NUR ---
PER FAMILY PT has had increased body shakiness x 2 days. c/o nerve and arm pain bilat 10/10. no injuries. no other complaints. gcs 15, alert and oriented x 4. DENIES N/V/D; SKIN IS PINK/WARM/DRY; LUNGS CLEAR BL; HR EVEN AND REGULAR; PT DENIES ANY FEVER, CP, SOB, OR COUGH AT THIS TIME; VSS; PATIENT POSITIONED FOR COMFORT; HOB ELEVATED; BEDRAILS UP X2; BED DOWN. ER MD MADE AWARE OF PT STATUS.
[2018-08-12] MEDS ORDERED: MAG SULF 2000 MG/WATER PREMIX 50 ML IV ONE (11:50)
[2018-08-12] MEDS ORDERED: LORazepam 2 MG/ML VIAL IVP ONE (11:50)
[2018-08-12] MEDS ORDERED: NACL 0.9% 1,000 ML IV ONE (11:50)
[2018-08-12] MEDS ORDERED: methylPREDNISolone SS 125 MG/2 ML VIAL IVP ONE (11:50)
[2018-08-12] MEDS ORDERED: ALBUTEROL 0.083% 2.5 MG/3 ML NEBU INH ONE (11:50)
--- NOTE | 2018-08-12 12:16 | NUR ---
rt by bedside administrating breathing txt. patient tolerating well.
--- NOTE | 2018-08-12 12:32 | NUR ---
patient to ct via gurney accompanied by radiology rn
--- NOTE | 2018-08-12 13:18 | NUR ---
PATIENT SLEEPING AT THIS TIME.
[2018-08-12 13:25] LABS: BASOPHILS % (AUTO) 0.3 % (0.0-2.0); EOSINOPHILS # (AUTO) 0.1 K/uL (0-0.4); EOSINOPHILS % (AUTO) 0.9 % (0.0-4.0); HEMATOCRIT 35.7 % (36-48); HEMOGLOBIN 11.4 g/dL (12.0-16.0); LYMPHOCYTES # (AUTO) 1.3 K/uL (2.5-16.5); LYMPHOCYTES % (AUTO) 16.3 % (20.5-51.1); MEAN CORPUSCULAR HEMOGLOBIN 30 pg (27-31); MEAN CORPUSCULAR HGB CONC 32 g/dL (33-37); MEAN CORPUSCULAR VOLUME 94.7 fL (80-94); MONOCYTES # (AUTO) 0.5 K/uL (0.8-1.0); NEUTROPHILS # (AUTO) 5.9 K/uL (1.8-7.7); NEUTROPHILS % (AUTO) 75.5 % (42.2-75.2); PLATELET COUNT (AUTO) 160 K/uL (140-450); RED BLOOD CELL COUNT(AUTO) 3.77 MIL/uL (4.20-5.40); RED CELL DISTRIBUTION WIDTH 17.6 % (11.6-13.7); WHITE BLOOD COUNT (AUTO) 7.8 K/uL (4.8-10.8)
[2018-08-12 13:32] LABS: ANION GAP 17.3 (8-16); CARBON DIOXIDE 21.6 mmol/L (21-32); CREATININE 1.3 mg/dL (0.6-1.3); POTASSIUM 3.9 mmol/L (3.5-5.1)
[2018-08-12 13:35] LABS: PROTHROMBIN TIME 11.6 secs (10.8-13.4)
[2018-08-12 13:39] LABS: TOTAL BILIRUBIN 0.4 mg/dL (0.0-1.0)
[2018-08-12 13:42] LABS: ACETONE, SERUM NEGATIVE (NEGATIVE)
[2018-08-12 14:06] LABS: AMYLASE 64 U/L (25-115); LIPASE 355 U/L (73-393)
--- NOTE | 2018-08-12 15:56 | NUR ---
SPOKE WITH PATIENTS DAUGHTER LEANN BOWIE REGARDING PATIENTS STATUS AND PENDING TRANSFER. SHE STATED UNDERSTANDING.
--- NOTE | 2018-08-12 16:30 | NUR ---
Spoke with Chau Deshpande at [facility] and gave a full report on patient condition.
[2018-08-12 16:43] VITALS: BP 127/84
--- NOTE | 2018-08-12 16:44 | NUR ---
Patient to be transferred to [facility]. Is being transferred due to need for higher level of care. Receiving facility has accepting physician and available space. ER physician has signed transfer form. Patient or responsible libertarian has agreed to transfer and signed form. Patient belongings inventoried and will be sent with patient. Copy of nursing notes, lab reports, EKG, Physicians Orders and X-rays to be sent with patient. Report called to Chau Deshpande at receiving facility. Taken by ambulance accompanied by emt and mysql database administrator.
== END 2018-08-12 16:44 | disposition short-term general hospital (02) ==
LOC: MED 11:31
DX: G45.9 Transient cerebral ischemic attack, unspecified (principal); J44.1 Chronic obstructive pulmonary disease with (acute) exacerbation; E11.22 Type 2 diabetes mellitus with diabetic chronic kidney disease; I13.0 Hypertensive heart and chronic kidney disease with heart failure and stage 1 through stage 4 chronic kidney disease, or unspecified chronic kidney disease; N18.3 Chronic kidney disease, stage 3 (moderate); I50.9 Heart failure, unspecified; Z95.0 Presence of cardiac pacemaker; Z79.84 Long term (current) use of oral hypoglycemic drugs; Z79.899 Other long term (current) drug therapy; Z79.2 Long term (current) use of antibiotics
CPT/HCPCS: 36415; 36600; 70450; 71045; 80053; 82009; 82150; 82803; 83036; 83605; 83690; 83735; 83880; 84484; 85025; 85379; 85610; 85730; 87040; 87804; 93005; 94640; 96365; 96375; 99285; J2060; J2930; J3475; J7030; J7613; Q0092

== ENCOUNTER 2018-09-05 15:54 | Inpatient (IN) | payer OTHER ==
[~2018-09-05] VITALS: Ht 165.1 cm; Wt 84.8 kg
[2018-09-05 16:03] VITALS: BP 156/100
--- NOTE | 2018-09-05 16:22 | NUR ---
PATIENT TO CHAIR E . NO AVAIL. BED AT THIS TIME. ERMD MADE AWARE. OF SOB X1 MONTH. LUNG SOUNDS WHEEZING.HOME 02 3LNC
--- NOTE | 2018-09-05 16:24 | NUR ---
DR. LAGUNA ASSESSING PATIENT. RESP. THERAPIST GIVING TREAMENTS AT THIS TIME
[2018-09-05] MEDS ORDERED: DEXAMETHASONE 10 MG/ML VIAL IM ONE (16:25)
[2018-09-05] MEDS ORDERED: ALBUTEROL SULFATE/IPRATROPIU 3 ML SOL IH ONE (16:25)
[2018-09-05] MEDS ORDERED: CLINDAMYCIN 600 MG/4 ML VIAL IM ONE (16:25)
--- NOTE | 2018-09-05 16:34 | NUR ---
PT TAKEN TO ER BED 08
[2018-09-05] MEDS ORDERED: FUROSEMIDE 40 MG/4 ML VIAL IVP ONE (16:35)
[2018-09-05 17:12] LABS: BASOPHILS % (AUTO) 0.2 % (0.0-2.0); EOSINOPHILS # (AUTO) 0.1 K/uL (0-0.4); EOSINOPHILS % (AUTO) 1.6 % (0.0-4.0); HEMATOCRIT 31.6 % (36-48); HEMOGLOBIN 10.1 g/dL (12.0-16.0); LYMPHOCYTES # (AUTO) 1.1 K/uL (2.5-16.5); LYMPHOCYTES % (AUTO) 19.1 % (20.5-51.1); MEAN CORPUSCULAR HEMOGLOBIN 31 pg (27-31); MEAN CORPUSCULAR HGB CONC 32 g/dL (33-37); MEAN CORPUSCULAR VOLUME 96.9 fL (80-94); MONOCYTES # (AUTO) 0.4 K/uL (0.8-1.0); MONOCYTES % (AUTO) 6.7 % (1.7-9.3); NEUTROPHILS # (AUTO) 4.2 K/uL (1.8-7.7); NEUTROPHILS % (AUTO) 72.4 % (42.2-75.2); PLATELET COUNT (AUTO) 248 K/uL (140-450); RED BLOOD CELL COUNT(AUTO) 3.26 MIL/uL (4.20-5.40); RED CELL DISTRIBUTION WIDTH 18.1 % (11.6-13.7); WHITE BLOOD COUNT (AUTO) 5.8 K/uL (4.8-10.8)
[2018-09-05 17:31] LABS: ALBUMIN 3.3 g/dL (3.4-5.0); ANION GAP 14.1 (8-16); CARBON DIOXIDE 25.6 mmol/L (21-32); CREATININE 1.2 mg/dL (0.6-1.3); POTASSIUM 3.7 mmol/L (3.5-5.1); TOTAL BILIRUBIN 0.3 mg/dL (0.0-1.0)
[2018-09-05 17:57] LABS: PROTHROMBIN TIME 11.1 secs (10.8-13.4)
[2018-09-05] MEDS ORDERED: HYDROcodone/APAP 5/325 MG 1 TAB TAB PO ONE (19:15)
--- NOTE | 2018-09-05 19:17 | NUR ---
Recieved report from Emily CEVALLOS.
[2018-09-05 20:00] VITALS: BP 148/90
--- NOTE | 2018-09-05 20:00 | NUR ---
RECEIVED REPORT FROM WOOD AND WOOD PRODUCTS LABOURER NURSE ANKIT-RN AT BEDSIDE. PT RESTING IN BED, ON 3L/NC WITH LEFT HAND #24G ON SL. AMBULATORY WITH ASSISTANCE- BEDSIDE COMMODE IN PLACE. VITAL SIGNS TAKEN AND MRSA NASAL SWAB COLLECTED BY NURSE ANKIT-BAN. DISCUSSED PLAN OF CARE AND PT VERBALIZED UNDERSTANDING. NO S/S OF RESPIRATORY DISTRESS OR DISCOMFORT NOTED AT THIS TIME. BED IN LOWEST POSITION, BED BREAKS ON, BOTH SIDE RAILS UP AND FALL PRECAUTIONS IN PLACE. BEDSIDE TABLE AND CALL LIGHT ARE WITHIN REACH. WILL CONTINUE TO MONITOR.
--- NOTE | 2018-09-05 20:05 | NUR ---
Patient will be admitted to [facility]. Admited to TELE VIA GURNEY WITH VSS. Will go to room 112B. Belongings list completed. Report to ANKIT CEVALLOS.
--- NOTE | 2018-09-05 20:30 | NUR ---
RN REQUESTED IMCU NURSE TO ASSESS FOR OXYGEN TUBING EXTENSION PATIENT AWAKE AND ALERT VERBALLY RESPONSIVE C/O OF NASAL DRYNESS WITH SUPPLEMENTAL OXYGEN USE ADDED HUMIDIFIER AND OXYGEN TUBING EXTENSION
[2018-09-05] MEDS: FUROSEMIDE 40 MG/4 ML VIAL IVP SCH (21:19)
--- NOTE | 2018-09-05 21:19 | NUR ---
SCHEDULED MEDICATION LASIX GIVEN AND TOLERATED WELL. NO S/S OF RESPIRATORY DISTRESS OR DISCOMFORT NOTED AT THIS TIME. WILL CONTINUE TO MONITOR.
[2018-09-05] MEDS ORDERED: DEXTROSE 50% 50 ML SYR IVP PRN (23:30)
[2018-09-05] MEDS ORDERED: INSULIN LISPRO SLIDING SCALE 100 UNITS/ML VIAL SUBQ PRN (23:30)
--- NOTE | 2018-09-05 23:59 | NUR ---
PT C/O PAIN ON RIGHT LOWER RIB CAGE STATING "FEELS LIKE A MUSCLE SPASM BUT I AM NOT ALLOWED MUSCLE RELAXERS." REQUESTING MORPHINE. SPOKE WITH DR. ARCHER ON-CALL FOR DR.L RAI AND ORDERED MORPHINE 2MG. ADMINISTERED AND PT TOLERATED WELL. VITAL SIGNS TAKEN AND TOLERATED WELL. NO S/S OF RESPIRATORY DISTRESS OR DISCOMFORT NOTED AT THIS TIME. WILL CONTINUE TO MONITOR.
[2018-09-06] VITALS: BP 150/100
[2018-09-06] MEDS ORDERED: MORPHINE SULFATE 2 MG/ML SYR IVP SCH
[2018-09-06] MEDS ORDERED: MORPHINE SULFATE 2 MG/ML SYR ONE (00:05)
[2018-09-06 04:00] VITALS: BP 136/85
[2018-09-06] MEDS: HYDROcodone/APAP 5/325 MG 1 TAB TAB PO PRN ×4 (04:34→20:02)
[2018-09-06] MEDS: FUROSEMIDE 40 MG/4 ML VIAL IVP SCH ×3 (04:34→20:02)
--- NOTE | 2018-09-06 04:34 | NUR ---
PT C/O PAIN ON LEFT LOWER RIB CAGE AND ADMINISTERED NORCO. SCHEDULED MEDICATION LASIX ALSO GIVEN. PT TOLERATED WELL. NO S/S OF RESPIRATORY DISTRESS OR DISCOMFORT NOTED AT THIS TIME. WILL CONTINUE TO MONITOR.
--- NOTE | 2018-09-06 06:00 | NUR ---
BLOOD GLUCOSE 108- NO INSULIN COVERAGE NEEDED. NO S/S OF RESPIRATORY DISTRESS OR DISCOMFORT NOTED AT THIS TIME. WILL CONTINUE TO MONITOR.
[2018-09-06] MEDS: BLOOD GLUCOSE MONITORING 1 DEV DEV FS SCH ×4 (06:11→21:00)
--- NOTE | 2018-09-06 07:29 | NUR ---
ENDORSED PT CARE TO DAY SHIFT NURSE CHRISTELLE FOR CONTINUITY OF CARE.
--- NOTE | 2018-09-06 07:30 | NUR ---
RECEIVED PT ON BED AAOX4. NO SOB NOTED. NO C/O PAIN AT THIS TIME. IV TO LT HAND PATENT AND INTACT. CHEST, DIMINISHED ENTRY TO THE BASES, ON OXYGEN AT 3LPM VIA NASAL CANNULA. ABDOMEN SOFT, BOWEL SOUNDS PRESENT. BEDSIDE COMMODE PROVIDED. INSTRUCTED PT TO CALL FOR ASSISTANCE, CALL LIGHT WITHIN REACH, PT VERBALIZED UNDERSTANDING.
[2018-09-06 08:00] VITALS: BP 131/86
[2018-09-06] MEDS ORDERED: POTASSIUM CHLORIDE 10 MEQ TABER PO ONE (09:00)
[2018-09-06 09:26] LABS: BASOPHILS % (AUTO) 0.4 % (0.0-2.0); EOSINOPHILS % (AUTO) 0.1 % (0.0-4.0); HEMATOCRIT 29.7 % (36-48); HEMOGLOBIN 9.6 g/dL (12.0-16.0); MEAN CORPUSCULAR HEMOGLOBIN 31 pg (27-31); MEAN CORPUSCULAR HGB CONC 32 g/dL (33-37); MEAN CORPUSCULAR VOLUME 96.2 fL (80-94); MONOCYTES # (AUTO) 0.4 K/uL (0.8-1.0); MONOCYTES % (AUTO) 5.9 % (1.7-9.3); NEUTROPHILS # (AUTO) 5.1 K/uL (1.8-7.7); NEUTROPHILS % (AUTO) 78.6 % (42.2-75.2); PLATELET COUNT (AUTO) 245 K/uL (140-450); RED BLOOD CELL COUNT(AUTO) 3.09 MIL/uL (4.20-5.40); RED CELL DISTRIBUTION WIDTH 17.2 % (11.6-13.7); WHITE BLOOD COUNT (AUTO) 6.5 K/uL (4.8-10.8)
--- NOTE | 2018-09-06 09:30 | NUR ---
PT INDEPENDENT ON TRANSFERRING SELF TO THE BEDSIDE COMMODE. ACTIVITY TOLERATED WELL.
[2018-09-06] MEDS ORDERED: CYCLOBENZAPRINE 10 MG TAB PO PRN (09:45)
[2018-09-06 10:01] LABS: ALBUMIN 3.2 g/dL (3.4-5.0); ANION GAP 14.3 (8-16); CARBON DIOXIDE 25.4 mmol/L (21-32); CREATININE 1.3 mg/dL (0.6-1.3); POTASSIUM 3.7 mmol/L (3.5-5.1); TOTAL BILIRUBIN 0.3 mg/dL (0.0-1.0)
--- NOTE | 2018-09-06 10:35 | NUR ---
PT SEEN BY DR. RAI WITH NEW ORDERS.
[2018-09-06 12:00] VITALS: BP 146/99
[2018-09-06] MEDS ORDERED: FUROSEMIDE 40 MG/4 ML VIAL IVP SCH (13:00)
--- NOTE | 2018-09-06 13:00 | NUR ---
PT CONSUMED 50% OF BREAKFAST AND LUNCH, FOOD TOLERATED WELL.
[2018-09-06] MEDS: GABAPENTIN 300 MG CAP PO SCH ×2 (13:48→18:14)
[2018-09-06] MEDS: PHENYTOIN 100 MG CAPER PO SCH ×2 (13:48→18:14)
[2018-09-06] MEDS: ALBUTEROL 0.083% 2.5 MG/3 ML NEBU INH PRN ×2 (15:27→19:16)
--- NOTE | 2018-09-06 15:45 | NUR ---
PT SLEEPING. NO SOB NOTED. NO SIGNS OF PAIN.
[2018-09-06 16:00] VITALS: BP 136/86
[2018-09-06] MEDS: glipiZIDE 5 MG TAB PO SCH (16:30)
--- NOTE | 2018-09-06 17:00 | NUR ---
PT AWAKE, TALKING TO THE PHONE. NO SOB NOTED.
--- NOTE | 2018-09-06 19:25 | NUR ---
PT AWAKE, NO SOB NOTED, NO COMPLAINTS MADE. ENDORSED TO NEXT SHIFT NURSE FOR CONTINUITY OF CARE.
--- NOTE | 2018-09-06 19:30 | NUR ---
RECEIVED PT ON HIGH FOWLERS POSITION ON BED, SPEAKING IN FULL SENTENCES BUT WITH MINIMAL SOB NOTED, ON O2 AT 3L/NC, VITAL SIGNS STABLE, DIMINISHED LUNG SOUNDS, PLAN OF CARE DISCUSSED, SAFETY MEASURES IN PLACE, CALL LIGHT WITHIN REACH.
[2018-09-06 20:00] VITALS: BP 139/90
[2018-09-06] MEDS: DOCUSATE SODIUM 100 MG GELCAP PO SCH (20:02)
[2018-09-06] MEDS: CARVEDILOL 12.5 MG TAB PO SCH (20:03)
--- NOTE | 2018-09-06 20:10 | NUR ---
BLOOD SUGAR CHECKED WITH 135 RESULT, DUE MEDS ADMINISTERED, MEDICATED PRN FOR PAIN WITH NORCO, ALL NEEDS ATTENDED.
--- NOTE | 2018-09-06 20:50 | NUR ---
PT ABLE TO USE BEDSIDE COMMODE INDEPENDENTLY, VOIDED FREELY, MONITORED CLOSELY.
[2018-09-07] VITALS: BP 129/81
[2018-09-07] MEDS: HYDROcodone/APAP 5/325 MG 1 TAB TAB PO PRN ×3 (00:44→09:26)
--- NOTE | 2018-09-07 00:45 | NUR ---
PT COMPLAINING OF PAIN, MEDICATED WITH NORCO PRN, PT REQUESTING TO WASH UP, PROVIDED WITH BASIN WITH WARM WATER, ABLE TO DO HYGIENE CARE INDEPENDENTLY, VIJAY VIDES AT BEDSIDE FOR ASSISTANCE, CONTINUE TO MONITOR CLOSELY.
[2018-09-07 04:30] VITALS: BP 135/87
[2018-09-07] MEDS: FUROSEMIDE 40 MG/4 ML VIAL IVP SCH (04:59)
--- NOTE | 2018-09-07 06:00 | NUR ---
BLOOD SUGAR CHECKED WITH 97 RESULT, PT REFUSED DUE GLIPIZIDE STATING "MY SUGAR WILL DROPPED TOO LOW IF I TAKE IT RIGHT NOW", WILL ENDORSE TO NEXT SHIFT, NO DISTRESS AT THIS TIME.
--- NOTE | 2018-09-07 06:35 | NUR ---
PATIENT HAS BEEN SCREENED AND CATEGORIZED MODERATE NUTRITION RISK. PATIENT WILL BE SEEN WITHIN 3-5 DAYS OF ADMISSION. 09/08/18-09/10/18 VITALY HOU MS, RDN
[2018-09-07] MEDS: BLOOD GLUCOSE MONITORING 1 DEV DEV FS SCH (06:40)
[2018-09-07] MEDS: glipiZIDE 5 MG TAB PO SCH (06:40)
--- NOTE | 2018-09-07 07:25 | NUR ---
PT SLEEPING, NO SIGNS OF DISTRESS, REPORT GIVEN TO RN ASHKAN FOR CONTINUITY FOR CARE.
--- NOTE | 2018-09-07 07:30 | NUR ---
RECEIVED PT ON BED AAOX4. NO SOB NOTED. NO C/O PAIN AT THIS TIME. IV TO LT HAND PATENT AND INTACT. CHEST, DIMINISHED ENTRY TO THE BASES, ON OXYGEN AT 3LPM VIA NASAL CANNULA. ABDOMEN SOFT, BOWEL SOUNDS PRESENT. WITH BEDSIDE COMMODE. INSTRUCTED PT TO CALL FOR ASSISTANCE, CALL LIGHT WITHIN REACH, PT VERBALIZED UNDERSTANDING.
[2018-09-07 08:00] VITALS: BP 113/80
[2018-09-07] MEDS ORDERED: ATORVASTATIN 20 MG TAB PO SCH (09:00)
--- NOTE | 2018-09-07 09:00 | NUR ---
pt consumed 75% on breakfast, food tolerated well. no sob noted
[2018-09-07] MEDS ORDERED: CYAN500T51 PO (09:21)
[2018-09-07] MEDS ORDERED: PHEN100C4 PO (09:21)
[2018-09-07] MEDS: DOCUSATE SODIUM 100 MG GELCAP PO SCH (09:25)
[2018-09-07] MEDS: CARVEDILOL 12.5 MG TAB PO SCH (09:25)
[2018-09-07] MEDS: GABAPENTIN 300 MG CAP PO SCH (09:26)
[2018-09-07] MEDS: PHENYTOIN 100 MG CAPER PO SCH (09:26)
--- NOTE | 2018-09-07 09:45 | NUR ---
PT SEEN BY DR. RAI WITH DISCHARGE ORDERS.
--- NOTE | 2018-09-07 10:30 | NUR ---
DISCHARGE INSTRUCTIONS AND PRESCRIPTIONS GIVEN TO PT WHICH VERBALIZED FULL UNDERSTANDING OF THE INSTRUCTIONS GIVEN AND THE NEED TO FOLLOW UP WITH PCP (DR. RAI) WITHIN 7 DAYS AFTER DISCHARGE. ARM BANDS AND IV REMOVED, CANNULA TIP INTACT.
--- NOTE | 2018-09-07 10:45 | NUR ---
WHEELED PT OUT TO THE FRONT LOBBY WHERE HER TAXI IS WAITING. PT IS D/C HOME IN STABLE CONDITION, NO SOB NOTED,NO C/O PAIN. PT ON CONTINOUS OXYGEN AT 3LPM. PT IS USING HER OWN OXYGEN TANK.
--- NOTE | 2018-09-08 13:20 | NUR ---
CALLED DR. RAI'S OFFICE AND MADE AND APPOINTMENT FOR September AT 2:15P.M. LEFT 3 MESSAGES WITH PATIENT TO GIVE THE DATE. LEFT MESSAE ON HER ANSWERING MACHINE. PHONE [phone] [id number] [facility] [address].
== END 2018-09-07 10:45 | disposition home or self-care (01) | DRG 194 ==
LOC: MED 15:54 → MTU 19:15
PROVIDERS: ADMIT Internal Medicine; ATTEND Internal Medicine
DX: I13.0 Hypertensive heart and chronic kidney disease with heart failure and stage 1 through stage 4 chronic kidney disease, or unspecified chronic kidney disease (principal); E11.22 Type 2 diabetes mellitus with diabetic chronic kidney disease; R65.10 Systemic inflammatory response syndrome (SIRS) of non-infectious origin without acute organ dysfunction; E44.0 Moderate protein-calorie malnutrition; I42.9 Cardiomyopathy, unspecified; N18.3 Chronic kidney disease, stage 3 (moderate); Z99.81 Dependence on supplemental oxygen; I50.23 Acute on chronic systolic (congestive) heart failure; E78.5 Hyperlipidemia, unspecified; I25.10 Atherosclerotic heart disease of native coronary artery without angina pectoris; J44.9 Chronic obstructive pulmonary disease, unspecified; G40.909 Epilepsy, unspecified, not intractable, without status epilepticus; Z88.0 Allergy status to penicillin; Z79.899 Other long term (current) drug therapy; Z79.84 Long term (current) use of oral hypoglycemic drugs; Z95.810 Presence of automatic (implantable) cardiac defibrillator; Z95.5 Presence of coronary angioplasty implant and graft; Z87.01 Personal history of pneumonia (recurrent); Z87.891 Personal history of nicotine dependence; Z88.8 Allergy status to other drugs, medicaments and biological substances
CPT/HCPCS: 36415; 71045; 80053; 82948; 83880; 84100; 84484; 85025; 85610; 85730; 87081; 93005; 94640; 96372; 96374; 99285; J1100; J1815; J1940; J2270; J3490; J7613; J7620; Q0092

== ENCOUNTER 2018-10-07 13:43 | Observation (INO) | payer OTHER ==
[~2018-10-07] VITALS: Ht 165.1 cm; Wt 88.0 kg
[~2018-10-07 13:43] MED LIST changes: +CYAN500T51 PO; -CYCL10TA14 PO; -LEVO750T51 PO; -METH4TAB1 PO; +PHEN100C4 PO
[2018-10-07 14:09] VITALS: BP 131/92
--- NOTE | 2018-10-07 14:20 | NUR ---
PT. BIB DAUGHTER C/O STUFFY NOSE X 3 WEEKS. C/O ROUSSEAU & LEFT KNEE PAIN & COUGH X 1 WEEK THAT IS NON PRODUCTIVE LS: DIMINISHED WITH CRACKLES ON RLL. DENIES ANY N/V/D. PT. C/O OF SOB . PT ON O2 SAT : 97% VIA 3L NC. LYNDA LEGS SWELLING 1+. RR EVEN AND LABORED. PT CAN SPEAK IN SHORT SENTENCES. HOB ELEVATED TO 90 DEGREES. SAFETY PRECAUTIONS IMPLEMENTED. WILL CONTINUE TO MONITOR. VSS. ER MD MADE AWARE AND EVALUATING PATIENT WELL AT THIS TIME. DENIES ANY FEVERS OR CHILLS. MED HX: CHF,DM, HTN, HIGH CHOLESTEROL, COPD,, RENAL FAILURE
[2018-10-07] MEDS ORDERED: MAG SULF 2000 MG/WATER PREMIX 50 ML IV ONE (14:35)
[2018-10-07] MEDS ORDERED: IPRATROPIUM 0.02% 0.5 MG/2.5 ML NEBU INH ONE (14:35)
[2018-10-07] MEDS ORDERED: ALBUTEROL 0.083% 2.5 MG/3 ML NEBU INH ONE (14:35)
[2018-10-07] MEDS ORDERED: LEVOFLOXACIN 500 MG/D5W PREMIX 100 ML IV ONE (14:35)
[2018-10-07] MEDS ORDERED: methylPREDNISolone SS 125 MG/2 ML VIAL IVP ONE (14:35)
--- NOTE | 2018-10-07 14:46 | NUR ---
X RAY AND RT AT BEDSIDE AT THIS TIME.
[2018-10-07 15:09] LABS: BASOPHILS % (AUTO) 0.5 % (0.0-2.0); EOSINOPHILS # (AUTO) 0.1 K/uL (0-0.4); EOSINOPHILS % (AUTO) 1.7 % (0.0-4.0); HEMATOCRIT 32.8 % (36-48); HEMOGLOBIN 10.5 g/dL (12.0-16.0); LYMPHOCYTES # (AUTO) 1.1 K/uL (2.5-16.5); LYMPHOCYTES % (AUTO) 16.9 % (20.5-51.1); MEAN CORPUSCULAR HEMOGLOBIN 32 pg (27-31); MEAN CORPUSCULAR HGB CONC 32 g/dL (33-37); MEAN CORPUSCULAR VOLUME 99.3 fL (80-94); MONOCYTES # (AUTO) 0.4 K/uL (0.8-1.0); MONOCYTES % (AUTO) 6.7 % (1.7-9.3); NEUTROPHILS % (AUTO) 74.2 % (42.2-75.2); PLATELET COUNT (AUTO) 227 K/uL (140-450); RED BLOOD CELL COUNT(AUTO) 3.31 MIL/uL (4.20-5.40); RED CELL DISTRIBUTION WIDTH 17.5 % (11.6-13.7); WHITE BLOOD COUNT (AUTO) 6.7 K/uL (4.8-10.8)
[2018-10-07 15:22] LABS: ANION GAP 10.5 (8-16); CREATININE 1.3 mg/dL (0.6-1.3); POTASSIUM 3.5 mmol/L (3.5-5.1)
[2018-10-07 15:28] LABS: ALBUMIN 3.6 g/dL (3.4-5.0); TOTAL BILIRUBIN 0.3 mg/dL (0.0-1.0)
[2018-10-07] MEDS ORDERED: DEXTROSE 50% 50 ML SYR IVP PRN (15:45)
[2018-10-07] MEDS ORDERED: ONDANSETRON 4 MG/2 ML VIAL IVP PRN (15:45)
[2018-10-07] MEDS ORDERED: LORazepam 2 MG/ML VIAL IVP PRN (15:45)
[2018-10-07] MEDS ORDERED: ASPIRIN 81 MG TAB.CHEW PO ONE (15:45)
[2018-10-07] MEDS ORDERED: DOCUSATE 100 MG/10 ML UDC PO PRN (15:45)
[2018-10-07] MEDS ORDERED: NITROGLYCERIN 2% 1 GM PKT TP ONE (15:45)
[2018-10-07] MEDS ORDERED: ACETAMINOPHEN 325 MG TAB PO PRN (15:45)
[2018-10-07] MEDS ORDERED: ALBUTEROL 0.083% 2.5 MG/3 ML NEBU INH PRN (15:45)
--- NOTE | 2018-10-07 16:00 | NUR ---
PT. UNABLE TO PROVIDE URINE AT THIS TIME, ER MD SHAFER MADE AWARE.
[2018-10-07] MEDS: BLOOD GLUCOSE MONITORING 1 DEV DEV FS SCH ×2 (16:30→21:22)
[2018-10-07 16:36] VITALS: BP 138/92
--- NOTE | 2018-10-07 16:36 | NUR ---
PT ARRIVED TO UNIT WITH MAG RUNNING AT 25ML/HR.
--- NOTE | 2018-10-07 16:36 | NUR ---
Patient will be admitted to care of DR. STAPLETON . Admited to TELE . Will go to [id number]. Belongings list completed. Report to BAN PUENTE .
--- NOTE | 2018-10-07 16:36 | NUR ---
RECEIVED PT FROM EMERGENCY ROOM FOR CONTINUITY OF CARE. PT IN STABLE CONDITION. PT ON OBSERVATION. IV INTACT AND PATENT. SAFETY MEASURES IN PLACE. CALL LIGHT AT BEDSIDE. BED IN LOW POSITION. WILL CONTINUE TO MONITOR.
[2018-10-07] MEDS ORDERED: FUROSEMIDE 20 MG/2 ML VIAL IVP SCH (16:50)
[2018-10-07] MEDS ORDERED: NON-FORMULARY ITEM (Ipratropium Bromide* (Atrovent Hfa Mdi*) 2 PUFF) IH SCH (17:00)
[2018-10-07] MEDS ORDERED: FUROSEMIDE 40 MG TAB PO SCH (17:00)
[2018-10-07] MEDS: AZITHROMYCIN 500 MG in DEXTROSE 5% 250 ML IV SCH (17:00)
[2018-10-07] MEDS: FERROUS SULFATE 325 MG TABEC PO SCH (17:01)
[2018-10-07] MEDS: FUROSEMIDE 40 MG TAB PO SCH (17:02)
[2018-10-07] MEDS: PHENYTOIN 100 MG CAPER PO SCH (17:02)
[2018-10-07] MEDS: glipiZIDE 5 MG TAB PO SCH (17:02)
[2018-10-07] MEDS: HYDROcodone/APAP 5/325 MG 1 TAB TAB PO PRN ×2 (17:02→21:30)
--- NOTE | 2018-10-07 17:10 | NUR ---
MAGNESIUM FINISHED AT 1710.
--- NOTE | 2018-10-07 17:34 | NUR ---
LEVOFLOXACIN STARTED AT 1734.
[2018-10-07] MEDS ORDERED: LACTULOSE 20 GM/30 ML UDC PO PRN (18:00)
--- NOTE | 2018-10-07 18:34 | NUR ---
LEVOFLOXACIN STOPPED AT 1834.
[2018-10-07] MEDS: ALBUTEROL 0.083% 2.5 MG/3 ML NEBU INH PRN (19:22)
--- NOTE | 2018-10-07 19:28 | NUR ---
GAVE REPORT TO PRESALES ENGINEER NURSE FOR CONTINUITY OF CARE. PT IN STABLE CONDITION.
--- NOTE | 2018-10-07 19:30 | NUR ---
RECEIVED BEDSIDE REPORT FROM BAN WHITMAN, PATIENT IN BED, IV IN RIGHT AC 24 G LEAKING, TIGHTEN TUBES, FLUSHED NO LONGER LEAKING, AAOX4, ON 2 L NC, V/S TAKEN NOTED BP 148/98 HR 99 O2SAT 93% PT DENIES PAIN, EXPLAINED PLAN OF CARE. CALL LIGHT WITHIN REACH.
[2018-10-07 20:00] VITALS: BP 148/98
--- NOTE | 2018-10-07 20:41 | NUR ---
LEVOFLOXACIN STARTED AT 1734.
[2018-10-07] MEDS: CARVEDILOL 12.5 MG TAB PO SCH (21:11)
[2018-10-07] MEDS: GABAPENTIN 300 MG CAP PO SCH (21:12)
[2018-10-07] MEDS: methylPREDNISolone SS 40 MG/ML VIAL IVP SCH (21:12)
[2018-10-07] MEDS: INSULIN LISPRO SLIDING SCALE 100 UNITS/ML VIAL SUBQ PRN (21:24)
--- NOTE | 2018-10-07 21:30 | NUR ---
PATIENT C/O PAIN GAVE NORCO, DUE MEDICATIONS GIVEN, BG 236 GAVE INSULIN.
--- NOTE | 2018-10-07 22:30 | NUR ---
PATIENT SLEEPING NO SIGNS OF DISTRESS.
[2018-10-08] VITALS: BP 130/70
--- NOTE | 2018-10-08 00:06 | NUR ---
V/S TAKEN, NO SIGNS OF DISTRESS, DENIES PAIN, CALL LIGHT WITHIN REACH. BANK AND SAVINGS SECURITIES TRADER AT BEDSIDE.
[2018-10-08 00:59] LABS: CREATINE KINASE MB 0.9 ng/mL (0-3.6)
[2018-10-08] MEDS: HYDROcodone/APAP 5/325 MG 1 TAB TAB PO PRN ×5 (03:01→21:38)
--- NOTE | 2018-10-08 03:01 | NUR ---
PATIENT C/O PAIN MEDICATED WITH NORCO.
[2018-10-08 03:44] VITALS: BP 139/68
[2018-10-08] MEDS: methylPREDNISolone SS 40 MG/ML VIAL IVP SCH (05:20)
[2018-10-08] MEDS: BLOOD GLUCOSE MONITORING 1 DEV DEV FS SCH ×4 (06:42→20:21)
--- NOTE | 2018-10-08 06:43 | NUR ---
BLOOD GLUCOSE 147 NO COVERAGE NEEDED.
[2018-10-08] MEDS: ALBUTEROL 0.083% 2.5 MG/3 ML NEBU INH PRN ×3 (06:48→19:17)
[2018-10-08 07:09] LABS: ANION GAP 13.4 (8-16); CARBON DIOXIDE 24.5 mmol/L (21-32); CREATININE 1.2 mg/dL (0.6-1.3); POTASSIUM 3.9 mmol/L (3.5-5.1)
--- NOTE | 2018-10-08 07:36 | NUR ---
ENDORSED PATIENT TO DAY SHIFT NURSE, PATIENT STABLE.
--- NOTE | 2018-10-08 07:37 | NUR ---
RECEIVED REPORT FROM FIRE MANAGEMENT SPECIALIST NURSE. PT IN STABLE CONDITION. RESPIRATIONS EVEN AND UNLABORED. IV INTACT, PATENT AND SALINE LOCKED. BED IN LOW POSITION. CALL LIGHT AT BEDSIDE. SAFETY MEASURES IN PLACE. WILL CONTINUE TO MONITOR.
[2018-10-08 07:42] LABS: BASOPHILS % (AUTO) 0.8 % (0.0-2.0); HEMATOCRIT 30.3 % (36-48); HEMOGLOBIN 9.8 g/dL (12.0-16.0); LYMPHOCYTES # (AUTO) 0.5 K/uL (2.5-16.5); LYMPHOCYTES % (AUTO) 12.7 % (20.5-51.1); MEAN CORPUSCULAR HEMOGLOBIN 32 pg (27-31); MEAN CORPUSCULAR HGB CONC 32 g/dL (33-37); MEAN CORPUSCULAR VOLUME 98.3 fL (80-94); MONOCYTES # (AUTO) 0.1 K/uL (0.8-1.0); NEUTROPHILS # (AUTO) 3.6 K/uL (1.8-7.7); NEUTROPHILS % (AUTO) 84.5 % (42.2-75.2); PLATELET COUNT (AUTO) 204 K/uL (140-450); RED BLOOD CELL COUNT(AUTO) 3.08 MIL/uL (4.20-5.40); RED CELL DISTRIBUTION WIDTH 17.1 % (11.6-13.7); WHITE BLOOD COUNT (AUTO) 4.2 K/uL (4.8-10.8)
[2018-10-08 08:00] VITALS: BP 148/98
--- NOTE | 2018-10-08 08:08 | NUR ---
RECEIVED NEW TRAY FROM FNS PER PT REQUEST. FOOD NOT TO LIKING AT THIS TIME. PT SATISFIED WITH NEW TRAY. WILL CONTINUE TO MONITOR.
--- NOTE | 2018-10-08 08:38 | NUR ---
PATIENT HAS BEEN SCREENED AND CATEGORIZED MODERATE NUTRITION RISK. PATIENT WILL BE SEEN WITHIN 3-5 DAYS OF ADMISSION. 10/10/18DARIN DENNEY RD
[2018-10-08] MEDS: glipiZIDE 5 MG TAB PO SCH ×2 (08:39→17:18)
[2018-10-08] MEDS: FUROSEMIDE 40 MG TAB PO SCH ×3 (08:39→17:10)
[2018-10-08] MEDS: FERROUS SULFATE 325 MG TABEC PO SCH ×3 (08:40→17:10)
[2018-10-08] MEDS: GABAPENTIN 300 MG CAP PO SCH ×2 (08:40→20:13)
[2018-10-08] MEDS: PHENYTOIN 100 MG CAPER PO SCH ×3 (08:40→17:18)
[2018-10-08] MEDS: CARVEDILOL 12.5 MG TAB PO SCH ×2 (08:40→20:14)
[2018-10-08] MEDS: CYANOCOBALAMIN 1,000 MCG TAB PO SCH (08:44)
[2018-10-08] MEDS: ENOXAPARIN 40 MG/0.4 ML SYR SUBQ SCH (08:44)
--- NOTE | 2018-10-08 10:15 | NUR ---
PT LYING IN BED IN STABLE CONDITION. RESPIRATIONS EVEN AND UNLABORED. WILL CONTINUE TO MONITOR. BED IN LOW POSITION. CALL LIGHT AT BEDSIDE.
--- NOTE | 2018-10-08 10:40 | NUR ---
Follow up appointment scheduled for pt to see PCP Dr. Jana Boone on 10/13/18 at 0900 at [address] [facility]. Appointment slip schedule given to pt with verbal understanding. Informed Sheila RN regarding pt's follow up appointment with PCP.
--- NOTE | 2018-10-08 12:55 | NUR ---
PT REQUEST BREATHING TREATMENT. RT NOTIFIED AT THIS TIME. PT IN STABLE CONDITION.
[2018-10-08] MEDS: methylPREDNISolone SS 125 MG/2 ML VIAL IVP SCH ×2 (13:11→20:19)
--- NOTE | 2018-10-08 14:02 | NUR ---
REMOVED IV PT C/O PAIN AT SITE. NO INJURY TO SKIN NOTED. PT IN STABLE CONDITION. WILL CONTINUE TO MONITOR.
[2018-10-08] MEDS: IPRATROPIUM 0.02% 0.5 MG/2.5 ML NEBU INH SCH ×2 (14:31→19:15)
[2018-10-08 16:00] VITALS: BP 145/104
--- NOTE | 2018-10-08 16:15 | NUR ---
KARMEN MOYA, 25MG PO HYDRALAZINE X1. PT B/P AT TIME 148/104. PT IN STABLE CONDITION. WILL CONTINUE TO MONITOR.
[2018-10-08] MEDS: AZITHROMYCIN 500 MG in DEXTROSE 5% 250 ML IV SCH (16:53)
[2018-10-08] MEDS ORDERED: hydrALAZINE 25 MG TAB PO SCH (17:00)
[2018-10-08] MEDS: INSULIN LISPRO SLIDING SCALE 100 UNITS/ML VIAL SUBQ PRN ×2 (17:17→20:26)
--- NOTE | 2018-10-08 19:24 | NUR ---
GAVE REPORT TO TIMBER BUYER NURSE FOR CONTINUITY OF CARE. PT IN STABLE CONDITION.
--- NOTE | 2018-10-08 19:45 | NUR ---
RECEIVED PATIENT FROM DAY SHIFT NURSE FOR CONTINUITY OF CARE. PATIENT IS AWAKE, ALERT, RESPIRATION EVEN UNLABORED ON O2 2L VIA NC. DENIES DISCOMFORT OR SHORTNESS OF BREATH. SKIN IS WARM AND DRY. PLAN OF CARE WAS DISCUSSED. ALL SAFETY MEASURE IN PLACE. BED IS AT LOW POSITION. CALL LIGHT WITHIN REACH. WILL CONTINUE TO MONITOR.
[2018-10-08 20:00] VITALS: BP 137/91
--- NOTE | 2018-10-08 20:10 | NUR ---
PATIENT IS AWAKE, ALERT, RESPIRATION EVEN UNLABORED ON 3L OF O2 VIA NC. INITIAL ASSESSMENT DONE. VITAL STABLE. MEDS WERE GIVEN PER ORDER. CALL LIGHT WITHIN REACH. WILL CONTINUE TO MONITOR.
[2018-10-08] MEDS ORDERED: ATORVASTATIN 20 MG TAB PO SCH (21:00)
--- NOTE | 2018-10-08 21:25 | NUR ---
PATIENT WAS AWAKE, ALERT, RESPIRATION EVEN UNLABORED ON O2 3L VIA NC. COMPLAINED OF BACK PAIN 6/10. PRN PAIN MEDS ADMINISTERED. WILL CONTINUE TO MONITOR.
--- NOTE | 2018-10-08 22:25 | NUR ---
REASSESSED PATIENT FOR PAIN STATED SOMEHOW EFFECTIVE PAIN IS AT 3/10 TOLERABLE LEVEL. WILL CONTINUE TO MONITOR.
[2018-10-09] VITALS: BP 139/98
--- NOTE | 2018-10-09 | NUR ---
PATIENT IS SLEEPING COMFORTABLY RESPIRATION EVEN UNLABORED ON 3L OF O2 VIA NC. NO DISTRESS NOTED AT THIS TIME. CALL LIGHT WITHIN REACH. WILL CONTINUE TO MONITOR.
--- NOTE | 2018-10-09 01:30 | NUR ---
PATIENT WAS AWAKE, ALERT, RESPIRATION EVEN UNLABORED ON O2 3L VIA NC. COMPLAINED OF BACK PAIN 7/10 INTENSITY. PRN PAIN MEDS ADMINISTERED PER ORDER. CALL LIGHT WITHIN REACH. WILL CONTINUE TO MONITOR.
[2018-10-09] MEDS: HYDROcodone/APAP 5/325 MG 1 TAB TAB PO PRN ×2 (01:33→05:34)
--- NOTE | 2018-10-09 02:30 | NUR ---
REASSESSED PATIENT FOR PAIN. PATIENT ASLEEP RESPIRATION EVEN UNLABORED ON 3L OF O2 VIA NC. NO DISTRESS NOTED AT THIS TIME. WILL CONTINUE TO MONITOR.
--- NOTE | 2018-10-09 03:30 | NUR ---
PATIENT ASLEEP RESPIRATION EVEN UNLABORED ON 3L OF O2 NC. NO DISTRESS NOTED AT THIS TIME. WILL CONTINUE TO MONITOR.
[2018-10-09 04:00] VITALS: BP 130/90
[2018-10-09] MEDS: methylPREDNISolone SS 125 MG/2 ML VIAL IVP SCH (05:00)
--- NOTE | 2018-10-09 05:34 | NUR ---
PATIENT COMPLAINED OF BACK PAIN 6/. PRN PAIN MEDS ADMINISTERED. WILL CONTINUE TO MONITOR
--- NOTE | 2018-10-09 06:15 | NUR ---
PATIENT REFUSED BLOOD DRAWN. PATIENT STATED "IM GOING HOME NO NEED FOR THIS". EDUCATED THE RISK AND BENEFITS STILL REFUSED. WILL CONTINUE TO MONITOR
[2018-10-09] MEDS: BLOOD GLUCOSE MONITORING 1 DEV DEV FS SCH (06:28)
--- NOTE | 2018-10-09 07:05 | NUR ---
RECEIVED BEDSIDE REPORT FROM BAN NAJERA. PT STABLE, AWAKE, AND ALERT AND ORIENTED X4. NO SIGNS OF DISTRESS NOTED. DENIES PAIN OR SOB. NO IV ACCESS, PT REFUSED PER PM NURSE REPORT. CALL VALADEZ WITHIN REACH. BED IN LOWEST POSITION. SAFETY MEASURES IN PLACE. PLAN OF CARE REVIEWED.
[2018-10-09] MEDS: IPRATROPIUM 0.02% 0.5 MG/2.5 ML NEBU INH SCH ×2 (07:15→10:52)
--- NOTE | 2018-10-09 07:27 | NUR ---
ENDORSED PATIENT TO DAY SHIFT NURSE FOR CONTINUITY OF CARE. PATIENT IS STABLE AT THIS TIME.
[2018-10-09 08:00] VITALS: BP 123/82
[2018-10-09] MEDS: FERROUS SULFATE 325 MG TABEC PO SCH (08:00)
[2018-10-09] MEDS: PHENYTOIN 100 MG CAPER PO SCH (08:38)
[2018-10-09] MEDS: GABAPENTIN 300 MG CAP PO SCH (08:40)
[2018-10-09] MEDS: CARVEDILOL 12.5 MG TAB PO SCH (08:40)
[2018-10-09] MEDS: FUROSEMIDE 40 MG TAB PO SCH ×2 (08:41→08:42)
[2018-10-09] MEDS: glipiZIDE 5 MG TAB PO SCH (08:41)
[2018-10-09] MEDS: CYANOCOBALAMIN 1,000 MCG TAB PO SCH (08:42)
[2018-10-09] MEDS: ENOXAPARIN 40 MG/0.4 ML SYR SUBQ SCH (08:43)
--- NOTE | 2018-10-09 08:45 | NUR ---
ADMINISTERED SCHEDULED MEDICATIONS. PT TOLERATED WELL. PATIENT REFUSED SCHEDULED LOVENOX, VIT B12, AND IRON SUPPLEMENT.
[2018-10-09] MEDS ORDERED: hydrALAZINE 25 MG TAB PO SCH (09:00)
[2018-10-09] MEDS ORDERED: AZIT1PDR6 PO (09:56)
[2018-10-09] MEDS ORDERED: METH4TAB1 PO (09:56)
--- NOTE | 2018-10-09 11:30 | NUR ---
D/C INSTRUCTIONS AND PRESCRIPTION GIVEN, PT VERBALIZED UNDERSTANDING. QUESTIONS AND CONCERNS WERE ADDRESSED. PT STABLE, AWAKE, AND ALERT AND ORIENTED X4. NO IV ACCESS, PT REFUSED IV LAST NIGHT. PT HAVE ALL BELONGINGS WITH HER, HOME O2 WITH PATIENT. PT ESCORTED OUT TO THE LOBBY BY WHEELCHAIR.
--- NOTE | 2018-10-10 12:18 | NUR ---
CM NOTE I WAS INFORMED BY SONJA HERNANDEZ THAT THIS PATIENT NEEDS AN [facility] HIGH RISK CLINIC FOLLOW UP. FAXED DC ORDER WITH HIGH RISK FF UP TO [facility], ATTN: SONJA DEAN. FAXED CLINICAL PACKET TO [facility], ATTN: NEO. I REQUESTED FOR AN OUTPATIENT FOLLOW UP SCHEDULE FOR THE PATIENT. PER ENO, [facility] SOCIAL WORK THERAPIST PH# [phone], THE PATIENT IS SCHEDULED TO SEE DR. HOGAN ON OCTOBER 13, 2018, 2:15 PM AT THE CLINIC AT [address] [place] [address]. NEO REQUESTED FOR FACESHEET, H&P, LAB RESULTS AND LIST OF MEDS BE FAXED TO HER AT THE [facility]. FAXED INFO. I SPOKE WITH THE PATIENT PH# [phone] TO GIVE HER OUTPATIENT HIGH RISK FOLLOW UP SCHEDULE.
== END 2018-10-09 11:30 | disposition home or self-care (01) ==
LOC: MED 13:43 → MTU 15:45
PROVIDERS: ADMIT Hospitalist; ATTEND Hospitalist
DX: J44.1 Chronic obstructive pulmonary disease with (acute) exacerbation (principal); I25.10 Atherosclerotic heart disease of native coronary artery without angina pectoris; E78.5 Hyperlipidemia, unspecified; J81.1 Chronic pulmonary edema; J90 Pleural effusion, not elsewhere classified; E11.22 Type 2 diabetes mellitus with diabetic chronic kidney disease; I13.0 Hypertensive heart and chronic kidney disease with heart failure and stage 1 through stage 4 chronic kidney disease, or unspecified chronic kidney disease; N18.9 Chronic kidney disease, unspecified; I50.9 Heart failure, unspecified; J96.21 Acute and chronic respiratory failure with hypoxia; G40.909 Epilepsy, unspecified, not intractable, without status epilepticus; Z87.891 Personal history of nicotine dependence; Z95.810 Presence of automatic (implantable) cardiac defibrillator
CPT/HCPCS: 36415; 36600; 71045; 80048; 80053; 82550; 82553; 82803; 82948; 83605; 83735; 83880; 84484; 85025; 85610; 85730; 87040; 87081; 93005; 94640; 94760; 96365; 96366; 96367; 96372; 96375; 96376; 99291; G0378; J0456; J1815; J1940; J1956; J2920; J2930; J3475; J7030; J7060; J7613; J7644; Q0092; 96374; J1650; J3420

== ENCOUNTER 2018-10-21 16:04 | Inpatient (IN) | payer OTHER ==
[~2018-10-21] VITALS: Ht 162.6 cm; Wt 83.9 kg
[~2018-10-21 16:04] MED LIST changes: +AZIT1PDR6 PO; +METH4TAB1 PO
[2018-10-21 16:14] VITALS: BP 113/85
--- NOTE | 2018-10-21 16:21 | NUR ---
influenza swab collected
--- NOTE | 2018-10-21 16:44 | NUR ---
PT TO ER BED 6
--- NOTE | 2018-10-21 16:55 | NUR ---
C/O SHORTNESS OF BREATH X1 WK--3 WORDED SPEECH, SUPRACLAVICULAR ACCESSORY MUSCLE USE NOTED, TRIPODING [facility]ENT [facility] HX--COPD (3L O2 DEPENDENT), CHF, DM, HTN, NEUROPATHY, CKD, SEIZURE RX--SEE LIST Addendum: 10/21/18 at 1747 by MED1 R FOOT PAIN 04/21. LYNDA LEGS SWELLING.
[2018-10-21 17:27] LABS: BASOPHILS # (AUTO) 0.1 K/uL (0.00-0.22); BASOPHILS % (AUTO) 0.7 % (0.0-2.0); EOSINOPHILS # (AUTO) 0.1 K/uL (0-0.4); EOSINOPHILS % (AUTO) 0.7 % (0.0-4.0); HEMATOCRIT 33.3 % (36-48); HEMOGLOBIN 10.6 g/dL (12.0-16.0); LYMPHOCYTES # (AUTO) 1.1 K/uL (2.5-16.5); LYMPHOCYTES % (AUTO) 13.5 % (20.5-51.1); MEAN CORPUSCULAR HEMOGLOBIN 32 pg (27-31); MEAN CORPUSCULAR HGB CONC 32 g/dL (33-37); MEAN CORPUSCULAR VOLUME 99.3 fL (80-94); MONOCYTES # (AUTO) 0.6 K/uL (0.8-1.0); MONOCYTES % (AUTO) 6.8 % (1.7-9.3); NEUTROPHILS # (AUTO) 6.4 K/uL (1.8-7.7); NEUTROPHILS % (AUTO) 78.3 % (42.2-75.2); PLATELET COUNT (AUTO) 227 K/uL (140-450); RED BLOOD CELL COUNT(AUTO) 3.36 MIL/uL (4.20-5.40); RED CELL DISTRIBUTION WIDTH 16.6 % (11.6-13.7); WHITE BLOOD COUNT (AUTO) 8.2 K/uL (4.8-10.8)
[2018-10-21 17:44] LABS: CARBON DIOXIDE 26.6 mmol/L (21-32); CREATININE 1.3 mg/dL (0.6-1.3); POTASSIUM 3.6 mmol/L (3.5-5.1)
[2018-10-21 17:50] LABS: ALBUMIN 3.3 g/dL (3.4-5.0); TOTAL BILIRUBIN 0.3 mg/dL (0.0-1.0)
[2018-10-21] MEDS ORDERED: FAMOTIDINE 20 MG/2 ML VIAL IVP ONE (17:50)
[2018-10-21] MEDS ORDERED: FUROSEMIDE 100 MG/10 ML VIAL IVP ONE (17:50)
[2018-10-21] MEDS ORDERED: ALBUTEROL SULFATE/IPRATROPIU 3 ML SOL IH ONE (17:50)
--- NOTE | 2018-10-21 17:54 | NUR ---
influenza swab collected
[2018-10-21 18:26] LABS: MAGNESIUM 1.6 mg/dL (1.8-2.4); URIC ACID 10.2 mg/dL (2.6-7.2)
[2018-10-21 18:29] LABS: PROTHROMBIN TIME 10.4 secs (10.8-13.4)
[2018-10-21] MEDS ORDERED: LACTULOSE 20 GM/30 ML UDC PO PRN (18:35)
[2018-10-21] MEDS ORDERED: DEXTROSE 50% 50 ML SYR IVP PRN (18:35)
[2018-10-21] MEDS ORDERED: DOCUSATE 100 MG/10 ML UDC PO PRN (18:35)
[2018-10-21] MEDS ORDERED: ALBUTEROL SULFATE/IPRATROPIU 3 ML SOL IH PRN (18:35)
[2018-10-21] MEDS ORDERED: ONDANSETRON 4 MG/2 ML VIAL IVP PRN (18:40)
[2018-10-21] MEDS ORDERED: MORPHINE SULFATE 4 MG/ML SYR IVP PRN (18:40)
[2018-10-21 18:45] LABS: CREATINE KINASE MB 1.2 ng/mL (0-3.6)
[2018-10-21] MEDS: ALBUTEROL SULFATE/IPRATROPIU 3 ML SOL IH SCH (19:00)
[2018-10-21] MEDS: methylPREDNISolone SS 125 MG/2 ML VIAL IVP ONE ×2 (19:11→19:14)
[2018-10-21] MEDS: ENALAPRILAT 2.5 MG/2 ML VIAL IVP ONE ×2 (19:16→19:26)
--- NOTE | 2018-10-21 19:28 | NUR ---
Pt report given to TRACEY CEVALLOS. Transfer of care at this time.
--- NOTE | 2018-10-21 19:45 | NUR ---
RECEIVED REPORT FROM SHEARER SCREEN MEASURER AND TRIMMER BEN. PT IS AAO X4. ON NC 3L. HAS SOME SOB. RR 24. HAS WHEEZING ON EXPIRATORY. RECEIVED BREATHING TREATMENT 1900. IV ON LAC 24G. SKIN IS INTACT. PT WITH ICD. HX CHF. PITTING EDEMA LYNDA LEGS +1. PT RECEIVED LASIX. WILL GET BEDSIDE COMMODE. PT AMBULATED FROM GURNEY TO BED. PER SHEARER SCREEN MEASURER AND TRIMMER PT REFUSED BIPAP. MRSA SWAB OBTAINED. PLAN OF CARE WAS DISCUSSED WITH PT. SAFETY MEASURES ARE IN PLACE. WILL CONTINUE TO MONITOR.
--- NOTE | 2018-10-21 19:47 | NUR ---
PATIENT ADMITTED TO TELE FLOOR ROOM 199-A UNDER THE CARE OF DR MOYA. REPORT GIVEN TO SENIOR PARALEGAL. PATIENT STABLE DURING TRANSFER.
[2018-10-21 20:00] VITALS: BP 136/92
[2018-10-21] MEDS: HYDROcodone/APAP 10/325 MG 1 TAB TAB PO PRN (20:29)
--- NOTE | 2018-10-21 20:43 | NUR ---
the hhntx was done at 1900 in er
[2018-10-21] MEDS: LEVOFLOXACIN 500 MG/D5W PREMIX 100 ML IV SCH (20:53)
[2018-10-21] MEDS: FUROSEMIDE 40 MG/4 ML VIAL IVP SCH (20:56)
--- NOTE | 2018-10-21 20:56 | NUR ---
DUE MEDICATIONS GIVEN. PT TOLERATED WELL. VITAL SIGNS ARE WITHIN NORMAL LIMITS. PT REMAINS ON NC 3L. CALL LIGHT IS WITHIN REACH.
[2018-10-21] MEDS: glipiZIDE 5 MG TAB PO SCH (20:59)
[2018-10-21] MEDS: BLOOD GLUCOSE MONITORING 1 DEV DEV FS SCH (21:00)
[2018-10-21] MEDS: CARVEDILOL 12.5 MG TAB PO SCH (21:00)
[2018-10-21] MEDS: BUDESONIDE 0.5 MG/2 ML NEBU INH SCH (21:21)
[2018-10-21] MEDS ORDERED: MAG SULF 2000 MG/WATER PREMIX 50 ML IV ONE (23:10)
[2018-10-22] VITALS: BP 131/79
--- NOTE | 2018-10-22 | NUR ---
VITAL SIGNS ARE STABLE. NO S/S OF DISTRESS. PT EATING JELLO. CALL LIGHT IS WITHIN REACH.
[2018-10-22] MEDS: methylPREDNISolone SS 40 MG/ML VIAL IVP SCH ×5 (00:11→23:43)
[2018-10-22] MEDS: ALBUTEROL SULFATE/IPRATROPIU 3 ML SOL IH SCH ×4 (01:00→19:24)
--- NOTE | 2018-10-22 01:00 | NUR ---
SHE WAS SLEEPIMG AND REFUSED , LAST TX WAS DONE AT 2129, ND SHE SAID THAT WILL CALL IF NEEDED
--- NOTE | 2018-10-22 02:00 | NUR ---
PT IS SLEEPING. NO S/S OF DISTRESS. ALL SAFETY MEASURES ARE IN PLACE. CALL LIGHT WITHIN REACH.
[2018-10-22 04:00] VITALS: BP 153/85
[2018-10-22] MEDS: HYDROcodone/APAP 10/325 MG 1 TAB TAB PO PRN ×4 (04:11→21:14)
--- NOTE | 2018-10-22 04:20 | NUR ---
VITAL SIGNS ARE STABLE ADMINISTERED NORCO FOR PAIN. CALL LIGHT WITHIN REACH. WILL CONTINUE TO MONITOR.
[2018-10-22] MEDS: BLOOD GLUCOSE MONITORING 1 DEV DEV FS SCH ×4 (06:10→20:11)
[2018-10-22] MEDS: INSULIN LISPRO SLIDING SCALE 100 UNITS/ML VIAL SUBQ PRN ×3 (06:14→17:48)
--- NOTE | 2018-10-22 06:15 | NUR ---
BLOOD GLUCOSE IS 247. 4U OF INSULIN ADMINISTERED ON ABDOMEN. PT TOLERATED WELL
[2018-10-22 06:40] LABS: ANION GAP 13.2 (8-16); CARBON DIOXIDE 24.8 mmol/L (21-32); CREATININE 1.3 mg/dL (0.6-1.3)
[2018-10-22 06:43] LABS: BASOPHILS % (AUTO) 0.1 % (0.0-2.0); HEMATOCRIT 29.9 % (36-48); HEMOGLOBIN 9.8 g/dL (12.0-16.0); LYMPHOCYTES # (AUTO) 0.3 K/uL (2.5-16.5); MEAN CORPUSCULAR HEMOGLOBIN 32 pg (27-31); MEAN CORPUSCULAR HGB CONC 33 g/dL (33-37); MONOCYTES % (AUTO) 0.5 % (1.7-9.3); NEUTROPHILS # (AUTO) 5.3 K/uL (1.8-7.7); NEUTROPHILS % (AUTO) 94.4 % (42.2-75.2); PLATELET COUNT (AUTO) 200 K/uL (140-450); RED BLOOD CELL COUNT(AUTO) 3.05 MIL/uL (4.20-5.40); RED CELL DISTRIBUTION WIDTH 16.5 % (11.6-13.7); WHITE BLOOD COUNT (AUTO) 5.6 K/uL (4.8-10.8)
[2018-10-22 06:53] LABS: MAGNESIUM 2.1 mg/dL (1.8-2.4); PHOSPHORUS 4.8 mg/dL (2.5-4.9)
--- NOTE | 2018-10-22 07:30 | NUR ---
GAVE BEDSIDE REPORT TO DAY SHIFT RN. PT ENDORSED IN STABLE CONDITION.
--- NOTE | 2018-10-22 07:30 | NUR ---
RECEIVED PT ON BED AAOX4. NO SOB NOTED, ON 3LPM OXYGEN VIA NASAL CANNULA WITH SATS BETWEEN 94-95%. NO C/O PAIN AT THIS TIME. IV TO LT HAND LEAKING. WILL RESTART A NEW LINE SOON. CHEST, DIMINISHED AIR ENTRY TRO THE BASES. ABDOMEN SOFT, BOWEL SOUNDS PRESENT. BEDSIDE COMMODE PROVIDED. INSTRUCTED PT TO CALL FOR ASSISTANCE, CALL LIGHT WITHIN REACH, PT VERBALIZED UNDERSTANDING.
[2018-10-22] MEDS: BUDESONIDE 0.5 MG/2 ML NEBU INH SCH ×2 (07:55→19:24)
[2018-10-22 08:00] VITALS: BP 153/99
--- NOTE | 2018-10-22 08:31 | NUR ---
PATIENT HAS BEEN SCREENED AND CATEGORIZED MODERATE NUTRITION RISK. PATIENT WILL BE SEEN WITHIN 3-5 DAYS OF ADMISSION. 10/24/18DARIN DEN[address] RD
[2018-10-22] MEDS: ATORVASTATIN 20 MG TAB PO SCH (08:57)
[2018-10-22] MEDS: GABAPENTIN 300 MG CAP PO SCH ×3 (08:58→17:47)
[2018-10-22] MEDS: glipiZIDE 5 MG TAB PO SCH ×2 (08:58→21:15)
[2018-10-22] MEDS: PHENYTOIN 100 MG CAPER PO SCH ×3 (08:58→17:47)
[2018-10-22] MEDS: FERROUS SULFATE 325 MG TABEC PO SCH ×3 (08:58→17:00)
[2018-10-22] MEDS: CYANOCOBALAMIN 1,000 MCG TAB PO SCH (08:58)
[2018-10-22] MEDS: CARVEDILOL 12.5 MG TAB PO SCH ×2 (08:58→21:14)
[2018-10-22] MEDS: CLINICAL MONITORING MC SCH (09:00)
--- NOTE | 2018-10-22 10:00 | NUR ---
NEW IV LINE STARTED ON RT HAND WITH GAUGE 24. IV SITE SECURED WITH TAPE.
[2018-10-22] MEDS: FUROSEMIDE 40 MG/4 ML VIAL IVP SCH ×2 (10:29→21:15)
--- NOTE | 2018-10-22 11:40 | NUR ---
CM NOTE Follow up appointment scheduled for pt to see PCP Dr. Jana Boone on 10/27/18 at 0900 at [address] [facility]. Appointment slip schedule given to pt with verbal understanding. Informed Sheila RN regarding pt's follow up appointment with PCP.
[2018-10-22 12:00] VITALS: BP 128/92
--- NOTE | 2018-10-22 12:55 | NUR ---
PT SEEN BY DR. MOYA AT THE BEDSIDE. NO NEW ORDERS.
--- NOTE | 2018-10-22 15:00 | NUR ---
PT RESTING, ON MODERATE HIGH BACK REST. NO SOB NOTED. NO COMPLAINTS MADE.
[2018-10-22 16:00] VITALS: BP 139/95
--- NOTE | 2018-10-22 18:00 | NUR ---
PT EATING DINNER. NO SOB NOTED. NO C/O PAIN AT THIS TIME.
--- NOTE | 2018-10-22 19:00 | NUR ---
PT RESTING, NO SOB NOTED. NO COMPLAINTS MADE. WILL ENDORSE TO NEXT SHIFT NURSE FOR CONTINUITY OF CARE.
--- NOTE | 2018-10-22 19:20 | NUR ---
RECEIVED PT SLEEPING, EASILY AROUSABLE, VITAL SIGNS STABLE, WHEEZING ON AUSCULTATION, ON O2 AT 3L VIA NASAL CANNULA, SAT-97%, BREATHING TX PER RT, IVF AT TKO RATE, USES BEDSIDE COMMODE INDEPENDENTLY, PLAN OF CARE DISCUSSED, SAFETY MEASURES IN PLACE, CALL LIGHT WITHIN REACH.
[2018-10-22 20:00] VITALS: BP 139/98
[2018-10-22] MEDS: LEVOFLOXACIN 500 MG/D5W PREMIX 100 ML IV SCH (20:09)
--- NOTE | 2018-10-22 21:30 | NUR ---
BLOOD SUGAR CHECKED WITH 190 RESULT, REFUSED COVERAGE, WANTS ONLY THE DUE GLIPIZIDE, RISK AND BENEFITS EXPLAINED BUT PT STILL INSIST GLIPIZIDE ONLY, MEDICATED PRN FOR PAIN WITH NORCO, ALL NEEDS ATTENDED.
[2018-10-23] VITALS: BP 134/78
--- NOTE | 2018-10-23 | NUR ---
PT SLEEPING, EASILY AROUSABLE, VITAL SIGNS STABLE, DENIES PAIN, DUE SOLUMEDROL GIVEN, CONTINUE TO MONITOR CLOSELY.
[2018-10-23] MEDS: ALBUTEROL SULFATE/IPRATROPIU 3 ML SOL IH SCH ×3 (00:42→13:57)
[2018-10-23] MEDS: HYDROcodone/APAP 10/325 MG 1 TAB TAB PO PRN ×2 (03:20→09:18)
--- NOTE | 2018-10-23 03:30 | NUR ---
PT AWAKE COMPLAINING OF PAIN, VITAL SIGNS STABLE, NO SIGNS OF SOB, MEDICATED WITH NORCO FOR PAIN, MONITORED CLOSELY.
[2018-10-23 04:00] VITALS: BP 130/88
[2018-10-23] MEDS: methylPREDNISolone SS 40 MG/ML VIAL IVP SCH ×2 (05:09→13:24)
--- NOTE | 2018-10-23 06:03 | NUR ---
BLOOD SUGAR CHECKED WITH 222 RESULT, PT REFUSED INSULIN COVERAGE, RISK AND BENEFITS EXPLAINED, PT STILL REFUSING STATED IT WILL DROPPED TOO LOW, I WILL WAIT FOR MY GLIPIZIDE, WILL ENDORSE TO AM NURSE, NO RESP DISTRESS, MONITORED CLOSELY.
[2018-10-23] MEDS: BLOOD GLUCOSE MONITORING 1 DEV DEV FS SCH ×2 (07:03→11:30)
[2018-10-23 07:18] LABS: HEMATOCRIT 29.7 % (36-48); HEMOGLOBIN 9.8 g/dL (12.0-16.0); LYMPHOCYTES # (AUTO) 0.3 K/uL (2.5-16.5); LYMPHOCYTES % (AUTO) 4.1 % (20.5-51.1); MEAN CORPUSCULAR HEMOGLOBIN 33 pg (27-31); MEAN CORPUSCULAR HGB CONC 33 g/dL (33-37); MEAN CORPUSCULAR VOLUME 98.9 fL (80-94); MONOCYTES # (AUTO) 0.1 K/uL (0.8-1.0); NEUTROPHILS # (AUTO) 7.7 K/uL (1.8-7.7); NEUTROPHILS % (AUTO) 94.9 % (42.2-75.2); PLATELET COUNT (AUTO) 186 K/uL (140-450); RED BLOOD CELL COUNT(AUTO) 3.01 MIL/uL (4.20-5.40); RED CELL DISTRIBUTION WIDTH 16.3 % (11.6-13.7); WHITE BLOOD COUNT (AUTO) 8.1 K/uL (4.8-10.8)
--- NOTE | 2018-10-23 07:25 | NUR ---
PT AWAKE, NO SIGNS OF DISTRESS, REPORT GIVEN TO RN ASHKAN FOR CONTINUITY OF CARE.
[2018-10-23] MEDS: BUDESONIDE 0.5 MG/2 ML NEBU INH SCH (07:30)
--- NOTE | 2018-10-23 07:30 | NUR ---
RECEIVED PT ON BED AAOX4. NO SOB NOTED, ON 3LPM OXYGEN VIA NASAL CANNULA WITH SATS OF 97%. NO C/O PAIN AT THIS TIME. IV TO RT HAND PATENT AND INTACT. CHEST, DIMINISHED AIR ENTRY TRO THE BASES, WHEEZING HEARD BILATERALLY. ABDOMEN SOFT, BOWEL SOUNDS PRESENT. WITH BEDSIDE COMMODE. INSTRUCTED PT TO CALL FOR ASSISTANCE, CALL LIGHT WITHIN REACH, PT VERBALIZED UNDERSTANDING.
--- NOTE | 2018-10-23 07:47 | NUR ---
AWAKE AND ALERT VERBALLY RESPPONSIVE PATIENT STATES THAT "I WANT TO EAT FIRST THEN BREATHING TREATMENT" NO SOB NOTED ON SUPPLEMENTAL OXYGENT AT 3LPM VIA NC STEAMFITTER TO ATTEMPT [facility] THERAPY AND RESPIRATORY DRUGS AT A LATER TIME
[2018-10-23 07:51] LABS: ANION GAP 16.1 (8-16); CARBON DIOXIDE 23.9 mmol/L (21-32); CREATININE 1.5 mg/dL (0.6-1.3)
[2018-10-23 07:56] LABS: PHOSPHORUS 4.8 mg/dL (2.5-4.9)
[2018-10-23 08:00] VITALS: BP 140/96
--- NOTE | 2018-10-23 08:42 | NUR ---
AWAKE AND ALERT VERBALLY RESPONSIVE NO SOB NOTED GOOD CHEST RISE PATIENT REFUSING [facility] THERAPY AND RESPIRATORY DRUGS PATIENT STATES "I DON'T NEED IT I WANT TO GO HOME DR MOYA SAID HE WAS GOING TO BE IN THIS MORNING" INFORMATION ASSURANCE MANAGER TO NOTIFY BAN Addendum: 10/23/18 at 0854 by Barney Montreo RT ASHKAN/BAN NOTIFIED
[2018-10-23] MEDS: FERROUS SULFATE 325 MG TABEC PO SCH ×2 (09:00→13:00)
[2018-10-23] MEDS: PHENYTOIN 100 MG CAPER PO SCH ×2 (09:16→13:23)
[2018-10-23] MEDS: GABAPENTIN 300 MG CAP PO SCH ×2 (09:16→13:23)
[2018-10-23] MEDS: CARVEDILOL 12.5 MG TAB PO SCH (09:16)
[2018-10-23] MEDS: glipiZIDE 5 MG TAB PO SCH (09:17)
[2018-10-23] MEDS: ATORVASTATIN 20 MG TAB PO SCH (09:17)
[2018-10-23] MEDS: FUROSEMIDE 40 MG/4 ML VIAL IVP SCH (09:17)
[2018-10-23] MEDS: CYANOCOBALAMIN 1,000 MCG TAB PO SCH (09:17)
[2018-10-23] MEDS: CLINICAL MONITORING MC SCH (09:24)
--- NOTE | 2018-10-23 10:16 | NUR ---
PT REFUSED TELE MONITOR AND WANTS TO GO HOME. PT STATED DR. MOYA TOLD HER YESTERDAY DURING HIS ROUNDS THAT HE WILL BE DISCHARGING HER HOME THIS MORNING. PAGED DR. MOYA, AWAITING FOR CALL BACK.
--- NOTE | 2018-10-23 11:30 | NUR ---
pt changed her mind regarding going home AMA, stated she will wait for Dr. Smith to come.
[2018-10-23 12:00] VITALS: BP 126/86
[2018-10-23] MEDS: INSULIN LISPRO SLIDING SCALE 100 UNITS/ML VIAL SUBQ PRN (13:26)
--- NOTE | 2018-10-23 15:00 | NUR ---
PT SEEN BY DR. MOYA WITH D/C ORDERS.
--- NOTE | 2018-10-23 16:00 | NUR ---
DISCHARGE INSTRUCTIONS GIVEN TO PT WHICH VERBALIZED FULL UNDERSTANDING OF THE TEACHINGS AND THE NEED TO FOLLOW UP WITH PCP WITHIN 7 DAYS. ARM BANDS AND IV REMOVED, CANNULA TIP INTACT.
--- NOTE | 2018-10-23 16:45 | NUR ---
PT. WHEELED PT OUT TO THE EXIT DOOR WHERE YELLOW CAB IS WAITING. NO SOB NOTED, PT ON 3LPM OXYGEN VIA NASAL CANNULA (PT;S OWN O2 TANK). NO COMPLAINTS MADE. PT IS D/C HOME IN STABLE CONDITION.
== END 2018-10-23 16:45 | disposition home or self-care (01) | DRG 194 ==
LOC: MED 16:04 → MTU 18:37
PROVIDERS: ADMIT Hospitalist; ATTEND Hospitalist
DX: I13.0 Hypertensive heart and chronic kidney disease with heart failure and stage 1 through stage 4 chronic kidney disease, or unspecified chronic kidney disease (principal); J96.11 Chronic respiratory failure with hypoxia; E11.22 Type 2 diabetes mellitus with diabetic chronic kidney disease; E11.42 Type 2 diabetes mellitus with diabetic polyneuropathy; I50.43 Acute on chronic combined systolic (congestive) and diastolic (congestive) heart failure; J44.1 Chronic obstructive pulmonary disease with (acute) exacerbation; M10.9 Gout, unspecified; E78.5 Hyperlipidemia, unspecified; F17.210 Nicotine dependence, cigarettes, uncomplicated; N18.9 Chronic kidney disease, unspecified; Z99.81 Dependence on supplemental oxygen; Z88.0 Allergy status to penicillin; Z88.8 Allergy status to other drugs, medicaments and biological substances; Z79.899 Other long term (current) drug therapy; Z95.810 Presence of automatic (implantable) cardiac defibrillator
CPT/HCPCS: 36415; 71045; 80048; 80053; 82550; 82553; 82948; 83605; 83735; 83880; 84100; 84484; 84550; 85025; 85379; 85384; 85610; 85730; 86886; 86900; 86901; 87081; 87804; 93005; 94640; 96374; 96375; 99285; J1644; J1815; J1940; J1956; J2270; J2920; J2930; J3420; J3475; J3490; J7030; J7620; J7626; Q0092

== ENCOUNTER 2018-11-23 11:15 | Inpatient (IN) | payer OTHER ==
[~2018-11-23] VITALS: Ht 165.1 cm; Wt 86.2 kg
[2018-11-23 11:20] VITALS: BP 108/73
--- NOTE | 2018-11-23 11:40 | NUR ---
PT BIB FAMILY WITH C/O CHEST PAIN X 3 DAYS. PT STATED "PAIN GOT WORSE YESTERDAY, ITS A REAL HARD PAIN". PER PT PAIN RADIATES TO BACK (R UPPER SIDE). MEDICAL HX OF COPD, CHF, DM, CKD, HTN. SHE IS ON CONTINUES 3L OF O2 AT HOME VIA NC, PT IS CURRENTLY SATING AT 97%. CONNECTED TO MONITOR. EKG PERFORMED, ER AWARE.
[2018-11-23] MEDS ORDERED: ALBUTEROL 0.083% 2.5 MG/3 ML NEBU INH ONE (12:00)
[2018-11-23] MEDS ORDERED: FUROSEMIDE 40 MG/4 ML VIAL IVP ONE (12:00)
[2018-11-23] MEDS ORDERED: methylPREDNISolone SS 125 MG/2 ML VIAL IVP ONE (12:00)
--- NOTE | 2018-11-23 12:22 | NUR ---
RT AT BEDSIDE ADMINISTERING BREATHING TREATMENT.
--- NOTE | 2018-11-23 12:27 | NUR ---
PT PLACED ON 2L OF O2 VIA NC ORDERED BY MD. TOLERATING WELL.
[2018-11-23 12:39] LABS: BASOPHILS % (AUTO) 0.3 % (0.0-2.0); EOSINOPHILS # (AUTO) 0.1 K/uL (0-0.4); EOSINOPHILS % (AUTO) 1.5 % (0.0-4.0); HEMATOCRIT 30.4 % (36-48); LYMPHOCYTES # (AUTO) 0.8 K/uL (2.5-16.5); LYMPHOCYTES % (AUTO) 14.9 % (20.5-51.1); MEAN CORPUSCULAR HEMOGLOBIN 31 pg (27-31); MEAN CORPUSCULAR HGB CONC 33 g/dL (33-37); MEAN CORPUSCULAR VOLUME 93.9 fL (80-94); MONOCYTES # (AUTO) 0.4 K/uL (0.8-1.0); MONOCYTES % (AUTO) 8.1 % (1.7-9.3); NEUTROPHILS # (AUTO) 3.8 K/uL (1.8-7.7); NEUTROPHILS % (AUTO) 75.2 % (42.2-75.2); PLATELET COUNT (AUTO) 217 K/uL (140-450); RED BLOOD CELL COUNT(AUTO) 3.24 MIL/uL (4.20-5.40); RED CELL DISTRIBUTION WIDTH 15.8 % (11.6-13.7); WHITE BLOOD COUNT (AUTO) 5.1 K/uL (4.8-10.8)
--- NOTE | 2018-11-23 12:43 | NUR ---
cxr at bedside
[2018-11-23 12:50] LABS: ANION GAP 10.6 (8-16); CARBON DIOXIDE 29.3 mmol/L (21-32); CREATININE 1.3 mg/dL (0.6-1.3); POTASSIUM 3.9 mmol/L (3.5-5.1)
[2018-11-23 12:55] LABS: ALBUMIN 2.9 g/dL (3.4-5.0); TOTAL BILIRUBIN 0.2 mg/dL (0.0-1.0)
[2018-11-23 12:57] LABS: PROTHROMBIN TIME 11.5 secs (10.8-13.4)
[2018-11-23 13:05] LABS: CREATINE KINASE MB 0.5 ng/mL (0-3.6)
[2018-11-23] MEDS ORDERED: MORPHINE SULFATE 4 MG/ML SYR IM ONE (13:50)
--- NOTE | 2018-11-23 14:10 | NUR ---
PT IS REQUESTING TO EAT PRIOR TO MEDICATION ADMINISTRATION (MORPHINE). DIET ORDERED BY MD. AWAITING FOR CARDIAC DIET TRAY.
[2018-11-23] MEDS ORDERED: LORazepam 2 MG/ML VIAL IVP PRN (14:25)
[2018-11-23] MEDS ORDERED: ONDANSETRON 4 MG/2 ML VIAL IVP PRN (14:25)
[2018-11-23] MEDS ORDERED: ALBUTEROL 0.083% 2.5 MG/3 ML NEBU INH PRN (14:25)
[2018-11-23] MEDS ORDERED: MORPHINE SULFATE 4 MG/ML SYR IVP PRN (14:25)
[2018-11-23] MEDS ORDERED: MORPHINE SULFATE 2 MG/ML SYR IVP PRN (14:25)
[2018-11-23] MEDS ORDERED: methylPREDNISolone SS 40 MG in WATER STERILE 1 ML IV ONE (14:25)
--- NOTE | 2018-11-23 14:30 | NUR ---
PT REFUSED TO IM MORPHINE ADMINISTRATION STATING " I ALWAYS GET IT IV, I DONT WANT AN INJECTION." NOTIFIED.
[2018-11-23] MEDS ORDERED: methylPREDNISolone SS 40 MG/ML VIAL IVP SCH (15:30)
[2018-11-23 15:40] VITALS: BP 111/85
--- NOTE | 2018-11-23 15:40 | NUR ---
RECEIVED PT FROM ER NURSE, DAYNA, PT IS AWAKE AND ALERT AND WITH O2 AT 3L VIA NC, PT WAS ASSISTED TO THE BED AND MADE COMFORTABLE, PT HAS AN IV LINE ON THE RT ELBOW G.24, ON SALINE LOCK. PT VERBALIZED A PAIN RATE OF 7/10 AND IS ASKING FOR MORPHINE IV. NO SIGN OF DISTRESS NOTED AND WILL MONITOR AND MEDICATE PT.
--- NOTE | 2018-11-23 15:46 | NUR ---
PT TRANSFERRED TO MED SURG/TELE RM 111A IN. REPORT GIVEN TO JESSE GERBER RN. PT WAS TRANSFERRED IN A STABLE CONDITION.
--- NOTE | 2018-11-23 15:50 | NUR ---
MRSA SWAB DONE TO PT NOW. SAMPLE SENT TO LAB.
--- NOTE | 2018-11-23 17:27 | NUR ---
PT IS AWAKE AND IS SEATED ON THE BED, VITAL SIGNS CHECKED AND BP IS 121/83, PULSE IS 78 AND O2 SATURATION IS 97%,IV MEDICATIONS WERE GIVEN AND PT TOLERATED IT, WILL RE-ASSESS PAIN AND MONITOR PT.
[2018-11-23] MEDS: FUROSEMIDE 40 MG/4 ML VIAL IVP SCH (18:05)
[2018-11-23] MEDS: ALBUTEROL 0.083% 2.5 MG/3 ML NEBU INH SCH (19:06)
[2018-11-23] MEDS: IPRATROPIUM 0.02% 0.5 MG/2.5 ML NEBU INH SCH (19:07)
--- NOTE | 2018-11-23 19:20 | NUR ---
ENDORSED PT OPERATIONS RESEARCH GROUP MANAGER NURSE, HESHAM FOR CONTINUITY OF CARE. PT IS HAVING A BREATHING TREATMENT AND IS STABLE AT THIS TIME.
--- NOTE | 2018-11-23 19:25 | NUR ---
RECEIVED KPT FROM JESSE CEVALLOS PT IS AAOX4 ON BED REST BUT PT CAN USE BSC, ON TELMETRY SR PT HAS A DESFIBRILATOR HL ON RT ARM , ON 09 14 LTS VIA NC NOT SOB NOTED INITIAL ASSESSMENT DONE
[2018-11-23 20:00] VITALS: BP 128/84
--- NOTE | 2018-11-23 22:15 | NUR ---
AFTER PAIN MDEC GIVEN PT REST NOT SOB NOTED NOT DISTRESS, ON TELMETRY SR
[2018-11-24] VITALS: BP 115/70
--- NOTE | 2018-11-24 | NUR ---
PT IS TRANSFER TO ROOM 121B HL ON RT ARM PATENT ON TELMETRY SR [facility]
[2018-11-24] MEDS: FUROSEMIDE 40 MG/4 ML VIAL IVP SCH ×3 (02:50→12:00)
--- NOTE | 2018-11-24 03:48 | NUR ---
AFTER PAIN MEDIC GIVEN PT IS SLEEPING WELL QUIET NOT SOB NOTED
[2018-11-24 04:00] VITALS: BP 128/83
--- NOTE | 2018-11-24 05:00 | NUR ---
SPONGE BATH GIVEN LINEN CHANGED PT ON SOB TO MOD ACTIVITY
[2018-11-24] MEDS: IPRATROPIUM 0.02% 0.5 MG/2.5 ML NEBU INH SCH ×2 (06:37→13:20)
[2018-11-24] MEDS: ALBUTEROL 0.083% 2.5 MG/3 ML NEBU INH SCH ×2 (06:38→13:21)
--- NOTE | 2018-11-24 07:00 | NUR ---
PT ON TELMETRY SR PT WILL BE ENDORSED TO DAY SHIFT NURSE FOR CONTINUITY OF CARE
[2018-11-24 08:00] VITALS: BP 120/85
--- NOTE | 2018-11-24 08:00 | NUR ---
ASSUMED CARE FROM NAEL-BAN. RECEIVED PT AAOX4. NO SOB NOTED. NO C/O PAIN AT THIS TIME. IV TO RT UPPER ARM PATENT AND INTACT. CHEST, DIMINISHED AIR ENTRY TO THE BASES. ABDOMEN SOFT, BOWEL SOUNDS PRESENT. WITH BEDSIDE COMMODE PROVIDED AT THE BEDSIDE. INSTRUCTED PT TO CALL FOR ASSISTANCE, CALL LIGHT WITHIN REACH, VERBALIZED UNDERSTANDING.
--- NOTE | 2018-11-24 08:39 | NUR ---
PATIENT HAS BEEN SCREENED AND CATEGORIZED MODERATE NUTRITION RISK. PATIENT WILL BE SEEN WITHIN 3-5 DAYS OF ADMISSION. 11/26/18DARIN DENNEY RD
[2018-11-24] MEDS ORDERED: ASPIRIN 81 MG TAB.CHEW PO SCH (09:00)
[2018-11-24] MEDS ORDERED: ENOXAPARIN 40 MG/0.4 ML SYR SUBQ SCH (09:00)
--- NOTE | 2018-11-24 10:05 | NUR ---
CM NOTE I ATTEMPTED TO SCHEDULE PATIENT'S OUTPATIENT FOLLOW UP WITH DR. FRIEDA GRAHAM # [phone] BUT PER GABRIELA OF DR[facility] THEY ARE A WALK-IN CLIN[facility] AND DO NOT DO APPOINTMENTS. I INFORMED HER THAT THIS IS AN OUTPATIENT FOLLOW UP AFTER A HOSPITAL ADMISSION BUT SHE INSISTED THAT THEY DO NOT DO APPOINTMENTS AND PATIENT CAN COME ANY TIME FROM MONDAYS TO FRIDAYS 9:00 AM TO 6:30 PM OR SATURDAYS FROM 8:00 AM TO 2:00 PM AT THE CLINIC AT [address] [place] [address] TO BE SEEN. I GAVE THE PATIENT HER PCP'S CLINIC HOURS, ADDRESS AND PHONE NUMBER AND EMPHASIZED TO HER THE IMPORTANCE OF FOLLOWING UP WITH HER PCP POST DISCHARGE. THE PATIENT VERBALIZED UNDERSTANDING.
--- NOTE | 2018-11-24 11:00 | NUR ---
PT SEEN BY DR. GUILLEN AT THE BEDSIDE WITH D/C HOME ORDER.
[2018-11-24] MEDS ORDERED: PRED20TA5 PO (11:34)
[2018-11-24] MEDS ORDERED: HYDR-5122 PO (11:34)
--- NOTE | 2018-11-24 12:00 | NUR ---
PT EATING LUNCH. NO SOB NOTED. NO COMPLAINTS MADE. PT STATED HER DAUGHTER WILL BE PICKING HER UP AROUND 3 PM.
[2018-11-24] MEDS ORDERED: HYDROcodone/APAP 5/325 MG 1 TAB TAB PO PRN (12:05)
--- NOTE | 2018-11-24 15:05 | NUR ---
DISCHARGE INSTRUCTIONS AND PRESCRIPTIONS GIVEN TO PT WHICH VERBALIZED FULL UNDERSTANDING OF THE INSTRUCTIONS GIVEN AND THE NEED TO FOLLOW UP WITH PCP WITHIN 7 DAYS. ARM BANDS AND IV REMOVED, CANNULA TIP INTACT. PT WHEELED OUT TO THE FRONT LOBBY IN STABLE CONDITION. NO SOB NOTED, ON 02 AT 3LPM VIA NASAL CANNULA WITH OWN PORTABLE OXYGEN TANK. PT IS D/C HOME WITH DAUGHTER.
== END 2018-11-24 15:05 | disposition home or self-care (01) | DRG 140 ==
LOC: MED 11:15 → MTU 14:49
PROVIDERS: ADMIT Internal Medicine Pulmonary Disease; ATTEND Internal Medicine Pulmonary Disease
DX: J44.1 Chronic obstructive pulmonary disease with (acute) exacerbation (principal); J96.11 Chronic respiratory failure with hypoxia; E44.0 Moderate protein-calorie malnutrition; E11.40 Type 2 diabetes mellitus with diabetic neuropathy, unspecified; I13.0 Hypertensive heart and chronic kidney disease with heart failure and stage 1 through stage 4 chronic kidney disease, or unspecified chronic kidney disease; I50.22 Chronic systolic (congestive) heart failure; M94.0 Chondrocostal junction syndrome [Tietze]; J44.0 Chronic obstructive pulmonary disease with (acute) lower respiratory infection; J20.9 Acute bronchitis, unspecified; E66.9 Obesity, unspecified; M10.9 Gout, unspecified; E78.5 Hyperlipidemia, unspecified; N18.9 Chronic kidney disease, unspecified; M19.90 Unspecified osteoarthritis, unspecified site; Z68.31 Body mass index [BMI] 31.0-31.9, adult; Z88.0 Allergy status to penicillin; Z88.8 Allergy status to other drugs, medicaments and biological substances; Z95.810 Presence of automatic (implantable) cardiac defibrillator
CPT/HCPCS: 36415; 71045; 80053; 82550; 82553; 83735; 83880; 84484; 85025; 85610; 87081; 93005; 94640; 96374; 96375; 99285; J1940; J2270; J2930; J7613; J7644

== ENCOUNTER 2018-12-13 13:56 | Inpatient (IN) | payer OTHER ==
[~2018-12-13] VITALS: Ht 165.1 cm; Wt 86.6 kg
[~2018-12-13 13:56] MED LIST changes: +HYDR-5122 PO; +PRED20TA5 PO
--- NOTE | 2018-12-13 13:57 | NUR ---
PT TO ER BED 8
[2018-12-13 13:58] VITALS: BP 196/111
[2018-12-13] MEDS ORDERED: ALBUTEROL SULFATE/IPRATROPIU 3 ML SOL IH ONE (14:00)
[2018-12-13] MEDS ORDERED: methylPREDNISolone SS 125 MG in WATER STERILE 2 ML IV ONE (14:00)
--- NOTE | 2018-12-13 14:00 | NUR ---
DR CASH AT BEDSIDE
--- NOTE | 2018-12-13 14:01 | NUR ---
58 Y FEMALE BIB SELF WITH C/O SOB X3 DAYS, WORSEN TODAY, WHEEZING LUNG SOUNDS LYNDA. ON O2 AT 3L VIA NC, DENIES CP, N/V/D. BP 196/111. HR 109. PT SPEAKING IN FULL COMPLETE SENTENCES. AA0X4. SEIZURE PRECUATIONS IN PLACE. BED IS DOWN, LOCKED, BED RAIL X 1, ERMD TO SEE PT. HX OF COPD, CHF, DM, HTN, SEIZURES RX- SEE MED RECON
--- NOTE | 2018-12-13 14:12 | NUR ---
RT AT BEDSIDE
--- NOTE | 2018-12-13 14:14 | NUR ---
ADMITTING DX: SOB HX: COPD C/OI SOB AWAKE AND ALERT VERBALLY RESPONSIVE EDUCATION PROVIDED TO PATIENT WITH ACKNOWLEDGEMENT ON HHN THERAPY AND RESPIRATORY DRUG FOREMENTIONED GIVEN ORDERED ENCOURAGED PATIENT FOR DEEP BREATHING DURING THERAPY TOLERATED THERAPY WELL WITOUT INCIDENT
--- NOTE | 2018-12-13 14:26 | NUR ---
RAD AT BEDSIDE
--- NOTE | 2018-12-13 14:27 | NUR ---
LAB AT BEDSIDE
[2018-12-13 14:45] LABS: BASOPHILS % (AUTO) 0.3 % (0.0-2.0); EOSINOPHILS # (AUTO) 0.1 K/uL (0-0.4); EOSINOPHILS % (AUTO) 1.6 % (0.0-4.0); HEMATOCRIT 31.8 % (36-48); HEMOGLOBIN 10.5 g/dL (12.0-16.0); LYMPHOCYTES # (AUTO) 1.3 K/uL (2.5-16.5); LYMPHOCYTES % (AUTO) 19.1 % (20.5-51.1); MEAN CORPUSCULAR HEMOGLOBIN 31 pg (27-31); MEAN CORPUSCULAR HGB CONC 33 g/dL (33-37); MEAN CORPUSCULAR VOLUME 93.5 fL (80-94); MONOCYTES # (AUTO) 0.4 K/uL (0.8-1.0); MONOCYTES % (AUTO) 5.7 % (1.7-9.3); NEUTROPHILS # (AUTO) 4.8 K/uL (1.8-7.7); NEUTROPHILS % (AUTO) 73.3 % (42.2-75.2); PLATELET COUNT (AUTO) 167 K/uL (140-450); RED CELL DISTRIBUTION WIDTH 16.9 % (11.6-13.7); WHITE BLOOD COUNT (AUTO) 6.6 K/uL (4.8-10.8)
--- NOTE | 2018-12-13 15:00 | NUR ---
VSS AT THIS TIME, PT SITTING IN BED, AA0X4
[2018-12-13 15:11] LABS: PROTHROMBIN TIME 10.6 secs (10.8-13.4)
--- NOTE | 2018-12-13 15:15 | NUR ---
PATIENT ARRIVED ON UNIT VIA GURYAJAIRA ACCOMPANIED BY ER NURSE ABY. PATIENT IS AOX4, TO NAME, PLACE, DATE AND TIME. ABLE TO COMMUNICATE APPROPRIATELY. DENIES PAIN. RESPIRATION EVEN AND UNLABORED ON 3LPM VIA NC. IV ON R HAND #24G, INTACT AND PATENT, STABLE BY CARD BOARD AND WARP AROUND BY KELIX, INFUSING POTASSIUM AT 50ML/HR FOR POTASSIUM LEVEL 3.3L. SKIN INTACT AND CLEAN. ABLE TO AMBULATE WITH MINIMAL ASSISTANCE. PROVIDED BEDSIDE COMMODE. ORIENTED PATIENT TO THE ROOM, HOW TO USE THE CALL LIGHT, BED REMOTE, TV, AND BATHROOM. INSTRUCTED PATIENT TO USE THE CALL LIGHT FOR ANY ASSISTANCE AND PATIENT WAS AWARE. VITAL SIGNS TAKEN; TEMP 97.2, BP 138/89, PULSE 98, SPO2 93% ON 3LPM VIA NC, RR 20, AND DENIES ANY PAIN AT THIS TIME. MRSA NARES COLLECTED. DISCUSSED PLAN OF CARE WITH PATIENT AND PATIENT VERBALIZED UNDERSTANDING. FALL RISK PROTOCOL AND SEIZURE PRECAUTION INITIALED. BED IN LOW POSITION AND CALL LIGHT WITHIN REACH. Addendum: 12/13/18 at 1901 by Bernie Sequeira RN [id number]
--- NOTE | 2018-12-13 15:59 | NUR ---
DR CASH RE-EVALUATING PT
[2018-12-13] MEDS ORDERED: MORPHINE SULFATE 4 MG/ML SYR IVP ONE (16:00)
[2018-12-13 16:05] LABS: ALBUMIN 3.2 g/dL (3.4-5.0); CARBON DIOXIDE 22.6 mmol/L (21-32); CREATININE 1.4 mg/dL (0.6-1.3); TOTAL BILIRUBIN 0.3 mg/dL (0.0-1.0)
[2018-12-13 16:16] LABS: POTASSIUM 3.3 mmol/L (3.5-5.1)
[2018-12-13 16:18] LABS: ANION GAP 16.1 (8-16)
[2018-12-13] MEDS ORDERED: KCL 20 MEQ/WATER INJ PREMIX 100 ML IV ONE (16:35)
--- NOTE | 2018-12-13 16:37 | NUR ---
PT EATING IN BED
--- NOTE | 2018-12-13 17:15 | NUR ---
Patient will be admitted to care of DR CORADO. Admited to TELE. Will go to room 110-B. Belongings list completed. Report to CONCEPCIÓN CEVALLOS.
[2018-12-13] MEDS ORDERED: guaiFENesin DM 200/20 MG-10 ML 10 ML UDC PO PRN (17:40)
[2018-12-13] MEDS ORDERED: cloNIDine 0.1 MG TAB PO PRN (17:40)
[2018-12-13] MEDS ORDERED: ONDANSETRON 4 MG/2 ML VIAL IVP PRN (17:40)
[2018-12-13] MEDS ORDERED: diphenhydrAMINE 50 MG/ML VIAL IVP PRN (17:40)
[2018-12-13] MEDS ORDERED: ZOLPIDEM 5 MG TAB PO PRN (17:40)
[2018-12-13] MEDS ORDERED: DOCUSATE SODIUM 250 MG GELCAP PO PRN (17:40)
[2018-12-13] MEDS ORDERED: MAG SULF 2000 MG/WATER PREMIX 50 ML IV PRN (17:40)
[2018-12-13] MEDS ORDERED: ACETAMINOPHEN 325 MG TAB PO PRN (17:40)
[2018-12-13] MEDS ORDERED: MAGNESIUM OXIDE 400 MG TAB PO PRN (17:40)
[2018-12-13] MEDS ORDERED: POTASSIUM CHLORIDE 10 MEQ TABER PO PRN (17:40)
[2018-12-13] MEDS ORDERED: DOCUSATE 100 MG/10 ML UDC PO SCH (17:45)
--- NOTE | 2018-12-13 17:45 | NUR ---
PATIENT IS SITTING UP ON BED AND TALKING TO HER PHONE. NO SIGNS OF DISTRESS NOTED. BED IN LOW POSITION AND CALL LIGHT WITHIN REACH.
[2018-12-13 17:50] VITALS: BP 138/89
--- NOTE | 2018-12-13 18:05 | NUR ---
PATIENT RECEIVED HER FOOD TRAY. NO SIGNS OF DISTRESS NOTED.
--- NOTE | 2018-12-13 19:25 | NUR ---
RECEIVED BEDSIDE REPORT FROM DAY SHIFT NURSE. PATIENT AWAKE, ALERT, AND COOPERATIVE. RESPIRATION EVEN UNLABORED ON 2L NC. NO DISTRESS NOTED. SKIN IS WARM AND DRY. IV PATENT AND INTACT. PLAN OF CARE WAS DISCUSSED. ALL SAFETY MEASURES IN PLACE. BED IS AT LOW POSITION. BEDSIDE COMMODE WITHIN REACH. CALL LIGHT WITHIN REACH AND VERBALIZES ITS USE. WILL CONTINUE TO MONITOR
--- NOTE | 2018-12-13 19:30 | NUR ---
ENDORSED PATIENT AT BEDSIDE TO SENIOR ELECTRICAL PROJECT MANAGER NURSE FOR CONTINUITY OF CARE. PATIENT IS IN STABLE CONDITION.
[2018-12-13] MEDS: AZITHROMYCIN 500 MG in DEXTROSE 5% 250 ML IV SCH (19:36)
[2018-12-13] MEDS ORDERED: AZITHROMYCIN 500 MG INJ VIAL IV ONE (19:37)
[2018-12-13 20:00] VITALS: BP 137/97
--- NOTE | 2018-12-13 20:00 | NUR ---
INITIAL ASSESSMENT DONE. VITALS WERE TAKEN. PATIENT SATING 99% ON 2L. NO DISTRESS NOTED. WILL CONTINUE TO MONITOR
[2018-12-13] MEDS: FUROSEMIDE 40 MG TAB PO SCH (20:39)
[2018-12-13] MEDS: CARVEDILOL 12.5 MG TAB PO SCH (20:40)
[2018-12-13] MEDS: glipiZIDE 5 MG TAB PO SCH (20:40)
[2018-12-13] MEDS: HYDROcodone/APAP 10/325 MG 1 TAB TAB PO PRN (20:41)
[2018-12-13] MEDS: methylPREDNISolone SS 125 MG/2 ML VIAL IVP SCH (20:41)
--- NOTE | 2018-12-13 20:41 | NUR ---
PATIENT COMPLAINED OF LEG PAIN 10/10. PRN PAIN MED GIVEN PER ORDER. WILL CONTINUE TO MONITOR
--- NOTE | 2018-12-13 21:00 | NUR ---
ALL SCHEDULED MEDS WERE GIVEN AND TOLERATED THEM WELL. WILL CONTINUE TO MONITOR
--- NOTE | 2018-12-13 23:00 | NUR ---
PATIENT WATCHING TV RESPIRATION EVEN UNLABORED ON 2L NC. NO DISTRESS NOTED. WILL CONTINUE TO MONITOR
[2018-12-14] VITALS: BP 150/91
--- NOTE | 2018-12-14 | NUR ---
VITALS WERE TAKEN. PATIENT CONDITION STABLE. NO DISTRESS NOTED. WILL CONTINUE TO MONITOR
--- NOTE | 2018-12-14 02:00 | NUR ---
CHECKED PATIENT. PATIENT IV INFILTRATED. INSERTED NEW IV AT LEFT HAND 24 G. NO ACTIVE BLEEDING SEEN. CANNULA INTACT. WILL CONTINUE TO MONITOR
[2018-12-14] MEDS: HYDROcodone/APAP 5/325 MG 1 TAB TAB PO PRN ×2 (02:03→17:13)
[2018-12-14 04:00] VITALS: BP 145/97
--- NOTE | 2018-12-14 04:00 | NUR ---
VITALS WERE TAKEN. PATIENT CONDITION STABLE. RESPIRATION EVEN UNLABORED ON 2L NC. NO DISTRESS NOTED. WILL CONTINUE TO MONITOR
[2018-12-14] MEDS: methylPREDNISolone SS 125 MG/2 ML VIAL IVP SCH ×3 (04:48→20:15)
--- NOTE | 2018-12-14 06:00 | NUR ---
PATIENT REFUSED BLOOD DRAWN. EDUCATED THE RISK AND BENEFITS X2 STILL REFUSED
[2018-12-14] MEDS: ALBUTEROL 0.083% 2.5 MG/3 ML NEBU INH PRN ×3 (07:10→19:34)
[2018-12-14] MEDS: IPRATROPIUM 0.02% 0.5 MG/2.5 ML NEBU INH PRN ×2 (07:10→12:28)
--- NOTE | 2018-12-14 07:23 | NUR ---
ENDORSED PATIENT TO DAY SHIFT NURSE. PATIENT CONDITION STABLE
--- NOTE | 2018-12-14 07:24 | NUR ---
RECEIVED BEDSIDE REPORT FROM CATALYTIC CONVERTER OPERATOR HELPER NURSE. PATIENT IS AWAKE, ALERT AND ORIENTEDX4. NO SIGNS OF DISTRESS CURRENTLY GETTING A BREATHING TX AT THIS TIME, RT AT BEDSIDE. PATIENT IS AMBULATORY W ASSIST, BEDSIDE COMMODE AVAILABLE, PATIENT REFUSES TO CHANGE TO YELLOW GOWN AT THIS TIME. PATIENT IS CONTINENT. SKIN IS INTACT. IV ON L HAND 24G SL. CLEAN, DRY AND INTACT. TELE MONITOR IN PLACE. BED IN LOW POSITION. CALL LIGHT WITHIN REACH. PATIENT ABLE TO MAKE NEEDS KNOWN. WILL CONTINUE TO MONITOR
[2018-12-14 08:00] VITALS: BP 134/95
[2018-12-14] MEDS: ATORVASTATIN 20 MG TAB PO SCH (09:25)
[2018-12-14] MEDS: glipiZIDE 5 MG TAB PO SCH ×2 (09:25→20:14)
[2018-12-14] MEDS: PHENYTOIN 100 MG CAPER PO SCH ×3 (09:26→17:12)
[2018-12-14] MEDS: GABAPENTIN 100 MG CAP PO SCH ×3 (09:26→17:12)
[2018-12-14] MEDS: CARVEDILOL 12.5 MG TAB PO SCH ×2 (09:26→20:14)
[2018-12-14] MEDS: FUROSEMIDE 40 MG TAB PO SCH ×2 (09:26→20:15)
[2018-12-14] MEDS: FERROUS SULFATE 325 MG TABEC PO SCH ×3 (09:26→17:12)
[2018-12-14] MEDS: HYDROcodone/APAP 10/325 MG 1 TAB TAB PO PRN (09:27)
--- NOTE | 2018-12-14 09:30 | NUR ---
ADMINISTERED MEDS. EDUCATED ON SIDE EFFECTS. PATIENT TOLERATED WELL. WILL CONTINUE TO MONITOR THE PATIENT. CALL LIGHT WITHIN REACH
--- NOTE | 2018-12-14 09:59 | NUR ---
PATIENT IS SLEEPING. NO SIGNS OF DISTRESS ON 3L NC. WILL CONTINUE TO MONITOR
--- NOTE | 2018-12-14 10:49 | NUR ---
PATIENT IS SLEEPING. WILL CONTINUE TO MONITOR THE PATIENT.
[2018-12-14 12:00] VITALS: BP 139/85
--- NOTE | 2018-12-14 12:25 | NUR ---
PATIENT EATING LUNCH. NO SIGNS OF DISTRESS. WILL CONTINUE TO MONITOR THE PATIENT
--- NOTE | 2018-12-14 12:48 | NUR ---
PATIENT JUST GOT DONE W BREATHING TX. ADMINISTERED MEDS. EDUCATED ON SIDE EFFECTS. PATIENT TOLERATED WELL. WILL CONTINUE TO MONITOR THE PATIENT
--- NOTE | 2018-12-14 14:00 | NUR ---
PATIENT IV INFILTRATED. REMOVED, TIP INTACT. PATIENT REFUSED ANOTHER IV AT THIS TIME. SHE SAID SHE WILL DO IT LATER.
--- NOTE | 2018-12-14 15:43 | NUR ---
PATIENT IS SLEEPING. NO SIGNS OF DISTRESS ON 3L NC. WILL CONTINUE TO MONITOR THE PATIENT.
[2018-12-14 16:00] VITALS: BP 126/94
--- NOTE | 2018-12-14 17:17 | NUR ---
ADMINISTERED SCHEDULED MEDS AND PRN PAIN MED. EDUCATED PATIENT ON SIDE EFFECTS. PATIENT DOES NOT WANT IV IN. SHE SAID TO DO IT IN AN HR WHEN THE PAIN MED TAKES AFFECT.
[2018-12-14] MEDS ORDERED: AMIO200T5 PO (17:20)
[2018-12-14] MEDS ORDERED: ASPI-1718 PO (17:21)
--- NOTE | 2018-12-14 18:44 | NUR ---
RADHA ER NURSE, ATTEMPTED TO PLACE IV ON PATIENT. PATIENT ONLY ALLOWED RADHA TO TRY ONCE. REFUSING ANOTHER TRY. SHE SAID COMMERCIAL UNDERWRITER CAN ATTEMPT IT LATER. ENDORSING IV ANTIBIOTICS TO COMMERCIAL UNDERWRITER NURSE
--- NOTE | 2018-12-14 19:32 | NUR ---
azithromycin administration endorsed to african studies professor nurse. gave bedside report to african studies professor nurse. patient endorsed in stable condition
--- NOTE | 2018-12-14 19:33 | NUR ---
RECEIVED BEDSIDE REPORT FROM DAY SHIFT NURSE. PATIENT IS AAOX4. CURRENTLY GETTING A BREATHING TX AT THIS TIME, NO S/S OF SOB AT THIS TIME. PT ONLY ALLOWS ER NURSE TO START IV. 1800 AZITHROMYCIN MED NOT GIVEN YET DUE TO NO IV LINE. PT IS AMBULATORY W ASSIST, BEDSIDE COMMODE AVAILABLE. SKIN IS INTACT. WARM AND DRY TO TOUCH. BED IN LOW POSITION. CALL LIGHT WITHIN REACH. WILL CONTINUE TO MONITOR.
[2018-12-14 20:00] VITALS: BP 146/83
[2018-12-14] MEDS: AZITHROMYCIN 500 MG in DEXTROSE 5% 250 ML IV SCH (20:16)
--- NOTE | 2018-12-14 20:16 | NUR ---
GIVEN ALL SCHEDULED MEDS MD ORDERED. [facility] CHARGE NURSE STARTED IV. 1800 MED, AZITHROMYCIN ALSO ADMINISTERED NOW. PT TOLERATED WELL. WILL CONTINUE TO MONITOR.
[2018-12-15] VITALS: BP 134/95
--- NOTE | 2018-12-15 | NUR ---
PT C/O GASTRIC ACID REFLUX. NOTIFIED TO AND DR. DAVID JULIO PEPCID 20MG BID PO. Addendum: 12/15/18 at 0242 by Tenzin Jones RN ROLDAN JULIO.
[2018-12-15] MEDS: HYDROcodone/APAP 5/325 MG 1 TAB TAB PO PRN (00:25)
--- NOTE | 2018-12-15 00:25 | NUR ---
PT C/O PAIN IN LOWER LEG, 01/19. NORCO 5/325 ADMINISTERED MD PRN ORDERED. PT REQUESTED NORCO FROM Q6H TO Q4H. NOTIFIED AND DR. HERNANDEZ CHANGED NORCO 5/325 Q6H TO Q4H. PT TOLERATED WELL. WILL CONTINUE TO MONITOR. Addendum: 12/15/18 at 0241 by Tenzin Jones RN ROLDAN WALLACE. DR. KAHN [facility] ORDERED.
[2018-12-15] MEDS ORDERED: HYDROcodone/APAP 5/325 MG 1 TAB TAB PO PRN ×3 (00:55→04:50)
--- NOTE | 2018-12-15 02:35 | NUR ---
PT SLEEPING. NO S/S OF SOB OR ANY RESPIRATORY DISTRESS NOTED WITH 3L NC. BREATHING EVEN AND UNLABORED. BED IN LOW POSITION. CALL LIGHT WITHIN REACH. WILL CONTINUE TO MONITOR.
[2018-12-15 04:00] VITALS: BP 135/95
--- NOTE | 2018-12-15 04:05 | NUR ---
VS CHECKED, WITHIN PT'S BASELINE, PT C/O 8/10 BACK PAIN. WILL MEDICATE. GIVEN SOLU-MEDROL IV PUSH. PT TOLERATED WELL.
[2018-12-15] MEDS: methylPREDNISolone SS 125 MG/2 ML VIAL IVP SCH ×2 (04:07→12:23)
[2018-12-15] MEDS: HYDROcodone/APAP 10/325 MG 1 TAB TAB PO PRN (04:10)
--- NOTE | 2018-12-15 04:57 | NUR ---
FOUND OUT ANIMAL SHELTER SUPERVISOR DR IS NICHOLAS KAHN AND SUSPENDED. CHANGED DR FOR ALL ORDERS MADE, NORCO 5/325 CHANGED FROM Q6H TO Q4H AND PEPCID 20MG BID TO PRIMARY [address].
--- NOTE | 2018-12-15 06:10 | NUR ---
PT SLEEPING IN BED. NO S/S OF PAIN OR ANY DISCOMFORT. BED IN LOW POSITION. CALL LIGHT WITHIN REACH. WILL CONTINUE TO MONITOR.
--- NOTE | 2018-12-15 07:31 | NUR ---
ENDORSED PT TO DAY SHIFT NURSE. PT IN STABLE CONDITION.
--- NOTE | 2018-12-15 07:35 | NUR ---
PATIENT WAS AWAKE, ALERT. RESPIRATION EVEN, UNLABOR ON 4L NC. SKIN DRY AND WARM. IV PATENT AND INTACT. COMPLAINED OF BACK PAIN. DENIED SOB AT THIS TIME. PLAN OF CARE WAS DISCUSSED WITH PATIENT. BED AT LOW POSITION, SIDE RAILS UP. CALL LIGHT WITHIN REACH.
[2018-12-15 08:00] VITALS: BP 144/79
--- NOTE | 2018-12-15 08:55 | NUR ---
PATIENT HAS BEEN SCREENED AND CATEGORIZED MODERATE NUTRITION RISK. PATIENT WILL BE SEEN WITHIN 3-5 DAYS OF ADMISSION. 12/16/18DARIN [address] RD
[2018-12-15] MEDS ORDERED: FAMOTIDINE 20 MG TAB PO SCH ×3 (09:00)
[2018-12-15] MEDS: PHENYTOIN 100 MG CAPER PO SCH ×2 (09:26→12:22)
[2018-12-15] MEDS: FERROUS SULFATE 325 MG TABEC PO SCH ×2 (09:26→12:22)
[2018-12-15] MEDS: FUROSEMIDE 40 MG TAB PO SCH (09:27)
[2018-12-15] MEDS: glipiZIDE 5 MG TAB PO SCH (09:27)
[2018-12-15] MEDS: ATORVASTATIN 20 MG TAB PO SCH (09:28)
[2018-12-15] MEDS: CARVEDILOL 12.5 MG TAB PO SCH (09:29)
[2018-12-15] MEDS: GABAPENTIN 100 MG CAP PO SCH ×2 (09:29→12:22)
--- NOTE | 2018-12-15 10:15 | NUR ---
PATIENT WAS AWAKE, ALERT. RESPIRATION EVEN, UNLABOR ON 3L NC. NO DISTRESS NOTED AT THIS TIME
[2018-12-15] MEDS: ALBUTEROL 0.083% 2.5 MG/3 ML NEBU INH PRN (10:33)
[2018-12-15] MEDS: IPRATROPIUM 0.02% 0.5 MG/2.5 ML NEBU INH PRN (10:33)
[2018-12-15 12:00] VITALS: BP 142/96
--- NOTE | 2018-12-15 12:30 | NUR ---
PATIENT WAS AWAKE, ALERT, EATING LUNCH COMFORTABLY. DENIED PAIN, SOB AT THIS TIME. DISCHARGE INSTRUCTION AND PRESCRIPTION WERE GIVEN AND EXPLAINED TO THE PATIENT. PATIENT VERBALIZED UNDERSTANDING. IV WAS REMOVED, CATHETER INTACT, NO ACTIVE BLEEDING SEEN. PATIENT WAS MADE AWARE OF FOLLOW UP APPOINTMENT MADE PER BLOCK HACKER. MANAGER INPATIENT WAS REMOVED.
--- NOTE | 2018-12-15 12:31 | NUR ---
CALLED CLINIC OF DR FRIEDA GRAHAM [phone] SPOKE TO ALEC, FOLLOW-UP APPOINTMENT MADE FOR HIGH RISK FOLLOW-UP APPOINTMENT ON 12/17/18 AT 9AM [address] [place] [address]. COPY OF APPOINTMENT SCHEDULE GIVEN TO PATIENT. PRIMARY NURSE STEVEN RN MADE AWARE.
--- NOTE | 2018-12-15 13:10 | NUR ---
PATIENT WAS ESCORTED OUT IN WHEELCHAIR BY STAFF, ALL BELONGINGS WERE TAKEN WITH THE PATIENT. ID BAND WAS REMOVED. PATIENT IS STABLE AT THIS TIME
== END 2018-12-15 13:15 | disposition home or self-care (01) | DRG 140 ==
LOC: MED 13:56 → MTU 16:34
PROVIDERS: ADMIT Internal Medicine Pulmonary Disease; ATTEND Internal Medicine Pulmonary Disease
DX: J44.1 Chronic obstructive pulmonary disease with (acute) exacerbation (principal); J96.20 Acute and chronic respiratory failure, unspecified whether with hypoxia or hypercapnia; E11.22 Type 2 diabetes mellitus with diabetic chronic kidney disease; I13.0 Hypertensive heart and chronic kidney disease with heart failure and stage 1 through stage 4 chronic kidney disease, or unspecified chronic kidney disease; I50.42 Chronic combined systolic (congestive) and diastolic (congestive) heart failure; N18.4 Chronic kidney disease, stage 4 (severe); Z99.81 Dependence on supplemental oxygen; E78.5 Hyperlipidemia, unspecified; G40.909 Epilepsy, unspecified, not intractable, without status epilepticus; F17.200 Nicotine dependence, unspecified, uncomplicated; Z68.31 Body mass index [BMI] 31.0-31.9, adult; Z88.0 Allergy status to penicillin; Z88.8 Allergy status to other drugs, medicaments and biological substances; Z79.899 Other long term (current) drug therapy; Z95.810 Presence of automatic (implantable) cardiac defibrillator
CPT/HCPCS: 36415; 71045; 80053; 82948; 83605; 83880; 84484; 85025; 85610; 87040; 87081; 94640; 96374; 96375; 97161-GP; 99285; J0456; J2270; J2930; J3480; J7060; J7613; J7620; J7644

== ENCOUNTER 2018-12-31 12:03 | Observation (INO) | payer OTHER ==
[~2018-12-31] VITALS: Ht 165.1 cm; Wt 90.7 kg
[~2018-12-31 12:03] MED LIST changes: +AMIO200T5 PO; +ASPI-1718 PO; -AZIT1PDR6 PO; -METH4TAB1 PO; -PRED20TA5 PO
--- NOTE | 2018-12-31 12:06 | NUR ---
PATIENT AMBULATED TO BED 11 AT THIS TIME.
[2018-12-31 12:11] VITALS: BP 117/85
--- NOTE | 2018-12-31 12:14 | NUR ---
LISETH EMT AT BEDSIDE FOR EKG
--- NOTE | 2018-12-31 12:15 | NUR ---
58 Y FEMALE BIB SELF C/O SOB X3 DAYS. PT LABORED BREATHING, TACHYPNEA AT 22 RESPIRATIONS. USES 3 L NC AT HOME. OXYGEN AT 100%. LUNGS COARSE BILATERALLY. PT PLACED ON MONITOR. USES A WALKER. ALERT AND ORIENTED X4. BED IS DOWN, LOCKED, BED RAIL X 1, ERMD TO SEE PT. MED HX:HTN,COPD, RENAL FAILURE, HIGH CHOLESTEROL,DM, FIBRILLATOR Addendum: 12/31/18 at 1257 by [email or web address] PT DOES NOT USE A WALKER. AMB WITH OXYGEN TANK
--- NOTE | 2018-12-31 12:17 | NUR ---
ACCU CHECK 276 Addendum: 12/31/18 at [email or web address] LAGUNA NOTIFIED
[2018-12-31] MEDS ORDERED: FUROSEMIDE 100 MG/10 ML VIAL IVP ONE (12:25)
[2018-12-31] MEDS ORDERED: methylPREDNISolone SS 125 MG/2 ML VIAL IVP ONE (12:25)
--- NOTE | 2018-12-31 12:25 | NUR ---
DR LAGUNA AT BEDSIDE FOR PT EVALUATION
--- NOTE | 2018-12-31 12:50 | NUR ---
XRAY AT BEDSIDE
--- NOTE | 2018-12-31 12:56 | NUR ---
PT AMB TO RESTROOM WITH OXYGEN TANK
--- NOTE | 2018-12-31 13:07 | NUR ---
LAB AT BEDSIDE.
[2018-12-31 13:36] LABS: LYMPHOCYTES # (AUTO) 0.4 K/uL (2.5-16.5); MONOCYTES # (AUTO) 0.2 K/uL (0.8-1.0)
--- NOTE | 2018-12-31 13:37 | NUR ---
PT ADVISED TO NOT EAT CHICKEN SANDWICH DUE TO HIGH SODIUM INTAKE.
--- NOTE | 2018-12-31 13:38 | NUR ---
REGULAR DIET ORDERED, CALLED DIETARY FOR CHICKEN SANDWHICH
[2018-12-31 13:40] LABS: BASOPHILS % (AUTO) 0.4 % (0.0-2.0); EOSINOPHILS % (AUTO) 0.1 % (0.0-4.0); HEMATOCRIT 33.7 % (36-48); LYMPHOCYTES % (AUTO) 4.1 % (20.5-51.1); MEAN CORPUSCULAR HEMOGLOBIN 31 pg (27-31); MEAN CORPUSCULAR HGB CONC 33 g/dL (33-37); MEAN CORPUSCULAR VOLUME 96.3 fL (80-94); MONOCYTES % (AUTO) 1.9 % (1.7-9.3); NEUTROPHILS # (AUTO) 8.3 K/uL (1.8-7.7); NEUTROPHILS % (AUTO) 93.5 % (42.2-75.2); PLATELET COUNT (AUTO) 182 K/uL (140-450); RED CELL DISTRIBUTION WIDTH 19.6 % (11.6-13.7); WHITE BLOOD COUNT (AUTO) 8.8 K/uL (4.8-10.8)
[2018-12-31 13:46] LABS: CARBON DIOXIDE 30.1 mmol/L (21-32); CREATININE 1.4 mg/dL (0.6-1.3); POTASSIUM 4.1 mmol/L (3.5-5.1)
--- NOTE | 2018-12-31 13:46 | NUR ---
PT SITTING UPRIGHT IN BED. AA0X4. PT EATING.
[2018-12-31 13:50] LABS: PROTHROMBIN TIME 10.4 secs (10.8-13.4)
[2018-12-31 13:53] LABS: TOTAL BILIRUBIN 0.5 mg/dL (0.0-1.0)
[2018-12-31 14:03] LABS: D-DIMER < 100 ng/ml (0-400)
[2018-12-31] MEDS ORDERED: ALBUTEROL 0.083% 2.5 MG/3 ML NEBU IH PRN (14:15)
[2018-12-31] MEDS ORDERED: LORazepam 2 MG/ML VIAL IVP PRN (14:15)
[2018-12-31] MEDS ORDERED: ACETAMINOPHEN 325 MG TAB PO PRN (14:15)
[2018-12-31] MEDS ORDERED: ONDANSETRON 4 MG/2 ML VIAL IVP PRN (14:15)
[2018-12-31] MEDS ORDERED: MORPHINE SULFATE 4 MG/ML SYR IVP PRN (14:15)
[2018-12-31] MEDS ORDERED: MAG SULF 2000 MG/WATER PREMIX 50 ML IV PRN (14:15)
--- NOTE | 2018-12-31 14:16 | NUR ---
PT TACHYPNEA AT 24 RESPIRATIONS. PT REQUESTING PAIN MEDICATIONS, DR LAGUNA NOTIFIED.
[2018-12-31] MEDS ORDERED: MORPHINE SULFATE 4 MG/ML SYR IVP ONE (14:30)
[2018-12-31 14:47] VITALS: BP 144/94
--- NOTE | 2018-12-31 14:47 | NUR ---
Patient will be admitted to care of MINDY. Admited to TELE. Will go to room 111B. Belongings list completed. Report to RIKI CEVALLOS.
--- NOTE | 2018-12-31 14:47 | NUR ---
BEDSIDE REPORT FROM CHEMO BADILLO RN. PATIENT ON TELE MONITOR AND STANDARD PRECAUTIONS IN PLACE. PATIENT SKIN INTACT, AMBULATORY AND AWAKE AND ALERT. PATIENT ON 3 L O2 NC, NO DISTRESS NOTED. IV ON L HAND 24 G, SALINE LOCK, IV ASYMPTOMATIC PATENT AND INTACT. B/L FEET EDEMA X2. PATIENT STATED SHE HAS FIBRILLATOR. OXYGEN FROM HOME AT BEDSIDE. BED IN LOW POSITION, CALL LIGHT WITHIN REACH.
[2018-12-31] MEDS ORDERED: FUROSEMIDE 40 MG/4 ML VIAL IVP SCH (15:00)
--- NOTE | 2018-12-31 15:31 | NUR ---
ADMINISTERED LASIX ONE TIME ORDERED
[2018-12-31 16:00] VITALS: BP 150/100
--- NOTE | 2018-12-31 16:33 | NUR ---
PATIENT USING BEDSIDE COMMODE, ON 3 L O2 NC, NO S/S OF DISTRESS
[2018-12-31] MEDS: AZITHROMYCIN 500 MG in DEXTROSE 5% 250 ML IV SCH (17:22)
--- NOTE | 2018-12-31 17:29 | NUR ---
ADMINISTERED SCHEDULED MED. PATIENT TOLERATED WELL
--- NOTE | 2018-12-31 18:31 | NUR ---
PATIENT REFUSED TO WEAR SCD'S. EDUCATED ON IMPORTANCE OF WEARING SCD'S, BUT STILL REFUSED
--- NOTE | 2018-12-31 19:16 | NUR ---
BEDSIDE REPORT GIVEN TO BAN DAVIES. PATIENT ENDORSED IN STABLE CONDITION
[2018-12-31] MEDS: IPRATROPIUM 0.02% 0.5 MG/2.5 ML NEBU IH SCH (19:30)
[2018-12-31] MEDS: ALBUTEROL 0.083% 2.5 MG/3 ML NEBU IH SCH (19:30)
--- NOTE | 2018-12-31 19:30 | NUR ---
RECEIVED FROM AM RN IN BED AWAKE AND NO COMPLAINTS OF PAIN AT THIS TIME. PT. ABLE TO VERBALIZE NEEDS WELL. NO SOB. DX. OF CHF EXACERBATION. CALL LIGHT WITH INR EACH AND CARE PLANS FOR THE NIGHT DISCUSSED WITH HER. TELEMETRY MONITORING. SKIN INTACT. AFEBRILE. ENCOURAGED TO CALL FOR ANY HELP SHE MAY NEED OR I F IN PAIN. "OK"
[2018-12-31 19:53] VITALS: BP 143/98
[2018-12-31] MEDS: methylPREDNISolone SS 40 MG/ML VIAL IVP SCH (20:10)
[2018-12-31] MEDS: MORPHINE SULFATE 2 MG/ML SYR IVP PRN (20:10)
--- NOTE | 2018-12-31 20:25 | NUR ---
MEDICATED WITH MORPHINE 2 MG IVP FOR C/O GENERALIZED PAIN. ABLE TO VERBALIZE NEEDS WELL. NO FURTHER COMPLAINTS DONE. PROVIDED WITH A SNACK REQUESTED. CALL LIGHT WITH IN REACH. CARDIAC TELEMETRY MONITORING. ABLE TO USE CALL LIGHT WELL FOR HELP. A/O X 4. ROM X 4.
[2018-12-31] MEDS ORDERED: methylPREDNISolone SS 40 MG in WATER STERILE 1 ML IV ONE (21:00)
[2019-01-01] VITALS (7 sets, daily range): BP systolic 111–149; BP diastolic 85–100
--- NOTE | 2019-01-01 00:24 | NUR ---
PT. BEEN SLEEPING WELL. 02 STA WITH 3 LPM/NC IS 100 %. NO C/O SOB. DENIES PAIN AT THIS TIME. PT. STATED SHE I S VERY COMFORTABLE. VITAL SIGNS TAKEN FOR MIDNIGHT. PT. WENT BACK TO SLEEP AFTER. CARDIAC TELEMETRY MONITORING.
[2019-01-01] MEDS: ALBUTEROL 0.083% 2.5 MG/3 ML NEBU IH SCH ×4 (01:00→19:20)
[2019-01-01] MEDS: IPRATROPIUM 0.02% 0.5 MG/2.5 ML NEBU IH SCH ×4 (01:00→19:19)
[2019-01-01] MEDS: MORPHINE SULFATE 2 MG/ML SYR IVP PRN ×2 (01:35→08:29)
--- NOTE | 2019-01-01 01:36 | NUR ---
PT. WOKE UP AT THIS TIME AND REQUESTED FOR PAIN RELIEVER. C/O GENERALIZED PAIN. MEDICATED WITH MORPHINE IVP 2 MG.
--- NOTE | 2019-01-01 03:02 | NUR ---
SLEEPING WELL. CALL LIGHT WITH IN REACH. NO SOB. NO RESTLESSNESS.
--- NOTE | 2019-01-01 04:26 | NUR ---
AWAKE AND SITTING UP IN BED. PT. JUST GOT BACK FROM BEDSIDE COMMODE TO URINATE ASSISTED BY MANUFACTURING QUALITY INSPECTOR. WATCHING TV AT THIS TIME. STATED SHE CAN NOT GO BACK SLEEP FOR NOW BECAUSE SHE WAKES UP AT THIS TIME AT HOME. VERBALIZES WELL.
--- NOTE | 2019-01-01 05:55 | NUR ---
WATCHING TV. GOOD AFFECT. SMILING. "I FEEL GOOD" NO FURTHER PAIN COMPLAINTS DONE. SITTING UP IN BED. AFEBRILE. NO SOB. ON BREATHING TREATMENTS. ABLE TO USE CALL LIGHT FOR HELP. USES BEDSIDE COMMODE AND USES CALL LIGHT FOR HELP AND SAFETY. A/O X 4. WILL ENDORSE TO AM RN FOR CONTINUITY OF CARE.
[2019-01-01 06:46] LABS: BASOPHILS % (AUTO) 0.1 % (0.0-2.0); HEMATOCRIT 33.4 % (36-48); HEMOGLOBIN 10.7 g/dL (12.0-16.0); LYMPHOCYTES # (AUTO) 0.4 K/uL (2.5-16.5); LYMPHOCYTES % (AUTO) 6.2 % (20.5-51.1); MEAN CORPUSCULAR HEMOGLOBIN 31 pg (27-31); MEAN CORPUSCULAR HGB CONC 32 g/dL (33-37); MEAN CORPUSCULAR VOLUME 96.7 fL (80-94); MONOCYTES # (AUTO) 0.2 K/uL (0.8-1.0); NEUTROPHILS # (AUTO) 6.4 K/uL (1.8-7.7); NEUTROPHILS % (AUTO) 90.7 % (42.2-75.2); PLATELET COUNT (AUTO) 167 K/uL (140-450); RED BLOOD CELL COUNT(AUTO) 3.45 MIL/uL (4.20-5.40); RED CELL DISTRIBUTION WIDTH 19.2 % (11.6-13.7)
[2019-01-01 06:59] LABS: ANION GAP 13.4 (8-16); CARBON DIOXIDE 26.8 mmol/L (21-32); CREATININE 1.4 mg/dL (0.6-1.3); MAGNESIUM 1.9 mg/dL (1.8-2.4); POTASSIUM 4.2 mmol/L (3.5-5.1); TOTAL BILIRUBIN 0.2 mg/dL (0.0-1.0)
--- NOTE | 2019-01-01 07:20 | NUR ---
PT REPORT RECEIVED FROM RADIO OFFICER NURSE. PT IS AWAKE AND ALERT, NO S/S OF ANY ACUTE DISTRESS NOTED. PT IS ON 3L O2 NC AND IS USING HER OWN PORTABLE O2 TANK. SKIN IS INTACT. IV SITE IS ON THE R FA, 24 G, SALINE LOCKED. PT IS AMBULATORY, ON A CCHO 60 DIET. CALL LIGHT IS WITHIN REACH. WILL CONTINUE TO MONITOR.
--- NOTE | 2019-01-01 08:11 | NUR ---
PATIENT HAS BEEN SCREENED AND CATEGORIZED MODERATE NUTRITION RISK. PATIENT WILL BE SEEN WITHIN 3-5 DAYS OF ADMISSION. 01/02/19DARIN [address]
[2019-01-01] MEDS: ASPIRIN 81 MG TAB.CHEW PO SCH (08:28)
[2019-01-01] MEDS: methylPREDNISolone SS 40 MG/ML VIAL IVP SCH ×2 (08:28→19:58)
[2019-01-01] MEDS: POTASSIUM CHLORIDE 10 MEQ TABER PO SCH (08:29)
[2019-01-01] MEDS: ENOXAPARIN 40 MG/0.4 ML SYR SUBQ SCH (08:29)
--- NOTE | 2019-01-01 08:44 | NUR ---
PT ADMINISTERED AM MEDS, TOLERATED WELL. PT DECLINED THE 40 MEQ KDUR AND LOVENOX. Addendum: 01/01/19 at 0929 by Roxann Calles RN PT SAYS SHE TAKES ONLY 10 MEQ OF POTASSIUM AT HOME PER DAY. HER POTASSIUM IS 4.2 TODAY.
[2019-01-01] MEDS ORDERED: oxyCODONE/APAP 5/325 MG 1 TAB TAB PO PRN (11:05)
[2019-01-01] MEDS ORDERED: FUROSEMIDE 100 MG/10 ML VIAL IVP SCH (11:27)
--- NOTE | 2019-01-01 12:09 | NUR ---
PT COMPLAINING ABOUT FOOD SERVED FOR LUNCH, AND THREATENING TO LEAVE AMA BECAUSE THE MD "DID NOT ORDER BLOOD PRESSURE MEDS" SHE USUALLY TAKES AT HOME. DR GUILLEN CONTACTED, HE SAID OK TO CONTINUE ALL HER HOME MEDICATIONS HERE. ALSO, CA[place] CONTACTED TO CHANGE PT'S LUNCH MEAL. DIETITIAN BROUGHT PT A LUNCH SHE WAS MORE WILLING TO EAT.
[2019-01-01] MEDS ORDERED: DOCUSATE 100 MG/10 ML UDC PO PRN (12:25)
[2019-01-01] MEDS ORDERED: CARVEDILOL 12.5 MG TAB PO SCH (12:38)
[2019-01-01] MEDS: HYDROcodone/APAP 7.5/325 MG 1 TAB PO PRN ×2 (13:23→20:03)
[2019-01-01] MEDS: GABAPENTIN 300 MG CAP PO SCH ×2 (13:23→17:01)
[2019-01-01] MEDS ORDERED: PHENYTOIN 100 MG CAPER PO SCH (13:26)
--- NOTE | 2019-01-01 14:46 | NUR ---
PT IS NAPPING, NO S/S OF ACUTE DISTRESS. O2 ON 3 L/MIN. WILL CONTINUE TO MONITOR.
[2019-01-01] MEDS ORDERED: BLOOD GLUCOSE MONITORING 1 DEV DEV FS SCH (16:30)
[2019-01-01] MEDS: FERROUS SULFATE 325 MG TABEC PO SCH (17:00)
[2019-01-01] MEDS: AZITHROMYCIN 500 MG in DEXTROSE 5% 250 ML IV SCH (17:00)
[2019-01-01] MEDS: FUROSEMIDE 100 MG/10 ML VIAL IVP SCH (17:00)
[2019-01-01] MEDS: glipiZIDE 5 MG TAB PO SCH (17:01)
--- NOTE | 2019-01-01 17:15 | NUR ---
PT STATES THAT SHE DOES NOT TAKE INSULIN. SHE ONLY TAKES GLIPIZIDE FOR HER DIABETES.
[2019-01-01] MEDS: PHENYTOIN 100 MG CAPER PO SCH (17:28)
--- NOTE | 2019-01-01 17:32 | NUR ---
EVENING MEDS ADMINISTERED, IV AZITHROMYCIN HUNG AND DRIPPING. PT EATING DINNER AT THIS TIME, NO COMPLAINTS ABOUT FOOD.
--- NOTE | 2019-01-01 19:15 | NUR ---
RECEIVED REPORT FROM MAHOGANY RN DAYSHIFT NURSE AT BEDSIDE FOR CONTINUITY OF CARE, PT INSTABLE CONDITION.
--- NOTE | 2019-01-01 19:15 | NUR ---
PT ENDORSED TO MICROBIOLOGY SOIL SCIENTIST NURSE IN STABLE CONDITION.
--- NOTE | 2019-01-01 19:34 | NUR ---
RECEIVED PATIENT ON 3L NASAL CANNULA, PULSE OX SAT 99%. PATIENT STATES TO USE OXYGEN AT 3L AT HOME. SCHEDULED BREATHING TREATMENTS ADMINISTERED. TOLERATED TXs WELL. NO ADVERSE SIDE EFFECTS. PLACED PATIENT BACK ON 3L NC. NO RESPIRATORY DISTRESS NOTED AT THIS TIME. WILL CONTINUE TO MONITOR.
--- NOTE | 2019-01-01 20:00 | NUR ---
PT IN BED NEB TREATMENT ALMOST FINISHED RT AT BEDSIDE. PT PLACED BACK ON 3 LITERS OF 02 VIA N/C. LUNGS SOUNDS NOTED WITH CRACKLES , BUT IS 99% WITH 3 LITERS OF 02 VIA N/C. OTHER V/S FOLLOWS T 97.6 P 79 RR 18 B/P 111/85. PT SITTING UP IN LOW BED WITH SIDE RAILS UP X2 AND COMMODE AT BEDSIDE. PT VOIDED 850MLS OF CLEAR YELLOW URINE. PT DID C/O OF MODERATE GENERALIZED PAIN, WILL MEDICATE PT.
[2019-01-01] MEDS: CARVEDILOL 12.5 MG TAB PO SCH (20:03)
--- NOTE | 2019-01-01 20:10 | NUR ---
PT GIVEN NORCO FOR 5/10 GENERALIZED PAIN. PT FINGERSTICK IS 465. PT HAS NO SLIDING SCALE FOR HUMALOG COVERAGE. WILL CALL DR. GUILLEN AND OR NON DESTRUCTIVE TESTING SUPERVISOR MD FOR DR. GUILLEN TO INFORM HIM OF BLOOD SUGAR AND RECEIVE ORDERS FOR INSULIN COVERAGE.
--- NOTE | 2019-01-01 20:35 | NUR ---
PT GIVEN ORDERED SOLUMEDROL VIA RIGHT F/A IV SITE WHICH IS INTACT AND FLUSHED PATENT. COREG WAS HELD DUE TO PT LOW B/P OF 111/85.
[2019-01-01] MEDS ORDERED: INSULIN LISPRO SLIDING SCALE 100 UNITS/ML VIAL SUBQ PRN (21:00)
[2019-01-01] MEDS ORDERED: DEXTROSE 50% 50 ML SYR IVP PRN (21:00)
[2019-01-01] MEDS: BLOOD GLUCOSE MONITORING 1 DEV DEV FS SCH (21:11)
--- NOTE | 2019-01-01 21:15 | NUR ---
PULMONARY CLINICAL APPEALS REVIEWER SERVICE CALLED AND MD GUILLEN PAGED. DR. GUILLEN CALLED BACK WITH STAT ORDER FOR 10 UNITS OF HUMALOG WELL AN ORDER FOR SLIDING SCALE OF HUMALOG INSULIN. NEW ORDERS NOTED, PT UPDATED REGARDING DR. GUILLEN ORDERED INSULIN DUE TO PT HIGH FINGERSTICK. PT VERBALIZED UNDERSTANDING OF NEW ORDERS AND RECEIVED THE 10 UNITS OF HUMALOG COVERAGE. WILL CONTINUE TO MONITOR PT FOR BLOOD SUGAR, AND PAIN RELIEF.
[2019-01-01] MEDS ORDERED: INSULIN LISPRO 100 UNITS/ML VIAL SUBQ SCH (21:30)
[2019-01-02] VITALS: BP 136/97
--- NOTE | 2019-01-02 | NUR ---
PT IN BED SLEEPING BUT AROUSABLE TO NAME AND LIGHT TOUCH. NO S/S OF PAIN OR DISTRESS NOTED. V/S FOLLOWS T 97.8 P 86 R 18 B/P 136/97 02 99 % WITH 3 LITTERS VIA N/C.
[2019-01-02] MEDS: ALBUTEROL 0.083% 2.5 MG/3 ML NEBU IH SCH ×2 (01:00→07:53)
[2019-01-02] MEDS: IPRATROPIUM 0.02% 0.5 MG/2.5 ML NEBU IH SCH ×2 (01:00→07:53)
--- NOTE | 2019-01-02 01:10 | NUR ---
PATIENT REFUSING BREATHING TREATMENTS AT THIS TIME. ON 3L NC. NO SOB OR RESPIRATORY DISTRESS NOTED. WILL CONTINUE TO MONITOR.
[2019-01-02] MEDS: HYDROcodone/APAP 7.5/325 MG 1 TAB PO PRN (03:10)
--- NOTE | 2019-01-02 03:33 | NUR ---
PT UP AND REQUESTING PAIN MEDICATION FOR 5/10 GENERALIZED PAIN, PT GIVEN 1 TAB NORCO PO/PRN. WILL MONITOR FOR PAIN RELIEF.
[2019-01-02 04:00] VITALS: BP 125/92
--- NOTE | 2019-01-02 04:15 | NUR ---
PT AWAKE IN BED AT THE EDGE OF BED, PT TRANSFERRING TO USE COMMODE. PT HAD 300 URINE OUT PUT. V/S FOLLOWS T 97.2 P 78 R 18 B/P 125/92 02 98% ON 3 LITERS VIA N/C. ALL REQUESTED NEEDS ATTENDED.
[2019-01-02] MEDS: glipiZIDE 5 MG TAB PO SCH (06:08)
[2019-01-02 06:31] LABS: ALBUMIN 3.2 g/dL (3.4-5.0); ANION GAP 10.5 (8-16); CREATININE 1.5 mg/dL (0.6-1.3); POTASSIUM 4.5 mmol/L (3.5-5.1); TOTAL BILIRUBIN 0.2 mg/dL (0.0-1.0)
--- NOTE | 2019-01-02 06:34 | NUR ---
PT FINGERSTICK IS 232. PT GIVEN 4 UNITS VIA HUMALOG S/S. PT ALSO PT GIVEN REQUESTED JELLO WITH AM GLIPIZIDE. NO S/S OF PAIN OR DISTRESS NOTED.
[2019-01-02 06:51] LABS: BASOPHILS % (AUTO) 0.1 % (0.0-2.0); HEMATOCRIT 33.2 % (36-48); HEMOGLOBIN 10.8 g/dL (12.0-16.0); LYMPHOCYTES # (AUTO) 0.5 K/uL (2.5-16.5); LYMPHOCYTES % (AUTO) 5.3 % (20.5-51.1); MEAN CORPUSCULAR HEMOGLOBIN 31 pg (27-31); MEAN CORPUSCULAR HGB CONC 32 g/dL (33-37); MONOCYTES # (AUTO) 0.3 K/uL (0.8-1.0); MONOCYTES % (AUTO) 2.9 % (1.7-9.3); NEUTROPHILS # (AUTO) 9.1 K/uL (1.8-7.7); NEUTROPHILS % (AUTO) 91.7 % (42.2-75.2); PLATELET COUNT (AUTO) 170 K/uL (140-450); RED BLOOD CELL COUNT(AUTO) 3.43 MIL/uL (4.20-5.40)
--- NOTE | 2019-01-02 07:15 | NUR ---
REPORT GIVEN TO ZABRINA AQUINO RN AT BEDSIDE FOR CONTINUITY OF CARE, PT IN STABLE CONDITION.
--- NOTE | 2019-01-02 07:16 | NUR ---
RECEIVED BEDSIDE REPORT FROM BAN YANG. PT STABLE, AWAKE, ALERT AND ORIENTED X4. NO SIGNS OF DISTRESS NOTED. DENIES PAIN OR SOB. ON 3L O2 VIA NC. NO REDNESS, SWELLING, OR INFLAMMATION NOTED ON IV SITE. AMBULATES TO THE BEDSIDE COMMODE. CALL [facility] WITHIN REACH. BED IN LOWEST POSITION. SAFETY MEASURES IN PLACE. PLAN OF CARE REVIEWED.
[2019-01-02] MEDS: BLOOD GLUCOSE MONITORING 1 DEV DEV FS SCH ×2 (07:17→11:30)
[2019-01-02 08:00] VITALS: BP 133/95
[2019-01-02] MEDS: FERROUS SULFATE 325 MG TABEC PO SCH (08:00)
[2019-01-02] MEDS: POTASSIUM CHLORIDE 10 MEQ TABER PO SCH (08:41)
[2019-01-02] MEDS: ENOXAPARIN 40 MG/0.4 ML SYR SUBQ SCH (08:42)
[2019-01-02] MEDS: GABAPENTIN 300 MG CAP PO SCH (08:42)
[2019-01-02] MEDS: FUROSEMIDE 100 MG/10 ML VIAL IVP SCH (08:43)
[2019-01-02] MEDS: methylPREDNISolone SS 40 MG/ML VIAL IVP SCH (08:43)
[2019-01-02] MEDS: PHENYTOIN 100 MG CAPER PO SCH (08:44)
[2019-01-02] MEDS: ASPIRIN 81 MG TAB.CHEW PO SCH (08:44)
[2019-01-02] MEDS: CARVEDILOL 12.5 MG TAB PO SCH (08:45)
--- NOTE | 2019-01-02 08:50 | NUR ---
PT REFUSED SCHEDULED LOVENOX AND FERROUS SULFATE. 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 ADMINISTERED ALL OTHER SCHEDULED MEDICATIONS, PT TOLERATED WELL. NO OTHER NEEDS AT THIS TIME.
[2019-01-02] MEDS ORDERED: ATORVASTATIN 20 MG TAB PO SCH (09:00)
[2019-01-02] MEDS ORDERED: ASPIRIN 81 MG TAB.CHEW PO SCH (09:00)
[2019-01-02] MEDS ORDERED: AMIODARONE 200 MG TAB PO SCH (09:00)
[2019-01-02] MEDS ORDERED: FURO-570 PO (10:14)
--- NOTE | 2019-01-02 10:20 | NUR ---
DR GUILLEN AT BEDSIDE.
--- NOTE | 2019-01-02 11:21 | NUR ---
FOLLOW UP APPOINTMENT FOR PATIENT: [facility] MD: RODRIGUEZ GUPTA ADDRESS: [address] [place] [address] [address] PHONE: WALK IN : SATURDAY-SATURDAY FROM 8AM-8PM AND SAT FROM 8:30AM -5:00PM CM SPOKE WITH PATIENT AT BEDSIDE AND PROVIDED FOLLOW UP APPOINTMENT CARD AND INFORMATION. PATIENT VERBALIZED UNDERSTANDING.
--- NOTE | 2019-01-02 11:30 | NUR ---
D/C INSTRUCTIONS, PAPERWORK, FOLLOW UP APPOINTMENT INSTRUCTIONS, AND PRESCRIPTION GIVEN. PT VERBALIZED UNDERSTANDING. QUESTIONS AND CONCERNS WERE ADDRESSED. D/C IV, CATHETER TIP INTACT, BLEEDING CONTROLLED. SKIN INTACT, PT REFUSED PNEUMONIA VACCINE. PT REFUSED TO GET BLOOD SUGAR CHECKED FOR 1130 SCHEDULE. PT STABLE, A&O X4, COMMUNICATES APPROPRIATELY. PT TOOK ALL BELONGINGS HOME INCLUDING O2 TANK. PT PICKED UP BY CAB TO TAKE HER HOME.
--- NOTE | 2019-01-02 18:10 | NUR ---
RECEIVED CALL FROM PT LJ REGARDING HER HOME MEDICATIONS NOT AVAILABLE IN HER PREFERRED PHARMACY. PER PT REQUEST, PT WANTS DR GUILLEN TO CALL PHARMACY TO REFILL HOME MEDICATIONS. WILL PAGE DR GUILLEN.
--- NOTE | 2019-01-02 18:20 | NUR ---
PAGED DR GUILLEN.
--- NOTE | 2019-01-02 18:30 | NUR ---
RECEIVED CALL BACK FROM DR GUILLEN. MADE DR GUILLEN AWARE THAT PT IS REQUESTING TO HAVE MD CALL PHARMACY TO GET HER MEDICATIONS REFILLED. PER DR GUILLEN, HE WILL CALL PT'S PHARMACY.
--- NOTE | 2019-01-02 18:40 | NUR ---
CALLED AARON CALHOUN TO LET HER KNOW THAT DR GUILLEN WILL CALL HER PREFERRED PHARMACY TO GET HER HOME MEDICATIONS REFILLED.
== END 2019-01-02 11:32 | disposition home or self-care (01) ==
LOC: MED 12:03 → MTU 14:19
PROVIDERS: ADMIT Internal Medicine Pulmonary Disease; ATTEND Internal Medicine Pulmonary Disease
DX: I50.23 Acute on chronic systolic (congestive) heart failure (principal); I25.10 Atherosclerotic heart disease of native coronary artery without angina pectoris; J96.11 Chronic respiratory failure with hypoxia; E66.9 Obesity, unspecified; E11.22 Type 2 diabetes mellitus with diabetic chronic kidney disease; I13.0 Hypertensive heart and chronic kidney disease with heart failure and stage 1 through stage 4 chronic kidney disease, or unspecified chronic kidney disease; N18.9 Chronic kidney disease, unspecified; J44.1 Chronic obstructive pulmonary disease with (acute) exacerbation; J81.1 Chronic pulmonary edema; R60.1 Generalized edema
CPT/HCPCS: 36415; 71045; 80053; 80185; 82948; 83605; 83735; 83880; 84484; 85025; 85379; 85610; 85730; 87081; 93005; 94640; 94760; 96365; 96366; 96372; 96375; 96376; 99285; G0378; J0456; J1815; J1940; J2270; J2920; J2930; J7030; J7060; J7613; J7644; Q0092; 96374; J1650

== ENCOUNTER 2019-02-03 16:35 | Inpatient (IN) | payer OTHER ==
[~2019-02-03] VITALS: Ht 165.1 cm; Wt 87.5 kg
[2019-02-03 16:40] VITALS: BP 122/84
--- NOTE | 2019-02-03 16:42 | NUR ---
PT TO ER BED 9
--- NOTE | 2019-02-03 16:58 | NUR ---
58 Y FEMALE BIB SELF C/O SOB/DIFFICULTY BREATHING AND LYNDA. FEET SWOLLEN X3 DAYS. BILATERAL CRACKLES IN LUNG OTERO. PT USES HOME OXYGEN AT 3 L NC. PT PUT ON HOSPITALS OXYGEN AT 3 L NC. PATIENT SATURATION AT 93% NC ON 4 L. PATIENT TACYPNEA AT 27. TAKING BREATHS BETWEEN EVERY COUPLE WORDS. BILATERAL EDEMA IN LOWER EXTREMETIES, NON-PITTING. PT AA0X4. BED IS DOWN, LOCKED, BED RAIL X 1, ERMD TO SEE PT. HX OF COPD, CHF, HTN, DM, RENAL DISEASE.
[2019-02-03] MEDS ORDERED: FUROSEMIDE 100 MG/10 ML VIAL IVP ONE (17:00)
[2019-02-03] MEDS ORDERED: methylPREDNISolone SS 125 MG/2 ML VIAL IVP ONE ×2 (17:00→19:15)
[2019-02-03] MEDS ORDERED: ENALAPRILAT 2.5 MG/2 ML VIAL IVP ONE (17:00)
[2019-02-03] MEDS ORDERED: FAMOTIDINE 20 MG/2 ML VIAL IVP ONE ×2 (17:00→19:15)
[2019-02-03] MEDS ORDERED: MORPHINE SULFATE 2 MG/ML SYR IVP ONE ×2 (17:00→19:15)
[2019-02-03] MEDS ORDERED: ALBUTEROL 0.083% 2.5 MG/3 ML NEBU INH ONE (17:00)
--- NOTE | 2019-02-03 17:00 | NUR ---
DR LAGUNA AT BEDSIDE
--- NOTE | 2019-02-03 17:04 | NUR ---
XRAY AT BEDSIDE
--- NOTE | 2019-02-03 17:06 | NUR ---
LAB AT BEDSIDE FOR DRAW XRAY AT BEDSIDE
--- NOTE | 2019-02-03 17:07 | NUR ---
RT AT BEDSIDE FOR TX
--- NOTE | 2019-02-03 17:19 | NUR ---
ABG WAS ATTEMPTED UNABLE TO OBTAIN AND PT REFUSED SECOND ABG ATTEMPT AND DR. LAGUNA NOTIFIED
[2019-02-03 17:26] LABS: BASOPHILS % (AUTO) 0.3 % (0.0-2.0); EOSINOPHILS % (AUTO) 0.6 % (0.0-4.0); HEMATOCRIT 32.9 % (36-48); HEMOGLOBIN 10.8 g/dL (12.0-16.0); LYMPHOCYTES % (AUTO) 16.3 % (20.5-51.1); MEAN CORPUSCULAR HEMOGLOBIN 31 pg (27-31); MEAN CORPUSCULAR HGB CONC 33 g/dL (33-37); MEAN CORPUSCULAR VOLUME 94.8 fL (80-94); MONOCYTES # (AUTO) 0.4 K/uL (0.8-1.0); NEUTROPHILS # (AUTO) 4.9 K/uL (1.8-7.7); NEUTROPHILS % (AUTO) 75.8 % (42.2-75.2); PLATELET COUNT (AUTO) 238 K/uL (140-450); RED BLOOD CELL COUNT(AUTO) 3.47 MIL/uL (4.20-5.40); WHITE BLOOD COUNT (AUTO) 6.4 K/uL (4.8-10.8)
[2019-02-03 17:38] LABS: ANION GAP 12.8 (8-16); CARBON DIOXIDE 25.8 mmol/L (21-32); CREATININE 1.5 mg/dL (0.6-1.3); POTASSIUM 3.6 mmol/L (3.5-5.1)
[2019-02-03 17:43] LABS: ALBUMIN 3.3 g/dL (3.4-5.0); TOTAL BILIRUBIN 0.4 mg/dL (0.0-1.0)
[2019-02-03] MEDS ORDERED: FAMOTIDINE 20 MG TAB PO ONE (17:50)
[2019-02-03] MEDS ORDERED: MORPHINE SULFATE 4 MG/ML SYR IM ONE (17:50)
--- NOTE | 2019-02-03 17:52 | NUR ---
UNABLE TO GET IV ACESS AT THIS TIME, DR LAGUNA NOTIFIED
[2019-02-03 18:12] LABS: PROTHROMBIN TIME 11.2 secs (10.8-13.4)
--- NOTE | 2019-02-03 18:35 | NUR ---
IV WAS ABLE TO BE OBTAINED, IM AND PO MEDICATIONS NOT GIVEN. MEDICATIONS GIVEN IVP
--- NOTE | 2019-02-03 18:50 | NUR ---
BIPAP ORDERED, PER DR LAGUNA UP TO PT. PT REFUSES AT THIS TIME BUT WOULD LIKE THE ORDER TO REMAIN OPEN PRN.
[2019-02-03] MEDS ORDERED: FUROSEMIDE 40 MG/4 ML VIAL IVP ONE (19:15)
--- NOTE | 2019-02-03 19:45 | NUR ---
Patient will be admitted to care of [facility]. Admited to TELE. Will go to room 126B. Belongings list completed. Report to EDFATUMA CEVALLOS.
--- NOTE | 2019-02-03 19:45 | NUR ---
RECEIVED FROM ER PER JANA AWAKE AND ALERT. ABLE TO COMMUNICATE NEEDS WELL WITH CARE GIVERS SIMPLE NEEDS. A/O X 4. ROM X 4. TELEMETRY MONITORING. SKIN INTACT AND ON 02 AT 4 LPM/NC WITH 02 SAT 0F 99 %. PT. DX. IS CHRONIC HYPOXIC RESPIRATORY FAILURE. LOWER EXTREMITIES BILATERALLY WITH PITTING EDEMA. CALL LIGHT WITH IN REACH FOR HELP AND CARE PLANS FOR THE NIGHT DISCUSSED WITH HER. ENCOURAGED TO CALL FOR ANY HELP SHE MAY NEED OR IF IN PAIN.
--- NOTE | 2019-02-03 20:28 | NUR ---
PT. ASSISTED TO GO RESTROOM BY HELPING HER OUT OF BED. NOTICED SHE CAN STAND UP ON HER OWN AND ABLE TO WALK TO RESTROOM TO URINATE. ADVISED TO ALWAYS CALL FOR HELP WHEN SHE GOES BRP . "OK" PROVIDED WITH DINNER AT THIS TIME PT. REQUESTED. IVF SITE TO RIGHT FOREARM #22 INTACT AND WITH GOOD BLOOD RETURN.
[2019-02-03 20:57] VITALS: BP 130/85
--- NOTE | 2019-02-03 21:58 | NUR ---
MD CORADO CALLED AND WITH NEW ORDERS GIVEN. PT. SLEEPING AT THIS TIME. NO RESTLESSNESS. TELEMETRY MONITORING. CALL LIGHT WITH IN REACH AND WITH PADDED SIDE RAILS RT HX. SEIZURES.
[2019-02-03] MEDS ORDERED: ACETAMINOPHEN 325 MG TAB PO PRN (22:00)
[2019-02-03] MEDS ORDERED: ONDANSETRON 4 MG/2 ML VIAL IVP PRN (22:00)
[2019-02-03] MEDS ORDERED: LACTULOSE 20 GM/30 ML UDC PO PRN (22:00)
[2019-02-03] MEDS ORDERED: DOCUSATE 100 MG/10 ML UDC PO PRN (22:00)
--- NOTE | 2019-02-03 23:52 | NUR ---
MD CORADO IN HERE TO SEE PT.
[2019-02-04] MEDS: HYDROcodone/APAP 10/325 MG 1 TAB TAB PO PRN ×2 (00:39→22:27)
[2019-02-04] MEDS: methylPREDNISolone SS 40 MG/ML VIAL IVP SCH ×4 (00:43→16:54)
[2019-02-04 00:49] VITALS: BP 122/82
--- NOTE | 2019-02-04 02:30 | NUR ---
ASLEEP. NO RESTLESSNESS. TELEMETRY MONITORING. CALL LIGHT WITH IN REACH.
[2019-02-04 03:42] VITALS: BP 127/80
--- NOTE | 2019-02-04 04:19 | NUR ---
PT. SLEEPING WELL THIS SHIFT. AWAKE AT THIS TIME AND REQUESTED FOR JELLO SUGAR FREE. PROVIDED REQUESTED. ABLE TO USE CALL LIGHT FOR HELP. TELEMETRY MONITORING.
[2019-02-04] MEDS: BLOOD GLUCOSE MONITORING 1 DEV DEV FS SCH ×4 (05:34→20:22)
[2019-02-04] MEDS: glipiZIDE 5 MG TAB PO SCH ×2 (05:34→16:54)
[2019-02-04] MEDS: INSULIN LISPRO SLIDING SCALE 100 UNITS/ML VIAL SUBQ PRN ×3 (05:35→20:31)
[2019-02-04 06:00] LABS: ANION GAP 12.5 (8-16); CARBON DIOXIDE 26.4 mmol/L (21-32); CREATININE 1.4 mg/dL (0.6-1.3); POTASSIUM 3.9 mmol/L (3.5-5.1)
[2019-02-04 06:03] LABS: BASOPHILS % (AUTO) 0.1 % (0.0-2.0); HEMATOCRIT 31.9 % (36-48); HEMOGLOBIN 10.5 g/dL (12.0-16.0); LYMPHOCYTES # (AUTO) 0.5 K/uL (2.5-16.5); LYMPHOCYTES % (AUTO) 11.7 % (20.5-51.1); MEAN CORPUSCULAR HEMOGLOBIN 31 pg (27-31); MEAN CORPUSCULAR HGB CONC 33 g/dL (33-37); MEAN CORPUSCULAR VOLUME 94.4 fL (80-94); MONOCYTES % (AUTO) 0.7 % (1.7-9.3); NEUTROPHILS # (AUTO) 3.5 K/uL (1.8-7.7); NEUTROPHILS % (AUTO) 87.5 % (42.2-75.2); PLATELET COUNT (AUTO) 214 K/uL (140-450); RED BLOOD CELL COUNT(AUTO) 3.38 MIL/uL (4.20-5.40); RED CELL DISTRIBUTION WIDTH 17.9 % (11.6-13.7)
--- NOTE | 2019-02-04 06:24 | NUR ---
BLOOD SUGAR CHECK 175. COVERED WITH HUMALOG INSULIN 2 UNITS. WAKES UP EASILY WHEN TOUCHED OR CALLED BY NAME. PT. AT THIS TIME WENT BACK TO SLEEP. TELEMETRY MONITORING. CALL LIGHT WITH IN REACH. IVF SITE TOP RFA INTACT AND WITH GOOD BLOOD RETURN. NO SOB COMPLAINTS THIS SHIFT.
--- NOTE | 2019-02-04 07:20 | NUR ---
RECEIVED PT FROM LOOM DOFFER NURSESAMSON, PT IS AWAKE AND SEATED ON THE BED, RESPIRATION IS EVEN ON 2L O2 VIA NC, SIDE RAILS ARE UP AND CALL LIGHT WITHIN REACH, PT HAS A LEFT PACEMAKER IN PLACE AND AN IV LINE ON THE RT FA G. 22 ON SALINE LOCK, NO SIGN OF DISTRESS NOTED AND WILL CONTINUE TO MONITOR PT.
[2019-02-04 08:00] VITALS: BP 139/88
[2019-02-04] MEDS: FERROUS SULFATE 325 MG TABEC PO SCH ×3 (08:08→16:53)
[2019-02-04] MEDS: GABAPENTIN 300 MG CAP PO SCH ×3 (08:09→16:53)
[2019-02-04] MEDS: ATORVASTATIN 20 MG TAB PO SCH (08:09)
[2019-02-04] MEDS: ASPIRIN 81 MG TAB.CHEW PO SCH (08:10)
[2019-02-04] MEDS: POTASSIUM CHLORIDE 10 MEQ TABER PO SCH (08:10)
[2019-02-04] MEDS: AMIODARONE 200 MG TAB PO SCH (08:11)
[2019-02-04] MEDS: CARVEDILOL 12.5 MG TAB PO SCH ×2 (08:11→20:17)
[2019-02-04] MEDS: FUROSEMIDE 40 MG/4 ML VIAL IVP SCH ×2 (08:16→20:17)
[2019-02-04] MEDS: PHENYTOIN 100 MG CAPER PO SCH ×3 (08:16→16:53)
[2019-02-04] MEDS: HYDROcodone/APAP 5/325 MG 1 TAB TAB PO PRN ×2 (08:21→15:45)
--- NOTE | 2019-02-04 08:25 | NUR ---
PT IS AWAKE AND ORAL AND IV MEDICATIONS WERE GIVEN TO PT, PARAMETERS CHECKED, BP IS 137/81, PULSE IS 80, 02 SATURATION IS 92%, PT TOLERATED IT, NO SIGN OF DISTRESS NOTED. WILL CONTINUE TO MONITOR PT.
[2019-02-04] MEDS ORDERED: CARVEDILOL 12.5 MG TAB PO SCH (09:00)
--- NOTE | 2019-02-04 09:15 | NUR ---
PATIENT HAS BEEN SCREENED AND CATEGORIZED MODERATE NUTRITION RISK. PATIENT WILL BE SEEN WITHIN 3-5 DAYS OF ADMISSION. 02/06/19DARIN [address]
--- NOTE | 2019-02-04 10:18 | NUR ---
PT IS AWAKE AND ON HER LEFT LATERAL SIDE, EATING BANANA, PT VERBALIZED THAT SHE FEELS BETTER NOW, NO SIGN OF DISTRESS NOTED AN WILL MONITOR PT.
[2019-02-04 12:00] VITALS: BP 117/74
--- NOTE | 2019-02-04 12:10 | NUR ---
PT IS AWAKE AND MEDICATIONS WERE GIVEN TO PT AND TOLERATED IT. WILL MONITOR PT.
[2019-02-04] MEDS: ALBUTEROL SULFATE/IPRATROPIU 3 ML SOL IH PRN ×2 (13:26→21:54)
--- NOTE | 2019-02-04 15:50 | NUR ---
PATIENT COMPLAINED OF FEET PAIN 01/19. MED WAS GIVEN PER ORDER. PRIMARY NURSE ANDRES WAS MADE AWARE
[2019-02-04 16:00] VITALS: BP 123/90
--- NOTE | 2019-02-04 16:57 | NUR ---
PT IS AWAKE AND BLOOD GLUCOSE CHECK DONE AND RESULT IS 131, NO INSULIN NEEDED, ORAL AND IV PUSH MEDICATIONS WERE GIVEN, TOLERATED IT. WILL MONITOR PT.
--- NOTE | 2019-02-04 19:15 | NUR ---
ENDORSED PT TO CONSULTATIVE SALES ASSOCIATE NURSE FOR CONTINUITY OF CARE.
--- NOTE | 2019-02-04 19:16 | NUR ---
RECEIVED PT FROM DAY SHIFT NURSE. NO SOB NOTED AT THIS TIME WITH O2, 2LPM NC. SKIN INTACT, WARM AND DRY TO TOUCH. IV SITE ON RFA 22G SL, INTACT, PATENT, AND ASYMPTOMATIC. PT USES BEDSIDE COMMODE. POC REVIEWED AND DISCUSSED WITH PT. PT VERBALIZED UNDERSTANDING. ALL SAFETY MEASUREMENT ARE MET. BED IN LOW POSITION, CALL LIGHT WITHIN REACH.
--- NOTE | 2019-02-04 19:18 | NUR ---
DECREASED FIO2 TO 2L NC . PT'S SPO2 IS 98%. NO SOB OR DISTRESS NOTE.
[2019-02-04 20:00] VITALS: BP_SYST 121; BP_SYST 140; BP_DIAS 88; BP_DIAS 92
--- NOTE | 2019-02-04 20:17 | NUR ---
GIVEN COREG AND LASIX ORDERED. PT TOLERATED WELL. WILL CONTINUE TO MONITOR.
--- NOTE | 2019-02-04 20:31 | NUR ---
BS CHECKED, 202, 4 UNITS OF HUMALOG GIVEN DRSukumar ORDERED. PT TOLERATED WELL.
--- NOTE | 2019-02-04 22:30 | NUR ---
PT SLEEPING IN BED. NO ACUTE DISTRESS NOTED. BED IN LOW POSITION, CALL LIGHT WITHIN REACH.
[2019-02-05] VITALS: BP 121/88
[2019-02-05] MEDS: methylPREDNISolone SS 40 MG/ML VIAL IVP SCH ×3 (00:29→12:11)
--- NOTE | 2019-02-05 00:29 | NUR ---
GIVEN SOLU-MEDROL DRSukumar ORDERED. PT TOLERATED WELL. WILL CONTINUE TO MONITOR.
--- NOTE | 2019-02-05 02:25 | NUR ---
PT SLEEPING IN BED. NO ACUTE DISTRESS NOTED.
[2019-02-05 04:00] VITALS: BP 132/81
--- NOTE | 2019-02-05 04:03 | NUR ---
ENDORSED PT TO NURSE, SUMMER. PT IN STABLE CONDITION.
--- NOTE | 2019-02-05 04:04 | NUR ---
RECEIVED BEDSIDE REPORT FROM BAN CAMPOS, PATIENT IN BED, ON 2 L NC, NO SIGNS OF ACUTE DISTRESS, IV IN RIGHT FA 22 G, CALL LIGHT WITHIN REACH, WILL ASSESS V/S.
[2019-02-05] MEDS: glipiZIDE 5 MG TAB PO SCH (05:50)
[2019-02-05] MEDS: BLOOD GLUCOSE MONITORING 1 DEV DEV FS SCH ×2 (06:13→12:09)
--- NOTE | 2019-02-05 06:13 | NUR ---
BLOOD GLUCOSE 108 NO COVERAGE NEEDED
--- NOTE | 2019-02-05 07:25 | NUR ---
ENDORSED PATIENT TO DAY SHIFT NURSE, PATIENT STABLE.
--- NOTE | 2019-02-05 07:30 | NUR ---
RECEIVED PT FROM JUSTOWRITER OPERATOR NURSE, PT IS AWAKE AND SEATED ON THE BED WITH SIDE RAILS UP AND CALL LIGHT WITHIN REACH, PT HAS AN IV LINE ON THE RT FA G. 22 ON SALINE LOCK AND O2 AT 2L NC IN PLACE, NO SIGN OF DISTRESS NOTED AND WILL MONITOR PT.
[2019-02-05] MEDS: ALBUTEROL SULFATE/IPRATROPIU 3 ML SOL IH PRN ×2 (07:55→12:16)
[2019-02-05 08:00] VITALS: BP 121/81
[2019-02-05] MEDS: FERROUS SULFATE 325 MG TABEC PO SCH ×2 (08:00→12:00)
[2019-02-05] MEDS: PHENYTOIN 100 MG CAPER PO SCH ×2 (09:51→12:10)
[2019-02-05] MEDS: ASPIRIN 81 MG TAB.CHEW PO SCH (09:51)
[2019-02-05] MEDS: POTASSIUM CHLORIDE 10 MEQ TABER PO SCH (09:51)
[2019-02-05] MEDS: ATORVASTATIN 20 MG TAB PO SCH (09:51)
[2019-02-05] MEDS: CARVEDILOL 12.5 MG TAB PO SCH (09:52)
[2019-02-05] MEDS: GABAPENTIN 300 MG CAP PO SCH ×2 (09:52→12:10)
[2019-02-05] MEDS: AMIODARONE 200 MG TAB PO SCH (09:53)
[2019-02-05] MEDS: FUROSEMIDE 40 MG/4 ML VIAL IVP SCH (09:53)
--- NOTE | 2019-02-05 09:53 | NUR ---
PT WAS GIVEN THE ORAL ,MEDICATIONS, PARAMETER CHECKED AND IS WITHIN LIMIT. WILL MONITOR PT.
[2019-02-05 12:00] VITALS: BP 124/84
--- NOTE | 2019-02-05 12:12 | NUR ---
PT'S BLOOD GLUCOSE WAS CHECKED AND RESULT IS 148, ORAL AND IV MEDICATIONS WERE GIVEN AND PT TOLERATED IT. WILL MONITOR PT.
--- NOTE | 2019-02-05 14:05 | NUR ---
DISCHARGED PT VIA WHEELCHAIR WITH O2 IN PLACE, TEACHINGS AND INSTRUCTIONS WERE GIVEN TO PT AND VERBALIZED UNDERSTANDING. PT TOOK A TAXI, IV LINE AND ARM BAND REMOVED AND PT IS STABLE AT THIS TIME.
--- NOTE | 2019-02-05 15:48 | NUR ---
Shovel Engineer Note: Late entry for earlier today: I met with patient at bedside. I introduced myself to patient and explained my role as a veterinary medical officer. I obtained the following information from patient. She lives alone at home and plans to return there upon discharge. Patient's daughter Ayala Tang sometimes spends the night at patient's home. Ayala is patient's IHSS. She visits patient everyday. Patient stated prior to hospital admission she was not receiving home health services. The name of DME company who delivered home O2 is [employer]. She has a blood glucose monitor and checks her own glucose levels. is her bid clerk ([facility]). She has an upcoming appointment with new desolderer on February 24, 2019. Patient's pcp is ([place], [place]). She told me 's office does not accept appts only walk-ins. She is able to ambulate at home with walker when she is feeling well (short distance). She does not drive. [facility] provides her with transportation to medical appointments. Patient did not have any other concerns nor questions. I provided her with my contact information. Import Customer Service Manager and/or Hand Turner will follow up as needed.
== END 2019-02-05 14:05 | disposition home or self-care (01) | DRG 133 ==
LOC: MED 16:35 → MMU 19:01
PROVIDERS: ADMIT Internal Medicine Pulmonary Disease; ATTEND Internal Medicine Pulmonary Disease
DX: J96.20 Acute and chronic respiratory failure, unspecified whether with hypoxia or hypercapnia (principal); I50.23 Acute on chronic systolic (congestive) heart failure; E11.22 Type 2 diabetes mellitus with diabetic chronic kidney disease; I42.9 Cardiomyopathy, unspecified; I13.0 Hypertensive heart and chronic kidney disease with heart failure and stage 1 through stage 4 chronic kidney disease, or unspecified chronic kidney disease; J44.1 Chronic obstructive pulmonary disease with (acute) exacerbation; N18.3 Chronic kidney disease, stage 3 (moderate); E78.5 Hyperlipidemia, unspecified; E78.00 Pure hypercholesterolemia, unspecified; F17.210 Nicotine dependence, cigarettes, uncomplicated; G40.909 Epilepsy, unspecified, not intractable, without status epilepticus; I25.10 Atherosclerotic heart disease of native coronary artery without angina pectoris; Z88.0 Allergy status to penicillin; Z88.8 Allergy status to other drugs, medicaments and biological substances; Z79.84 Long term (current) use of oral hypoglycemic drugs; Z79.82 Long term (current) use of aspirin; Z79.899 Other long term (current) drug therapy; Z95.0 Presence of cardiac pacemaker
CPT/HCPCS: 36415; 71045; 80048; 80053; 82948; 83036; 83605; 83735; 83880; 84484; 85025; 85379; 85610; 85730; 87081; 87804; 93005; 94640; 96374; 96375; 97110; 97116; 97161-GP; 97530; 99285; J1940; J2270; J2920; J2930; J3490; J7613; J7620; Q0092

== ENCOUNTER 2019-02-20 10:34 | Observation (INO) | payer OTHER ==
[~2019-02-20] VITALS: Ht 165.1 cm; Wt 94.3 kg
[~2019-02-20 10:34] MED LIST changes: -FURO-570 PO
[2019-02-20 10:37] VITALS: BP 115/79
--- NOTE | 2019-02-20 10:43 | NUR ---
PT BIB SELF TO THE ED WITH THE CHIEF C/O SOB AND EDEMATOUS BOTH LOWER EXTERMITIES FOR 3 DAYS. PT CAME WITH OXYGEN TANK, ON 3 LTR O2 VIA NC. LUNGS DIMINISHGED ON AUSCULTATION. CONTINUED ON O2 VIA NC 3 LTR. DENIES RECENT FEVER. DENIES ANY N/V/D. DENIES CHEST PAIN OR DISCOMFORT. STATES BOTH LEGA PAIN 10/10 AT THIS TIME. DENIES OTHER PROBLEM.
--- NOTE | 2019-02-20 10:43 | NUR ---
Patient ambulated to bed 3. RN evaluating patient at bedside.
[2019-02-20] MEDS ORDERED: IPRATROPIUM 0.02% 0.5 MG/2.5 ML NEBU INH ONE (10:45)
[2019-02-20] MEDS ORDERED: methylPREDNISolone SS 125 MG in WATER STERILE 2 ML IV ONE ×2 (10:45→11:20)
[2019-02-20] MEDS ORDERED: ALBUTEROL 0.083% 2.5 MG/3 ML NEBU INH ONE ×2 (10:45)
--- NOTE | 2019-02-20 10:51 | NUR ---
RT AT BEDSIDE
--- NOTE | 2019-02-20 11:08 | NUR ---
XRAY AT BEDSIDE
[2019-02-20] MEDS ORDERED: MAG SULF 2000 MG/WATER PREMIX 50 ML IV ONE (11:20)
[2019-02-20] MEDS ORDERED: FUROSEMIDE 40 MG/4 ML VIAL IVP ONE (11:40)
--- NOTE | 2019-02-20 11:52 | NUR ---
Provided urine cup and encouraged to provide urine for UA. Pt said she is not ready to urinate at this time.
[2019-02-20 11:53] LABS: BASOPHILS % (AUTO) 0.2 % (0.0-2.0); EOSINOPHILS # (AUTO) 0.1 K/uL (0-0.4); HEMOGLOBIN 10.5 g/dL (12.0-16.0); LYMPHOCYTES # (AUTO) 1.1 K/uL (2.5-16.5); LYMPHOCYTES % (AUTO) 17.6 % (20.5-51.1); MEAN CORPUSCULAR HEMOGLOBIN 32 pg (27-31); MEAN CORPUSCULAR HGB CONC 33 g/dL (33-37); MEAN CORPUSCULAR VOLUME 96.8 fL (80-94); MONOCYTES # (AUTO) 0.5 K/uL (0.8-1.0); MONOCYTES % (AUTO) 7.4 % (1.7-9.3); NEUTROPHILS # (AUTO) 4.5 K/uL (1.8-7.7); NEUTROPHILS % (AUTO) 73.8 % (42.2-75.2); PLATELET COUNT (AUTO) 163 K/uL (140-450); RED BLOOD CELL COUNT(AUTO) 3.31 MIL/uL (4.20-5.40); RED CELL DISTRIBUTION WIDTH 18.1 % (11.6-13.7); WHITE BLOOD COUNT (AUTO) 6.1 K/uL (4.8-10.8)
[2019-02-20 12:04] LABS: ANION GAP 15.1 (8-16); CREATININE 1.4 mg/dL (0.6-1.3); POTASSIUM 3.1 mmol/L (3.5-5.1)
[2019-02-20 12:19] LABS: ALBUMIN 3.2 g/dL (3.4-5.0); TOTAL BILIRUBIN 0.4 mg/dL (0.0-1.0)
[2019-02-20] MEDS ORDERED: MORPHINE SULFATE 4 MG/ML SYR IVP ONE (13:10)
--- NOTE | 2019-02-20 14:02 | NUR ---
Patient admitted to care of Dr. Irizarry . Admited to the tele unit. Tranfer to room 125B on stable condition. Belongings list completed. Report to BAN HEREDIA.
[2019-02-20 14:12] LABS: APPEARANCE,URINE CLEAR (CLEAR); BILIRUBIN,URINE NEGATIVE (NEGATIVE); BLOOD, URINE NEGATIVE (NEGATIVE); COLOR,URINE YELLOW (YELLOW); LEUKOCYTE ESTERASE ,URINE NEGATIVE (NEGATIVE); NITRITE, URINE NEGATIVE (NEGATIVE); PH,URINE 5.5 (5.0-9.0); UGLUCOSE NEGATIVE (NEGATIVE)
--- NOTE | 2019-02-20 14:55 | NUR ---
RECEIVED REPORT FROM YAN CEVALLOS. PT IN STABLE CONDITION. NO PAIN. STATES MILD SOB. SATURATING 97% ON 3L NC. DECREASED BREATH SOUNDS. RRR. ALL SAFETY PRECAUTIONS IN PLACE, WILL CONTINUE TO MONITOR.
[2019-02-20 15:05] VITALS: BP 118/76
[2019-02-20] MEDS ORDERED: ONDANSETRON 4 MG/2 ML VIAL IVP PRN (15:25)
[2019-02-20] MEDS ORDERED: LACTULOSE 20 GM/30 ML UDC PO PRN (15:25)
[2019-02-20] MEDS ORDERED: ACETAMINOPHEN 325 MG TAB PO PRN (15:25)
[2019-02-20] MEDS ORDERED: HYDROcodone/APAP 5/325 MG 1 TAB TAB PO PRN (15:25)
[2019-02-20] MEDS ORDERED: DEXTROSE 50% 50 ML SYR IVP PRN (15:25)
[2019-02-20] MEDS ORDERED: ALBUTEROL SULFATE/IPRATROPIU 3 ML SOL IH PRN (15:25)
[2019-02-20] MEDS ORDERED: POTASSIUM CHLORIDE 10 MEQ TABER PO SCH (16:00)
--- NOTE | 2019-02-20 16:00 | NUR ---
OBTAINED ADMISSION ASSESSMENT AT REAL TIME 1600 FROM PATIENT.
[2019-02-20] MEDS: PHENYTOIN 100 MG CAPER PO SCH (16:35)
[2019-02-20] MEDS: FERROUS SULFATE 325 MG TABEC PO SCH (16:35)
[2019-02-20] MEDS: GABAPENTIN 300 MG CAP PO SCH (16:35)
[2019-02-20] MEDS: FUROSEMIDE 40 MG/4 ML VIAL IVP SCH (16:36)
[2019-02-20] MEDS: BLOOD GLUCOSE MONITORING 1 DEV DEV FS SCH ×2 (16:43→21:48)
[2019-02-20] MEDS: INSULIN LISPRO SLIDING SCALE 100 UNITS/ML VIAL SUBQ PRN ×2 (16:43→22:31)
[2019-02-20] MEDS: glipiZIDE 5 MG TAB PO SCH (16:47)
--- NOTE | 2019-02-20 16:55 | NUR ---
SCHEDULED MEDS ADMINISTERED. ALL NEEDS MET AT THIS TIME. Addendum: 02/20/19 at 9325 by Yvonne Coello Meng, RN CALLED AND LEFT MESSAGE TO KITCHEN RE LUNCH
[2019-02-20] MEDS ORDERED: LEVOFLOXACIN 500 MG/D5W PREMIX 100 ML IV SCH (17:00)
[2019-02-20] MEDS: methylPREDNISolone SS 125 MG/2 ML VIAL IVP SCH ×2 (17:44→23:08)
[2019-02-20] MEDS: MORPHINE SULFATE 4 MG/ML SYR IVP PRN ×2 (18:23→22:59)
--- NOTE | 2019-02-20 19:08 | NUR ---
ENDORSED POC TO QUARRY BOSS RN. PT IN STABLE CONDITION.
--- NOTE | 2019-02-20 19:10 | NUR ---
Received endorsement from AM shift RN; patient A/Ox4, able to make needs known, Samoan speaking, on bedrest with bedside commode. Introduced self, updated board. No SOB or distress noted, on O2 3LPM via nasal cannula. IV site on left forearm, 22 gauge, saline locked. Skin intact. Bed in the lowest position, call light with reach. Initial assessment done. Will continue to monitor.
[2019-02-20 20:00] VITALS: BP 129/91
[2019-02-20] MEDS: ALBUTEROL SULFATE/IPRATROPIU 3 ML SOL IH SCH (20:00)
--- NOTE | 2019-02-20 20:30 | NUR ---
Vitals taken, no SOB or distress noted.
--- NOTE | 2019-02-20 21:30 | NUR ---
Due meds given, tolerated well. Addendum: 02/21/19 at 0258 by Ruslan Cuellar RN Patient refused Heparin sodium; stated she had "non-stop bleeding" when it was last administered.
[2019-02-20] MEDS: CARVEDILOL 12.5 MG TAB PO SCH (21:49)
[2019-02-20] MEDS: BUDESONIDE 0.5 MG/2 ML NEBU INH SCH (22:15)
--- NOTE | 2019-02-20 22:25 | NUR ---
Rounds done, patient watching TV, no distress noted.
[2019-02-21] VITALS: BP 122/89
--- NOTE | 2019-02-21 00:20 | NUR ---
Vitals taken, no distress noted. Patient asleep, eyes closed, visible chest rise and fall noted.
[2019-02-21] MEDS: ALBUTEROL SULFATE/IPRATROPIU 3 ML SOL IH SCH ×3 (01:06→13:24)
--- NOTE | 2019-02-21 02:40 | NUR ---
Checks made; patient asleep on right lateral side, visible chest rise and fall noted, no distress noted.
[2019-02-21 04:00] VITALS: BP 139/91
--- NOTE | 2019-02-21 04:10 | NUR ---
Vitals taken, no distress noted.
[2019-02-21] MEDS: MORPHINE SULFATE 4 MG/ML SYR IVP PRN ×2 (04:57→12:03)
[2019-02-21] MEDS: methylPREDNISolone SS 125 MG/2 ML VIAL IVP SCH ×2 (05:01→12:02)
[2019-02-21] MEDS: glipiZIDE 5 MG TAB PO SCH (06:32)
[2019-02-21] MEDS: BLOOD GLUCOSE MONITORING 1 DEV DEV FS SCH ×3 (06:32→16:08)
--- NOTE | 2019-02-21 07:05 | NUR ---
Endorsed patient to AM shift RN for continuity of care; patient in stable condition.
--- NOTE | 2019-02-21 07:07 | NUR ---
RECEIVED BEDSIDE REPORT FROM WOOD FINISHER RN FOR CONTINUITY OF CARE. PT IN STABLE CONDITION. NO C/O PAIN OR DISCOMFORT. STATES SOB COMES AND GOES, CURRENTLY NO SOB. DIMINISHED LUNG SOUNDS AT B/L BASES, OTHERWISE CTA. RRR. SATURATING 97% ON 1.5 L NC. ALL SAFETY PRECAUTIONS IN PLACE, WILL CONTINUE TO MONITOR.
[2019-02-21] MEDS: BUDESONIDE 0.5 MG/2 ML NEBU INH SCH (07:22)
[2019-02-21 07:54] LABS: BASOPHILS % (AUTO) 0.1 % (0.0-2.0); HEMATOCRIT 34.7 % (36-48); HEMOGLOBIN 11.2 g/dL (12.0-16.0); LYMPHOCYTES # (AUTO) 0.4 K/uL (2.5-16.5); LYMPHOCYTES % (AUTO) 6.4 % (20.5-51.1); MEAN CORPUSCULAR HEMOGLOBIN 32 pg (27-31); MEAN CORPUSCULAR HGB CONC 32 g/dL (33-37); MEAN CORPUSCULAR VOLUME 97.5 fL (80-94); MONOCYTES # (AUTO) 0.1 K/uL (0.8-1.0); MONOCYTES % (AUTO) 1.1 % (1.7-9.3); NEUTROPHILS # (AUTO) 5.9 K/uL (1.8-7.7); NEUTROPHILS % (AUTO) 92.4 % (42.2-75.2); PLATELET COUNT (AUTO) 173 K/uL (140-450); RED BLOOD CELL COUNT(AUTO) 3.56 MIL/uL (4.20-5.40); WHITE BLOOD COUNT (AUTO) 6.4 K/uL (4.8-10.8)
[2019-02-21 08:00] VITALS: BP 128/83
[2019-02-21 08:05] LABS: ANION GAP 16.9 (8-16); CARBON DIOXIDE 25.5 mmol/L (21-32); CREATININE 1.3 mg/dL (0.6-1.3); POTASSIUM 4.4 mmol/L (3.5-5.1)
[2019-02-21 08:09] LABS: PHOSPHORUS 4.1 mg/dL (2.5-4.9)
[2019-02-21] MEDS ORDERED: ASPIRIN 81 MG TAB.CHEW PO SCH ×2 (09:00)
[2019-02-21] MEDS ORDERED: METOLAZONE 5 MG TAB PO SCH (09:00)
[2019-02-21] MEDS ORDERED: AMIODARONE 200 MG TAB PO SCH (09:00)
[2019-02-21] MEDS ORDERED: CYANOCOBALAMIN 1,000 MCG TAB PO SCH (09:00)
[2019-02-21] MEDS ORDERED: ATORVASTATIN 20 MG TAB PO SCH (09:00)
[2019-02-21] MEDS: FERROUS SULFATE 325 MG TABEC PO SCH ×2 (09:02→12:02)
[2019-02-21] MEDS: PHENYTOIN 100 MG CAPER PO SCH ×2 (09:03→12:02)
[2019-02-21] MEDS: GABAPENTIN 300 MG CAP PO SCH ×2 (09:03→12:02)
[2019-02-21] MEDS: CARVEDILOL 12.5 MG TAB PO SCH (09:04)
[2019-02-21] MEDS: FUROSEMIDE 40 MG/4 ML VIAL IVP SCH (09:04)
--- NOTE | 2019-02-21 09:13 | NUR ---
SCHEDULED MEDICATIONS ADMINISTERED. PATIENT REFUSED HEPARIN SUBQ. EXPLAINED INDICATION WELL RISKS AND BENEFITS. PT VERBALIZED UNDERSTANDING BUT CONTINUES TO REFUSE.
--- NOTE | 2019-02-21 10:26 | NUR ---
NOTIFIED RT THAT SPUTUM CULTURE ORDERED BUT PATIENT STATES SHE IS UNABLE TO COUGH UP SAMPLE. RT STATES HE WILL ALSO REMIND PATIENT TO KEEP TRYING TO GIVE SAMPLE. PATIENT IS AWARE SAMPLE NEEDED AND PROCESS FOR OBTAINING.
[2019-02-21 10:49] LABS: FREE T4 (FREE THYROXINE) 1.01 ng/dL (0.76-1.46); THYROID STIMULATING HORMONE 0.29 uIU/mL (0.34-3.74)
[2019-02-21 12:00] VITALS: BP 112/86
[2019-02-21] MEDS ORDERED: BUMETANIDE 1 MG/4 ML VIAL IV SCH (12:00)
[2019-02-21] MEDS: INSULIN LISPRO SLIDING SCALE 100 UNITS/ML VIAL SUBQ PRN (12:01)
[2019-02-21 16:00] VITALS: BP 130/89
--- NOTE | 2019-02-21 16:08 | NUR ---
PATIENT REFUSED HUMALOG. ASKED IF SHE WILL BE GETTING PO GLIPIZIDE. INFORMED PT THAT IT IS SCHEDULED 1630. PT STATES SHE WILL JUST TAKE GLIPIZIDE, REFUSING HUMALOG. EXPLAINED INDICATION FOR HUMALOG, ESPECIALLY WITH SOLUMEDROL SCHEDULED, FOR BETTER GLUCOSE CONTROL. PT CONTINUES TO REFUSE.
--- NOTE | 2019-02-21 16:40 | NUR ---
PT REFUSED ECHOCARDIOGRAM. PT STATED SHE WANTS TO LEAVE AND GO HOME. NOTIFIED BAN KIM.
[2019-02-21] MEDS ORDERED: LEVOFLOXACIN 250 MG/D5 PREMIX 50 ML IV SCH (17:00)
--- NOTE | 2019-02-21 17:12 | NUR ---
PATIENT STATES SHE WANTS TO LEAVE AMA. WILL NOTIFY DR. GUILLEN.
--- NOTE | 2019-02-21 17:30 | NUR ---
NOTIFIED DR. GUILLEN THAT PT WANTS TO AMA, PT HAS HOME O2, DAUGHTER ON WAY TO APPLICATION DEVELOPMENT DIRECTOR PT NOW. AMA FORMED SIGNED.
--- NOTE | 2019-02-21 17:41 | NUR ---
IV SITE REMOVED WITH MINIMAL BLOOD LOSS AND LUMEN COMPLETELY INTACT. ID BANDS REMOVED. PT LEFT SELF, WITH ALL PERSONAL BELONGINGS, WITH PERSONAL O2 TANK. REFUSED TO WAIT 15-20 MIN FOR STAFF TO BE AVAILABLE TO USE WHEELCHAIR.
[2019-02-21] MEDS ORDERED: MAGNESIUM OXIDE 400 MG TAB PO SCH (21:00)
[2019-02-22] MEDS ORDERED: POTASSIUM CHLORIDE 10 MEQ TABER PO SCH (09:00)
== END 2019-02-21 17:41 | disposition left against medical advice (07) ==
LOC: MED 10:34 → MMU 12:57
PROVIDERS: ADMIT Internal Medicine Pulmonary Disease; ATTEND Internal Medicine Pulmonary Disease
DX: J96.01 Acute respiratory failure with hypoxia (principal); J44.9 Chronic obstructive pulmonary disease, unspecified; M79.89 Other specified soft tissue disorders; I48.91 Unspecified atrial fibrillation; I11.0 Hypertensive heart disease with heart failure; I50.9 Heart failure, unspecified; Z95.810 Presence of automatic (implantable) cardiac defibrillator; Z95.0 Presence of cardiac pacemaker; F17.210 Nicotine dependence, cigarettes, uncomplicated; E11.9 Type 2 diabetes mellitus without complications; G40.909 Epilepsy, unspecified, not intractable, without status epilepticus
CPT/HCPCS: 36415; 71045; 80048; 80053; 81003; 82948; 83036; 83605; 83735; 83880; 84100; 84439; 84443; 84484; 85025; 87040; 87081; 93005; 94640; 94760; 96365; 96367; 96372; 96375; 96376; 99285; G0378; J1644; J1815; J1940; J1956; J2270; J2930; J3420; J3475; J3490; J7613; J7620; J7626; J7644; Q0092

== ENCOUNTER 2019-03-04 16:48 | Inpatient (IN) | payer OTHER ==
[~2019-03-04] VITALS: Ht 165.1 cm; Wt 89.8 kg
[2019-03-04 16:58] VITALS: BP 129/89
--- NOTE | 2019-03-04 17:09 | NUR ---
Patient transferred to bed 12 via wheelchair by tech. RN evaluating patient at bedside.
[2019-03-04] MEDS ORDERED: FUROSEMIDE 100 MG/10 ML VIAL IVP ONE (17:35)
[2019-03-04 18:22] LABS: BASOPHILS % (AUTO) 0.3 % (0.0-2.0); EOSINOPHILS # (AUTO) 0.1 K/uL (0-0.4); EOSINOPHILS % (AUTO) 2.4 % (0.0-4.0); HEMATOCRIT 34.2 % (36-48); HEMOGLOBIN 11.2 g/dL (12.0-16.0); LYMPHOCYTES % (AUTO) 25.1 % (20.5-51.1); MEAN CORPUSCULAR HEMOGLOBIN 32 pg (27-31); MEAN CORPUSCULAR HGB CONC 33 g/dL (33-37); MEAN CORPUSCULAR VOLUME 96.8 fL (80-94); MONOCYTES # (AUTO) 0.4 K/uL (0.8-1.0); MONOCYTES % (AUTO) 9.7 % (1.7-9.3); NEUTROPHILS # (AUTO) 2.5 K/uL (1.8-7.7); NEUTROPHILS % (AUTO) 62.5 % (42.2-75.2); PLATELET COUNT (AUTO) 140 K/uL (140-450); RED BLOOD CELL COUNT(AUTO) 3.53 MIL/uL (4.20-5.40); RED CELL DISTRIBUTION WIDTH 17.2 % (11.6-13.7)
[2019-03-04 18:38] LABS: CHOL/HDL RATIO 3.2 (1-4.5)
[2019-03-04 18:39] LABS: ALBUMIN 3.2 g/dL (3.4-5.0); ANION GAP 10.9 (8-16); CREATININE 1.5 mg/dL (0.6-1.3); TOTAL BILIRUBIN 0.4 mg/dL (0.0-1.0)
[2019-03-04 18:41] LABS: POTASSIUM 2.9 mmol/L (3.5-5.1)
[2019-03-04] MEDS ORDERED: POTASSIUM CHLORIDE 10 MEQ TABER PO ONE (18:45)
[2019-03-04 18:48] LABS: CREATINE KINASE MB 0.8 ng/mL (0-3.6)
--- NOTE | 2019-03-04 19:16 | NUR ---
Assumed care and report given by BAN Rao
[2019-03-04] MEDS ORDERED: DEXTROSE 50% 50 ML SYR IVP PRN (19:45)
[2019-03-04] MEDS ORDERED: ACETAMINOPHEN 325 MG TAB PO PRN (19:45)
[2019-03-04] MEDS ORDERED: HYDROcodone/APAP 5/325 MG 1 TAB TAB PO PRN (19:45)
[2019-03-04] MEDS ORDERED: ONDANSETRON 4 MG/2 ML VIAL IVP PRN (19:45)
[2019-03-04] MEDS ORDERED: INSULIN LISPRO SLIDING SCALE 100 UNITS/ML VIAL SUBQ PRN (19:45)
[2019-03-04] MEDS ORDERED: ALBUTEROL SULFATE/IPRATROPIU 3 ML SOL IH PRN (19:45)
[2019-03-04] MEDS ORDERED: BUDESONIDE 0.5 MG/2 ML NEBU INH ONE (19:45)
--- NOTE | 2019-03-04 20:10 | NUR ---
PT ARRIVED AT UNIT VIA GURNEY, AMBULATED TO BED, TOLERATED WELL, REPORT RECEIVED FROM ER NURSE, PT IN STABLE CONDITION, ON 3LPM O2 VIA NC, NO SOB NOTED, IV TO L AC 22G PATENT, INTACT, SL, ORIENT PT TO ROOM, BED, CALL LIGHT, STATED UNDERSTANDING, INITIAL ASSESSMENT DONE, ALL SAFETY PRECAUTION MET, MRSA SWAB TAKEN, V/S TAKEN, WNL, CALL LIGHT WITHIN REACH, WILL CONTINUE TO MONITOR.
--- NOTE | 2019-03-04 20:12 | NUR ---
Transfer of care and report given to BAN Urbina
--- NOTE | 2019-03-04 20:13 | NUR ---
Patient will be admitted to care of Dr. Lombardi. Admited to Telemetry. Will go to room 121A. Belongings list completed. Report to BAN Urbina.
[2019-03-04 20:30] VITALS: BP 125/81
[2019-03-04] MEDS: MORPHINE SULFATE 4 MG/ML SYR IVP PRN (20:43)
--- NOTE | 2019-03-04 20:43 | NUR ---
PT C/O PAIN, PAIN MEDICATION ADMINISTERED, DUE MEDICATION ALSO ADMINISTERED, PT REFUSED HEPARIN, STATED DOES NOT WANT IT, EDUCATE PT FUNCTION OF HEPARIN, PT STATED THAT SHE WANTS TO TAKE HER ASPIRIN ONLY NOT THE HEPARIN. LASIX ORDERED ALSO NOT GIVEN DUE TO PT ALREADY HAD LASIX 80MG IN ER, LESS THAN 2 HRS AGO. PT RESTING, NO DISTRESS NOTED, CALL LIGHT WITHIN REACH, WILL CONTINUE TO MONITOR.
[2019-03-04] MEDS: BLOOD GLUCOSE MONITORING 1 DEV DEV FS SCH (20:46)
[2019-03-04] MEDS: CARVEDILOL 12.5 MG TAB PO SCH (20:51)
[2019-03-04] MEDS: glipiZIDE 5 MG TAB PO SCH (20:51)
[2019-03-04] MEDS ORDERED: FUROSEMIDE 40 MG/4 ML VIAL IVP ONE (21:00)
[2019-03-05] VITALS (8 sets, daily range): BP systolic 107–126; BP diastolic 70–94
[2019-03-05] MEDS: MORPHINE SULFATE 4 MG/ML SYR IVP PRN ×4 (00:43→22:09)
--- NOTE | 2019-03-05 00:43 | NUR ---
PT C/O PAIN, MEDICATION PER MD ORDER ADMINISTERED, PT TOLERATED WELL, NO DISTRESS NOTED, CALL LIGHT WTIHIN REACH, WILL CONTINUE TO MONITOR.
[2019-03-05] MEDS: ALBUTEROL SULFATE/IPRATROPIU 3 ML SOL IH SCH ×4 (01:00→19:21)
--- NOTE | 2019-03-05 03:39 | NUR ---
PT SLEEPING, V/S TAKEN, WNL, CALL LIGHT WITHIN REACH, WILL CONTINUE TO MONITOR.
--- NOTE | 2019-03-05 05:43 | NUR ---
PT C/O PAIN, PAIN MEDICATION ADMINISTERED, PT TOLERATED WELL, CALL LIGHT WITHIN REACH, WILL CONTINUE TO MONITOR.
[2019-03-05] MEDS: BLOOD GLUCOSE MONITORING 1 DEV DEV FS SCH ×4 (06:16→21:47)
--- NOTE | 2019-03-05 07:25 | NUR ---
ENDORSED PT TO DAY SHIFT RN ANTONETTE, PT STABLE, NO DISTRESS NOTED, CALL LIGHT WITHIN REACH.
--- NOTE | 2019-03-05 07:26 | NUR ---
RECEIVED REPORT FROM PHYSICAL SCIENCE TECHNICIAN NURSE. PT IN STABLE CONDITION. RESPIRATIONS EVEN AND UNLABORED. O2 3L VIA NC. SAFETY MEASURES IN PLACE. BED IN LOW POSITION. BED ALARM ON. WILL CONTINUE TO MONITOR.
[2019-03-05 07:31] LABS: BASOPHILS % (AUTO) 0.3 % (0.0-2.0); EOSINOPHILS # (AUTO) 0.1 K/uL (0-0.4); HEMATOCRIT 33.7 % (36-48); HEMOGLOBIN 11.1 g/dL (12.0-16.0); LYMPHOCYTES # (AUTO) 1.1 K/uL (2.5-16.5); LYMPHOCYTES % (AUTO) 19.7 % (20.5-51.1); MEAN CORPUSCULAR HEMOGLOBIN 32 pg (27-31); MEAN CORPUSCULAR HGB CONC 33 g/dL (33-37); MEAN CORPUSCULAR VOLUME 96.8 fL (80-94); MONOCYTES # (AUTO) 0.4 K/uL (0.8-1.0); MONOCYTES % (AUTO) 7.5 % (1.7-9.3); NEUTROPHILS # (AUTO) 3.8 K/uL (1.8-7.7); NEUTROPHILS % (AUTO) 70.5 % (42.2-75.2); PLATELET COUNT (AUTO) 129 K/uL (140-450); RED BLOOD CELL COUNT(AUTO) 3.48 MIL/uL (4.20-5.40); RED CELL DISTRIBUTION WIDTH 17.6 % (11.6-13.7); WHITE BLOOD COUNT (AUTO) 5.4 K/uL (4.8-10.8)
[2019-03-05 07:42] LABS: CARBON DIOXIDE 28.3 mmol/L (21-32); CREATININE 1.2 mg/dL (0.6-1.3); POTASSIUM 3.3 mmol/L (3.5-5.1)
[2019-03-05 08:14] LABS: MAGNESIUM 1.4 mg/dL (1.8-2.4)
--- NOTE | 2019-03-05 08:29 | NUR ---
PATIENT HAS BEEN SCREENED AND CATEGORIZED MODERATE NUTRITION RISK. PATIENT WILL BE SEEN WITHIN 3-5 DAYS OF ADMISSION. 03/07/19DARIN [address]
[2019-03-05] MEDS ORDERED: LACTULOSE 20 GM/30 ML UDC PO PRN (09:00)
--- NOTE | 2019-03-05 09:30 | NUR ---
PT LYING IN SLEEPING AT THIS TIME. RESPIRATIONS EVEN AND UNLABORED. BED IN LOW POSITION. CALL LIGHT AT BEDSIDE. WILL CONTINUE TO MONITOR.
[2019-03-05] MEDS: ASPIRIN 81 MG TAB.CHEW PO SCH (10:55)
[2019-03-05] MEDS: AMIODARONE 200 MG TAB PO SCH (10:56)
[2019-03-05] MEDS: PHENYTOIN 100 MG CAPER PO SCH ×3 (10:56→17:10)
[2019-03-05] MEDS: FERROUS SULFATE 325 MG TABEC PO SCH ×3 (10:56→17:10)
[2019-03-05] MEDS: GABAPENTIN 300 MG CAP PO SCH ×3 (10:57→17:11)
[2019-03-05] MEDS: ATORVASTATIN 20 MG TAB PO SCH (10:57)
[2019-03-05] MEDS: CARVEDILOL 12.5 MG TAB PO SCH ×2 (10:58→21:47)
[2019-03-05] MEDS: CYANOCOBALAMIN 1,000 MCG TAB PO SCH (10:59)
[2019-03-05] MEDS: glipiZIDE 5 MG TAB PO SCH ×2 (10:59→21:48)
--- NOTE | 2019-03-05 11:45 | NUR ---
PT LYING IN BED IN STABLE CONDITION. RESPIRATIONS EVEN AND UNLABORED. BED IN LOW POSITION. CALL LIGHT AT BEDSIDE. WILL CONTINUE TO MONITOR.
[2019-03-05] MEDS: BUMETANIDE 1 MG/4 ML VIAL IV SCH ×2 (11:51→18:44)
[2019-03-05] MEDS: MAG SULF 2000 MG/WATER PREMIX 50 ML IV SCH ×2 (11:52→17:12)
--- NOTE | 2019-03-05 11:53 | NUR ---
CALLED [facility] SPOKE WITH MOODY AND RECEIVED THE AUTH # [id number] FOR CARDIOLOGY. CALLED PATIENT'S FLAME CUTTING MACHINE OPERATOR OFFICE DR AUSTYN PATRICK [phone] , HAS APPOINTMENT ON APRIL 08 AT 1:50 AT [facility] . APPOINTMENT REMINDER WILL BE GIVEN TO THE PATIENT UPON DISCHARGE.
[2019-03-05] MEDS ORDERED: MAG SULF 2000 MG/WATER PREMIX 50 ML IV SCH (12:00)
[2019-03-05] MEDS ORDERED: POTASSIUM CHLORIDE 10 MEQ TABER PO SCH (12:00)
--- NOTE | 2019-03-05 13:58 | NUR ---
GAVE DUE MEDICATIONS AT THIS TIME. PT TOLERATED WELL. RESPIRATIONS EVEN AND UNLABORED. BED IN LOW POSITION. CALL LIGHT AT BEDSIDE. WILL CONTINUE TO MONITOR.
--- NOTE | 2019-03-05 14:30 | NUR ---
NEW IV PLACED AT THIS TIME. 22G RFA. PT TOLERATED WELL. RESPIRATIONS EVEN AND UNLABORED. BED IN LOW POSITION. CALL LIGHT AT BEDSIDE. WILL CONTINUE TO MONITOR.
--- NOTE | 2019-03-05 17:01 | NUR ---
MOVED TO ROOM 108 AT THIS TIME FOR PRIVACY. PT IN STABLE CONDITION.
--- NOTE | 2019-03-05 19:10 | NUR ---
GAVE REPORT TO CPA TAX NURSE FOR CONTINUITY OF CARE. PT IN STABLE CONDITION.
--- NOTE | 2019-03-05 19:11 | NUR ---
RECD. RESTING IN BED, AWAKE, A/OX4. RESPIRATION EVEN AND UNLABORED. ON AT 3 LITERS VIA N/C. 02 SAT - 96%.IV SALINE LOCK AT THE RIGHT FOREARM G22, PATENT AND INTACT. USES BSC. WITH BILATERAL LOWER EXTREMITIES PITTING EDEMA, 2+. PLAN OF CARE FOR THE SHIFT DISCUSSED. VERBALIZED UNDERSTANDING. DENIES PAIN 0/10.
--- NOTE | 2019-03-05 21:47 | NUR ---
DUE PO MEDICATIONS GIVEN, ENCOURAGED TO EAT SNACK FOR THE NIGHT.
--- NOTE | 2019-03-05 22:33 | NUR ---
Patient's Plan of Care was discussed and reviewed with JEWEL HOLE ROUGH OPENER: [employer]
[2019-03-06] VITALS: BP 114/85
--- NOTE | 2019-03-06 | NUR ---
AWAKE, RESTING IN BED. WAITING FOR HER 12'OCLOCK MEDICATIONS.
[2019-03-06] MEDS ORDERED: BUMETANIDE 1 MG/4 ML VIAL ONE ×2 (00:50→05:37)
[2019-03-06] MEDS: BUMETANIDE 1 MG/4 ML VIAL IV SCH ×4 (00:59→17:24)
[2019-03-06] MEDS: ALBUTEROL SULFATE/IPRATROPIU 3 ML SOL IH SCH ×4 (01:12→19:55)
--- NOTE | 2019-03-06 02:00 | NUR ---
SLEEPING COMFORTABLY IN BED.
[2019-03-06 04:00] VITALS: BP 120/86
--- NOTE | 2019-03-06 05:00 | NUR ---
AWAKE, SITTING IN BED. ENCOURAGED TO SLEEP AGAIN. NO COMPLAINT OF PAIN 0/10.
[2019-03-06] MEDS: BLOOD GLUCOSE MONITORING 1 DEV DEV FS SCH ×4 (06:25→20:41)
[2019-03-06] MEDS: MORPHINE SULFATE 4 MG/ML SYR IVP PRN ×3 (06:44→20:54)
--- NOTE | 2019-03-06 07:05 | NUR ---
Bedside report given to nurse Melanie. Pt in no distress. Call light within reach. Addendum: 03/06/19 at 1921 by Marcelina Carrington RN Wrong time input. Correct time of even is 1904
--- NOTE | 2019-03-06 07:25 | NUR ---
Received bedside report from pm nurse Radha. Pt awake, verbally responsive, respirations even & nonlabored on O2 @ 3Lpm via n/c. Right forearm IV saline lock intact & asymptomatic. Call light within reach.
[2019-03-06 08:00] VITALS: BP 115/79
[2019-03-06] MEDS: GABAPENTIN 300 MG CAP PO SCH ×3 (08:37→17:24)
[2019-03-06] MEDS: ATORVASTATIN 20 MG TAB PO SCH (08:37)
[2019-03-06] MEDS: ASPIRIN 81 MG TAB.CHEW PO SCH (08:37)
[2019-03-06] MEDS: glipiZIDE 5 MG TAB PO SCH ×2 (08:37→20:52)
[2019-03-06] MEDS: PHENYTOIN 100 MG CAPER PO SCH ×3 (08:37→17:24)
[2019-03-06] MEDS: CARVEDILOL 12.5 MG TAB PO SCH ×2 (08:38→20:52)
[2019-03-06] MEDS: POTASSIUM CHLORIDE 10 MEQ TABER PO SCH (08:38)
[2019-03-06] MEDS: AMIODARONE 200 MG TAB PO SCH (08:38)
[2019-03-06] MEDS: FERROUS SULFATE 325 MG TABEC PO SCH ×3 (08:38→17:24)
[2019-03-06] MEDS: CYANOCOBALAMIN 1,000 MCG TAB PO SCH (08:38)
--- NOTE | 2019-03-06 09:00 | NUR ---
Heparin held d/t low platelet. Pt with no signs of bleeding.
--- NOTE | 2019-03-06 11:45 | NUR ---
Pt sitting up in bed, no signs of distress, respirations even & nonlabored with O2 @ 3Lpm via n/c, no c/o pain. Call light within reach.
[2019-03-06 12:00] VITALS: BP 107/73
[2019-03-06] MEDS ORDERED: POTASSIUM CHLORIDE 10 MEQ TABER PO SCH (15:00)
--- NOTE | 2019-03-06 15:22 | NUR ---
CARDIO APPT: Received appointment schedule from corrections caseworker for cardio f/u with Dr. Marcie Pitt on 04/08/19 @ 1:50PM ([phone] [facility]). Pt notified & agree with f/u appt.
[2019-03-06 16:00] VITALS: BP 119/83
--- NOTE | 2019-03-06 17:30 | NUR ---
Pt sitting up in bed, eating dinner. No c/o discomfort, respirations even & nonlabored with O2 @ 3Lpm via n/c. Right forearm IV saline lock intact & asymptomatic. Call light within reach.
--- NOTE | 2019-03-06 19:05 | NUR ---
Bedside report given to pm nurse Melanie. Pt in no distress. Call light within reach.
--- NOTE | 2019-03-06 19:10 | NUR ---
RECEIVED REPORT FORM MARINA RN DAYSHIFT NURSE AT BEDSIDE FOR CONTINUITY OF CARE , PT IN STABLE CONDITION.
[2019-03-06 20:00] VITALS: BP 143/99
--- NOTE | 2019-03-06 20:00 | NUR ---
PT IN LOW BED SIDE RAILS UP X2. PT IS AWAKE AOX3-4 WITH BLE PITTING EDEMA +1 ON TOP OF FEET. V/S FOLLOWS T 97.0 P 79 R 18 B/P 143/99 02 99% WITH 3 LITERS. PT NOTED USING SOME ACCESSORY MUSCLES TO BREATHE BETTER. RT WAS CALLED BECAUSE PT DUE FOR NEB TREATMENT. MICKI RT NOTIFED AND SAID HE WILL BE THERE SHORTLY. PT SAID SHE HAS DISCOMFORT BUT IT IS TOLERABLE AT THIS TIME.
--- NOTE | 2019-03-06 21:00 | NUR ---
NEB TREATMENT DONE AT BEDSIDE PT NOW ON 4 LITERS VIA N/C AND IN NO S/S OF SOB. PT RESPIRATIONS EVEN AND UNLABORED. PT FINGERSTICK IS 99, NO HUMALOG COVERAGE NEEDED. PT GIVEN ORDERED COREG, AND GLUCOTOL. PT DECLINED HEPARIN SUB SHOTS FOR DVT PROTOCOL. MEDICATION EDUCATION PROVIDED AT BEDSIDE FOR MEDICATION TAKEN WELL HEPARIN RISKS AND BENEFITS. PT C/O OF SEVERE GENERALIZED PAIN 02/18, PT GIVEN MORPHINE IVP ORDERED FOR SEVERE PAIN. WILL MONITOR FOR EFFECT.
--- NOTE | 2019-03-06 22:30 | NUR ---
PT IN BED SLEEPING NO S/S OF PAIN OR DISTRESS NOTED. PT ON 4 LITERS VIA N/C AND RESPIRATIONS ARE EVEN AND UNLABORED. PT IN LOW BED SIDE RAILS UP AND CALL VALADEZ IN REACH.
[2019-03-07] VITALS: BP 117/82
--- NOTE | 2019-03-07 00:15 | NUR ---
PT IN BED V/S FOLLOWS T 97.7 P 76 R 18 B/P 117/82 02 100% ON 4 LITERS VIA N/C. PT GIVEN BUMEX IVP ORDERED FOR CHF EXACERBATION. MEDICATION EDUCATION PROVIDED TO PT. PT SAYS THE PAIN IS STARTING TO COME BACK BUT TOLERABLE AT THIS TIME. PT VOIDED 400MLS OF LIGHT MAURY URINE.
[2019-03-07] MEDS: ALBUTEROL SULFATE/IPRATROPIU 3 ML SOL IH SCH ×4 (00:49→20:20)
[2019-03-07] MEDS: BUMETANIDE 1 MG/4 ML VIAL IV SCH ×4 (00:55→17:11)
--- NOTE | 2019-03-07 01:17 | NUR ---
PT C/O MODERATE GENERALIZED PAIN 5/10, GIVEN 1 TAB NORCO PO/PRN. PT ALSO RECEIVING NEB TREATMENT AT BEDSIDE.
[2019-03-07 04:00] VITALS: BP 117/76
[2019-03-07] MEDS: MORPHINE SULFATE 4 MG/ML SYR IVP PRN ×3 (05:45→21:01)
--- NOTE | 2019-03-07 06:00 | NUR ---
PT IN BED REQUESTING PAIN MEDICATION FOR SEVERE GENERALIZED BODY ACHES. PT GIVEN IVP MORPHINE. PT ALSO GIVEN DIURETIC BUMEX FOR CHF EXACERBATION. PT V/S FOLLOWS T 97.0 P 71 R 18 B/P 117/76 02 100% ON ROOM AIR. PT FINGERSTICK IS 79, PT GIVEN OJ AND PUDDING. PT REFUSED LABS SAYING SHE IS GOING HOME TODAY AND THERE IS NO NEED FOR THEM.
[2019-03-07] MEDS: BLOOD GLUCOSE MONITORING 1 DEV DEV FS SCH ×4 (06:23→20:57)
--- NOTE | 2019-03-07 07:20 | NUR ---
REPORT GIVEN TO ZEHRA RN DAYSHIFT NURSE AT BEDSIDE FOR CONTINUITY OF CARE, PT IN STABLE CONDITION.
--- NOTE | 2019-03-07 07:21 | NUR ---
Received bedside report from pm nurse Melanie. Pt resting in bed, awake, verbally responsive, respirations even & nonlabored with O2 @ 4Lpm via n/c, FLACC 0. SaO2=98-99%. O2 titrated down to 3Lpm, Sao2 95-96%. Pt denies any SOB. Right forearm IV saline lock intact & patent, flushed with 10ml NS. Call light within reach.
[2019-03-07 08:00] VITALS: BP 115/70
[2019-03-07] MEDS: POTASSIUM CHLORIDE 10 MEQ TABER PO SCH (09:50)
[2019-03-07] MEDS: glipiZIDE 5 MG TAB PO SCH ×2 (09:50→20:58)
[2019-03-07] MEDS: ATORVASTATIN 20 MG TAB PO SCH (09:51)
[2019-03-07] MEDS: CARVEDILOL 12.5 MG TAB PO SCH ×2 (09:51→20:58)
[2019-03-07] MEDS: ASPIRIN 81 MG TAB.CHEW PO SCH (09:51)
[2019-03-07] MEDS: GABAPENTIN 300 MG CAP PO SCH ×3 (09:51→17:11)
[2019-03-07] MEDS: FERROUS SULFATE 325 MG TABEC PO SCH ×3 (09:51→17:11)
[2019-03-07] MEDS: CYANOCOBALAMIN 1,000 MCG TAB PO SCH (09:51)
[2019-03-07] MEDS: PHENYTOIN 100 MG CAPER PO SCH ×3 (09:51→17:11)
[2019-03-07] MEDS: AMIODARONE 200 MG TAB PO SCH (09:52)
--- NOTE | 2019-03-07 11:30 | NUR ---
Dr Dawkins at bedside to assess pt. Addendum: 03/07/19 at 1158 by Marcelina Carrington RN Addendum: Pt resting in bed, FLACC 0, respirations even & nonlabored on O2 @ 3Lpm via n/c.
[2019-03-07 12:00] VITALS: BP 117/84
--- NOTE | 2019-03-07 12:30 | NUR ---
Bumex unavailable in med room. Spoke to Amanda from pharmacy & states will bring med in a few minutes.
--- NOTE | 2019-03-07 12:50 | NUR ---
Pt in supine with electrical controls technician performing procedure. Per electrical controls technician, will be done in 15 minutes. Due meds will be given after ultrasound is completed.
[2019-03-07 15:58] LABS: BASOPHILS % (AUTO) 0.2 % (0.0-2.0); EOSINOPHILS # (AUTO) 0.1 K/uL (0-0.4); HEMATOCRIT 35.3 % (36-48); HEMOGLOBIN 11.2 g/dL (12.0-16.0); LYMPHOCYTES % (AUTO) 20.6 % (20.5-51.1); MEAN CORPUSCULAR HEMOGLOBIN 31 pg (27-31); MEAN CORPUSCULAR HGB CONC 32 g/dL (33-37); MEAN CORPUSCULAR VOLUME 98.5 fL (80-94); MONOCYTES # (AUTO) 0.4 K/uL (0.8-1.0); NEUTROPHILS # (AUTO) 3.5 K/uL (1.8-7.7); NEUTROPHILS % (AUTO) 69.2 % (42.2-75.2); PLATELET COUNT (AUTO) 125 K/uL (140-450); RED BLOOD CELL COUNT(AUTO) 3.59 MIL/uL (4.20-5.40); RED CELL DISTRIBUTION WIDTH 17.8 % (11.6-13.7); WHITE BLOOD COUNT (AUTO) 5.1 K/uL (4.8-10.8)
[2019-03-07 16:00] VITALS: BP 127/87
[2019-03-07 16:36] LABS: ANION GAP 14.2 (8-16); CARBON DIOXIDE 27.3 mmol/L (21-32); CREATININE 1.3 mg/dL (0.6-1.3); POTASSIUM 5.5 mmol/L (3.5-5.1)
[2019-03-07 16:48] LABS: MAGNESIUM 1.8 mg/dL (1.8-2.4); PHOSPHORUS 4.6 mg/dL (2.5-4.9)
--- NOTE | 2019-03-07 17:00 | NUR ---
Dr. Subramanian paged re: CBC & BMP results (K level 5.5). Awaiting call back.
--- NOTE | 2019-03-07 17:15 | NUR ---
Pt reports SOB after transferring back to bed after self sponge bath & using bedside commode. Assessed pt: pt sitting up in bed, RR=24/min labored with O2 @ 3Lpm via n/c, SaO2=93-94%. O2 increased to 3.5Lpm, instructed pt on deep breathing techniques, able to follow commands. RR improved 20/min even & nonlabored, SaO2=96-97%. Pt verbalized feeling better. RT Barney notified.
--- NOTE | 2019-03-07 17:28 | NUR ---
Received call from Dr Subramanian, read back CBC & BMP results. Physician with order to dc KCL supplement & cont with routine BMP in am. Order noted & carried out.
--- NOTE | 2019-03-07 17:33 | NUR ---
Per RT Peter, pt O2 supp decreased back to 3Lpm via n/c. Pt in no distress at this time, respirations even & nonlabored.
--- NOTE | 2019-03-07 19:30 | NUR ---
RECEIVED ENDORSEMENT FROM MARINA CEVALLOS DAYSHIFT NURSE AT BEDSIDE FOR CONTINUITY OF CARE, PT IN STABLE CONDITION.
[2019-03-07 20:00] VITALS: BP 129/86
--- NOTE | 2019-03-07 20:00 | NUR ---
PT IN LOW BED WITH SIDE RAILS UP X2. SUPPLEMENTAL 02 VIA N/C AT 3LITERS. PT STATING AT 100%. T 97.1 P 78 R 18 B/P 129/86 02 100% ON 3 LITERS VIA N/C. PT HAS PITTING EDEMA ON LEFT FOOT. PT C/O GENERALIZED PAIN AT 02/18. WILL MEDICATE PT FOR PAIN.
--- NOTE | 2019-03-07 21:00 | NUR ---
PT IN BED GIVEN ROUTINE MEDS OF COREG AND GLIPIZIDE FOR DM2. PT FINGERSTICK IS 90. PT GIVEN DIABETIC SNACK. PT DECLINED HEPARIN SHOT FOR DVT PREVENTION. MEDICATION EDUCATION PROVIDED. PT MEDICATED WITH MORPHINE IVP FOR SEVERE GENERALIZED PAIN.
[2019-03-08] VITALS: BP 125/84
--- NOTE | 2019-03-08 | NUR ---
PT IN LOW BED WITH SIDE RAILS UP X2 AND CALL VALADEZ IN REACH. 02 RUNNING AT 3 LITERS V/S FOLLOWS T 97 P 78 R 18 B/P 125/84 02 98% ON 3LITERS VIA N/C
[2019-03-08] MEDS: ALBUTEROL SULFATE/IPRATROPIU 3 ML SOL IH SCH ×3 (01:20→14:10)
[2019-03-08] MEDS: MORPHINE SULFATE 4 MG/ML SYR IVP PRN ×3 (01:21→12:01)
--- NOTE | 2019-03-08 01:30 | NUR ---
PT SITTING UP IN BED WITH C/O OF SEVERE GENERALIZED PAIN. PT GIVEN MORPHINE PRN/IVP ORDERED FOR SEVERE PAIN. PT RECEIVING NEB TREATMENT AT BEDSIDE. ALL REQUESTED NEEDS ATTENDED.
[2019-03-08 04:00] VITALS: BP 127/87
--- NOTE | 2019-03-08 04:00 | NUR ---
PT IN BED NO C/O VOICED PT RESTING WITH EYES CLOSED. PT VOIDED 300 V/S FOLLOWS T 97.0 P 78 R 18 B/P 127/87 02 97% ON 3 LITERS VIA N/C. PT C/O CONSTIPATION AND WAS OFFERED PO/PRN LACTULOSE BUT PT DECLINED. PT ALSO OFFERED PRUNE JUICE BUT ALSO DECLINED.
[2019-03-08] MEDS: BUMETANIDE 1 MG/4 ML VIAL IV SCH ×2 (06:11)
[2019-03-08] MEDS: BLOOD GLUCOSE MONITORING 1 DEV DEV FS SCH ×3 (06:21→16:30)
--- NOTE | 2019-03-08 06:30 | NUR ---
LABS DRAWN AT BEDSIDE. PT GIVEN ORDERED BUMEX AND FINGERSTICK IS 61. PT DECLINED DEXTROSE IV DUE TO CONCERN THAT DEXTROSE WATER IS OFTEN THICK AND CAN RUIN AN IV SITE. PT TOOK JUICE AND PUDDING. CARE ENDORSED TO NEXT SHIFT.
--- NOTE | 2019-03-08 07:10 | NUR ---
Received report from pm nurse Melanie. Pt awake, verbally responsive, no c/o discomfort at this time, respirations even & nonlabored with O2 @ 3Lpm via n/c. Right forearm IV intact & asymptomatic, flushed with 10ml NS. Call light within reach.
[2019-03-08 08:00] VITALS: BP 127/84
--- NOTE | 2019-03-08 08:30 | NUR ---
Pt refused breakfast, requested chicken sandwich instead. [place] provided.
[2019-03-08] MEDS: ATORVASTATIN 20 MG TAB PO SCH (08:59)
[2019-03-08] MEDS: FERROUS SULFATE 325 MG TABEC PO SCH ×3 (09:00→12:08)
[2019-03-08] MEDS: AMIODARONE 200 MG TAB PO SCH (09:00)
[2019-03-08] MEDS: CYANOCOBALAMIN 1,000 MCG TAB PO SCH (09:00)
[2019-03-08] MEDS: GABAPENTIN 300 MG CAP PO SCH ×2 (09:01→12:01)
[2019-03-08] MEDS: CARVEDILOL 12.5 MG TAB PO SCH (09:01)
[2019-03-08] MEDS: PHENYTOIN 100 MG CAPER PO SCH ×2 (09:01→12:01)
[2019-03-08] MEDS: glipiZIDE 5 MG TAB PO SCH (09:02)
[2019-03-08] MEDS: ASPIRIN 81 MG TAB.CHEW PO SCH (09:02)
--- NOTE | 2019-03-08 09:07 | NUR ---
Pt refused FeSO4 d/t c/o constipation. Explained benefits of med to pt. Offered prune juice & lactulose. Pt refused & states she'll be "ok" & will take laxatives when she gets home. Heparin refused by pt as well. Addendum: 03/08/19 at 1210 by Marcelina Carrington RN Addendum: FeSO4 tab wasted, heparin [facility] to [facility].
[2019-03-08 09:12] LABS: ANION GAP 16.3 (8-16); CARBON DIOXIDE 25.9 mmol/L (21-32); CREATININE 1.3 mg/dL (0.6-1.3); POTASSIUM 5.2 mmol/L (3.5-5.1)
--- NOTE | 2019-03-08 11:30 | NUR ---
Pt refused fingerstick glucose check at this time. Pt states she feels fine & doesn't want to be "stuck so much". Explained benefits of routine glucose monitoring. Pt verbalized understanding but cont to refuse. States she will have her sugar checked prior to dinner tonight. Pt shows no signs of hypo/hyperglylcemia, no signs of distress. Call light within reach.
[2019-03-08 12:00] VITALS: BP 128/92
--- NOTE | 2019-03-08 12:08 | NUR ---
Refused FeSO4. Pt states she is constipated. Cont to refuse prune juice and lactulose when offered for BM regimen. Per pt, she goes 4-5days at this without BM & that she will take lactulose at home when she is discharged. Med returned to [facility].
--- NOTE | 2019-03-08 15:15 | NUR ---
Dr Medina in unit to see pt.
[2019-03-08 16:00] VITALS: BP 132/97
--- NOTE | 2019-03-08 16:00 | NUR ---
Received phone call from Dr. Medina that pt can be discharged & to leave pt's & preferred pharmacy to his answering service so he can phone in pt's prescriptions. Per pt, her pharmacy is [facility] ([address] [place] [address] ). Spoke to Paola from [facility] answering service & states she will forward pt's & pharmacy info to Dr. Medina.
[2019-03-08] MEDS ORDERED: FURO40TA9 PO (16:22)
[2019-03-08] MEDS ORDERED: ZAR2.5 PO (16:23)
--- NOTE | 2019-03-08 16:30 | NUR ---
Written & verbal discharge instructions provided to pt. Pt verbalized understanding & agree to f/u with PCP, director of retail analytics, & manager of internal outpatient. Right forearm IV removed, catheter intact. Addendum: 03/08/19 at 1706 by Marcelina Carrington RN Addedum: per pt she called her daughter to pick her up. Pt's full personal portable O2 tank at bedside.
[2019-03-08] MEDS ORDERED: FUROSEMIDE 40 MG TAB PO SCH (17:00)
--- NOTE | 2019-03-08 17:00 | NUR ---
Pt discharged at this time, left unit via wheelchair with O2 @ 3Lpm via n/c from pt's personal portable tank. No signs of distress, respirations even & nonlabored. Name band removed. Pt's daughter waiting in lobby with personal transport. All belongings with pt upon departure.
--- NOTE | 2019-03-09 14:21 | NUR ---
I CALLED [facility] [phone] AND RECEIVED AUTH #[id number] FOR HIGH RISK CLINIC WITH DR DRAKE, MADE APPOINTMENT ON MARCH 12, 2019 AT 1115 AND PROVIDED THE AUTH # CALLED DR MICHELLE GERBER'S OFFICE [phone] THEY WANTED THE REQUEST TO BE FAXED #[id number] AND WILL F/U
[2019-03-10] MEDS ORDERED: METOLAZONE 5 MG TAB PO SCH (09:00)
--- NOTE | 2019-03-10 15:46 | NUR ---
CALLED MRS HERNANDEZ [phone] LEFT A MESSAGE THAT SHE HAS 3 APPOINTMENTS WITH FULLING MACHINE OPERATOR FOR CHF ,WITH TENNIS DIRECTOR DR JACK AND HIGH RISK WITH PULMO DR VIDAL RALPH F/U
== END 2019-03-08 17:00 | disposition home or self-care (01) | DRG 140 ==
LOC: MED 16:48 → MTU 19:45
PROVIDERS: ADMIT Internal Medicine Pulmonary Disease; ATTEND Internal Medicine Pulmonary Disease
DX: J44.1 Chronic obstructive pulmonary disease with (acute) exacerbation (principal); J96.20 Acute and chronic respiratory failure, unspecified whether with hypoxia or hypercapnia; I50.23 Acute on chronic systolic (congestive) heart failure; N17.9 Acute kidney failure, unspecified; N18.3 Chronic kidney disease, stage 3 (moderate); E11.22 Type 2 diabetes mellitus with diabetic chronic kidney disease; E11.51 Type 2 diabetes mellitus with diabetic peripheral angiopathy without gangrene; E11.42 Type 2 diabetes mellitus with diabetic polyneuropathy; I13.0 Hypertensive heart and chronic kidney disease with heart failure and stage 1 through stage 4 chronic kidney disease, or unspecified chronic kidney disease; E78.5 Hyperlipidemia, unspecified; E87.6 Hypokalemia; G89.29 Other chronic pain; F17.200 Nicotine dependence, unspecified, uncomplicated; G40.909 Epilepsy, unspecified, not intractable, without status epilepticus; Z88.0 Allergy status to penicillin; Z79.82 Long term (current) use of aspirin; Z79.899 Other long term (current) drug therapy; Z95.0 Presence of cardiac pacemaker; Z83.3 Family history of diabetes mellitus; Z82.49 Family history of ischemic heart disease and other diseases of the circulatory system
CPT/HCPCS: 36415; 71045; 80048; 80053; 82550; 82553; 82948; 83735; 83880; 84100; 84484; 85025; 85379; 87081; 93005; 93970; 94640; 96374; 99291; J1644; J1815; J1940; J2270; J3420; J3475; J3490; J7620; Q0092

== ENCOUNTER 2019-03-17 00:25 | Inpatient (IN) | payer OTHER ==
[~2019-03-17] VITALS: Ht 165.1 cm; Wt 83.5 kg
[~2019-03-17 00:25] MED LIST changes: +FURO40TA9 PO; -HYDR-5092 PO; +ZAR2.5 PO
[2019-03-17 00:31] VITALS: BP 107/71
--- NOTE | 2019-03-17 00:44 | NUR ---
Dr. Schwartz examining patient.
--- NOTE | 2019-03-17 00:44 | NUR ---
PT TAKEN TO BED 2
[2019-03-17] MEDS ORDERED: NACL 0.9% 1,000 ML IV ONE (00:45)
--- NOTE | 2019-03-17 00:53 | NUR ---
EKG PERFORMED AT BEDSIDE
--- NOTE | 2019-03-17 00:53 | NUR ---
EMT PERFORMING EKG AT BEDSIDE.
--- NOTE | 2019-03-17 01:00 | NUR ---
58/F CC: CP, FOOT PAIN AND SWELLING EDEMA. AOX4. ABLE TO VERBALIZE NEEDS. HX COPD, CHF, KIDNEY DZ, HTN, RA. RX ASA, IRON, GABAPENTIN, SIMVASTATIN, KCL, LASIX. AOX4. ABLE TO VERBALIZE NEEDS. RADIATING CP TO BACK 03/21. LABORED RESPIRATION. BED IN LOWEST POSITION. WILL CONTINUE TO MONITOR.
[2019-03-17] MEDS ORDERED: MORPHINE SULFATE 2 MG/ML SYR IVP ONE (01:25)
[2019-03-17] MEDS ORDERED: ASPIRIN 81 MG TAB.CHEW PO ONE (01:25)
[2019-03-17 01:41] LABS: BASOPHILS % (AUTO) 0.3 % (0.0-2.0); EOSINOPHILS # (AUTO) 0.1 K/uL (0-0.4); EOSINOPHILS % (AUTO) 0.8 % (0.0-4.0); HEMATOCRIT 39.5 % (36-48); LYMPHOCYTES # (AUTO) 0.8 K/uL (2.5-16.5); MEAN CORPUSCULAR HEMOGLOBIN 32 pg (27-31); MEAN CORPUSCULAR HGB CONC 33 g/dL (33-37); MEAN CORPUSCULAR VOLUME 96.5 fL (80-94); MONOCYTES # (AUTO) 0.9 K/uL (0.8-1.0); MONOCYTES % (AUTO) 11.1 % (1.7-9.3); NEUTROPHILS % (AUTO) 77.8 % (42.2-75.2); PLATELET COUNT (AUTO) 214 K/uL (140-450); WHITE BLOOD COUNT (AUTO) 7.7 K/uL (4.8-10.8)
[2019-03-17 01:55] LABS: ALBUMIN 3.5 g/dL (3.4-5.0); ANION GAP 9.9 (8-16); CARBON DIOXIDE 36.9 mmol/L (21-32); CREATININE 1.9 mg/dL (0.6-1.3); TOTAL BILIRUBIN 0.5 mg/dL (0.0-1.0)
[2019-03-17 01:59] LABS: PROTHROMBIN TIME 10.3 secs (10.8-13.4)
[2019-03-17 02:12] LABS: POTASSIUM 2.8 mmol/L (3.5-5.1)
[2019-03-17] MEDS ORDERED: POTASSIUM CHLORIDE 10 MEQ TABER PO ONE (02:20)
[2019-03-17] MEDS ORDERED: ENOXAPARIN 80 MG/0.8 ML SYR SUBQ ONE (02:20)
[2019-03-17] MEDS ORDERED: DOCUSATE SODIUM 250 MG GELCAP PO PRN (02:55)
[2019-03-17] MEDS ORDERED: diphenhydrAMINE 50 MG/ML VIAL IVP PRN (02:55)
[2019-03-17] MEDS ORDERED: LORazepam 2 MG/ML VIAL IVP PRN (02:55)
[2019-03-17] MEDS ORDERED: BISACODYL 10 MG SUPP RC PRN (02:55)
[2019-03-17] MEDS ORDERED: SODIUM PHOSPHATE 118 ML ENEM RC PRN (02:55)
[2019-03-17] MEDS ORDERED: MAGNESIUM OXIDE 400 MG TAB PO PRN (02:55)
[2019-03-17] MEDS ORDERED: HYDROcodone/APAP 5/325 MG 1 TAB TAB PO PRN ×2 (02:55)
[2019-03-17] MEDS ORDERED: ZOLPIDEM 5 MG TAB PO PRN (02:55)
[2019-03-17] MEDS ORDERED: POTASSIUM CHLORIDE 40 MEQ, LIDOCAINE 1% 25 MG in NACL 0.9% 250 ML IV PRN (02:55)
[2019-03-17] MEDS ORDERED: POTASSIUM CHLORIDE 10 MEQ TABER PO PRN (02:55)
[2019-03-17] MEDS ORDERED: MAG SULF 2000 MG/WATER PREMIX 50 ML IV PRN (02:55)
[2019-03-17] MEDS ORDERED: ONDANSETRON 4 MG/2 ML VIAL IVP PRN (02:55)
[2019-03-17] MEDS ORDERED: ACETAMINOPHEN 650 MG SUPP RC PRN (02:55)
[2019-03-17] MEDS ORDERED: guaiFENesin DM 200/20 MG-10 ML 10 ML UDC PO PRN (02:55)
[2019-03-17] MEDS ORDERED: ACETAMINOPHEN 325 MG TAB PO PRN (02:55)
[2019-03-17] MEDS ORDERED: cloNIDine 0.1 MG TAB PO PRN (02:55)
[2019-03-17] MEDS ORDERED: DEXTROSE 50% 50 ML SYR IVP PRN (02:55)
[2019-03-17] MEDS ORDERED: ALUMINUM HYD/MAG/SIMETHICONE 30 ML UDC PO PRN (02:55)
[2019-03-17 02:58] VITALS: BP 106/60
--- NOTE | 2019-03-17 02:58 | NUR ---
RECIEVED PT. AAOX4 , FROM ER / [facility] , ACCOMPANIED BY ER NURSES , WITH CC OF SOB , O2 SAT 95% , IV SITES INTACT AND PATENT , PLAN OF CARE DISCUSSED AND VERBALIZE UNDERSTANDING , TRANSFWER TO BED BY MANUAL LIFT , WITH PITTING EDEMA BOTH LEGS , WITH PACE MAKER , ADMISSION ASSESSMENT DONE , PUT ON FALL RISK PROTOCOL - BED IN LOW [POSITION , BED ALARM ON , CALL LIGHT WITH REACH , WILL CONT. TO MONITOR.
--- NOTE | 2019-03-17 03:20 | NUR ---
Patient will be admitted to [facility]. Admited to TELEMETRY. Will go to [id number] Belongings list completed. Report to TRIXIE
--- NOTE | 2019-03-17 04:00 | NUR ---
MADE ROUNDS , V/S WNL , ON O2 INH AT 2LPM , O2 SAT 98% RESP.EVEN BUT A LITTLE BIT LABORED , WILL CONTINUE TO MONITOR. CALL LIGHT WITHIN REACH.
[2019-03-17] MEDS: BLOOD GLUCOSE MONITORING 1 DEV DEV FS SCH ×4 (06:46→20:08)
[2019-03-17 06:52] LABS: CARBON DIOXIDE 35.8 mmol/L (21-32); CREATININE 1.7 mg/dL (0.6-1.3)
[2019-03-17 07:04] LABS: POTASSIUM 2.8 mmol/L (3.5-5.1)
--- NOTE | 2019-03-17 07:20 | NUR ---
RECEIVED REPORT FROM NIGHTSHIFT NURSE. PATIENT WAS SLEEPING UPON CHANGE OF SHIFT. NO S/S OF RESPIRATORY DISTRESS. WILL CONTINUE TO MONITOR
--- NOTE | 2019-03-17 07:26 | NUR ---
ENDORSED TO AM SHIFT FOR CONTINUITY OF CARE . PT IS SLEEPING . WITH LATEST O2 SAT 98% AND LATEST POTASSIUM LEVEL 2.8 MG/DL
[2019-03-17 07:50] VITALS: BP 114/69
[2019-03-17] MEDS: METOLAZONE 2.5 MG TAB PO SCH (08:32)
[2019-03-17] MEDS: PHENYTOIN 100 MG CAPER PO SCH ×3 (08:32→16:42)
[2019-03-17] MEDS: glipiZIDE 5 MG TAB PO SCH ×2 (08:33→20:02)
[2019-03-17] MEDS: ATORVASTATIN 20 MG TAB PO SCH (08:33)
[2019-03-17] MEDS: AMIODARONE 200 MG TAB PO SCH (08:33)
[2019-03-17] MEDS: FUROSEMIDE 40 MG TAB PO SCH ×2 (08:34→20:02)
[2019-03-17] MEDS: ASPIRIN 81 MG TAB.CHEW PO SCH (08:34)
[2019-03-17] MEDS: CARVEDILOL 12.5 MG TAB PO SCH ×2 (08:34→20:05)
[2019-03-17] MEDS: GABAPENTIN 300 MG CAP PO SCH ×3 (08:34→16:43)
[2019-03-17] MEDS: ENOXAPARIN 30 MG/0.3 ML SYR SUBQ SCH ×2 (08:35→08:53)
--- NOTE | 2019-03-17 08:43 | NUR ---
PATIENT HAS BEEN SCREENED AND CATEGORIZED MODERATE NUTRITION RISK. PATIENT WILL BE SEEN WITHIN 3-5 DAYS OF ADMISSION. 03/19/19DARIN [address]
--- NOTE | 2019-03-17 08:45 | NUR ---
PATIENT C/O PAIN 05/21 TO GENERALIZED THROUGHOUT BODY. MEDICATED PATIENT PER PRN MEDICATION PROTOCOL. VITAL SIGNS WNL PRIOR TO MEDICATION. BP 114/69. WILL CONTINUE TO MONITOR PATIENT AND EFFECTS OF MEDICATION. Addendum: 03/17/19 at 1653 by Oma Chong RN PAIN 01/19, NOT 05/21
--- NOTE | 2019-03-17 09:45 | NUR ---
PATIENTS PAIN LEVEL CAME DOWN FROM 10/10 TO 7/10 WITH MEDICATION. NO FURTHER C/O AT THIS TIME.
--- NOTE | 2019-03-17 10:00 | NUR ---
PATIENT URINATED ON HERSELF. CLEANSED PATIENT AND CHANGED GOWN AND CHUCKS. PATIENT HAPPY SHE URINATED BECAUSE SHE HASNT URINATED SINCE LAST NIGHT. PATIENT IN NO DISTRESS. WILL CONTINUE TO MONITOR
--- NOTE | 2019-03-17 11:15 | NUR ---
PATIENT IS RESTING QUIETLY IN BED. NO COMPLAINTS OF PAIN AT THIS TIME. NO S/S OF RESPIRATORY DISTRESS. WILL CONTINUE TO MONITOR.
--- NOTE | 2019-03-17 12:30 | NUR ---
PATIENT STATED TO URINATING X2. NOTIFIED PAPER LATCHER TO CHANGE HER SHEETS. PATIENT IS IN LESS PAIN THAN EARLIER. ATE 75% OF HER LUNCH. RESTING QUIETLY IN BED, NO S/S OF RESPIRATORY DISTRESS. WILL CONTINUE TO MONITOR.
[2019-03-17 12:40] VITALS: BP 101/64
--- NOTE | 2019-03-17 14:00 | NUR ---
PATIENT RESTING IN BED. WILL CONTINUE TO MONITOR.
[2019-03-17 16:00] VITALS: BP 106/71
[2019-03-17] MEDS: MORPHINE SULFATE 2 MG/ML SYR IVP PRN ×2 (16:43→22:30)
--- NOTE | 2019-03-17 16:50 | NUR ---
ADMINISTERED PAIN MEDICATION FOR PAIN 05/21. VITAL SIGNS WNL PRIOR TO ADMINISTRATION. WILL CONTINUE TO MONITOR.
--- NOTE | 2019-03-17 17:14 | NUR ---
INSERTED VARGAS CATHETER PER MD ORDER WITH THE ASSISTANCE OF CHARGE NURSE LORNE. INSERTED 16FR CATHETER. NO DISTRESS FROM THE PATIENT NOTED. WILL CONTINUE TO MONITOR DRAINAGE.
--- NOTE | 2019-03-17 19:22 | NUR ---
ENDORSED PATIENT TO DEPUTY CHIEF COUNSEL NURSE. PATIENT IN STABLE CONDITION UPON CHANGE OF SHIFT, NO S/S OF RESPIRATORY DISTRESS.
--- NOTE | 2019-03-17 19:23 | NUR ---
REPORT RECEIVED FROM AM NURSE AT BEDSIDE. PT IN STABLE CONDITION. AAOX4. INTRODUCED SELF TO PT. BOARD UPDATED. NO COMPLAINTS OF PAIN. NO SOB ON 2L O2 VIA NC. AFEBRILE. PT IS ON BEDREST. FALL RISK DUE TO GENERALIZED WEAKNESS. IV SITE R HAND 24G SL PATENT AND INTACT. SKIN WARM, DRY, AND INTACT WITH NO OPEN WOUNDS. BED LOCKED IN LOW POSITION. CALL VALADEZ WITHIN REACH. SAFETY PRECAUTION IN PLACE. ALL NEEDS MET AT THIS TIME. Addendum: 03/17/19 at 1937 by James Casey RN SAM IN PLACE 03/17/19.
[2019-03-17 20:00] VITALS: BP 99/58
[2019-03-17] MEDS: methylPREDNISolone SS 40 MG/ML VIAL IVP SCH (20:05)
--- NOTE | 2019-03-17 20:05 | NUR ---
GLIPIZIDE AND LASIX GIVEN PO. SOLUMEDROL GIVEN IVP. COREG HELD. BS 128. NO INSULIN COVERAGE NEEDED. PT TOLERATED WELL.
--- NOTE | 2019-03-17 21:20 | NUR ---
PT SLEEPING COMFORTABLY IN BED BUT AROUSABLE. NO S/S OF DISTRESS NOTED. WILL CONTINUE TO MONITOR.
--- NOTE | 2019-03-17 22:30 | NUR ---
MORPHINE GIVEN FOR PAIN. PT TOLERATED WELL.
[2019-03-18] VITALS: BP 109/90
--- NOTE | 2019-03-18 00:30 | NUR ---
PT AWAKE AND ALERT EATING A SANDWICH. NO S/S OF DISTRESS NOTED. WILL NO COMPLAINTS OF PAIN. NO SOB. AFEBRILE. WILL CONTINUE TO MONITOR.
--- NOTE | 2019-03-18 01:45 | NUR ---
PT SLEEPING COMFORTABLY IN BED. NO S/S OF DISTRESS NOTED. RESPIRATIONS EVEN, UNLABORED, AND WNL. WILL CONTINUE TO MONITOR.
--- NOTE | 2019-03-18 03:10 | NUR ---
PT SLEEPING COMFORTABLY IN BED. NO S/S OF DISTRESS NOTED. NO COMPLAINTS OF PAIN. NO SOB. AFEBRILE. WILL CONTINUE TO MONITOR.
[2019-03-18 04:00] VITALS: BP 110/85
--- NOTE | 2019-03-18 04:50 | NUR ---
PT AWAKE AND ALERT LAYING IN BED. NO S/S OF DISTRESS NOTED. RESPIRATIONS EVEN, UNLABORED, AND WNL. WILL CONTINUE TO MONITOR.
[2019-03-18] MEDS: MORPHINE SULFATE 2 MG/ML SYR IVP PRN ×3 (05:51→20:43)
--- NOTE | 2019-03-18 05:51 | NUR ---
MORPHINE GIVEN FOR 7/10 PAIN. PT TOLERATED WELL.
[2019-03-18] MEDS: INSULIN LISPRO SLIDING SCALE 100 UNITS/ML VIAL SUBQ PRN ×4 (06:00→20:54)
--- NOTE | 2019-03-18 06:00 | NUR ---
ADMINISTERED SCHEDULED MEDICATIONS AND 6 UNITS HUMALOG FOR 296 GLUCOSE. PATIENT TOLERATED WELL.
[2019-03-18 06:05] LABS: BASOPHILS % (AUTO) 0.1 % (0.0-2.0); HEMATOCRIT 35.5 % (36-48); HEMOGLOBIN 11.7 g/dL (12.0-16.0); LYMPHOCYTES # (AUTO) 0.5 K/uL (2.5-16.5); MEAN CORPUSCULAR HEMOGLOBIN 31 pg (27-31); MEAN CORPUSCULAR HGB CONC 33 g/dL (33-37); MEAN CORPUSCULAR VOLUME 95.3 fL (80-94); MONOCYTES # (AUTO) 0.3 K/uL (0.8-1.0); NEUTROPHILS # (AUTO) 5.9 K/uL (1.8-7.7); NEUTROPHILS % (AUTO) 87.9 % (42.2-75.2); PLATELET COUNT (AUTO) 220 K/uL (140-450); RED BLOOD CELL COUNT(AUTO) 3.73 MIL/uL (4.20-5.40); RED CELL DISTRIBUTION WIDTH 16.6 % (11.6-13.7); WHITE BLOOD COUNT (AUTO) 6.7 K/uL (4.8-10.8)
[2019-03-18] MEDS: BLOOD GLUCOSE MONITORING 1 DEV DEV FS SCH ×4 (06:42→20:45)
[2019-03-18 07:01] LABS: ANION GAP 10.8 (8-16); CARBON DIOXIDE 34.6 mmol/L (21-32); CREATININE 1.6 mg/dL (0.6-1.3); POTASSIUM 3.4 mmol/L (3.5-5.1)
--- NOTE | 2019-03-18 07:15 | NUR ---
RECEIVED REPORT FROM COTTON PICKING MACHINE OPERATOR NURSE. PATIENT IS SLEEPING IN BED. NASAL CANNULA IS SET AT 3L O2. PATIENT HAS A F/C IN PLACE. NO S/S OF SOB OR RESPIRATORY DISTRESS. NO C/O OF PAIN. WILL CONTINUE TO MONITOR.
[2019-03-18 08:00] VITALS: BP 128/71
[2019-03-18] MEDS: IPRATROPIUM 0.02% 0.5 MG/2.5 ML NEBU INH PRN ×2 (08:23→22:54)
[2019-03-18] MEDS: ALBUTEROL 0.083% 2.5 MG/3 ML NEBU INH PRN ×2 (08:23→22:54)
--- NOTE | 2019-03-18 08:24 | NUR ---
AWAKE AND ALERT PATIENT C/O SOB AND NASAL DRYNESS WITH SUPPLEMENTAL OXYGEN USE ASSESSMENT COMPLETED HHN PRN THERAPY AND RESPIRATORY DRUG GIVEN AT THIS TIME POST HHN THERAPY ADDED HUMIDIFIER
[2019-03-18] MEDS: glipiZIDE 5 MG TAB PO SCH ×2 (08:47→20:43)
[2019-03-18] MEDS: FUROSEMIDE 40 MG TAB PO SCH ×2 (08:48→20:44)
[2019-03-18] MEDS: GABAPENTIN 300 MG CAP PO SCH ×3 (08:48→17:21)
[2019-03-18] MEDS: ASPIRIN 81 MG TAB.CHEW PO SCH (08:48)
[2019-03-18] MEDS: ATORVASTATIN 20 MG TAB PO SCH (08:49)
[2019-03-18] MEDS: CARVEDILOL 12.5 MG TAB PO SCH ×2 (08:49→20:44)
[2019-03-18] MEDS: AMIODARONE 200 MG TAB PO SCH (08:49)
[2019-03-18] MEDS: methylPREDNISolone SS 40 MG/ML VIAL IVP SCH ×2 (08:50→20:44)
[2019-03-18] MEDS: FUROSEMIDE 40 MG/4 ML VIAL IVP SCH ×2 (08:50→17:21)
[2019-03-18] MEDS: PHENYTOIN 100 MG CAPER PO SCH ×3 (08:50→17:21)
[2019-03-18] MEDS: ENOXAPARIN 30 MG/0.3 ML SYR SUBQ SCH (09:00)
--- NOTE | 2019-03-18 09:00 | NUR ---
PATIENT IN NO DISTRESS, WILL CONTINUE TO MONITOR
[2019-03-18] MEDS ORDERED: POTASSIUM CHLORIDE 10 MEQ TABER PO ONE (09:09)
--- NOTE | 2019-03-18 11:30 | NUR ---
PATIENTS BLOOD SUGAR WAS 264. ADMINISTERED 6U OF INSULIN SUBQ.
--- NOTE | 2019-03-18 11:45 | NUR ---
F/C CARE DONE. CATHETER INTACT, DRAINING ADEQUATE CLEAR YELLOW URINE. NO COMPLAINTS FROM PATIENT AT THIS TIME. WILL CONTINUE TO ASSESS PATENCY.
[2019-03-18 12:00] VITALS: BP 133/75
--- NOTE | 2019-03-18 12:06 | NUR ---
ADMINISTERED PAIN MEDICATION TO PATIENT PER ORDER FOR PAIN OF 10. BP WNL PRIOR TO ADMINISTRATION. BP OF 133/71. WILL REASSESS PAIN IN ONE HOUR.
--- NOTE | 2019-03-18 13:27 | NUR ---
PATIENT RECEIVED A SPONGE BATH WITH VIJAY RIVAS. PATIENT IS RESTING QUIETLY IN BED.
--- NOTE | 2019-03-18 14:37 | NUR ---
DR ALMODOVAR SAW THE PATIENT. DR ALMODOVAR CALLED THE DAUGHTER AND THE DAUGHTER AGREED TO HOSPICE CARE AT THIS TIME. DR ALMODOVAR DOES NOT RECOMMEND [facility] AT THIS TIME Addendum: 03/18/19 at 1440 by Rosetta Joiner RN WRONG PATIENT
--- NOTE | 2019-03-18 14:41 | NUR ---
PATIENT IS SLEEPING. NO SIGNS OF DISTRESS
[2019-03-18 16:00] VITALS: BP 131/79
--- NOTE | 2019-03-18 16:07 | NUR ---
ADMINISTERED PAIN MEDICATION FOR PATIENT FOR PAIN 04/21. BLOOD PRESSURE PRIOR WAS 120/79. PATIENT IS AWAKE AND ALERT. WILL CONTINUE TO MONITOR.
--- NOTE | 2019-03-18 17:42 | NUR ---
administered insulin. patient tolerated well. will continue to monitor
--- NOTE | 2019-03-18 19:05 | NUR ---
ENDORSED PATIENT TO FARM IMPLEMENT MECHANIC NURSE. PATIENT IS SITTING UP AT BEDSIDE, NO S/S OF RESPIRATORY DISTRESS. VITAL SIGNS STABLE PRIOR TO CHANGE OF SHIFT. NO FURTHER COMPLAINTS AT THIS TIME.
--- NOTE | 2019-03-18 19:23 | NUR ---
ENDORSED PATIENT TO BUS WASHER NURSE. PATIENT IS SITTING UP IN BED WITH FAMILY AT BEDSIDE UPON CHANGE OF SHIFT. NO S/S OF RESPIRATORY DISTRESS. NO FURTHER COMPLAINTS AT THIS TIME.
--- NOTE | 2019-03-18 19:30 | NUR ---
RECEIVED BEDSIDE REPORT FROM DAY SHIFT RN, PATIENT AWAKE AND ALERT, C/O BACK PAIN 03/21 REQUEST MORPHINE. V/S STABLE. IV IN RIGHT HAND 24 G SL, DRESSING CLEAN. LUNGS SOUNDS CLEAR BILATERALLY. BG 331 WILL MEDICATE ACCORDING. CALL LIGHT WITHIN REACH, BED IN LOWEST POSITION.
[2019-03-18 20:00] VITALS: BP 127/87
--- NOTE | 2019-03-18 20:45 | NUR ---
DUE MEDICATIONS GIVEN, EDUCATION PROVIDED.
--- NOTE | 2019-03-18 22:26 | NUR ---
RECEIVED PATIENT ON 3L NASAL CANNULA, PULE OX SAT 98%. PATIENT DENIES ANY SOB AT THIS TIME. PATIENT REFUSING THE NEED FOR PRN BREATHING TX. EXPLAINED MEDICATION FREQUENCY TO PATIENT. PATIENT IN NO ACUTE RESPIRATORY DISTRESS AT THIS TIME. WILL CONTINUE TO MONITOR.
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
--- NOTE | 2019-03-18 23:07 | NUR ---
PATIENT REQUESTING BREATHING TREATMENT. BREATHING TX ADMINISTERED. TOLERATED WELL WITHOUT ADVERSE SIDE EFFECTS. PLACED BACK ON 3L NC. PATIENT IN NO ACUTE DISTRESS AT THIS TIME. WILL CONTINUE TO MONITOR.
[2019-03-19] VITALS: BP 115/77
--- NOTE | 2019-03-19 | NUR ---
PATIENT C/O BACK PAIN 03/21 WILL MEDICATE ACCORDING TO MD ORDER.
[2019-03-19] MEDS: MORPHINE SULFATE 2 MG/ML SYR IVP PRN ×2 (00:03→04:59)
--- NOTE | 2019-03-19 02:01 | NUR ---
SLEEPING IN BED CALL LIGHT WITHIN REACH
[2019-03-19 04:00] VITALS: BP 118/87
--- NOTE | 2019-03-19 04:30 | NUR ---
93% ON 2 L NC
[2019-03-19] MEDS: BLOOD GLUCOSE MONITORING 1 DEV DEV FS SCH (06:14)
[2019-03-19] MEDS: INSULIN LISPRO SLIDING SCALE 100 UNITS/ML VIAL SUBQ PRN (06:16)
--- NOTE | 2019-03-19 06:24 | NUR ---
BLOOD GLUCOSE 328 GAVE 8 UNITS
--- NOTE | 2019-03-19 06:59 | NUR ---
WILL ENDORSED PATIENT TO DAY SHIFT NURSE, PATIENT STABLE.
--- NOTE | 2019-03-19 07:25 | NUR ---
RECEIVED BEDSIDE REPORT FROM HAND CUTTER APPRENTICE NURSE. PATIENT IS AWAKE, ALERT AND ORIENTEDX4. NO SIGNS OF DISTRESS ON 3L NC. SKIN IS INTACT. PATIENT HAS WEAKNESS, FALL RISK PROTOCOL IN PLACE. VARGAS IN PLACE, INTACT AND PATIENT, TELE MONITOR IN PLACE. IV ON R HAND 24G SL. CLEAN, DRY AND INTACT. BED IN LOW POSITION, CALL LIGHT WITHIN REACH. PATIENT ABLE TO MAKE NEEDS KNOWN. PATIENT WANTS TO GO HOME TODAY, IF DOCTOR DOES NOT COME EARLY SHE WILL GO AMA. EDUCATED HER ON THE RISKS OF GOING AMA. PATIENT TOLD DR FAGAN YESTERDAY THAT SHE WAS GOING TO LEAVE TODAY
[2019-03-19 08:00] VITALS: BP 127/79
[2019-03-19] MEDS: ENOXAPARIN 30 MG/0.3 ML SYR SUBQ SCH (09:00)
[2019-03-19] MEDS: METOLAZONE 2.5 MG TAB PO SCH (09:25)
[2019-03-19] MEDS: AMIODARONE 200 MG TAB PO SCH (09:26)
[2019-03-19] MEDS: CARVEDILOL 12.5 MG TAB PO SCH (09:26)
[2019-03-19] MEDS: PHENYTOIN 100 MG CAPER PO SCH (09:26)
[2019-03-19] MEDS: FUROSEMIDE 40 MG TAB PO SCH (09:26)
[2019-03-19] MEDS: GABAPENTIN 300 MG CAP PO SCH (09:27)
[2019-03-19] MEDS: FUROSEMIDE 40 MG/4 ML VIAL IVP SCH (09:27)
[2019-03-19] MEDS: ATORVASTATIN 20 MG TAB PO SCH (09:27)
[2019-03-19] MEDS: glipiZIDE 5 MG TAB PO SCH (09:27)
[2019-03-19] MEDS: ASPIRIN 81 MG TAB.CHEW PO SCH (09:27)
[2019-03-19] MEDS: methylPREDNISolone SS 40 MG/ML VIAL IVP SCH (09:28)
--- NOTE | 2019-03-19 09:37 | NUR ---
ADMINISTERED MEDS. EDUCATED ON SIDE EFFECTS. PATIENT TOLERATED WELL. PATIENT WANTS IV AND VARGAS OUT BECAUSE SHE IS LEAVING AMA SOON. REMOVED IV, TIP INTACT. VARGAS REMOVED
--- NOTE | 2019-03-19 10:02 | NUR ---
PATIENT SIGNED AMA FORM. DR FAGAN IS MADE AWARE. TELE MONITOR REMOVED. PATIENT CALLING THE TAXI TO GO HOME. PATIENT STATES SHE HAS ENOUGH OXYGEN IN HER TANK TO GO HOME
--- NOTE | 2019-03-19 10:30 | NUR ---
PATIENT LEFT IN STABLE CONDITION. ESCORTED OUT AND SECURITY STAYED WITH PATIENT TILL THE RIDE CAME
== END 2019-03-19 10:30 | disposition left against medical advice (07) | DRG 133 ==
LOC: MED 00:25 → MTU 02:47
PROVIDERS: ADMIT Internal Medicine Pulmonary Disease; ATTEND Internal Medicine Pulmonary Disease
DX: J96.21 Acute and chronic respiratory failure with hypoxia (principal); I50.21 Acute systolic (congestive) heart failure; I24.8 Other forms of acute ischemic heart disease; I49.5 Sick sinus syndrome; I48.91 Unspecified atrial fibrillation; E66.01 Morbid (severe) obesity due to excess calories; G40.909 Epilepsy, unspecified, not intractable, without status epilepticus; J44.1 Chronic obstructive pulmonary disease with (acute) exacerbation; I13.0 Hypertensive heart and chronic kidney disease with heart failure and stage 1 through stage 4 chronic kidney disease, or unspecified chronic kidney disease; E87.6 Hypokalemia; I50.23 Acute on chronic systolic (congestive) heart failure; E11.9 Type 2 diabetes mellitus without complications; E78.5 Hyperlipidemia, unspecified; N18.3 Chronic kidney disease, stage 3 (moderate); Z53.21 Procedure and treatment not carried out due to patient leaving prior to being seen by health care provider; Z99.81 Dependence on supplemental oxygen; Z88.0 Allergy status to penicillin; Z88.8 Allergy status to other drugs, medicaments and biological substances; Z95.810 Presence of automatic (implantable) cardiac defibrillator; Z68.30 Body mass index [BMI] 30.0-30.9, adult; Z91.19 Patient's noncompliance with other medical treatment and regimen
CPT/HCPCS: 36415; 71045; 80048; 80053; 82948; 83880; 84484; 85025; 85610; 85730; 87081; 93005; 94640; 99285; C1758; J1650; J1940; J2001; J2270; J2920; J3480; J7030; J7613; J7644; Q0092

== ENCOUNTER 2019-04-29 12:59 | Emergency (ER) | payer OTHER ==
[~2019-04-29] VITALS: Ht 165.1 cm; Wt 82.1 kg
[2019-04-29 13:07] VITALS: BP 122/76
[2019-04-29] MEDS ORDERED: BACLOFEN 10 MG TAB PO ONE (15:25)
[2019-04-29] MEDS ORDERED: HYDROcodone/APAP 10/325 MG 1 TAB TAB PO ONE (15:25)
[2019-04-29 19:17] VITALS: BP 105/73
== END 2019-04-29 19:17 | disposition home or self-care (01) ==
LOC: MED 12:59
DX: M54.2 Cervicalgia (principal); R25.2 Cramp and spasm; I10 Essential (primary) hypertension; E11.9 Type 2 diabetes mellitus without complications; I11.0 Hypertensive heart disease with heart failure; I50.9 Heart failure, unspecified; J44.9 Chronic obstructive pulmonary disease, unspecified; E78.5 Hyperlipidemia, unspecified; Z88.0 Allergy status to penicillin; Z88.8 Allergy status to other drugs, medicaments and biological substances
CPT/HCPCS: 72125; 99284

== ENCOUNTER 2019-04-30 20:08 | Observation (INO) | payer OTHER ==
[~2019-04-30] VITALS: Ht 162.6 cm; Wt 117.9 kg
[2019-04-30 20:08] VITALS: BP 115/81
--- NOTE | 2019-04-30 20:15 | NUR ---
58/F PRESENTED TO ED BIBA VIA [facility] C/O ALOC X 1 HOUR PER FAMILY. NO PAIN REPORTED. UNABLE TO GIVE INFORMATION DUE TO CONFUSION. CURRENTLY TAKING PERCOCET AND BACLOFEN. PAST MED HX DM, HTN, PACEMAKER. BLOOD SUGAR 93 AT TIME OF ARRIVAL.
--- NOTE | 2019-04-30 20:31 | NUR ---
PT TO CT
[2019-04-30 21:12] LABS: BASOPHILS # (AUTO) 0.1 K/uL (0.00-0.22); BASOPHILS % (AUTO) 1.7 % (0.0-2.0); EOSINOPHILS # (AUTO) 0.1 K/uL (0-0.4); EOSINOPHILS % (AUTO) 1.1 % (0.0-4.0); HEMATOCRIT 39.5 % (36-48); HEMOGLOBIN 12.9 g/dL (12.0-16.0); LYMPHOCYTES # (AUTO) 1.4 K/uL (2.5-16.5); LYMPHOCYTES % (AUTO) 23.1 % (20.5-51.1); MEAN CORPUSCULAR HEMOGLOBIN 31 pg (27-31); MEAN CORPUSCULAR HGB CONC 33 g/dL (33-37); MONOCYTES # (AUTO) 0.4 K/uL (0.8-1.0); MONOCYTES % (AUTO) 6.7 % (1.7-9.3); NEUTROPHILS # (AUTO) 4.2 K/uL (1.8-7.7); NEUTROPHILS % (AUTO) 67.4 % (42.2-75.2); PLATELET COUNT (AUTO) 194 K/uL (140-450); RED BLOOD CELL COUNT(AUTO) 4.11 MIL/uL (4.20-5.40); RED CELL DISTRIBUTION WIDTH 16.9 % (11.6-13.7); WHITE BLOOD COUNT (AUTO) 6.2 K/uL (4.8-10.8)
--- NOTE | 2019-04-30 21:18 | NUR ---
STRAIGHT CATH PERFORMED TO COLLECT UA. TOELRATED WELL.
--- NOTE | 2019-04-30 21:31 | NUR ---
EKG PERFORMED AT BEDSIDE
[2019-04-30 21:53] LABS: ANION GAP 14.4 (8-16); CARBON DIOXIDE 28.2 mmol/L (21-32); CREATININE 1.8 mg/dL (0.6-1.3); POTASSIUM 3.6 mmol/L (3.5-5.1)
[2019-04-30 21:58] LABS: APPEARANCE,URINE CLEAR (CLEAR); BILIRUBIN,URINE NEGATIVE (NEGATIVE); BLOOD, URINE 1+ (NEGATIVE); COLOR,URINE YELLOW (YELLOW); LEUKOCYTE ESTERASE ,URINE NEGATIVE (NEGATIVE); NITRITE, URINE NEGATIVE (NEGATIVE); PH,URINE 6.5 (5.0-9.0); UGLUCOSE NEGATIVE (NEGATIVE)
[2019-04-30 22:02] LABS: PROTHROMBIN TIME 12.2 secs (10.8-13.4)
[2019-04-30 22:07] LABS: ALBUMIN 3.5 g/dL (3.4-5.0); TOTAL BILIRUBIN 0.5 mg/dL (0.0-1.0)
[2019-04-30 22:07] LABS: BARBITURATE, URINE NEG. ng/ml (NEG <=200); BENZODIAZEPINE, URINE NEG. ng/mL (NEG <=200); CANNABINOID, URINE NEG. ng/mL (NEG <=50); COCAINE, URINE NEG. ng/mL (NEG <=300); OPIATE, URINE NEG. ng/mL (NEG <=2000); PHENCYCLIDINE SCREEN,URINE NEG. ng/mL (NEG <=25)
[2019-04-30 22:30] LABS: WBC,URINE NONE SEEN /HPF (0-5)
--- NOTE | 2019-04-30 23:00 | NUR ---
PT SLEEPING IN BED. EASILY AROUSABLE. NO SIGNS OF DISTRESS. FAMILY AT BEDSIDE. VSS.
[2019-04-30] MEDS ORDERED: NACL 0.9% 1,000 ML IV ONE (23:30)
--- NOTE | 2019-05-01 | NUR ---
PT SLEEPING IN BED. FLUIDS STILL INFUSING AT THIS TIME. VSS.
--- NOTE | 2019-05-01 01:11 | NUR ---
PT WENT TO CT
[2019-05-01] MEDS ORDERED: HALOPERIDOL IM 5 MG/ML VIAL IM ONE (01:25)
--- NOTE | 2019-05-01 01:33 | NUR ---
PT BACK FROM CT
--- NOTE | 2019-05-01 02:57 | NUR ---
PT LAYING IN BED. REMAINS ALTERED. VSS. NO SIGNS OF DISTRESS. NO CHANGES AT THIS TIME.
--- NOTE | 2019-05-01 04:00 | NUR ---
PT RESTING IN BED. NO SIGNS OF DISTRESS. VSS. WILL CONTINUE TO MONITOR.
--- NOTE | 2019-05-01 05:00 | NUR ---
PT REMAINS CONFUSED. A/O X2. NAME AND PLACE. VSS. WILL CONTINUE TO MONITOR.
--- NOTE | 2019-05-01 05:49 | NUR ---
VITALS STABLE. NO PAIN REPORTED. WILL CONTINUE TO MONITOR.
[2019-05-01] MEDS ORDERED: LORazepam 2 MG/ML VIAL IVP PRN (06:15)
[2019-05-01] MEDS ORDERED: ACETAMINOPHEN 325 MG TAB PO PRN (06:15)
--- NOTE | 2019-05-01 06:25 | NUR ---
PT VOIDED ON BED SHEETS. LINENS CHANGED. TOLERATED WELL.
--- NOTE | 2019-05-01 07:05 | NUR ---
Patient will be admitted to care of GROBLER. Admited to TELE. Will go to room 121 A. Belongings list completed. Report to CHRISTINE CEVALLOS.
--- NOTE | 2019-05-01 07:09 | NUR ---
RECEIVED PT FROM SHREDDER PICKER BAN KING WHO GOT REPORT FROM ED. PT HAS ALOC, AAOX2. PER REPORT GIVEN, WE ARE NOT SURE IF PT CAN AMBULATE. PT SKIN IS INTACT. PT ABLE TO MAKE NEEDS KNOWN. PT HAS LEFT HAND 20G SALINE LOCKED AT THIS TIME. BOARDD UPDATED IN PT ROOM. DISCUSSED POC WITH PT AND PT VERBALIZED UNDERSTANDING. BED IN LOW POSITION, CALL LIGHT WITHIN REACH. BED ALARM ON FOR PT SAFETY. WILL MONITOR PT CLOSELY.
[2019-05-01 08:00] VITALS: BP 117/73
--- NOTE | 2019-05-01 08:10 | NUR ---
PATIENT HAS BEEN SCREENED AND CATEGORIZED MODERATE NUTRITION RISK. PATIENT WILL BE SEEN WITHIN 3-5 DAYS OF ADMISSION. 05/04/19DARIN [address]
[2019-05-01] MEDS: ENOXAPARIN 30 MG/0.3 ML SYR SUBQ SCH (09:00)
--- NOTE | 2019-05-01 10:04 | NUR ---
PT REFUSING LOVENOX SCHEDULED MED. WILL NOTIFY MD. ALL OTHER PT NEEDS MET. WILL CONTINUE TO ROUND FREQUENTLY ON PT.
--- NOTE | 2019-05-01 10:11 | NUR ---
CONTACTED PATIENT'S PCP DR. MALAVE, [facility] OFFICE AT [phone], ABLE TO SPEAK TO SANJEEV. SHE PROVIDED ME WITH MAY 08, 2019. SHE PROVIDED ME WELL THE OFFICE ADDRESS [id number] [place] [address]. WILL PROVIDE COPY OF THE APPOINTMENT TO THE PATIENT.
--- NOTE | 2019-05-01 10:12 | NUR ---
PAGED TO NOTIFY HIM OF PT MISSING ORDERS FOR DM SLIDING SCALE AND FOR HER HOME MEDICATIONS. AWAITING CALLBACK FROM .
--- NOTE | 2019-05-01 10:32 | NUR ---
RECEIVED CALL FROM . RECEIVED TELEPHONE ORDER FOR SLIDING SCALE FOR INSULIN COVERAGE AND FROM BLOOD GLUCOSE MONITORING. PER MD, HE WILL REVIEW HOME MEDS AND ADD MEDICATIONS WHEN HE COMES TO THE UNIT. PT IN STABLE CONDITION AT THIS TIME. SHOWING SIGNS OF CONFUSION DESCRIBED TO MD OVER TELEPHONE DURING CALL. MD TO SEE PT.
[2019-05-01] MEDS ORDERED: INSULIN LISPRO SLIDING SCALE 100 UNITS/ML VIAL SUBQ PRN (11:15)
[2019-05-01] MEDS ORDERED: DEXTROSE 50% 50 ML SYR IVP PRN (11:15)
[2019-05-01] MEDS: BLOOD GLUCOSE MONITORING 1 DEV DEV FS SCH ×3 (11:30→20:51)
--- NOTE | 2019-05-01 11:44 | NUR ---
PER SW COPY OF APPOINTMENT PROVIDED TO THE PATIENT AND PATIENT'S DAUGHTER. SHE STATED THAT SHE IS NOT HER PCP, AND SHE IS SEEING DR. PATRICK. CHECKED WITH THE [facility] WEBSITE AND IT STATED THERE THAT DR. GRAHAM IS HER PCP AND DR. PATRICK IS THE MATERIALS PLANNER/PRODUCTION PLANNER. CONTACTED DIANNE OF [facility] AND CONFIRMED THAT DR. GRAHAM IS THE PATIENT'S PCP. WILL FOLLOW UP WITH THE PATIENT.
[2019-05-01 12:00] VITALS: BP 135/51
--- NOTE | 2019-05-01 12:05 | NUR ---
PT SLEEPING IN BED. DAUGHTER AT BEDSIDE. WILL CONTINUE TO ROUND FREQUENTLY ON PT. BED IN LOW POSITION, CALL LIGHT WITHIN REACH.
--- NOTE | 2019-05-01 14:35 | NUR ---
PT RESTING IN BED WITH FAMILY AT BEDSIDE. PT INS TABLE CONDITION AT THIS TIME.
[2019-05-01 16:00] VITALS: BP 125/79
--- NOTE | 2019-05-01 16:47 | NUR ---
PT SLEEPING. ALL NEEDS MET. WILL CONTINUE TO ROUND FREQUENTLY ON PT.
[2019-05-01] MEDS ORDERED: NON-FORMULARY ITEM (Lactulose 30 ML) PO PRN (17:00)
[2019-05-01] MEDS ORDERED: NON-FORMULARY ITEM (Ipratropium Bromide* (Atrovent Hfa Mdi*) 2 PUFF) IH PRN (17:00)
[2019-05-01] MEDS ORDERED: DOCUSATE 100 MG/10 ML UDC PO PRN (17:00)
[2019-05-01] MEDS ORDERED: ALBUTEROL 0.083% 2.5 MG/3 ML NEBU INH PRN (17:00)
[2019-05-01] MEDS ORDERED: LACTULOSE 20 GM/30 ML UDC PO PRN (17:40)
[2019-05-01] MEDS ORDERED: ALBUTEROL SULFATE/IPRATROPIU 3 ML SOL IH PRN (17:50)
[2019-05-01] MEDS: PHENYTOIN 100 MG CAPER PO SCH (17:58)
[2019-05-01] MEDS: GABAPENTIN 300 MG CAP PO SCH (17:59)
[2019-05-01] MEDS: FERROUS SULFATE 325 MG TABEC PO SCH (17:59)
--- NOTE | 2019-05-01 18:04 | NUR ---
PT EATING DINNER. LOC IS IMPROVING. PT AAOX3. DAUGHTER CALLED AND NOTIFIED OF POSITIVE CHANGES IN PT LOC.
--- NOTE | 2019-05-01 18:53 | NUR ---
PT SLEEPING IN BED. ALL NEEDS MET. WILL CONTINUE TO ROUND FREQUENTLY ON PT. BED IN LOW POSITION, CALL LIGHT WITHIN REACH. BED ALARM ON.
--- NOTE | 2019-05-01 19:35 | NUR ---
ENDORSED PT TO SUPERVISOR CAR INSTALLATIONS FOR CONTINUATION OF CARE. PT IN STABLE CONDITION AT THIS TIME.
--- NOTE | 2019-05-01 19:40 | NUR ---
RECEIVED FROM AM RN IN BED AWAKE AND ALERT SITTING UP IN BED. ABLE TO CARRY A CONVERSATION WELL WITH ME. BREATHING TREATMENT ON GOING. NO COMPLAINTS OF PAIN AT THIS TIME. NO SOB. ENCOURAGED TO USE CALL LIGHT FOR ANY HELP SHE MAY NEED RT STATED SHE FEELS WEAK FOR NOW. A/O X 4. ROM X . ON TELEMETRY MONITORING. PACING 79 .
[2019-05-01 20:06] VITALS: BP 116/72
[2019-05-01] MEDS: FUROSEMIDE 40 MG TAB PO SCH (20:51)
[2019-05-01] MEDS: CARVEDILOL 12.5 MG TAB PO SCH (20:51)
--- NOTE | 2019-05-01 22:16 | NUR ---
PT. STILL AWAKE AND WATCHING TV. NO COMPLAINTS OF ANY PAIN AT THIS TIME. TELEMETRY MONITORING.
[2019-05-02] VITALS: BP 117/69
--- NOTE | 2019-05-02 00:58 | NUR ---
PT. AWAKE AT THIS TIME AND TALKING TO HERSELF. ASKED WHAT SHE WANTS AND SHE WAS UPSET " DON'T TOUCH ME" CALL LIGHT WITH IN REACH. TELEMETRY MONITORING. ASKED IF SHE WAS WARM OR COLD AND PT. REFUSED TO ANSWER. NO SOB NOTED. ASSISTED BY EVENT HOST TO BEDSIDE COMMODE PROVIDED AT THIS TIME RT WEAK AND PT. WITH CHELSEA P.O.
--- NOTE | 2019-05-02 01:00 | NUR ---
PT. REQUESTED FOR SNACK. PROVIDED WITH ONE AND HAPPY. PT. AT THIS TIME SMILING. ABLE TO VERBALIZE NEEDS WELL. TELEMETRY MONITORING.
--- NOTE | 2019-05-02 01:15 | NUR ---
TINY WOUND TO LEFT BOTTOM OF FOOT CLEANSED WITH NS , PATTED DRY AND LEFT OPEN TO AIR. TOLERATED WELL.
--- NOTE | 2019-05-02 01:16 | NUR ---
PT. STOPPED TALKING TO HERSELF AND WENT BACK TO SLEEP. NO COMPLAINTS DONE AT THIS TIME.
[2019-05-02 04:00] VITALS: BP 97/70
--- NOTE | 2019-05-02 04:00 | NUR ---
AM PERSONAL HYGIENE RENDERED. NO COMPLAINTS DONE. ABLE TO VERBALIZE WELL. GOOD AFFECT. CALL LIGHT WITH IN REACH.
[2019-05-02] MEDS: BLOOD GLUCOSE MONITORING 1 DEV DEV FS SCH (05:40)
--- NOTE | 2019-05-02 06:41 | NUR ---
SLEEPING AT THIS TIME. NO COMPLAINTS DONE. WAKES UP EASILY WHEN TOUCHED. ABLE TO VERBALIZE NEEDS WELL .
--- NOTE | 2019-05-02 07:21 | NUR ---
RECEIVED PT FROM FAMILY AND CONSUMER EDUCATION TEACHER RN. CONTINUING CARE FROM YESTERDAY. PT IN STABLE CONDITION. ALL NEEDS MET AT THIS TIME.WILL CONTINUE TO ROUND FREQUENTLY ON PT.
[2019-05-02] MEDS ORDERED: glipiZIDE 5 MG TAB PO SCH (07:30)
[2019-05-02 08:10] VITALS: BP 123/75
[2019-05-02] MEDS ORDERED: CYANOCOBALAMIN 1,000 MCG TAB PO SCH (09:00)
[2019-05-02] MEDS ORDERED: CYANOCOBALAMIN 500 MCG PO SCH (09:00)
[2019-05-02] MEDS ORDERED: AMIODARONE 200 MG TAB PO SCH (09:00)
[2019-05-02] MEDS ORDERED: ATORVASTATIN 20 MG TAB PO SCH (09:00)
[2019-05-02] MEDS ORDERED: ASPIRIN 81 MG TAB.CHEW PO SCH (09:00)
[2019-05-02] MEDS: FUROSEMIDE 40 MG TAB PO SCH (09:00)
[2019-05-02] MEDS: ENOXAPARIN 30 MG/0.3 ML SYR SUBQ SCH (09:00)
--- NOTE | 2019-05-02 09:20 | NUR ---
ADMINISTERED MORNING MEDS TO PT. PT TOLERATED THEM WELL. WILL CONTINUE TO ROUND FREQUENTLY ON PT. BED IN LOW POSITION, CALL LIGHT WITHIN REACH.
[2019-05-02] MEDS: GABAPENTIN 300 MG CAP PO SCH (09:56)
[2019-05-02] MEDS: FERROUS SULFATE 325 MG TABEC PO SCH (09:56)
[2019-05-02] MEDS: CARVEDILOL 12.5 MG TAB PO SCH (09:58)
[2019-05-02] MEDS: PHENYTOIN 100 MG CAPER PO SCH (10:01)
--- NOTE | 2019-05-02 12:58 | NUR ---
PT DISCHARGED HOME FOR SELF CARE. PT LEFT IN STABLE CONDITION, ALL PERSONAL BELONGINGS TAKEN WITH HER. DISCUSSED DISCHARGE PAPERWORK TO PT. PT VERBALIZED UNDERSTANDING. IV REMOVED WITH TIP INTACT. WRISTBAND REMOVED AND PLACED IN SHRED BIN. PT LEFT HOME WITH DAUGHTER.
[2019-05-03] MEDS ORDERED: METOLAZONE 2.5 MG TAB PO SCH (09:00)
--- NOTE | 2019-05-04 09:55 | NUR ---
WOUND CARE CONSULT NOT DONE, PT. DISCHARGE.
== END 2019-05-02 12:30 | disposition home or self-care (01) ==
LOC: MED 20:08 → UNDOADMIN 05-01 03:07 → MIC 05-01 03:07 → MTU 05-01 06:15 → MIC 05-01 06:26
PROVIDERS: ADMIT Internal Medicine; ATTEND Internal Medicine
DX: R41.82 Altered mental status, unspecified (principal); J44.9 Chronic obstructive pulmonary disease, unspecified; I42.9 Cardiomyopathy, unspecified; I13.0 Hypertensive heart and chronic kidney disease with heart failure and stage 1 through stage 4 chronic kidney disease, or unspecified chronic kidney disease; I50.22 Chronic systolic (congestive) heart failure; E11.22 Type 2 diabetes mellitus with diabetic chronic kidney disease; F17.210 Nicotine dependence, cigarettes, uncomplicated; N18.3 Chronic kidney disease, stage 3 (moderate); Z95.0 Presence of cardiac pacemaker; Z95.810 Presence of automatic (implantable) cardiac defibrillator
CPT/HCPCS: 36415; 70450; 71045; 80053; 80305; 81001; 81025; 82948; 83605; 83690; 83880; 84484; 85025; 85610; 85730; 87040; 87086; 94640; 94760; 96360; 96372; 99285; C1758; G0378; G0482; J1630; J1815; J7620; Q0092; J1650; J3420

== ENCOUNTER 2019-07-25 15:01 | Emergency (ER) | payer OTHER ==
[~2019-07-25] VITALS: Ht 165.1 cm; Wt 85.7 kg
[2019-07-25 15:05] VITALS: BP 129/89
--- NOTE | 2019-07-25 15:05 | NUR ---
TO BED # 03 VIA WHEELCHAIR
--- NOTE | 2019-07-25 15:15 | NUR ---
BIA PFEIFFER EVALUATING PT AT BEDSIDE.
--- NOTE | 2019-07-25 15:16 | NUR ---
59/F C/O LEFT FLANK PAIN X2 DAYS. HX KIDNEY STONES. DENIES HEMATURIA, DYSURIA, FEVER, CHILLS, N/V. ON 3 L O2 AT THIS TIME, USES SAME AT HOME, HX COPD. TOOK [facility] 10 EARLIER TODAY (PRESCRIBED FOR RA) AND EXPERIENCED A SHORT PERIOD OF RELIEF. HX- RA, CHF, COPD, NEPHROLITHIASIS
--- NOTE | 2019-07-25 15:20 | NUR ---
EMT AT BEDSIDE FOR EKG
[2019-07-25] MEDS ORDERED: KETOROLAC 30 MG/ML VIAL IVP ONE (15:25)
--- NOTE | 2019-07-25 15:35 | NUR ---
ROLLER SHOP SUPERVISOR AT BEDSIDE.
[2019-07-25 15:53] LABS: BASOPHILS % (AUTO) 0.6 % (0.0-2.0); EOSINOPHILS # (AUTO) 0.1 K/uL (0-0.4); EOSINOPHILS % (AUTO) 1.7 % (0.0-4.0); HEMOGLOBIN 12.9 g/dL (12.0-16.0); LYMPHOCYTES # (AUTO) 1.2 K/uL (2.5-16.5); LYMPHOCYTES % (AUTO) 17.7 % (20.5-51.1); MEAN CORPUSCULAR HEMOGLOBIN 33 pg (27-31); MEAN CORPUSCULAR HGB CONC 33 g/dL (33-37); MEAN CORPUSCULAR VOLUME 98.4 fL (80-94); MONOCYTES # (AUTO) 0.4 K/uL (0.8-1.0); MONOCYTES % (AUTO) 5.8 % (1.7-9.3); NEUTROPHILS # (AUTO) 5.1 K/uL (1.8-7.7); NEUTROPHILS % (AUTO) 74.2 % (42.2-75.2); PLATELET COUNT (AUTO) 238 K/uL (140-450); RED BLOOD CELL COUNT(AUTO) 3.97 MIL/uL (4.20-5.40); RED CELL DISTRIBUTION WIDTH 15.1 % (11.6-13.7); WHITE BLOOD COUNT (AUTO) 6.9 K/uL (4.8-10.8)
[2019-07-25 16:09] LABS: ANION GAP 15.1 (8-16); CARBON DIOXIDE 28.4 mmol/L (21-32); CREATININE 1.8 mg/dL (0.6-1.3); POTASSIUM 3.5 mmol/L (3.5-5.1)
[2019-07-25 16:16] LABS: ALBUMIN 3.4 g/dL (3.4-5.0); TOTAL BILIRUBIN 0.3 mg/dL (0.0-1.0)
[2019-07-25 16:32] LABS: APPEARANCE,URINE CLEAR (CLEAR); BILIRUBIN,URINE NEGATIVE (NEGATIVE); BLOOD, URINE 2+ (NEGATIVE); COLOR,URINE YELLOW (YELLOW); LEUKOCYTE ESTERASE ,URINE NEGATIVE (NEGATIVE); NITRITE, URINE NEGATIVE (NEGATIVE); UGLUCOSE NEGATIVE (NEGATIVE)
--- NOTE | 2019-07-25 17:22 | NUR ---
PER ALEX MCINTOSH TO ADMINISTER ORDERED TORADOL 30 MG VIA IM ROUTE.
[2019-07-25 17:23] LABS: WBC,URINE NONE SEEN /HPF (0-5)
--- NOTE | 2019-07-25 17:31 | NUR ---
LEFT MESSAGE FOR FNS TO BRING CCHO TRAY FOR DINNER ORDERED.
--- NOTE | 2019-07-25 18:01 | NUR ---
BIA PFEIFFER SPEAKING WITH PT AT BEDSIDE.
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
--- NOTE | 2019-07-25 18:10 | NUR ---
SECURITY AT BEDSIDE.
--- NOTE | 2019-07-25 18:25 | NUR ---
Patient discharged with v/s stable. Written and verbal after care instructions given and explained. Patient alert, oriented and verbalized understanding of instructions. Ambulatory with steady gait. All questions addressed prior to discharge. ID band removed. Patient advised to follow up with PMD. Rx of ACETAMINOPHEN given. Patient educated on indication of medication including possible reaction and side effects. Opportunity to ask questions provided and answered.
--- NOTE | 2019-07-25 18:25 | NUR ---
PT W/C ASSIST TO LOBBY, CONNECTED TO 3L VIA O2 TANK. WAITING FOR DAUGHTER TO COME PICK HER UP.
[2019-07-25 18:27] VITALS: BP 124/79
== END 2019-07-25 18:25 | disposition home or self-care (01) ==
LOC: MED 15:01
DX: K80.20 Calculus of gallbladder without cholecystitis without obstruction (principal); K85.90 Acute pancreatitis without necrosis or infection, unspecified; K57.30 Diverticulosis of large intestine without perforation or abscess without bleeding; J44.9 Chronic obstructive pulmonary disease, unspecified; I13.0 Hypertensive heart and chronic kidney disease with heart failure and stage 1 through stage 4 chronic kidney disease, or unspecified chronic kidney disease; E11.22 Type 2 diabetes mellitus with diabetic chronic kidney disease; N18.9 Chronic kidney disease, unspecified; I50.9 Heart failure, unspecified; E78.5 Hyperlipidemia, unspecified; Z95.0 Presence of cardiac pacemaker; Z86.69 Personal history of other diseases of the nervous system and sense organs; Z98.890 Other specified postprocedural states; Z79.899 Other long term (current) drug therapy; Z79.82 Long term (current) use of aspirin; Z79.891 Long term (current) use of opiate analgesic; Z79.51 Long term (current) use of inhaled steroids; Z88.8 Allergy status to other drugs, medicaments and biological substances; Z88.0 Allergy status to penicillin
CPT/HCPCS: 36415; 74176; 80053; 81001; 82150; 83690; 84484; 85025; 96372; 99284; J1885

== ENCOUNTER 2019-07-27 19:37 | Emergency (ER) | payer OTHER ==
[~2019-07-27] VITALS: Ht 165.1 cm; Wt 82.1 kg
--- NOTE | 2019-07-27 19:45 | NUR ---
PT IN WHEELCHAIR TO ER BED 03
[2019-07-27 19:56] VITALS: BP 110/71
[2019-07-27] MEDS ORDERED: MORPHINE SULFATE 4 MG/ML SYR IVP ONE (20:00)
[2019-07-27] MEDS ORDERED: ONDANSETRON 4 MG/2 ML VIAL IVP ONE (20:00)
--- NOTE | 2019-07-27 20:15 | NUR ---
PATIENT ASSESSMENT COMPLETED AT THIS TIME. PATIENT LAYING IN BED WITH SEIZURE PADS IN PLACE, BED IN LOW LOCKED POSTION, SIDES RAILS UP X2. DAUGHTER AT BEDSIDE.
[2019-07-27 21:00] LABS: BASOPHILS # (AUTO) 0.1 K/uL (0.00-0.22); BASOPHILS % (AUTO) 1.2 % (0.0-2.0); EOSINOPHILS # (AUTO) 0.1 K/uL (0-0.4); EOSINOPHILS % (AUTO) 1.6 % (0.0-4.0); HEMATOCRIT 38.5 % (36-48); HEMOGLOBIN 12.7 g/dL (12.0-16.0); LYMPHOCYTES % (AUTO) 12.8 % (20.5-51.1); MEAN CORPUSCULAR HEMOGLOBIN 33 pg (27-31); MEAN CORPUSCULAR HGB CONC 33 g/dL (33-37); MEAN CORPUSCULAR VOLUME 98.9 fL (80-94); MONOCYTES # (AUTO) 0.4 K/uL (0.8-1.0); MONOCYTES % (AUTO) 5.2 % (1.7-9.3); NEUTROPHILS # (AUTO) 6.1 K/uL (1.8-7.7); NEUTROPHILS % (AUTO) 79.2 % (42.2-75.2); PLATELET COUNT (AUTO) 235 K/uL (140-450); WHITE BLOOD COUNT (AUTO) 7.7 K/uL (4.8-10.8)
--- NOTE | 2019-07-27 21:00 | NUR ---
PATIENT STATES IMPROVED PAIN.
[2019-07-27] MEDS ORDERED: KETOROLAC 30 MG/ML VIAL IVP ONE (21:15)
[2019-07-27 21:18] LABS: PROTHROMBIN TIME 11.5 secs (10.8-13.4)
[2019-07-27 21:19] LABS: CREATININE 1.7 mg/dL (0.6-1.3); POTASSIUM 3.6 mmol/L (3.5-5.1)
[2019-07-27 21:20] LABS: ANION GAP 15.6 (8-16)
[2019-07-27 21:27] LABS: ALBUMIN 3.2 g/dL (3.4-5.0); TOTAL BILIRUBIN 0.2 mg/dL (0.0-1.0)
[2019-07-27 21:57] LABS: APPEARANCE,URINE CLEAR (CLEAR); BILIRUBIN,URINE NEGATIVE (NEGATIVE); BLOOD, URINE TRACE-I (NEGATIVE); COLOR,URINE YELLOW (YELLOW); LEUKOCYTE ESTERASE ,URINE NEGATIVE (NEGATIVE); NITRITE, URINE NEGATIVE (NEGATIVE); PH,URINE 5.5 (5.0-9.0); UGLUCOSE NEGATIVE (NEGATIVE)
[2019-07-27 22:13] LABS: RBC,URINE 0-5 /HPF (0-5); WBC,URINE 0-5 /HPF (0-5)
[2019-07-27 22:29] VITALS: BP 95/71
== END 2019-07-27 23:30 | disposition home or self-care (01) ==
LOC: MED 19:37
DX: R10.9 Unspecified abdominal pain (principal); J18.1 Lobar pneumonia, unspecified organism; I50.9 Heart failure, unspecified; I11.0 Hypertensive heart disease with heart failure; E78.5 Hyperlipidemia, unspecified; F17.210 Nicotine dependence, cigarettes, uncomplicated; J44.9 Chronic obstructive pulmonary disease, unspecified; Z95.0 Presence of cardiac pacemaker; Z79.82 Long term (current) use of aspirin; Z79.899 Other long term (current) drug therapy; Z88.0 Allergy status to penicillin; Z88.8 Allergy status to other drugs, medicaments and biological substances; Z71.6 Tobacco abuse counseling
CPT/HCPCS: 36415; 71045; 80053; 81001; 83605; 83690; 83880; 84484; 85025; 85610; 87040; 87086; 93005; 96374; 96375; 99284; J1885; J2270; J2405; Q0092

== ENCOUNTER 2019-10-08 09:23 | Inpatient (IN) | payer OTHER ==
[~2019-10-08] VITALS: Ht 165.1 cm; Wt 91.6 kg
[~2019-10-08 09:23] MED LIST changes: -ASPI-1718 PO; +ASPI-1822 PO
--- NOTE | 2019-10-08 09:33 | NUR ---
Patient transferred to bed 9 via wheelchair by tech. RN evaluating patient at bedside.
[2019-10-08 09:38] VITALS: BP 74/47
[2019-10-08] MEDS ORDERED: NACL 0.9% 2,500 ML IV ONE (09:42)
--- NOTE | 2019-10-08 09:42 | NUR ---
Dr. Lares is evaluating patient at bedside.
[2019-10-08] MEDS ORDERED: LEVOFLOXACIN 500 MG/D5W PREMIX 100 ML IV ONE (09:45)
[2019-10-08] MEDS ORDERED: VANCOMYCIN 1,000 MG in DEXTROSE 5% 250 ML IV ONE (09:45)
--- NOTE | 2019-10-08 09:45 | NUR ---
PT C/O COUGH, SOB. RIGHT FOOT PAIN W/ EDEMA FOR 2 DAYS. DENIES FALL OR TRAUMA TO THE RT FOOT. PATIENT STATES PAIN OF 10/10 AT THIS TIME; VSS; PATIENT POSITIONED FOR COMFORT; HOB ELEVATED; BEDRAILS UP X2; BED DOWN. ER MD MADE AWARE OF PT STATUS.
[2019-10-08] MEDS ORDERED: VANCOMYCIN 1,000 MG VIAL ONE (10:04)
--- NOTE | 2019-10-08 10:06 | NUR ---
RT IS AT BEDSIDE FOR ABG.
[2019-10-08 10:15] LABS: BASOPHILS # (AUTO) 0.1 K/uL (0.00-0.22); BASOPHILS % (AUTO) 0.9 % (0.0-2.0); EOSINOPHILS # (AUTO) 0.1 K/uL (0-0.4); EOSINOPHILS % (AUTO) 1.1 % (0.0-4.0); HEMATOCRIT 34.8 % (36-48); HEMOGLOBIN 11.9 g/dL (12.0-16.0); LYMPHOCYTES # (AUTO) 1.1 K/uL (2.5-16.5); MEAN CORPUSCULAR HEMOGLOBIN 33 pg (27-31); MEAN CORPUSCULAR HGB CONC 34 g/dL (33-37); MEAN CORPUSCULAR VOLUME 95.8 fL (80-94); MONOCYTES # (AUTO) 0.7 K/uL (0.8-1.0); MONOCYTES % (AUTO) 8.9 % (1.7-9.3); NEUTROPHILS # (AUTO) 6.4 K/uL (1.8-7.7); NEUTROPHILS % (AUTO) 76.1 % (42.2-75.2); PLATELET COUNT (AUTO) 203 K/uL (140-450); RED BLOOD CELL COUNT(AUTO) 3.63 MIL/uL (4.20-5.40); RED CELL DISTRIBUTION WIDTH 15.2 % (11.6-13.7); WHITE BLOOD COUNT (AUTO) 8.4 K/uL (4.8-10.8)
[2019-10-08 10:29] LABS: PROTHROMBIN TIME 11.4 secs (10.8-13.4)
[2019-10-08 10:33] LABS: ALBUMIN 3.4 g/dL (3.4-5.0); ANION GAP 14.6 (8-16); CREATININE 2.2 mg/dL (0.6-1.3); POTASSIUM 3.6 mmol/L (3.5-5.1); TOTAL BILIRUBIN 0.4 mg/dL (0.0-1.0)
[2019-10-08] MEDS ORDERED: FURO20TA8 PO (10:45)
[2019-10-08] MEDS ORDERED: POTA10TE30 PO (10:45)
[2019-10-08] MEDS ORDERED: IBUP-2213 PO (10:47)
[2019-10-08] MEDS ORDERED: RIVA15TA1 PO (10:47)
--- NOTE | 2019-10-08 10:58 | NUR ---
PT IS NOT ABLE TO URINATE. TRIED MULTIPLE TIMES. PT REFUSED FOR URINE CATH INSERTION.
--- NOTE | 2019-10-08 11:20 | NUR ---
PT IS STILL NOT ABLE TO URINATE AT THIS TIME. DR LI NOTIFIED AND STATED IT IS OK TO GIVE ANTIBIOTICS BEFORE COLLECTING URINE.
--- NOTE | 2019-10-08 11:48 | NUR ---
PT IS SLEEPING IN BED. VSS. ON MONITOR.
--- NOTE | 2019-10-08 12:01 | NUR ---
PT IS EATING IN THE BED. VSS. ON MONITOR.
--- NOTE | 2019-10-08 12:56 | NUR ---
PT IS STILL NOT ABLE TO URINATE AT THIS TIME.
[2019-10-08] MEDS ORDERED: NACL 0.9% 1,000 ML IV SCH (13:26)
[2019-10-08] MEDS ORDERED: ONDANSETRON 4 MG/2 ML VIAL IVP PRN (13:30)
[2019-10-08] MEDS ORDERED: ACETAMINOPHEN 325 MG TAB PO PRN (13:30)
[2019-10-08] MEDS ORDERED: VANCOMYCIN PER PHARMACY MC PRN (13:30)
--- NOTE | 2019-10-08 14:48 | NUR ---
Pt previously asked for pain med. Checked on pt, pt is sleeping, VSS, Spo2 99% on 2L NC, RR 20 even and mildly labored. Will hold pain med at this time. All needs met.
--- NOTE | 2019-10-08 15:15 | NUR ---
RECEIVED BEDSIDE SHIFT REPORT FROM ER NURSE FOR CONTINUATION OF CARE.
--- NOTE | 2019-10-08 15:30 | NUR ---
Patient will be admitted to care of Cellulitis & Sepsis. Admited to Telemetry. Will go to room 104B. Belongings list completed. Report to BAN Gann.
--- NOTE | 2019-10-08 15:35 | NUR ---
Note neal in ED - 10/08/19 at 1536 by SEVERO ADPatient will be admitted to care of Cellulitis & Sepsis. Admited to Telemetry. Will go to room 104B. Belongings list completed. Report to BAN Gann.
[2019-10-08 16:00] VITALS: BP 99/71
[2019-10-08] MEDS ORDERED: INSULIN LISPRO SLIDING SCALE 100 UNITS/ML VIAL SUBQ PRN (16:00)
[2019-10-08] MEDS ORDERED: DEXTROSE 50% 50 ML SYR IVP PRN (16:00)
[2019-10-08] MEDS: HYDROcodone/APAP 5/325 MG 1 TAB TAB PO PRN ×2 (16:18→20:57)
[2019-10-08] MEDS: BLOOD GLUCOSE MONITORING 1 DEV DEV FS SCH ×2 (16:33→20:52)
[2019-10-08] MEDS ORDERED: oxyCODONE/APAP 5/325 MG 1 TAB TAB PO PRN (16:40)
--- NOTE | 2019-10-08 17:15 | NUR ---
NORCO ADMINISTERED FOR PAIN, HEAT COMPRESS APPLIED PER MD'S ORDERS. BEDSIDE COMMODE USED TWICE FOR VOID NO BM. NS RUNNING AT 100 ML/HR. BED IS IN LOW POSITION, CALL LIGHT ON AND WITHIN REACH. WILL CONTINUE TO MONITOR.
--- NOTE | 2019-10-08 19:20 | NUR ---
BEDSIDE SHIFT REPORT GIVEN TO TOE STAPLER NURSE FOR CONTINUATION OF CARE.
--- NOTE | 2019-10-08 19:21 | NUR ---
RECEIVED BEDSIDE REPORT FROM AM SHIFT RN FOR PT'S CONTINUITY OF CARE. PT IS LYING DOWN, AAOX4, ON RN PSYCH, ON 2L O2 VIA NC, HAS LEFT FA 20G WITH NS AT 100 ML/HR, HAS BSC, HAS RIGHT FOOT CELLULITIS, C/O PAIN 02/18. EXPLAINED TO PT THE LINING FELLER BLINDSTITCH ROUTINE, PT VERBALIZED UNDERSTANDING. SAFETY MEASURES IN PLACE, AND CALL LIGHT IS WITHIN REACH. WILL MONITOR PT. THROUGHOUT SHIFT.
--- NOTE | 2019-10-08 19:45 | NUR ---
PAGED COSMETOLOGIST MD FOR CONTINUATION OF SEIZURE HOME MED, AND PT'S REQUEST FOR A DIFFERENT PAIN MEDICATION. DR. BRYANT RETURNED CALL, OK TO CONTINUE SEIZURE MED, NO NEW OR OTHER ORDER FOR PAIN MEDICATION. WILL INFORM PT.
[2019-10-08 20:00] VITALS: BP 105/60
[2019-10-08] MEDS: PHENYTOIN 100 MG CAPER PO SCH (20:58)
--- NOTE | 2019-10-08 20:58 | NUR ---
ADMINISTERED SCHEDULED PO MEDICATION ORDERED. PT REFUSED SUBQ HEPARIN. PT C/O RIGHT FOOT PAIN. INFORMED PT THAT MD ONLY ORDERED PO MEDICATIONS FOR PAIN. ADMINISTERED PO PAIN MEDICATION ORDERED. OFFERED PAIN MEDICATION FOR SEVERE PAIN, PT REFUSED, STATES GETS SOME KIND OF REACTION WHEN TAKEN. PT TEACHING GIVEN. PT VERBALIZED UNDERSTANDING. MADE PT COMFORTABLE. WILL CONTINUE TO MONITOR PT.
--- NOTE | 2019-10-08 21:55 | NUR ---
RECEIVED VERBAL ORDER FROM DR. AREVALO - MRI OF RIGHT FOOT WITHOUT CONTRAST. BARREL HEADER AWARE. WILL ENDORSE TO AM SHIFT RN FOR F/U.
[2019-10-08] MEDS: LEVOFLOXACIN 250 MG/D5 PREMIX 50 ML IV SCH (22:50)
--- NOTE | 2019-10-08 22:50 | NUR ---
PT ASLEEP WITH NO SIGNS OF DISTRESS. ADMINISTERED SCHEDULED IV ABX ORDERED. WILL CONTINUE TO MONITOR PT.
[2019-10-09] VITALS: BP 116/70
[2019-10-09] MEDS: HYDROcodone/APAP 5/325 MG 1 TAB TAB PO PRN ×4 (01:18→18:15)
--- NOTE | 2019-10-09 01:18 | NUR ---
ASSISTED PT TO BSC, PT TOLERATED ACTIVITY FAIRLY. C/O FOOT PAIN, REQUESTED FOR PAIN MEDICATION. ADMINISTERED PRN PO PAIN MEDICATION ORDERED. PT TEACHING GIVEN, PT VERBALIZED UNDERSTANDING.
[2019-10-09 04:00] VITALS: BP 108/57
[2019-10-09] MEDS ORDERED: CLINDAMYCIN 600 MG/4 ML VIAL ONE (04:04)
[2019-10-09] MEDS: CLINDAMYCIN 600 MG in DEXTROSE 5% 50 ML IV SCH ×3 (04:12→21:09)
--- NOTE | 2019-10-09 04:15 | NUR ---
PT WAS ASSISTED TO BEDSIDE COMMODE. PT TOLERATED ACTIVITY FAIRLY. ADMINISTERED SCHEDULED IV ABX ORDERED. WILL CONTINUE TO MONITOR PT.
--- NOTE | 2019-10-09 05:32 | NUR ---
PT C/O RIGHT FOOT PAIN. ADMINISTERED PO PRN PAIN MEDICATION ORDERED. PT STILL REFUSED OXYCODONE PO. PT TEACHING GIVEN. BLOOD GLUCOSE CHECKED AND CHARTED. NO INSULIN COVERAGE NEEDED.
[2019-10-09] MEDS: BLOOD GLUCOSE MONITORING 1 DEV DEV FS SCH ×4 (05:43→21:08)
--- NOTE | 2019-10-09 06:47 | NUR ---
PT AWAKE, BANQUET SET UP PERSON AT BEDSIDE FOR AM VS. PT IS IN STABLE CONDITION. WILL ENDORSE TO AM SHIFT RN FOR PT'S CONTINUITY OF CARE.
[2019-10-09 07:18] LABS: BASOPHILS % (AUTO) 0.2 % (0.0-2.0); EOSINOPHILS # (AUTO) 0.1 K/uL (0-0.4); HEMATOCRIT 30.6 % (36-48); HEMOGLOBIN 10.6 g/dL (12.0-16.0); LYMPHOCYTES # (AUTO) 1.2 K/uL (2.5-16.5); LYMPHOCYTES % (AUTO) 16.4 % (20.5-51.1); MEAN CORPUSCULAR HEMOGLOBIN 33 pg (27-31); MEAN CORPUSCULAR HGB CONC 35 g/dL (33-37); MEAN CORPUSCULAR VOLUME 95.6 fL (80-94); MONOCYTES # (AUTO) 0.9 K/uL (0.8-1.0); MONOCYTES % (AUTO) 12.1 % (1.7-9.3); NEUTROPHILS # (AUTO) 5.3 K/uL (1.8-7.7); NEUTROPHILS % (AUTO) 70.3 % (42.2-75.2); PLATELET COUNT (AUTO) 146 K/uL (140-450); WHITE BLOOD COUNT (AUTO) 7.5 K/uL (4.8-10.8)
--- NOTE | 2019-10-09 07:25 | NUR ---
RECEIVED BEDSIDE SHIFT REPORT FROM MANAGER MAC NURSE FOR CONTINUATION OF CARE.
[2019-10-09 07:43] LABS: ALBUMIN 2.7 g/dL (3.4-5.0); ANION GAP 12.7 (8-16); POTASSIUM 3.7 mmol/L (3.5-5.1); TOTAL BILIRUBIN 0.4 mg/dL (0.0-1.0)
[2019-10-09 08:00] VITALS: BP 114/63
[2019-10-09] MEDS ORDERED: oxyCODONE/APAP 5/325 MG 1 TAB TAB PO PRN (08:05)
--- NOTE | 2019-10-09 08:10 | NUR ---
PATIENT HAS BEEN SCREENED AND CATEGORIZED MODERATE NUTRITION RISK. PATIENT WILL BE SEEN WITHIN 3-5 DAYS OF ADMISSION. 10/11/19 10/13/[address]
[2019-10-09] MEDS: PHENYTOIN 100 MG CAPER PO SCH ×3 (09:36→17:07)
--- NOTE | 2019-10-09 10:00 | NUR ---
MEDICATIONS ADMINISTERED FOR SEIZURE PROPHYLAXIS, PATIENT IS RESTING AT THIS TIME, NO SIGNS OF DISTRESS BUT VERBALIZES PAIN IN LEG. PATIENT INSISTS ON RECEIVING MORPHINE, MD HOGAN NOTIFIED, PO PERCOCET ORDERED. PATIENT REFUSES PERCOCET. BED IS IN LOW POSITION, CALL LIGHT ON AND WITHIN REACH. PATIENT REQUIRES MODERATE ASSISTANCE TO THE BEDSIDE COMMODE FROM MATERIALS HANDLING EQUIPMENT OPERATOR STAFF. WILL CONTINUE TO MONITOR.
[2019-10-09 12:00] VITALS: BP 113/58
--- NOTE | 2019-10-09 12:00 | NUR ---
PATIENT HAD A CT OF LOWER EXTREMITY PER MD'S ORDERS. PATIENT TOLERATED WELL, NORCO ADMINISTERED FOR PAIN. PATIENT IS RESTING IN BED, EDUCATED TO REPORT SIGNS AND SYMPTOMS OF WORSENING INFECTION SUCH INCREASED HEART RATE, FEELING WARMER THAN USUAL, AND FATIGUE OR SHORTNESS OF BREATH. VERBALIZED UNDERSTANDING. WILL CONTINUE TO MONITOR.
[2019-10-09] MEDS ORDERED: VANCOMYCIN 1,000 MG in DEXTROSE 5% 250 ML IV SCH (13:00)
--- NOTE | 2019-10-09 14:04 | NUR ---
PODIATRY RESIDENT ALONG WITH PODIATRY MD CONSULTED WITH PATIENT AND EDUCATED PATIENT ON SURGICAL TREATMENT OF RIGHT FOOT. INCISION AND DRAINAGE WITH DEBRIDEMENT, RIGHT FOOT AND POSSIBLE SOFT TISSUE MASS EXCISION, RIGHT FOOT. PATIENT IS AWARE OF POTENTIAL RISKS. PATIENT VERBALIZES UNDERSTANDING. BED IS IN LOW POSITION, CALL LIGHT ON AND WITHIN REACH. WILL CONTINUE TO MONITOR.
[2019-10-09 16:00] VITALS: BP 125/62
--- NOTE | 2019-10-09 19:25 | NUR ---
BEDSIDE SHIFT REPORT GIVEN TO SUPERVISOR CELL OPERATION NURSE FOR CONTINUATION OF CARE.
--- NOTE | 2019-10-09 19:30 | NUR ---
RECEIVED BEDSIDE REPORT FROM AM SHIFT RN SATHISH, FOR PT'S CONTINUITY OF CARE. PT IS AAOX4, IS ON SNACK BAR COOK, ON O2 2L VIA NC, HAS RIGHT FA 20G, C/O INTERMITTENT, SHARP, RIGHT FOOT PAIN. PT VOICED OUT CONCERN RE: SX IN A.M., ADVISED PT THAT MD WILL BE NOTIFIED. PT ABLE TO USE BEDSIDE COMMODE. PT AWARE OF DIRECTOR OF PARKS AND RECREATION ROUTINE, SAFETY MEASURES IN PLACE, AND CALL LIGHT IS WITHIN REACH. WILL MONITOR PT THROUGHOUT SHIFT.
[2019-10-09 20:00] VITALS: BP 123/70
--- NOTE | 2019-10-09 20:00 | NUR ---
PAGED CAPTAIN FIRE PREVENTION BUREAU, DR. WINTER, TO NOTIFY RE: PT'S REFUSAL TO HAVE SX SCHEDULED THE NEXT DAY.
--- NOTE | 2019-10-09 20:12 | NUR ---
DR. WINTER RETURNED CALL, INFORMED ABOUT PT'S DECISION TO NOT HAVE SX, WILL SEE PT IN A.M. CONTINUE NPO AFTER MN.
[2019-10-09] MEDS ORDERED: CRUSHER, PILL MC ONE (21:07)
--- NOTE | 2019-10-09 21:10 | NUR ---
ADMINISTERED SCHEDULED MEDICATIONS ORDERED. BLOOD GLUCOSE CHECKED AND CHARTED, NO INSULIN COVERAGE NEEDED. PT REQUESTED FOR PAIN MEDICATION, OFFERED AND ADMINISTERED PO OXYCODONE, PT AGREED. PT REFUSED SUBQ HEPARIN, STATED WOULD ONLY LIKE TO GET IT ONCE A DAY. PT TEACHING GIVEN, PT VERBALIZED UNDERSTANDING. PT REQUESTED FOR BEDPAN, ASSISTED BY FEED MILL TENDER, PT TOLERATED ACTIVITY FAIRLY. WILL CONTINUE TO MONITOR PT.
[2019-10-09] MEDS: LEVOFLOXACIN 250 MG/D5 PREMIX 50 ML IV SCH (22:32)
--- NOTE | 2019-10-09 22:35 | NUR ---
ADMINISTERED SCHEDULED IV ABX ORDERED. PT ASLEEP WITH NO SIGNS OF DISTRESS.
[2019-10-10] VITALS: BP 118/62
--- NOTE | 2019-10-10 00:30 | NUR ---
IV PUMP BEEPING. STRAIGHTENED PT'S ARM. PT ASLEEP WITH NO SIGNS OF DISTRESS. WILL CONTINUE TO MONITOR PT.
--- NOTE | 2019-10-10 03:00 | NUR ---
PT ASLEEP WITH NO SIGNS OF DISTRESS. PT'S LEG STILL ELEVATED WITH PILLOW. WILL CONTINUE TO MONITOR PT.
[2019-10-10 04:23] VITALS: BP 132/66
--- NOTE | 2019-10-10 04:34 | NUR ---
LAB PERSONNEL AT BEDSIDE. PT REFUSED TO HAVE BLOOD DRAW. PT TEACHING GIVEN, PT VERBALIZED UNDERSTANDING BT=UT STILL ADAMANT WITH NOT GETTING LAB DRAW.
[2019-10-10] MEDS: CLINDAMYCIN 600 MG in DEXTROSE 5% 50 ML IV SCH ×3 (05:14→21:51)
--- NOTE | 2019-10-10 05:15 | NUR ---
ADMINISTERED SCHEDULED IV ABX ORDERED. ASSISTED PT TO BEDPAN TO VOID. PT TOLERATED ACTIVITY FAIRLY. PT MADE COMFORTABLE. WILL CONTINUE TO MONITOR PT.
[2019-10-10] MEDS: BLOOD GLUCOSE MONITORING 1 DEV DEV FS SCH ×6 (06:00→21:38)
--- NOTE | 2019-10-10 06:00 | NUR ---
BLOOD GLUCOSE CHECKED AND CHARTED. NO INSULIN COVERAGE NEEDED. PT INQUIRED RE: HOME BP MEDS, WILL ENDORSE TO AM SHIFT RN TO F/U WITH MD. NOTIFIED PT THAT WE WILL INQUIRE WITH MD IN A.M. PT IS IN STABLE CONDITION. WILL ENDORSE TO AM SHIFT RN FOR PT'S CONTINUITY OF CARE.
--- NOTE | 2019-10-10 07:34 | NUR ---
RECEIVED BEDSIDE REPORT FROM SENIOR SALES CONSULTANT RN FOR CONTINUITY OF CARE. PT IS AAOX4, ABLE TO MAKE NEEDS KNOWN. PT ON BARGE CAPTAIN, ON O2 2L VIA NC BUT NOT USING AT THE MOMENT SATING AT 98%. PT HAS RIGHT FA 20G SL. PT DENIES PAIN AT THIS TIME. PT VOICED OUT CONCERN ABOUT HAVING SURGERY. PER PT, HER MD TOLD HER NO SX DUE TO HER HEART NOT FUNCTIONING PROPERLY. DR. CRUZARI AWARE AND HE STATED THAT HE WILL SPEAK TO PT THIS MORNING BEFORE SURGERY. PT ABLE TO USE BEDSIDE COMMODE. DISCUSSED POC WITH PT AND PT VERBALIZED UNDERSTANDING. SAFETY MEASURES IN PLACE, AND CALL LIGHT IS WITHIN REACH. WILL MONITOR PT THROUGHOUT SHIFT.
[2019-10-10 08:00] VITALS: BP 104/78
[2019-10-10] MEDS: PHENYTOIN 100 MG CAPER PO SCH ×3 (08:30→17:00)
[2019-10-10 08:40] LABS: BASOPHILS % (AUTO) 0.2 % (0.0-2.0); EOSINOPHILS % (AUTO) 0.6 % (0.0-4.0); HEMATOCRIT 31.9 % (36-48); HEMOGLOBIN 11.1 g/dL (12.0-16.0); LYMPHOCYTES # (AUTO) 1.1 K/uL (2.5-16.5); LYMPHOCYTES % (AUTO) 13.6 % (20.5-51.1); MEAN CORPUSCULAR HEMOGLOBIN 33 pg (27-31); MEAN CORPUSCULAR HGB CONC 35 g/dL (33-37); MONOCYTES # (AUTO) 0.9 K/uL (0.8-1.0); MONOCYTES % (AUTO) 10.9 % (1.7-9.3); NEUTROPHILS # (AUTO) 5.9 K/uL (1.8-7.7); NEUTROPHILS % (AUTO) 74.7 % (42.2-75.2); PLATELET COUNT (AUTO) 170 K/uL (140-450); WHITE BLOOD COUNT (AUTO) 7.9 K/uL (4.8-10.8)
[2019-10-10] MEDS: NACL 0.9% 1,000 ML IV SCH ×2 (08:42→18:49)
[2019-10-10] MEDS ORDERED: ONDANSETRON 4 MG/2 ML VIAL IVP PRN (08:45)
[2019-10-10] MEDS ORDERED: fentaNYL 0.05 MG/ML VIAL ONE (08:45)
[2019-10-10] MEDS ORDERED: MIDAZOLAM 2 MG/2 ML VIAL ONE (08:45)
[2019-10-10] MEDS ORDERED: diphenhydrAMINE 50 MG/ML VIAL IVP PRN (08:45)
[2019-10-10] MEDS ORDERED: BUPIVACAINE-MPF 0.5% 30 ML VIAL INJ ONE (08:47)
--- NOTE | 2019-10-10 08:57 | NUR ---
ADMINISTERED MORNING MEDS TO PT. PT TOLERATED WELL. ALL NEEDS MET. WILL CONTINUE TO ROUND FREQUENTLY ON PT. BED IN LOW POSITION, CALL LIGHT WITHIN REACH.
[2019-10-10] MEDS ORDERED: LEVOFLOXACIN 750 MG/D5W PREMIX 150 ML IV SCH (09:00)
--- NOTE | 2019-10-10 09:16 | NUR ---
PT TAKEN TO OR FOR I&D PROCEDURE. PT IN STABLE CONDITION.
[2019-10-10 09:47] LABS: ALBUMIN 2.9 g/dL (3.4-5.0); ANION GAP 11.9 (8-16); CARBON DIOXIDE 28.7 mmol/L (21-32); CREATININE 1.6 mg/dL (0.6-1.3); POTASSIUM 3.6 mmol/L (3.5-5.1); TOTAL BILIRUBIN 0.9 mg/dL (0.0-1.0)
--- NOTE | 2019-10-10 10:26 | NUR ---
PT RETURNED FROM OR. PT IN STABLE CONDITION. PT BS CHECKED IN OR. POC BS WAS 104. WILL LET PT REST. O2 SAT AT 98%
[2019-10-10 12:00] VITALS: BP 122/84
[2019-10-10] MEDS ORDERED: VANCOMYCIN 1,000 MG in DEXTROSE 5% 250 ML IV SCH (15:00)
[2019-10-10] MEDS: HYDROmorphone 1 MG/ML AMP IVP PRN ×2 (15:38→21:51)
[2019-10-10 16:00] VITALS: BP 121/71
--- NOTE | 2019-10-10 17:13 | NUR ---
[facility] [employer] BECAUSE PT STATING SHE CAN NOT BE DISCHARGED TODAY SINCE SHE HAS NO PICKUP UNTIL TOMORROW. PT UNSTEADY ON HER FEET FROM S/P I&D OF FOOT TODAY WITH . PER , HE SAID OK TO D/C PT TOMORROW.
--- NOTE | 2019-10-10 19:30 | NUR ---
RECEIVED BEDSIDE REPORT FROM AM SHIFT RN FOR PT'S CONTINUITY OF CARE. PT IS ASLEEP, LYING DOWN RESTING WITH NO SIGNS OF DISTRESS, IS ON TORSION SPRING COILING MACHINE SETTER, ON 2L O2 VIA NC, HAS RIGHT FA 20G WITH NS AT 100 ML/HR. SAFETY MEASURES ARE IN PLACE, AND CALL LIGHT IS WITHIN REACH. WILL MONITOR PT THROUGHOUT SHIFT.
--- NOTE | 2019-10-10 19:30 | NUR ---
ENDORSED PT TO COUNSELLING PSYCHOLOGIST FOR CONTINUITY OF CARE. PT IN STABLE CONDITION AT THIS TIME.
[2019-10-10 20:00] VITALS: BP 115/68
--- NOTE | 2019-10-10 21:00 | NUR ---
BLOOD GLUCOSE CHECKED AND CHARTED. NO INSULIN COVERAGE NEEDED. PT C/O RIGHT FOOT PAIN. WILL MEDICATE PT.
--- NOTE | 2019-10-10 21:51 | NUR ---
ADMINISTERED SCHEDULED IV ABX ORDERED. PT REFUSED SUBQ HEPARIN. PT C/O SEVERE SHARP SHOOTING PAIN ON RIGHT FOOT. ADMINISTERED IVP PAIN MEDICATION ORDERED. PT MADE COMFORTABLE. WILL CONTINUE TO MONITOR PT.
[2019-10-10] MEDS ORDERED: predniSONE 20 MG TAB PO SCH (23:00)
[2019-10-11] VITALS: BP 112/65
[2019-10-11] MEDS: HYDROcodone/APAP 5/325 MG 1 TAB TAB PO PRN ×3 (00:14→10:55)
--- NOTE | 2019-10-11 00:15 | NUR ---
VS CHECKED AND CHARTED. PT C/O RIGHT FOOT SHARP, INTERMITTENT PAIN. ADMINISTERED SCHEDULED PO AND PRN PO PAIN MEDICATION ORDERED. PT TOLERATED IT WELL. PT MADE COMFORTABLE, AND PT'S NEEDS MET AT THIS TIME. WILL CONTINUE TO MONITOR PT.
--- NOTE | 2019-10-11 02:15 | NUR ---
PT LYING DOWN WITH NO SIGNS OF DISTRESS. WILL CONTINUE TO MONITOR PT.
[2019-10-11 04:00] VITALS: BP 99/78
--- NOTE | 2019-10-11 04:00 | NUR ---
PT CALLED FOR BEDPAN, PT TOLERATED ACTIVITY WELL. PT MADE COMFORTABLE. VS CHECKED AND CHARTED. WILL CONTINUE TO MONITOR PT.
[2019-10-11] MEDS: NACL 0.9% 1,000 ML IV SCH ×2 (05:22→05:56)
[2019-10-11] MEDS: CLINDAMYCIN 600 MG in DEXTROSE 5% 50 ML IV SCH (05:52)
[2019-10-11] MEDS: HYDROmorphone 1 MG/ML AMP IVP PRN (05:56)
[2019-10-11] MEDS: BLOOD GLUCOSE MONITORING 1 DEV DEV FS SCH (06:20)
--- NOTE | 2019-10-11 06:20 | NUR ---
PT C/O RIGHT FOOT PAIN. WAS ABOUT TO ADMINISTER IVP PRN, ASSESSED PATENCY OF IV SITE, IV LEAKING. PT REFUSED TO REINSERT IV. PRN IVP NOT GIVEN, WASTED IN MED WASTE WITH TRAWL NET MAKER WITNESS. IV ABX STOPPED, IV SITE NOT PATENT. ADMINISTERED PRN PO PAIN MEDICATION ORDERED, INSTEAD. PT COMFORTABLE AND NEEDS ARE MET. WILL ENDORSE TO AM SHIFT RN FOR PT'S CONTINUITY OF CARE.
[2019-10-11 06:53] LABS: ANION GAP 12.4 (8-16); CARBON DIOXIDE 28.5 mmol/L (21-32); CREATININE 1.6 mg/dL (0.6-1.3); POTASSIUM 3.9 mmol/L (3.5-5.1); TOTAL BILIRUBIN 0.9 mg/dL (0.0-1.0)
[2019-10-11 07:05] LABS: BASOPHILS % (AUTO) 0.1 % (0.0-2.0); HEMATOCRIT 33.9 % (36-48); HEMOGLOBIN 11.6 g/dL (12.0-16.0); LYMPHOCYTES # (AUTO) 0.6 K/uL (2.5-16.5); MEAN CORPUSCULAR HEMOGLOBIN 32 pg (27-31); MEAN CORPUSCULAR HGB CONC 34 g/dL (33-37); MEAN CORPUSCULAR VOLUME 93.5 fL (80-94); MONOCYTES # (AUTO) 0.2 K/uL (0.8-1.0); MONOCYTES % (AUTO) 3.3 % (1.7-9.3); NEUTROPHILS # (AUTO) 6.6 K/uL (1.8-7.7); PLATELET COUNT (AUTO) 189 K/uL (140-450); RED BLOOD CELL COUNT(AUTO) 3.63 MIL/uL (4.20-5.40); WHITE BLOOD COUNT (AUTO) 7.4 K/uL (4.8-10.8)
--- NOTE | 2019-10-11 07:15 | NUR ---
Received report from pm nurse Suly. Pt sound asleep in bed, respirations even & nonlabored on O2 @ 2Lpm. Call light within reach.
[2019-10-11 08:00] VITALS: BP 103/64
[2019-10-11] MEDS: PHENYTOIN 100 MG CAPER PO SCH (08:36)
[2019-10-11 08:50] LABS: NEUTROPHILS % (AUTO) 88.9 % (42.2-75.2)
[2019-10-11 08:51] LABS: LYMPHOCYTES % (AUTO) 7.7 % (20.5-51.1)
[2019-10-11] MEDS ORDERED: predniSONE 20 MG TAB PO SCH (09:00)
--- NOTE | 2019-10-11 10:15 | NUR ---
SPOKE WITH DR. GONZALEZ( DR. WINTER'S RESIDENT), STATED THAT PT DOES NOT NEED A HOME HEALTH FOR WOUND CARE WHEN DISCHARGE HOME TODAY. PER DR. GONZALEZ, PT'S STITCHES ARE INTACT, NO NEED TO CHANGE THE DRESSING UNTIL SEEN IN THEIR OFFICE IN 7 DAYS FOR FOLLOW UP. ZEHRA-BAN ASSIGNED MADE AWARE.
[2019-10-11] MEDS ORDERED: ALLO100T21 PO (10:31)
[2019-10-11] MEDS ORDERED: ACET-8386 PO (10:32)
[2019-10-11] MEDS ORDERED: CLIN300C2 PO (10:33)
--- NOTE | 2019-10-11 12:10 | NUR ---
Written and verbal discharge instructions provided to patient. Also given written prescriptions from Dr Daigle. Pt verbalized understanding of teachings. Right foot post-op shoe applied to right foot and instructed on proper use. Pt left unit via wheelchair, daughter waiting with transpo at [facility]. All belongings with pt upon departure. Right foot surgical dressings clean, dry, & intact, right foot post-op shoe in place.
== END 2019-10-11 12:10 | disposition home health service (06) | DRG 720 ==
LOC: MED 09:23 → MTU 13:39
PROVIDERS: ADMIT Hospitalist; ATTEND Hospitalist
PROC: 0Y9M0ZZ Drainage of Right Foot, Open Approach (ICD-10-PCS; principal; 2019-10-10 08:30)
DX: A41.9 Sepsis, unspecified organism (principal); R65.21 Severe sepsis with septic shock; J96.11 Chronic respiratory failure with hypoxia; E11.22 Type 2 diabetes mellitus with diabetic chronic kidney disease; E11.40 Type 2 diabetes mellitus with diabetic neuropathy, unspecified; E11.51 Type 2 diabetes mellitus with diabetic peripheral angiopathy without gangrene; I13.0 Hypertensive heart and chronic kidney disease with heart failure and stage 1 through stage 4 chronic kidney disease, or unspecified chronic kidney disease; L03.115 Cellulitis of right lower limb; E78.5 Hyperlipidemia, unspecified; G40.909 Epilepsy, unspecified, not intractable, without status epilepticus; I25.10 Atherosclerotic heart disease of native coronary artery without angina pectoris; J44.9 Chronic obstructive pulmonary disease, unspecified; N18.4 Chronic kidney disease, stage 4 (severe); I50.42 Chronic combined systolic (congestive) and diastolic (congestive) heart failure; E66.01 Morbid (severe) obesity due to excess calories; M1A.9XX1 Chronic gout, unspecified, with tophus (tophi); Z87.891 Personal history of nicotine dependence; Z88.0 Allergy status to penicillin; Z95.5 Presence of coronary angioplasty implant and graft; Z99.81 Dependence on supplemental oxygen; Z88.8 Allergy status to other drugs, medicaments and biological substances; Z79.899 Other long term (current) drug therapy; Z95.810 Presence of automatic (implantable) cardiac defibrillator; Z68.33 Body mass index [BMI] 33.0-33.9, adult; Z71.6 Tobacco abuse counseling
CPT/HCPCS: 36415; 71045; 73700; 76881; 80053; 80202; 82948; 83036; 83605; 84550; 85025; 85610; 85651; 85730; 86140; 87040; 87070; 87075; 87081; 87205; 93005; 96365; 99291; J1170; J1644; J1815; J1956; J2250; J3010; J3370; J3490; J7030; J7060; J7512; Q0092

== ENCOUNTER 2019-12-15 23:40 | Emergency (ER) | payer OTHER ==
[~2019-12-15] VITALS: Ht 170.2 cm; Wt 90.7 kg
[~2019-12-15 23:40] MED LIST changes: +ACET-8386 PO; +ALLO100T21 PO; -ASPI-1822 PO; -CARV12.5 PO; +CLIN300C2 PO; -COL100L GT/PO; -CYAN500T51 PO; +FURO20TA8 PO; -FURO40TA9 PO; -HYDR-5122 PO; +IBUP-2213 PO; +POTA10TE30 PO; +RIVA15TA1 PO
[2019-12-15 23:43] VITALS: BP 154/98
--- NOTE | 2019-12-15 23:53 | NUR ---
Pt bib bls run from home c/o SOB. Pt o2 sat- 98 r/a Bedside triage done and pt to bed 9 assume care to galina CEVALLOS. Pt bld sugar check by paramedics- 113. Pt is aaox4. Pt past medical hx- diabetres, htn, cardiac, copd, renal, kidney deasease, pacemaker lt side chest.
--- NOTE | 2019-12-16 00:05 | NUR ---
59 YEAR OLD FEMALE BIBA FOR SHORTNESS OF BREATHE X 3 HOURS. PATIENT LABORED BREATHING WITH RR 45. SPO2 99% ON 2L NC. PATIENT LUNGS CLEAR BL. PATIENT DENIES ANY CHEST PAIN, N/V/D, OR OTHER COMPLAINTS. PATIENT AOX4, BREATHING EVEN AND LABORED, SKIN WARM AND DRY. BED IN LOWEST POSITION, LOCKED, BED RAIL UPX1. PATIENT PLACED ON MONITOR, VS STABLE. ERMD AT BEDSIDE. WILL CONTINUE TO MONITOR PMH - HTN, DM2, COPD, CHF, PACEMAKER, KIDNEY DISEASE ALLERGIES - PCN
--- NOTE | 2019-12-16 00:13 | NUR ---
MULTIPLE ATTEMPTS TO PLACE IV LINE MADE
--- NOTE | 2019-12-16 00:15 | NUR ---
XRAY AT BEDSIDE
--- NOTE | 2019-12-16 00:36 | NUR ---
EKG PERFORMED AT BEDSIDE
[2019-12-16] MEDS: FUROSEMIDE 40 MG/4 ML VIAL IVP ONE (00:47)
--- NOTE | 2019-12-16 00:47 | NUR ---
Francois de jesus in [facility] - [facility]47 [facility] AT BEDSIDE, PATIENT ALERT AND AWAKE, BREATHING EVEN AND UNLABORED.
--- NOTE | 2019-12-16 00:47 | NUR ---
PORTABLE BATHROOM AT BEDSIDE, PATIENT ALERT AND AWAKE, BREATHING EVEN AND UNLABORED.
[2019-12-16 00:54] LABS: BASOPHILS # (AUTO) 0.1 K/uL (0.00-0.22); BASOPHILS % (AUTO) 1.6 % (0.0-2.0); EOSINOPHILS # (AUTO) 0.1 K/uL (0-0.4); EOSINOPHILS % (AUTO) 0.9 % (0.0-4.0); HEMATOCRIT 40.5 % (36-48); HEMOGLOBIN 13.6 g/dL (12.0-16.0); LYMPHOCYTES # (AUTO) 1.5 K/uL (2.5-16.5); LYMPHOCYTES % (AUTO) 16.7 % (20.5-51.1); MEAN CORPUSCULAR HEMOGLOBIN 33 pg (27-31); MEAN CORPUSCULAR HGB CONC 34 g/dL (33-37); MEAN CORPUSCULAR VOLUME 97.1 fL (80-94); MONOCYTES # (AUTO) 0.5 K/uL (0.8-1.0); MONOCYTES % (AUTO) 5.7 % (1.7-9.3); NEUTROPHILS # (AUTO) 6.6 K/uL (1.8-7.7); NEUTROPHILS % (AUTO) 75.1 % (42.2-75.2); PLATELET COUNT (AUTO) 246 K/uL (140-450); RED BLOOD CELL COUNT(AUTO) 4.17 MIL/uL (4.20-5.40); RED CELL DISTRIBUTION WIDTH 16.6 % (11.6-13.7); WHITE BLOOD COUNT (AUTO) 8.8 K/uL (4.8-10.8)
[2019-12-16 01:11] LABS: ALBUMIN 3.9 g/dL (3.4-5.0); ANION GAP 19.7 (8-16); CARBON DIOXIDE 20.7 mmol/L (21-32); CREATININE 2.4 mg/dL (0.6-1.3); POTASSIUM 3.4 mmol/L (3.5-5.1); TOTAL BILIRUBIN 0.5 mg/dL (0.0-1.0)
--- NOTE | 2019-12-16 01:14 | NUR ---
PATIENT STATES SHE HAS BACK PAIN AND REQUESTING PAIN MEDICATION. JUAN MADE AWARE
[2019-12-16] MEDS: ONDANSETRON 4 MG/2 ML VIAL IVP ONE (01:36)
[2019-12-16] MEDS: MORPHINE SULFATE 4 MG/ML SYR IVP ONE (01:36)
--- NOTE | 2019-12-16 01:36 | NUR ---
PATIENT STATES SHE IS BREATHING MUCH EASIER, BREATHING EVEN AND UNLABORED, ALERT AND AWAKE.
[2019-12-16 02:52] VITALS: BP 116/79
--- NOTE | 2019-12-16 02:52 | NUR ---
Patient discharged with v/s stable. Written and verbal after care instructions about shortness of breathe given and explained. Patient verbalized understanding. Ambulatory with steady gait. All questions addressed prior to discharge. Advised to follow up with PMD. Pt given taxi voucher to go home, will arrive in 1 hour.
== END 2019-12-16 02:52 | disposition home or self-care (01) ==
LOC: MED 23:40
DX: R06.02 Shortness of breath (principal); I11.0 Hypertensive heart disease with heart failure; I50.9 Heart failure, unspecified; E11.9 Type 2 diabetes mellitus without complications; J44.9 Chronic obstructive pulmonary disease, unspecified; E78.5 Hyperlipidemia, unspecified; Z95.0 Presence of cardiac pacemaker; Z79.899 Other long term (current) drug therapy; Z79.84 Long term (current) use of oral hypoglycemic drugs; Z88.0 Allergy status to penicillin; Z88.8 Allergy status to other drugs, medicaments and biological substances
CPT/HCPCS: 36415; 71045; 80053; 83880; 84484; 85025; 93005; 96374; 96375; 99285; J1940; J2270; J2405; Q0092

== ENCOUNTER 2020-05-13 19:14 | Emergency (ER) | payer OTHER ==
[~2020-05-13] VITALS: Ht 165.1 cm; Wt 81.6 kg
[2020-05-13 19:23] VITALS: BP 159/108
[2020-05-13] MEDS ORDERED: MORPHINE SULFATE 2 MG/ML SYR ONE (19:39)
[2020-05-13] MEDS ORDERED: MORPHINE SULFATE 2 MG/ML SYR IM ONE (19:40)
[2020-05-13 20:40] VITALS: BP 150/100
== END 2020-05-13 20:40 | disposition home or self-care (01) ==
LOC: MED 19:14
DX: M25.562 Pain in left knee (principal); E11.9 Type 2 diabetes mellitus without complications; I10 Essential (primary) hypertension; I51.89 Other ill-defined heart diseases; J44.9 Chronic obstructive pulmonary disease, unspecified; R56.9 Unspecified convulsions; N28.9 Disorder of kidney and ureter, unspecified; Z88.6 Allergy status to analgesic agent; Z79.899 Other long term (current) drug therapy; Z95.0 Presence of cardiac pacemaker; W19.XXXA Unspecified fall, initial encounter; Y93.89 Activity, other specified; Y92.89 Other specified places as the place of occurrence of the external cause; Y99.8 Other external cause status
CPT/HCPCS: 73562; 96372; 99283; J2270; Q0092

== ENCOUNTER 2021-07-08 10:31 | Inpatient (IN) | payer OTHER, SELFPAY ==
--- NOTE | 2021-07-02 20:00 | NUR ---
V/S WAS WNL EXCEPT FOR BP WHICH IN THE LOW LIMIT BELOW 100 MMHG Addendum: 07/10/21 at 0511 by Gallo Green RN RN DISCARD THE NOTES ABOVE
[~2021-07-08] VITALS: Ht 165.1 cm; Wt 56.2 kg
[~2021-07-08 10:31] MED LIST changes: -AMIO200T5 PO; +AMIO200T70 PO; +AZIT250T11 PO; +CEPH500C16 PO; -CLIN300C2 PO; +GABA100C PO; -GABA300C PO; +GLIP5TAB14 PO; -GLIP5TAB4 PO; -IBUP-2213 PO; +LACT-103 PO; -LACT10SO1 PO; +POTA10TA70 PO; -POTA10TE30 PO
[2021-07-08 10:44] VITALS: BP 103/78
[2021-07-08] MEDS ORDERED: CLINDAMYCIN 300 MG in DEXTROSE 5% 50 ML IV ONE (11:05)
[2021-07-08] MEDS ORDERED: CLINDAMYCIN 600 MG/4 ML VIAL ONE (11:10)
--- NOTE | 2021-07-08 11:25 | NUR ---
61 Y/O FEMALE PATIENT PRESENTS TO ED WITH LEFT EYE SWELING AND ITCH X1 WEEK. PT STATES SHE "THINKS IT'S CELLULITIS," WHICH SHE ALSO HAS ON HER LEGS. DENIES N/V/D; SKIN IS PINK/WARM/DRY; AAOX4 WITH WEAK GAIT (NORMALLY USES A WALKER); LUNGS CLEAR; PT DENIES ANY FEVER, CP, SOB, OR COUGH AT THIS TIME; PATIENT STATES PAIN OF 7/10 AT THIS TIME; VSS; PATIENT POSITIONED FOR COMFORT; HOB ELEVATED; BEDRAILS UP X2; BED DOWN. ER MD MADE AWARE OF PT STATUS. HX: COPD, CHF, DM, HTN, CELLULITIS, NEUROPATHY, GOUT ALLERGIES TO PCN SEE LIST
--- NOTE | 2021-07-08 11:37 | NUR ---
XRAY BEDSIDE WITH PATIENT
[2021-07-08 11:38] LABS: BASOPHILS % (AUTO) 0.3 % (0.0-2.0); EOSINOPHILS % (AUTO) 0.3 % (0.0-4.0); HEMATOCRIT 29.6 % (36-48); LYMPHOCYTES # (AUTO) 0.5 K/uL (2.5-16.5); LYMPHOCYTES % (AUTO) 17.1 % (20.5-51.1); MEAN CORPUSCULAR HEMOGLOBIN 41 pg (27-31); MEAN CORPUSCULAR HGB CONC 34 g/dL (33-37); MEAN CORPUSCULAR VOLUME 120.2 fL (80-94); MONOCYTES # (AUTO) 0.1 K/uL (0.8-1.0); MONOCYTES % (AUTO) 4.1 % (1.7-9.3); NEUTROPHILS # (AUTO) 2.5 K/uL (1.8-7.7); NEUTROPHILS % (AUTO) 78.2 % (42.2-75.2); PLATELET COUNT (AUTO) 90 K/uL (140-450); RED BLOOD CELL COUNT(AUTO) 2.46 MIL/uL (4.20-5.40); RED CELL DISTRIBUTION WIDTH 20.3 % (11.6-13.7); WHITE BLOOD COUNT (AUTO) 3.2 K/uL (4.8-10.8)
[2021-07-08 11:50] LABS: ALBUMIN 2.7 g/dL (3.4-5.0); ANION GAP 17.3 (8-16); CARBON DIOXIDE 19.5 mmol/L (21-32); POTASSIUM 3.8 mmol/L (3.5-5.1); TOTAL BILIRUBIN 1.6 mg/dL (0.0-1.0)
--- NOTE | 2021-07-08 12:11 | NUR ---
RADHA SORIANO SWAB COLLECTED AND WALKED OVER TO LAB BY EMT LE
--- NOTE | 2021-07-08 12:20 | NUR ---
pt cleaned and provided fresh linens
[2021-07-08] MEDS ORDERED: FUROSEMIDE 40 MG/4 ML VIAL IVP SCH (12:40)
[2021-07-08 13:27] LABS: BILIRUBIN,URINE 1+ (NEGATIVE); BLOOD, URINE TRACE-I (NEGATIVE); COLOR,URINE YELLOW (YELLOW); LEUKOCYTE ESTERASE ,URINE 2+ (NEGATIVE); NITRITE, URINE POSITIVE (NEGATIVE); PH,URINE 6.5 (5.0-9.0); UGLUCOSE NEGATIVE (NEGATIVE)
[2021-07-08] MEDS ORDERED: ONDANSETRON 4 MG/2 ML VIAL IVP PRN (13:45)
[2021-07-08] MEDS ORDERED: ALBUTEROL 0.083% 2.5 MG/3 ML NEBU INH PRN (13:45)
[2021-07-08] MEDS ORDERED: MAG SULF 2000 MG/WATER PREMIX 50 ML IV PRN (13:45)
[2021-07-08] MEDS ORDERED: POTASSIUM CHLORIDE 10 MEQ TABER PO PRN (13:45)
[2021-07-08] MEDS ORDERED: NON-FORMULARY ITEM (Lactulose 30 ML) PO PRN (13:45)
[2021-07-08] MEDS ORDERED: ACETAMINOPHEN 325 MG TAB PO PRN (13:45)
[2021-07-08] MEDS ORDERED: KCL 20 MEQ/WATER INJ PREMIX 200 ML IV PRN (13:45)
[2021-07-08] MEDS ORDERED: MAGNESIUM OXIDE 400 MG TAB PO PRN (13:45)
[2021-07-08 13:49] LABS: RBC,URINE 0-5 /HPF (0-5)
[2021-07-08 13:52] LABS: APPEARANCE,URINE CLOUDY (CLEAR)
[2021-07-08] MEDS ORDERED: MORPHINE SULFATE 4 MG/ML SYR IVP ONE (13:55)
--- NOTE | 2021-07-08 14:10 | NUR ---
RECEIVED REPORT FROM ER NURSE GILLIAM FOR CONTINUITY OF CARE.
--- NOTE | 2021-07-08 14:15 | NUR ---
Patient will be admitted to care of Dr Copeland. Admited to TELE. Will go to room 111B. Belongings list completed. Report to patrick CEVALLOS.
--- NOTE | 2021-07-08 14:30 | NUR ---
RECEIVED PT ON A GURNEY ALERT , ORIENTED ABLE TO VERBALIZED NEEDS. PLATER PRINTED CIRCUIT BOARD PANELS ON DRUM PRINTER. ORIENTED TO ROOM, CALL LIGHT, VISITATION AND TOILET. ALL SAFETY MEASURE IN PLACE. CALL LIGHT WITH IN EASY REACH.
--- NOTE | 2021-07-08 14:31 | NUR ---
PT AWAKE AND ALERT BREATHING ASYMMETRICAL. DENIES PAIN. LUNG SOUND CLEAR. IV SITE ON LEFT LEFT HAND 22 AGUSTIN PATENT NO SIGN AND SYMPTOMS OF INFECTION. BOTH EYES SWOLLEN BUT LEFT SIDE MORE SWOLLEN WITH REDNESS AND DRAINAGE.ABDOMEN FLAT WITH BOWEL SOUND AT 4 QUADRANT. NOTED WITH WEAKNESS. VARGAS CATHER INTACT DRAINING WITH YELLOW URINE NO HEMATURIA.
--- NOTE | 2021-07-08 14:51 | NUR ---
PT BACK FROM CT
[2021-07-08] MEDS ORDERED: LACTULOSE 20 GM/30 ML UDC PO PRN (14:55)
[2021-07-08 16:00] VITALS: BP 111/53
--- NOTE | 2021-07-08 16:30 | NUR ---
PT ASLEEP NO DISTRESS NOTED. MRSA SWAB DONE TOLERATED WELL. ALL SAFETY MEASURE IN PLACE. CALL LIGHT WITH IN EASY REACH.
[2021-07-08] MEDS: PHENYTOIN 100 MG CAPER PO SCH (16:44)
[2021-07-08] MEDS: FERROUS SULFATE 325 MG TABEC PO SCH (16:44)
[2021-07-08] MEDS: ERYTHROMYCIN 0.5% OPTH OINT 1 GM TUBE BOTH EYES SCH ×2 (16:44→21:00)
--- NOTE | 2021-07-08 16:44 | NUR ---
GIVEN ALL DUE MEDICATION TOLERATED WELL. CLEANSE EYES STILL NOTED WITH SWELLING AND DRAINAGE ON LEFT EYE. ENCOURAGE NOT TO RUB OR TOUCH THE EYES. ALL SAFETY MEASURE IN PLACE. CALL LIGHT WITH IN EASY REACH.
[2021-07-08] MEDS ORDERED: NON-FORMULARY ITEM (Ipratropium Bromide* (Atrovent Hfa Mdi*) 2 PUFF) IH SCH (17:00)
--- NOTE | 2021-07-08 18:05 | NUR ---
PATIENT AWAKE AND ALERT. NO ACUTE DISTRESS NOTED. PATIENT ON ROOM AIR. ALL SAFETY MEASURES IN PLACE. CALL LIGHT WITHIN REACH. WILL CONTINUE TO MONITOR.
[2021-07-08] MEDS: HYDROcodone/APAP 5/325 MG 1 TAB TAB PO PRN ×2 (18:15→23:54)
--- NOTE | 2021-07-08 19:10 | NUR ---
PT ON BED ASLEEP BUT ABLE TO WAKE UP AND RESPONDS, ON STABLE CONDITION. ENDORSE TO ANALYTICS ARCHITECT NURSE FOR CONTINUITY OF CARE.
--- NOTE | 2021-07-08 19:11 | NUR ---
RECEIVED ENDORSEMENT FROM AM NURSE. PATIENT IS RESTING COMFORTABLY IN BED. LEFT SIDE OF EYE SWOLLEN. NO COMPLAINTS OF PAIN. NO ACUTE DISTRESS NOTED. BREATHING EVEN UNLABORED. SKIN WARM AND DRY TO THE TOUCH. ALL SAFETY PRECAUTIONS ARE IN PLACE. CALL LIGHT WITHIN REACH. WILL CONTINUE TO MONITOR.
[2021-07-08] MEDS: IPRATROPIUM 0.02% 0.5 MG/2.5 ML NEBU INH SCH (19:42)
--- NOTE | 2021-07-08 19:42 | NUR ---
PT PRESENTS LYING IN BED W/ NO SIGNS OF RESPIRATORY DISTRESS SATING 100% ON RA. BS CLEAR AND DIMINISHED AT BASES. TX TOLERATED WELL WILL CONTINUE TO MONITOR.
[2021-07-08 20:00] VITALS: BP 90/52
[2021-07-08] MEDS ORDERED: FUROSEMIDE 20 MG/2 ML VIAL IVP SCH (21:00)
[2021-07-08] MEDS ORDERED: VANCOMYCIN PER PHARMACY MC PRN (21:05)
[2021-07-08] MEDS ORDERED: DEXTROSE 50% 50 ML SYR IVP PRN (21:20)
[2021-07-08] MEDS ORDERED: INSULIN LISPRO SLIDING SCALE 100 UNITS/ML VIAL SUBQ PRN (21:20)
--- NOTE | 2021-07-08 21:21 | NUR ---
LASIX 20 MG IV LAST DOSE ADMINISTERED ORDERED.
[2021-07-08] MEDS ORDERED: VANCOMYCIN 1GM/DEXT 5% PREMIX 200 ML IV SCH (21:40)
[2021-07-08] MEDS ORDERED: VANCOMYCIN 1,000 MG VIAL ONE (22:10)
--- NOTE | 2021-07-08 23:40 | NUR ---
PAGED SPRAY MACHINE LOADER DR. BLACKMON, CALLED BACK AT [phone] ASKED IF IT'S OK TO GIVE ROCEPHIN , PT IS ALLERGY TO PCN AND DR. BLACKMON SAID YES PLS. PHARMACY MADE AWARE.
--- NOTE | 2021-07-08 23:41 | NUR ---
VANCOMYCIN IVPB GIVEN AT 2330 ORDERED. PATIENT IS STABLE.
[2021-07-09] VITALS: BP_SYST 132; BP_SYST 97; BP_DIAS 63; BP_DIAS 67
[2021-07-09] MEDS: IPRATROPIUM 0.02% 0.5 MG/2.5 ML NEBU INH SCH ×4 (01:00→20:00)
--- NOTE | 2021-07-09 01:00 | NUR ---
PT PRESENTS SLEEPING IN BED W/ NO SIGNS OF RESPIRATORY DISTRESS SATING 100% ON RA. BS CLEAR AND DIMINISHED AT BASES WILL CONTINUE TO MONITOR.
[2021-07-09] MEDS ORDERED: cefTRIAXone 1,000 MG VIAL ONE (01:47)
--- NOTE | 2021-07-09 02:21 | NUR ---
ROUNDING PATIENT. PT IS ASLEEP , CHEST RISE AND FALL. UNLABORED BREATHING. CALL LIGHT WITHIN REACH.
--- NOTE | 2021-07-09 02:22 | NUR ---
PT IS SLEEPING IN BED. NO SIGNS OF DISTRESS AT THIS TIME. NO SOB OR LABORED BREATHING. CALL LIGHT WITHIN REACH. ALL SAFETY MEASURES TAKEN. WILL CONTINUE TO MONITOR PT AND PROVIDE PLAN OF CARE.
[2021-07-09 04:00] VITALS: BP 90/53
[2021-07-09] MEDS: BLOOD GLUCOSE MONITORING 1 DEV DEV FS SCH ×4 (06:49→21:14)
--- NOTE | 2021-07-09 06:52 | NUR ---
BLOOD GLUCOSE CHECKED 76. GAVE 118 ML ORANGE JUICE WITH 2 REGULAR SUGAR.
--- NOTE | 2021-07-09 07:15 | NUR ---
RECEIVE REPORT FROM CLERICAL RECEPTIONIST NURSE FOR CONTINUITY OF PATIENT CARE. PATIENT AWAKE AND ALERT. NO ACUTE DISTRESS NOTED. PATIENT ON ROOM AIR. MASH FILTER CLOTH CHANGER AT BEDSIDE. CALL LIGHT WITHIN REACH. ALL SAFETY MEASURES IN PLACE. WILL CONTINUE TO MONITOR.
--- NOTE | 2021-07-09 07:21 | NUR ---
ENDORSED TO AM NURSE FOR CONTINUITY OF CARE. PATIENT IS STABLE.
[2021-07-09 08:00] VITALS: BP 93/55
[2021-07-09 08:07] LABS: HEMATOCRIT 22.4 % (36-48); HEMOGLOBIN 7.7 g/dL (12.0-16.0); MEAN CORPUSCULAR HEMOGLOBIN 41 pg (27-31); MEAN CORPUSCULAR HGB CONC 34 g/dL (33-37); MEAN CORPUSCULAR VOLUME 118.4 fL (80-94); RED BLOOD CELL COUNT(AUTO) 1.89 MIL/uL (4.20-5.40); RED CELL DISTRIBUTION WIDTH 19.9 % (11.6-13.7); WHITE BLOOD COUNT (AUTO) 2.5 K/uL (4.8-10.8)
[2021-07-09 08:13] LABS: ANION GAP 14.4 (8-16); CARBON DIOXIDE 19.4 mmol/L (21-32); CHOL/HDL RATIO 3.2 (1-4.5)
[2021-07-09 08:17] LABS: POTASSIUM 2.8 mmol/L (3.5-5.1)
[2021-07-09] MEDS ORDERED: FUROSEMIDE 20 MG/2 ML VIAL IVP SCH (09:00)
[2021-07-09] MEDS ORDERED: ATORVASTATIN 20 MG TAB PO SCH (09:00)
[2021-07-09] MEDS ORDERED: ENOXAPARIN 40 MG/0.4 ML SYR SUBQ SCH (09:00)
[2021-07-09 09:28] LABS: PLATELET COUNT (AUTO) 75 K/uL (140-450)
[2021-07-09 09:29] LABS: LYMPHOCYTES % (MANUAL) 6 % (20-46); MONOCYTES % (MANUAL) 2 % (5-12)
[2021-07-09] MEDS: allopurinoL 100 MG TAB PO SCH (09:43)
[2021-07-09] MEDS: PHENYTOIN 100 MG CAPER PO SCH ×3 (09:44→17:49)
[2021-07-09] MEDS: GABAPENTIN 100 MG CAP PO SCH (09:44)
[2021-07-09] MEDS: FERROUS SULFATE 325 MG TABEC PO SCH ×3 (09:44→17:49)
[2021-07-09] MEDS: AMIODARONE 200 MG TAB PO SCH (09:44)
[2021-07-09] MEDS: KCL 20 MEQ/WATER INJ PREMIX 100 ML IV SCH ×2 (09:46→13:53)
--- NOTE | 2021-07-09 09:49 | NUR ---
CALLED DR. PFEIFFER TO NOTIFY IF XARELTO AND LASIX COULD BE GIVEN DUE TO PATIENTS PLATELETS BEING 90 AND BLOOD PRESSURES 93/55. PER DR. PFEIFFER OK TO GIVE ALL SCHEDULED MEDICATIONS. PATIENT AWAKE AND ALERT. NO ACUTE DISTRESS NOTED. PATIENT REQUEST NORCO FOR LOWER BACK PAIN. TRIED TO REPOSITION AND APPLY COLD BACK INTERVENTIONS NOT EFFECTIVE. CALL LIGHT WITHIN REACH. ALL SAFETY MEASURES IN PLACE. WILL CONTINUE TO MONITOR.
[2021-07-09] MEDS: HYDROcodone/APAP 5/325 MG 1 TAB TAB PO PRN ×2 (09:51→19:20)
[2021-07-09] MEDS: RIVAROXABAN 15 MG TAB PO SCH (09:52)
[2021-07-09] MEDS: ERYTHROMYCIN 0.5% OPTH OINT 1 GM TUBE BOTH EYES SCH ×4 (09:54→21:13)
--- NOTE | 2021-07-09 11:07 | NUR ---
PATIENT SLEEPING. NO ACUTE DISTRESS NOTED. BREATHING EVEN AND UNLABORED. PATIENT ON ROOM AIR. POTASSIUM IV STILL RUNNING. CALL LIGHT WITHIN REACH. ALL SAFETY MEASURES IN PLACE. WILL CONTINUE TO MONITOR.
[2021-07-09 12:00] VITALS: BP 90/55
--- NOTE | 2021-07-09 13:16 | NUR ---
PATIENT AWAKE AND ALERT. NO ACUTE DISTRESS NOTED. PATIENT ON ROOM AIR. POTASSIUM IV STILL RUNNING. CALL LIGHT WITHIN REACH. ALL SAFETY MEASURES IN PLACE. WILL CONTINUE TO MONITOR.
[2021-07-09] MEDS ORDERED: POTASSIUM CHLORIDE 10 MEQ TABER PO SCH (15:00)
[2021-07-09 16:00] VITALS: BP 82/49
--- NOTE | 2021-07-09 17:05 | NUR ---
NOTIFIED DR. PFEIFFER PATIENT BLOOD PRESSURE 82/49 HR 99. PER DOCTOR REQUEST 250 CC BOLUS NS. CHANGE LASIX IV TO PO STARTING TOMORROW 07/10. CHARGE NURSE CHANGED LASIX ORDER.
--- NOTE | 2021-07-09 17:10 | NUR ---
PATIENT REFUSED NS FLUIDS BOLUS. PUT PATIENT IN TRENDELENBURG POSITION PATIENT BLOOD PRESSURES 95/56 HR 92. PATIENT AWAKE AND ALERT. NO ACUTE DISTRESS NOTED.
[2021-07-09] MEDS: VANCOMYCIN 750 MG in DEXTROSE 5% 250 ML IV SCH (18:06)
--- NOTE | 2021-07-09 19:20 | NUR ---
ENDORSED TO DOCTOR OF RADIOLOGY NURSE FOR CONTINUITY OF CARE. PATIENT STABLE.
[2021-07-09 20:00] VITALS: BP 91/50
--- NOTE | 2021-07-09 20:00 | NUR ---
V/S WAS WNL EXCEPT FOR BP WHICH IN THE LOW LIMIT BELOW 100 MMHG
--- NOTE | 2021-07-09 20:07 | NUR ---
patient received in her bed sleepy able to speak her needs, signs of distress, denies any pain.
--- NOTE | 2021-07-09 21:00 | NUR ---
DUE EYE OINTMENT WAS APPLIED TO BOTH EYES, TOLERATED WELL, BLOOD SURAG CHECK WAS WNL, NEEDING NO INSULIN COVERAGE.
[2021-07-10] VITALS (8 sets, daily range): BP systolic 94–105; BP diastolic 60–70
--- NOTE | 2021-07-10 | NUR ---
DUE IV ROCEPHINE 1 GRAM WAS GIVEN VIA IV PUMP, INFUSING WELL, TOLERATED BY THE PATIENT.
--- NOTE | 2021-07-10 | NUR ---
V/S WAS WNL EXCEPT FOR BP WHICH IN THE LOW LIMIT BELOW 100 MMHG
[2021-07-10] MEDS: IPRATROPIUM 0.02% 0.5 MG/2.5 ML NEBU INH SCH ×3 (01:20→13:00)
--- NOTE | 2021-07-10 02:00 | NUR ---
PATIENT WAS CALMLY ASLEEP. NO SIGNS OF DISTRESS AT THIS TIME, WITH REGULAR, EQUAL RISE AND FALL OF CHEST, NORMAL BREATHING PATTERN. AT 16 BREATHS/MINUTE.
--- NOTE | 2021-07-10 04:00 | NUR ---
PATIENT'S V/S WAS WNL.
[2021-07-10] MEDS: BLOOD GLUCOSE MONITORING 1 DEV DEV FS SCH ×3 (05:46→16:30)
[2021-07-10] MEDS: HYDROcodone/APAP 5/325 MG 1 TAB TAB PO PRN ×2 (05:59→13:04)
--- NOTE | 2021-07-10 05:59 | NUR ---
NORCO 5/325 MG WAS GIVEN BY MOUTH DUE TO GENERALIZED PAIN 01/19.
--- NOTE | 2021-07-10 07:35 | NUR ---
REPORT RECEIVED FROM DELIVERY MANAGER RN . PT RESTING IN BED ALL SAFETY MEASURES ARE IN PLACE.
--- NOTE | 2021-07-10 08:02 | NUR ---
ALL REPORTS WERE GIVEN, TRANSFER OF CARE ENDORSED.
[2021-07-10] MEDS: PHENYTOIN 100 MG CAPER PO SCH ×3 (08:34→17:28)
[2021-07-10] MEDS: AMIODARONE 200 MG TAB PO SCH (08:34)
[2021-07-10] MEDS: FERROUS SULFATE 325 MG TABEC PO SCH ×3 (08:35→17:28)
[2021-07-10] MEDS: GABAPENTIN 100 MG CAP PO SCH (08:35)
[2021-07-10] MEDS: allopurinoL 100 MG TAB PO SCH (08:36)
[2021-07-10] MEDS: RIVAROXABAN 15 MG TAB PO SCH (08:39)
[2021-07-10] MEDS: ERYTHROMYCIN 0.5% OPTH OINT 1 GM TUBE BOTH EYES SCH ×3 (09:00→17:28)
[2021-07-10] MEDS ORDERED: FUROSEMIDE 20 MG TAB PO SCH (09:00)
[2021-07-10] MEDS ORDERED: metOLazone 5 MG TAB PO SCH (09:00)
--- NOTE | 2021-07-10 09:12 | NUR ---
PT HAD LARGE BM FORMED AND BROWN . PT CLEANSED AND REPOSITIONED
--- NOTE | 2021-07-10 10:03 | NUR ---
PATIENT HAS BEEN SCREENED AND CATEGORIZED MODERATE NUTRITION RISK. PATIENT WILL BE SEEN WITHIN 3-5 DAYS OF ADMISSION. 07/11/21-07/13/21 REVIEWED BY ANKIT MCWILLI[address]
--- NOTE | 2021-07-10 11:15 | NUR ---
SCREEN FOR LOW CHRISTY SCALE AT RISK, CONTINUE TO FOLLOW PRESSURE ULCER PREVENTION INTERVENTIONS. -TURN AND REPOSITION PATIENT Q 2H, ASSIST IF NEEDED -ASSESS AND MONITOR SKIN CONDITION DURING POSITION CHANGES -OFFLOAD BILATERAL HEELS BY PLACING PILLOWS UNDER CALVES AT ALL TIMES, UNLESS OTHERWISE CONTRAINDICATED -PRESSURE REDISTRIBUTION BY PLACING PILLOWS AND OFFLOADING SACRALCOCCYX -KEEP SKIN CLEAN AND DRY AT ALL TIMES.
--- NOTE | 2021-07-10 11:16 | NUR ---
CHECKED BLOOD SUGAR WAS 109 . NO INSULIN COVERAGE NEEDED AT THIS TIME PARAMETER. WILL CONTINUE TO MONITOR THE PATIENT.
--- NOTE | 2021-07-10 11:36 | NUR ---
DC PLANNING: THE PATIENT ADMITTED FROM HOME THROUGH THE ED WITH C/O WEAKNESS AND LEFT EYE SWELLING X 3 DAYS WITH A H/O OF ORBITAL CELLULITIS, DM, CHF, AICD PLACEMENT, COPD AND AFIB. ADMITTING DX OF LEFT PERIORBITAL CELLULITIS, ABCESS R/O WITH CT. STARTED ON IV ABX OF VANCO AND ROCEPHIN, HOME MEDS FOR MANAGEMENT OF CO-MORBIDITIES. SONJA SPOKE WITH THE PATIENT AT BEDSIDE, CONFIRMED HER ADDRESS AND PHONE NUMBER PER HER FACE SHEET. THE PATIENT STATES THAT SHE LIVES ALONE IN A GROUND FLOOR APARTMENT AND IS NORMALLY ABLE TO RUN ERRANDS AND GET AROUND USING A MOTORIZED WC. SHE HAS OTHER DME OF O2 WHICH SHE USES PRN, FWW, SHOWER BENCH AND GLUCOMETER. SHE DOES F/U WITH HER PCP VIA TELEHEALTH AND ONE OF HER THREE DAUGHTERS ASSISTS HER AN SS WORKER. NO CURRENT HOME HEALTH, P.T. RECOMMENDS SNF PLACEMENT AND THE PATIENT STATES SHE'S IN AGREEMENT WITH GOING TO AN [facility] CONTRACTED SNF FOR CONTINUED PHYSICAL THERAPY. SONJA SPOKE WITH DIANNE AT [facility] AND WAS GIVEN SNF REFERRAL OPTIONS OF [facility] AND [facility], WAS ASKED TO REFER TO [facility]. SONJA SENT A REFERRAL AND WILL WAIT TO HEAR REGARDING ACCEPTANCE. SONJA WILL FOLLOW FOR NEEDS. Addendum: 07/10/21 at 1413 by Chanel Mcghee CM DC PLANNING: THE PATIENT IS ACCEPTED TO [facility], ROOM 11B, DR MOYA TO FOLLOW. NUMBER TO CALL FOR REPORT IS [phone]. TRANSPORT WITH [facility],[phone]. AUTH NUMBER FOR [facility] THROUGH [facility] IS [id number]. EMBLEM DRAWER IN TIME AROUND 1800, ABOVE ENDORSED TO THE PATIENTS BAN HYLTON CM WILL FOLLOW FOR NEEDS.
--- NOTE | 2021-07-10 11:41 | NUR ---
ADMINISTERED ABX ORDERED. PATIENT TOLERATED WELL.EDUCATION PROVIDED, VERBALIZED UNDERSTANDING. AT PRESENT PATIENT RESTING COMFORTABLY IN BED. NO S/S OF DISTRESS NOTED. ALL SAFETY MEASURES IN PLACE. WILL CONTINUE TO MONITOR THE PATIENT.
[2021-07-10] MEDS: VANCOMYCIN 750 MG in DEXTROSE 5% 250 ML IV SCH (11:42)
--- NOTE | 2021-07-10 12:08 | NUR ---
PT RESTING IN BED HAVING LUNCH . PT TOLERATING WELL . NO S/SX OF DISTRESS AT THIS TIME. ALL SAFETY MEASURES IN PLACE.
--- NOTE | 2021-07-10 13:05 | NUR ---
PT COMPLAINS OF 8/10 PAIN IN HEAD. PT OFFERED TYLENOL PT REFUSED. PRN MEDICATION GIVEN FOR PAIN . PT EDUCATED AND VERBALIZED UNDERSTANDING . ALL SAFETY MEASURES ARE IN PLACE.
--- NOTE | 2021-07-10 13:56 | NUR ---
KCL IVPB STARTED FOR LOW POTASSIUM LEVEL.. PATIENT TOLERATED WELL.SW IS IN THE ROOM , TALKING TO THE PATIENT. PATIENT ALERT.,AWAKE AND ANSWERING THE QUESTION . RESP. STATUS NORMAL, NO RESP. DISTRESS NOTED. ALL SAFETY MEASURES APPLIED. WILL CONTINUE TO MONITOR THE PATIENT.
[2021-07-10] MEDS ORDERED: ERYT200P5 BOTH EYES (14:51)
--- NOTE | 2021-07-10 15:45 | NUR ---
PT RESTING IN BED NO S/SX OF DISTRESS AT THIS TIME .
--- NOTE | 2021-07-10 16:30 | NUR ---
BG 90 , NO ACTION AT THIS TIME PER MD ORDERS.
--- NOTE | 2021-07-10 18:57 | NUR ---
PT RESTING IN BED NO S/SX OF DISTRESS AT THIS TIME
--- NOTE | 2021-07-10 19:15 | NUR ---
PATIENT ENDORSED TO SKIP HOIST OPERATOR NURSE FOR CONTINUITY OF CARE. PT IN STABLE CONDITION
--- NOTE | 2021-07-10 19:23 | NUR ---
[facility] CONTACTED. PER [facility] PATIENT IS NEXT FOR TANSPORTATION AND DO NOT HAVE AN ETA AT THIS TIME
--- NOTE | 2021-07-10 19:35 | NUR ---
RECEIVED BEDSIDE REPORT FROM DAY RN FOR CONTINUITY OF CARE. PATIENT A/A/OX3, LAYING IN BED WATCHING TV. PATIENT NOT IN ANY DISTRESS. NO COMPLAIN AT THIS TIME. PATIENT IS DC'D TO [facility] PER RN GENESIS AND AWAITING FOR TRANSPORT TO ARRIVE. ALL DISCHARGE PAPER DONE AND SIGNED BY THE PATIENT. CALL LIGHT WITHIN REACH. WILL COTNINUE POC.
--- NOTE | 2021-07-10 20:01 | NUR ---
PATIENT DISCHARGED AND PICKED UP BY [facility]. PATIENT LEFT THE UNIT IN STABLE CONDITION A/A/OX3. VSS UPON DISCHARGE. ALL BELONGINGS RETURNED TO THE PATIENT.
[2021-07-11 17:43] LABS: HEPATITIS A ANTIBODY IGM NEGATIVE (NEGATIVE); HEPATITIS B SURFACE ANTIBODY NON REACTIVE (NONREACTIVE)
[2021-07-11 17:44] LABS: HEPATITIS B CORE AB TOTAL NEGATIVE (NEGATIVE); HEPATITIS B SURFACE ANTIGEN NEGATIVE (NEGATIVE)
== END 2021-07-10 19:50 | DRG 383 ==
LOC: MED 10:31 → MTU 13:44
PROVIDERS: ADMIT Internal Medicine; ATTEND Internal Medicine
DX: L03.213 Periorbital cellulitis (principal); I50.43 Acute on chronic combined systolic (congestive) and diastolic (congestive) heart failure; E44.0 Moderate protein-calorie malnutrition; E11.40 Type 2 diabetes mellitus with diabetic neuropathy, unspecified; I48.21 Permanent atrial fibrillation; K76.0 Fatty (change of) liver, not elsewhere classified; D53.9 Nutritional anemia, unspecified; E78.5 Hyperlipidemia, unspecified; E87.6 Hypokalemia; R74.01 Elevation of levels of liver transaminase levels; I34.0 Nonrheumatic mitral (valve) insufficiency; J44.9 Chronic obstructive pulmonary disease, unspecified; N39.0 Urinary tract infection, site not specified; Z60.2 Problems related to living alone; I11.0 Hypertensive heart disease with heart failure; I25.5 Ischemic cardiomyopathy; Z20.822 Contact with and (suspected) exposure to COVID-19; Z88.0 Allergy status to penicillin; Z88.8 Allergy status to other drugs, medicaments and biological substances; Z79.2 Long term (current) use of antibiotics; Z79.899 Other long term (current) drug therapy; Z95.0 Presence of cardiac pacemaker; Z98.61 Coronary angioplasty status; Z83.3 Family history of diabetes mellitus; Z82.49 Family history of ischemic heart disease and other diseases of the circulatory system; Z84.89 Family history of other specified conditions
CPT/HCPCS: 36415; 70480; 71045; 76705; 80053; 80185; 81001; 82607; 82746; 82948; 83036; 83605; 83880; 84484; 85025; 86704; 86706; 86708; 86709; 86803; 87040; 87081; 87086; 87340; 93005; 94640; 96365; 96375; 97163-GP; 97530; 99285; J0696; J1940; J2270; J3370; J3480; J3490; J7060; J7644; Q0092

== ENCOUNTER 2021-07-12 07:15 | Emergency (ER) | payer OTHER, SELFPAY ==
[~2021-07-12] VITALS: Ht 165.1 cm; Wt 59.0 kg
[~2021-07-12 07:15] MED LIST changes: -AZIT250T11 PO; -CEPH500C16 PO; +ERYT200P5 BOTH EYES
--- NOTE | 2021-07-12 07:23 | NUR ---
DR HERMOSILLO AT BEDSIDE EXAMINING PT
--- NOTE | 2021-07-12 07:23 | NUR ---
BIBA TO BED 09
[2021-07-12 07:54] VITALS: BP 130/92
--- NOTE | 2021-07-12 07:55 | NUR ---
61 Y/O FEMALE BIBA, C/O ALOC SECONDARY TO HYPOGLYCEMIA. BGL ON SCENE 36. PER TECHNOLOGY APPLICATIONS TEACHER PT HAD NOT RECIEVED PRESCRIBED MEDICATION AND SHE HAD "EATEN VERY LITTLE LAST NIGHT." EN ROUTE PT RECIEVED 1MG OF GLUCAGON AND 1 TUBE OF ORAL GLUCOSE; PT IS NOW A/OX4 PER MEDIC. PT IS LAYING COMFORTABLY IN BED WITH BOTH RAILS UP AND BED IN LOWEST SETTING. HX: COPD, HTN, DM, CHF, CKD, HLD ALL: PCN AND CYCLOBENZAPRINE
--- NOTE | 2021-07-12 07:55 | NUR ---
LAB AT BEDSIDE
--- NOTE | 2021-07-12 08:57 | NUR ---
PT PLACED ON BEDPAN
[2021-07-12 09:03] LABS: BASOPHILS % (AUTO) 0.1 % (0.0-2.0); EOSINOPHILS % (AUTO) 0.1 % (0.0-4.0); HEMOGLOBIN 8.8 g/dL (12.0-16.0); LYMPHOCYTES # (AUTO) 0.6 K/uL (2.5-16.5); LYMPHOCYTES % (AUTO) 15.1 % (20.5-51.1); MEAN CORPUSCULAR HEMOGLOBIN 40 pg (27-31); MEAN CORPUSCULAR HGB CONC 34 g/dL (33-37); MEAN CORPUSCULAR VOLUME 118.3 fL (80-94); MONOCYTES # (AUTO) 0.3 K/uL (0.8-1.0); MONOCYTES % (AUTO) 8.6 % (1.7-9.3); NEUTROPHILS % (AUTO) 76.1 % (42.2-75.2); PLATELET COUNT (AUTO) 140 K/uL (140-450); RED BLOOD CELL COUNT(AUTO) 2.19 MIL/uL (4.20-5.40); WHITE BLOOD COUNT (AUTO) 3.9 K/uL (4.8-10.8)
[2021-07-12 09:21] LABS: ALBUMIN 2.4 g/dL (3.4-5.0); ANION GAP 16.1 (8-16); CARBON DIOXIDE 21.3 mmol/L (21-32); CREATININE 0.9 mg/dL (0.6-1.3); POTASSIUM 4.4 mmol/L (3.5-5.1); TOTAL BILIRUBIN 0.7 mg/dL (0.0-1.0)
[2021-07-12 10:08] LABS: APPEARANCE,URINE CLEAR (CLEAR); BILIRUBIN,URINE NEGATIVE (NEGATIVE); COLOR,URINE YELLOW (YELLOW); LEUKOCYTE ESTERASE ,URINE NEGATIVE (NEGATIVE); NITRITE, URINE NEGATIVE (NEGATIVE); PH,URINE 5.5 (5.0-9.0); UGLUCOSE NEGATIVE (NEGATIVE)
[2021-07-12 10:27] LABS: RBC,URINE 0-5 /HPF (0-5); WBC,URINE 0-5 /HPF (0-5)
[2021-07-12 10:28] LABS: BLOOD, URINE 1+ (NEGATIVE)
--- NOTE | 2021-07-12 10:41 | NUR ---
CONTACTED [facility] ABOUT INTENT TO DISCHARGE PATIENT AND ARRANGE FOR TRANSPORT. TALKED TO
--- NOTE | 2021-07-12 12:05 | NUR ---
[facility] MEAL TRAY BROUGHT TO PT
--- NOTE | 2021-07-12 12:12 | NUR ---
TALKED TO LINER WORKER, SONYA AT [facility]; UPDATED ON PATIENT CONDITION. EXT: 116
[2021-07-12 14:08] VITALS: BP 118/73
--- NOTE | 2021-07-12 14:08 | NUR ---
Patient discharged with v/s stable. Written and verbal after care instructions given and explained. Patient verbalized understanding. Transport with [facility] to fdc. All questions addressed prior to discharge. Advised to follow up with PMD. IV removed, packet sent with attendants.
--- NOTE | 2021-07-12 14:19 | NUR ---
NOTIFIED [facility] OF PT'S DC, THAT PT WAS EN ROUTE TO FACILITY. TALKED TO JANET AT [facility].
== END 2021-07-12 14:08 | disposition home or self-care (01) ==
LOC: MED 07:15
DX: E11.65 Type 2 diabetes mellitus with hyperglycemia (principal); I11.9 Hypertensive heart disease without heart failure; J44.9 Chronic obstructive pulmonary disease, unspecified; Z88.0 Allergy status to penicillin; Z88.8 Allergy status to other drugs, medicaments and biological substances
CPT/HCPCS: 36415; 80053; 81001; 85025; 99283

== ENCOUNTER 2021-07-13 04:59 | Emergency (ER) | payer OTHER ==
[~2021-07-13] VITALS: Ht 165.1 cm; Wt 61.7 kg
[2021-07-13 04:59] VITALS: BP 122/91
--- NOTE | 2021-07-13 04:59 | NUR ---
patient biba for ALOC. patient was found unresponsive by staff bre washburn with BG 30. given sugar on the tongue. patient became AAOx4 here at the hospital and had a BG of 25. patient was given IM glucagon 1mg on the right shoulder. pmh: extensive hx refer to chart-- DM, pacemaker allergies: penicillins, cyclobenzaprine
--- NOTE | 2021-07-13 05:01 | NUR ---
PT SAULO ALS. TAKEN TO BED 11
[2021-07-13] MEDS ORDERED: DEXTROSE 50% 50 ML SYR IVP ONE ×2 (05:23→05:45)
--- NOTE | 2021-07-13 05:31 | NUR ---
Ultrasound guided IV done by JUAN Jacome
[2021-07-13 05:57] LABS: BASOPHILS % (AUTO) 0.2 % (0.0-2.0); EOSINOPHILS % (AUTO) 0.4 % (0.0-4.0); HEMATOCRIT 25.5 % (36-48); HEMOGLOBIN 8.7 g/dL (12.0-16.0); LYMPHOCYTES # (AUTO) 0.7 K/uL (2.5-16.5); LYMPHOCYTES % (AUTO) 18.3 % (20.5-51.1); MEAN CORPUSCULAR HEMOGLOBIN 40 pg (27-31); MEAN CORPUSCULAR HGB CONC 34 g/dL (33-37); MEAN CORPUSCULAR VOLUME 118.6 fL (80-94); MONOCYTES # (AUTO) 0.5 K/uL (0.8-1.0); MONOCYTES % (AUTO) 13.9 % (1.7-9.3); NEUTROPHILS # (AUTO) 2.6 K/uL (1.8-7.7); NEUTROPHILS % (AUTO) 67.2 % (42.2-75.2); PLATELET COUNT (AUTO) 179 K/uL (140-450); RED BLOOD CELL COUNT(AUTO) 2.15 MIL/uL (4.20-5.40); RED CELL DISTRIBUTION WIDTH 19.9 % (11.6-13.7); WHITE BLOOD COUNT (AUTO) 3.9 K/uL (4.8-10.8)
[2021-07-13 06:17] LABS: ALBUMIN 2.3 g/dL (3.4-5.0); ANION GAP 16.4 (8-16); CARBON DIOXIDE 19.9 mmol/L (21-32); CREATININE 0.9 mg/dL (0.6-1.3); POTASSIUM 4.3 mmol/L (3.5-5.1); TOTAL BILIRUBIN 0.7 mg/dL (0.0-1.0)
--- NOTE | 2021-07-13 06:50 | NUR ---
Note neal in EDM - 07/13/21 at 0717 by ALEXA STRAIGHT Penny catheter INSERTED utilizing sterile technique. Immediate return of 1.5 ml urine noted. Urine sample collected and sent to lab. Pt tolerated procedure WELL.
--- NOTE | 2021-07-13 07:21 | NUR ---
Pt report given to bhavin CEVALLOS and Swathi CEVALLOS. Transfer of care at this time.
--- NOTE | 2021-07-13 07:23 | NUR ---
RECIEVED REPORT FROM YULI CEVALLOS
--- NOTE | 2021-07-13 07:24 | NUR ---
RECEIVED REPORT FROM BAN ROLDAN. TRANSFER OF CARE AT THIS TIME.
--- NOTE | 2021-07-13 08:37 | NUR ---
PT IS RESTING COMFORTABLY W/ HEAD OF BED RAISED, EQUAL CHEST RISE/FALL, PT HAS CALM DEMEANOR W/ FOOD TRAY NEARBY.
[2021-07-13 11:14] VITALS: BP 101/71
--- NOTE | 2021-07-13 11:14 | NUR ---
Patient discharged with v/s stable. Written and verbal after care instructions given and explained. Patient verbalized understanding. Ambulance Transport with [facility] to detention. All questions addressed prior to discharge. Advised to follow up with PMD. ADVISED ON THE IMPORTANCE OF MIDNIGHT SNACK TO MAINTAIN BLOOD SUGAR.
== END 2021-07-13 11:14 | disposition home or self-care (01) ==
LOC: MED 04:59
DX: R41.82 Altered mental status, unspecified (principal); E11.65 Type 2 diabetes mellitus with hyperglycemia; I11.0 Hypertensive heart disease with heart failure; I50.9 Heart failure, unspecified; E78.5 Hyperlipidemia, unspecified; Z95.0 Presence of cardiac pacemaker; Z79.899 Other long term (current) drug therapy; Z79.84 Long term (current) use of oral hypoglycemic drugs; Z88.0 Allergy status to penicillin; Z88.8 Allergy status to other drugs, medicaments and biological substances
CPT/HCPCS: 71045; 80053; 82948; 85025; 93005; 96374; 99285

== ENCOUNTER 2021-09-10 01:34 | Inpatient (IN) | payer OTHER, SELFPAY ==
[~2021-09-10] VITALS: Ht 165.1 cm; Wt 63.5 kg
--- NOTE | 2021-09-10 01:42 | NUR ---
DR LI AT BEDSIDE FOR EXAM
--- NOTE | 2021-09-10 01:42 | NUR ---
PT BIBA TO ER BED 8
[2021-09-10] MEDS ORDERED: MAG SULF 2000 MG/WATER PREMIX 50 ML IV ONE (01:45)
[2021-09-10] MEDS ORDERED: methylPREDNISolone SS 125 MG in WATER STERILE 2 ML IV ONE (01:45)
--- NOTE | 2021-09-10 01:45 | NUR ---
RECEIVED IN BED 8, BIBJohanna FROM HOME WITH C/O SOB X TODAY. PER PT SOB HAS BEEN GETTING WORSE. PT GAVE HERSELF 2 IPATROPIUM BREATHING TXS AND EMS GAVE ANOTHER ON SCENE WITH LITTLE RELIEF. PT WAS FOUND SATING AT 90% ON RA, PLACED ON 4L SATING AT 95%. PT ARRIVED WITH 22G TO LEFT HAND. HX:AFIB, COPD, CHF AND DM BLOOD SUGAR: 107 ALLERGIES TO PCN AND CYCLOBENZAPRINE
[2021-09-10 01:50] VITALS: BP 130/83
[2021-09-10] MEDS ORDERED: WATER STERILE 10 ML MC ONE (01:52)
[2021-09-10] MEDS ORDERED: methylPREDNISolone SS 125 MG/2 ML VIAL ONE (01:52)
--- NOTE | 2021-09-10 01:58 | NUR ---
61 YO F BIBA FROM HOME WITH C/C OF SOB X TODAY. PER PT SOB HAS BEEN GETTING WORSE. PT GAVE HERSELF 2 IPATROPIUM BREATHING TXS AND EMS GAVE ANOTHER ON SCENE WITH LITTLE RELIEF. PT WAS FOUND SATING AT 90% ON RA, PLACED ON 4L SATING AT 95%. PT ARRIVED WITH 22G TO LEFT HAND. HX:AFIB, COPD, CHF AND DM BLOOD SUGAR: 107 ALLERGIES TO PCN AND CYCLOBENZAPRINE
--- NOTE | 2021-09-10 02:12 | NUR ---
X-RAY AT BEDSIDE
[2021-09-10] MEDS ORDERED: FUROSEMIDE 40 MG/4 ML VIAL IVP ONE ×2 (02:40→03:44)
[2021-09-10 02:52] LABS: MEAN CORPUSCULAR HEMOGLOBIN 39 pg (27-31); MEAN CORPUSCULAR HGB CONC 33 g/dL (33-37); MEAN CORPUSCULAR VOLUME 119.7 fL (80-94); PLATELET COUNT (AUTO) 284 K/uL (140-450); RED BLOOD CELL COUNT(AUTO) 1.55 MIL/uL (4.20-5.40); RED CELL DISTRIBUTION WIDTH 17.7 % (11.6-13.7); WHITE BLOOD COUNT (AUTO) 9.9 K/uL (4.8-10.8)
[2021-09-10 03:12] LABS: HEMATOCRIT 18.6 % (36-48); HEMOGLOBIN 6.1 g/dL (12.0-16.0)
--- NOTE | 2021-09-10 03:15 | NUR ---
RECTAL EXAM DONE PER DR LI. FEMALE PRESS OPERATOR PRINTING, MYSELF, ACCOMPANYING
[2021-09-10 03:19] LABS: ALBUMIN 1.9 g/dL (3.4-5.0); ANION GAP 15.8 (8-16); CARBON DIOXIDE 18.8 mmol/L (21-32); CREATININE 1.1 mg/dL (0.6-1.3); POTASSIUM 3.6 mmol/L (3.5-5.1); TOTAL BILIRUBIN 0.4 mg/dL (0.0-1.0)
[2021-09-10] MEDS ORDERED: MORPHINE SULFATE 4 MG/ML SYR IVP ONE (03:25)
[2021-09-10 03:39] LABS: LYMPHOCYTES % (MANUAL) 9 % (20-46); MONOCYTES % (MANUAL) 3 % (5-12)
[2021-09-10] MEDS ORDERED: MAGNESIUM OXIDE 400 MG TAB PO PRN (03:45)
[2021-09-10] MEDS ORDERED: ACETAMINOPHEN 325 MG TAB PO PRN (03:45)
[2021-09-10] MEDS ORDERED: KCL 20 MEQ/WATER INJ PREMIX 200 ML IV PRN (03:45)
[2021-09-10] MEDS ORDERED: ONDANSETRON 4 MG/2 ML VIAL IVP PRN (03:45)
[2021-09-10] MEDS ORDERED: POTASSIUM CHLORIDE 10 MEQ TABER PO PRN (03:45)
[2021-09-10] MEDS ORDERED: MAG SULF 2000 MG/WATER PREMIX 50 ML IV PRN (03:45)
--- NOTE | 2021-09-10 03:50 | NUR ---
BO SWAB OBTAINED AND SENT TO LAB
--- NOTE | 2021-09-10 06:00 | NUR ---
RESTING MORE COMFORTABLY AT PRESENT.
--- NOTE | 2021-09-10 07:23 | NUR ---
PATIENT HAS BEEN SCREENED AND CATEGORIZED MODERATE NUTRITION RISK. PATIENT WILL BE SEEN WITHIN 3-5 DAYS OF ADMISSION. 09/12/21-09/14/21 VITALY HOU MS, RDN
--- NOTE | 2021-09-10 07:27 | NUR ---
Report and continuation of care received from BAN Richardson.
--- NOTE | 2021-09-10 07:40 | NUR ---
Dr. Helms is evaluating patient at bedside
[2021-09-10] MEDS ORDERED: MORPHINE SULFATE 2 MG/ML SYR IVP ONE (07:45)
--- NOTE | 2021-09-10 08:25 | NUR ---
Consent signed per Stefany Thomason (patient) agreeing to administration of blood. Blood has been type and crossmatched. Blood sent from blood bank. Information on unit of blood checked against patient wristband at bedside by two nurses. All information matches. Patient or responsible libertarian informed of potential complications associated with blood transfusion. Informed of possible transfusion reaction symptoms. Aware of need to notify nurse at once of itching, shortness of breath, flushing, feeling of impending doom, or other symptoms not previously present. Vital signs taken within 5 minutes prior to initiation of transfusion. RN will remain with patient for first 15 minutes of transfusion at which time vital signs will be re-assessed.
[2021-09-10] MEDS: FUROSEMIDE 100 MG/10 ML VIAL IV SCH ×2 (09:12→21:00)
--- NOTE | 2021-09-10 09:17 | NUR ---
Pt with both eyes closed. Awaken and pt reports 0/10 + relief to pain. [place] provided. All pt needs met.
--- NOTE | 2021-09-10 10:30 | NUR ---
Blood transfusion completed. Patient denies symptoms; reports pain remains 0/10. monitor and storage bin tender in place; SpO2 98% on 4L. Bed locked in lowest position, side rails x 2.
--- NOTE | 2021-09-10 12:01 | NUR ---
Patient resting in high-fowlers with both eyes closed. O2 via NC, cardiac exercise specialist remains in place. SpO2 99%. Pt denies pain. All pt needs met.
--- NOTE | 2021-09-10 13:16 | NUR ---
Dr. Beck (altitude chamber technician) is evaluating patient at bedside
--- NOTE | 2021-09-10 13:35 | NUR ---
PTS FAMILY DELIVERED [facility] FAST FOOD AND PT IS REQUESTING IT, NOT THE FOOD PROVIDED BY THE HOSPITAL. PT EDUCATED THAT THE ORDERED DIET IS CARDIAC. PT EDUCATED ON THE IMPORTANCE OF HEALTHY EATING ALONG WITH PTS MEDICAL HISTORY. PT WAS VERY PERSISTENT AND YELLED FOR HER FOOD. DR WATTS MADE AWARE AND APPROVED THE MEAL.
--- NOTE | 2021-09-10 16:20 | NUR ---
Patient reports bilateral leg and abdominal pain. [place] PO PRN to be given.
[2021-09-10] MEDS: AMIODARONE 200 MG TAB PO SCH (16:36)
[2021-09-10] MEDS: HYDROcodone/APAP 5/325 MG 1 TAB TAB PO PRN ×2 (16:36→22:12)
--- NOTE | 2021-09-10 16:45 | NUR ---
Patient states + relief to pain. 0/10 at this time. All pt needs met. crime lab analyst remains in place. Respirations even/unlabored. Bed locked in lowest position, side rails x 2.
--- NOTE | 2021-09-10 19:33 | NUR ---
Report and transfer of care endorsed to BAN Groves.
--- NOTE | 2021-09-11 02:04 | NUR ---
DIAPER CHANGE AND PERICARE PERFORMED. NEW PILLOW AND SHEETS PROVIDED
--- NOTE | 2021-09-11 04:08 | NUR ---
PT WOKE UP IN PAIN. REQUESTING PAIN MEDS
[2021-09-11] MEDS: HYDROcodone/APAP 5/325 MG 1 TAB TAB PO PRN (04:31)
--- NOTE | 2021-09-11 04:32 | NUR ---
Vital Signs within normal limits. Respirations even and unlabored. PT STATES SHE IS IN PAIN AND GASSY. SHE SAYS SHE HAS NOT POOPED IN 2 DAYS
--- NOTE | 2021-09-11 07:27 | NUR ---
Pt report given to MANAS. Transfer of care at this time.
--- NOTE | 2021-09-11 07:28 | NUR ---
Pt report given to MANAS. Transfer of care at this time.
--- NOTE | 2021-09-11 07:30 | NUR ---
RECEIVED REPORT FROM VIC GHOSH. ASSUMED CARE AT THIS TIME.
[2021-09-11] MEDS ORDERED: FERR-13 PO (07:45)
[2021-09-11] MEDS ORDERED: POTA10TA70 PO (07:45)
[2021-09-11] MEDS ORDERED: RIVA20TA PO (07:45)
[2021-09-11] MEDS ORDERED: PHEN50CT5 PO (07:45)
[2021-09-11] MEDS ORDERED: ALLO100T21 PO (07:45)
[2021-09-11] MEDS ORDERED: ACET-10509 PO (07:45)
[2021-09-11] MEDS ORDERED: NITR0.4T2 SL (07:45)
[2021-09-11] MEDS ORDERED: VITA-16 PO (07:45)
--- NOTE | 2021-09-11 08:00 | NUR ---
PATIENT PROVIDED WITH BREAKFAST TRAY, PATIENT SITTING UP IN BED EATING. ON BEDSIDE HOME OFFICE CLAIM SPECIALIST, WILL CONTINUE TO MONITOR.
[2021-09-11 09:14] LABS: ANION GAP 15.9 (8-16); CARBON DIOXIDE 19.4 mmol/L (21-32); CREATININE 1.3 mg/dL (0.6-1.3); POTASSIUM 3.3 mmol/L (3.5-5.1)
[2021-09-11 09:15] LABS: BASOPHILS % (AUTO) 0.1 % (0.0-2.0); HEMATOCRIT 20.7 % (36-48); HEMOGLOBIN 7.1 g/dL (12.0-16.0); LYMPHOCYTES % (AUTO) 13.6 % (20.5-51.1); MEAN CORPUSCULAR HEMOGLOBIN 38 pg (27-31); MEAN CORPUSCULAR HGB CONC 34 g/dL (33-37); MEAN CORPUSCULAR VOLUME 110.2 fL (80-94); MONOCYTES # (AUTO) 0.4 K/uL (0.8-1.0); MONOCYTES % (AUTO) 5.5 % (1.7-9.3); NEUTROPHILS # (AUTO) 6.2 K/uL (1.8-7.7); NEUTROPHILS % (AUTO) 80.8 % (42.2-75.2); PLATELET COUNT (AUTO) 256 K/uL (140-450); RED BLOOD CELL COUNT(AUTO) 1.88 MIL/uL (4.20-5.40); RED CELL DISTRIBUTION WIDTH 20.5 % (11.6-13.7); WHITE BLOOD COUNT (AUTO) 7.6 K/uL (4.8-10.8)
[2021-09-11] MEDS: AMIODARONE 200 MG TAB PO SCH (09:57)
[2021-09-11] MEDS: RIVAROXABAN 15 MG TAB PO SCH (09:57)
[2021-09-11] MEDS: FUROSEMIDE 40 MG/4 ML VIAL IVP SCH ×2 (09:58→23:19)
--- NOTE | 2021-09-11 12:00 | NUR ---
PATIENT WET HER DIAPER, PATIENT PROVIDED WITH NEW GOWN, SHEETS AND DIAPER.
[2021-09-11] MEDS ORDERED: POTASSIUM CHLORIDE 10 MEQ TABER PO SCH (14:30)
[2021-09-11] MEDS ORDERED: ALBUTEROL HFA MDI 90 MCG/ACTUATION 8 GM INH PRN (15:00)
--- NOTE | 2021-09-11 16:00 | NUR ---
PATIENT C/O 05/21 ABDOMINAL PAIN AND STATES "I FEEL CONSTIPATED" CONTACTED MANAGER OF LOSS PREVENTION OPERATIONS DR. RAI, GIVEN TORB ORDER FOR LACTULOSE 20G BID.
--- NOTE | 2021-09-11 16:31 | NUR ---
PATIENT PROVIDED WITH LUNCH TRAY, PATIENT ON BEDSIDE INDUSTRIAL TECHNOLOGIST, WILL CONTINUE TO MONITOR.
[2021-09-11] MEDS: LACTULOSE 20 GM/30 ML UDC PO SCH (16:52)
[2021-09-11] MEDS: glipiZIDE 5 MG TAB PO SCH (17:11)
[2021-09-11] MEDS: IPRATROPIUM 0.02% 0.5 MG/2.5 ML NEBU INH SCH (19:00)
--- NOTE | 2021-09-11 19:00 | NUR ---
PATIENT DIAPER AND UNDERPAD CHANGED, PATIENT GIVEN NEW BLANKETS AND PILLOW CASES CHANGED. ON BEDSIDE SOLIDWORKS DESIGNER, WILL CONTINUE TO MONITOR.
--- NOTE | 2021-09-11 19:36 | NUR ---
Pt report given to BAN LEON. Transfer of care at this time.
[2021-09-11] MEDS ORDERED: LACTULOSE 20 GM/30 ML UDC PO SCH (21:00)
[2021-09-11] MEDS: predniSONE 20 MG TAB PO SCH (23:19)
[2021-09-11] MEDS: GABAPENTIN 100 MG CAP PO SCH (23:20)
--- NOTE | 2021-09-11 23:40 | NUR ---
Patient will be admitted to care of DR PFEIFFER. Admited to TELE. Will go to room 118A. Belongings list completed. Report to DANIA CEVALLOS.
[2021-09-12 00:45] VITALS: BP 147/98
--- NOTE | 2021-09-12 00:45 | NUR ---
[facility]45 VIA GURNEY ACCOMPANIED BY TRANSPORTER AND ER NURSE. PATIENT IS AWAKE, ALERT, AND COOPERATIVE. RESPIRATION EVEN UNLABORED ON 4L NC SATING AT 98%. SKIN IS WARM AND DRY. IV PATENT AND INTACT. HEART RATE IRREGULAR. S1 & S2 NOTED. PACEMAKER NOTED. LUNG SOUNDS CLEAR/DIMINISHED BILATERALLY. BOWEL SOUNDS PRESENT IN ALL QUADRANTS. ABDOMEN SOFT AND NON-TENDER. LAST BM 09/12/21. MRSA SCREEN DONE, VITALS WERE TAKEN. ORIENT PATIENT TO ROOM, STAFF, AND CALL LIGHT. PLAN OF CARE DISCUSSED. ALL SAFETY MEASURES IN PLACE. BED IS AT LOW POSITION. CALL LIGHT WITHIN REACH. WILL CONTINUE TO MONITOR.
[2021-09-12] MEDS: IPRATROPIUM 0.02% 0.5 MG/2.5 ML NEBU INH SCH ×3 (01:00→14:10)
--- NOTE | 2021-09-12 01:00 | NUR ---
PATIENT COMPLAINED OF BACK PAIN, PAGED MD, AWAITING FOR CALL
--- NOTE | 2021-09-12 01:50 | NUR ---
PAGED AGAIN, AWAITING FOR CALL BACK.
[2021-09-12] MEDS ORDERED: ZOLPIDEM 5 MG TAB PO PRN (02:00)
[2021-09-12] MEDS: MORPHINE SULFATE 2 MG/ML SYR IVP PRN ×4 (02:15→23:08)
--- NOTE | 2021-09-12 02:15 | NUR ---
PATIENT COMPLAINED OF CHEST PAIN NON-RADIATING AND BACK PAIN 9/10 PRN PAIN MEDS GIVEN PER ORDER, WILL CONTINUE TO MONITOR
--- NOTE | 2021-09-12 02:16 | NUR ---
Tx (ATRO) NOT GIVEN DUE TO COVID PROTOCOL
--- NOTE | 2021-09-12 03:00 | NUR ---
MADE ROUNDS, PATIENT SLEEPING, NO DISTRESS NOTED
[2021-09-12 04:00] VITALS: BP 155/90
--- NOTE | 2021-09-12 04:00 | NUR ---
VITALS WERE TAKEN. NO DISTRESS NOTED.
--- NOTE | 2021-09-12 05:09 | NUR ---
AM CARE PROVIDED
[2021-09-12] MEDS: glipiZIDE 5 MG TAB PO SCH ×2 (06:36→16:52)
--- NOTE | 2021-09-12 07:34 | NUR ---
ENDORSED PATIENT TO DAY SHIFT NURSE FOR CONTINUITY OF CARE
--- NOTE | 2021-09-12 07:38 | NUR ---
RECEIVED PT FROM NIGHT RN, PT IS AWAKE AND LYING ON THE BED WITH SIDE RAILS UP AND CALL LIGHT WITHIN REACH, IV LINE NOTED ON THE RIGHT HAND G. 22 ON SALINE LOCK, ON O2 4L NC, ON BEDREST AND NO SIGN OF DISTRESS NOTED AND WILL CONTINUE TO MONITOR PT.
[2021-09-12 08:00] VITALS: BP 152/78
[2021-09-12 08:03] LABS: ANION GAP 16.2 (8-16); CARBON DIOXIDE 19.1 mmol/L (21-32); CREATININE 1.3 mg/dL (0.6-1.3); POTASSIUM 3.3 mmol/L (3.5-5.1)
[2021-09-12] MEDS: FUROSEMIDE 40 MG/4 ML VIAL IVP SCH (08:59)
[2021-09-12] MEDS: RIVAROXABAN 15 MG TAB PO SCH (09:01)
[2021-09-12] MEDS: predniSONE 20 MG TAB PO SCH ×2 (09:01→22:27)
[2021-09-12] MEDS: AMIODARONE 200 MG TAB PO SCH (09:03)
[2021-09-12] MEDS: LACTULOSE 20 GM/30 ML UDC PO SCH ×2 (09:03→22:27)
--- NOTE | 2021-09-12 09:03 | NUR ---
PT WAS GIVEN THE SCHEDULED AM MEDICATIONS AND WAS MEDICATED WITH PAIN MEDICINE WELL FOR C/O PAIN RATE OF 8/10N HER ABDOMEN,PARAMETERS CHECKED AND WILL CONTINUE TO MONITOR PT.
--- NOTE | 2021-09-12 11:00 | NUR ---
PT WAS CLEANED AND REPOSITIONED NOW.
[2021-09-12 12:00] VITALS: BP 147/81
[2021-09-12] MEDS ORDERED: POTASSIUM CHLORIDE 10 MEQ TABER PO SCH (12:00)
[2021-09-12 12:34] LABS: BASOPHILS % (AUTO) 0.1 % (0.0-2.0); HEMATOCRIT 20.8 % (36-48); HEMOGLOBIN 7.1 g/dL (12.0-16.0); LYMPHOCYTES # (AUTO) 0.6 K/uL (2.5-16.5); LYMPHOCYTES % (AUTO) 9.3 % (20.5-51.1); MEAN CORPUSCULAR HEMOGLOBIN 37 pg (27-31); MEAN CORPUSCULAR HGB CONC 34 g/dL (33-37); MEAN CORPUSCULAR VOLUME 109.4 fL (80-94); MONOCYTES # (AUTO) 0.2 K/uL (0.8-1.0); MONOCYTES % (AUTO) 2.4 % (1.7-9.3); NEUTROPHILS # (AUTO) 5.9 K/uL (1.8-7.7); NEUTROPHILS % (AUTO) 88.2 % (42.2-75.2); PLATELET COUNT (AUTO) 259 K/uL (140-450); RED CELL DISTRIBUTION WIDTH 20.2 % (11.6-13.7); WHITE BLOOD COUNT (AUTO) 6.7 K/uL (4.8-10.8)
[2021-09-12 16:00] VITALS: BP 134/91
[2021-09-12] MEDS: FUROSEMIDE 40 MG TAB PO SCH (16:52)
[2021-09-12] MEDS: carvediloL 6.25 MG TAB PO SCH (16:53)
--- NOTE | 2021-09-12 16:53 | NUR ---
PT WAS GIVEN THE SCHEDULED AM MEDCIATIONS NOW.
[2021-09-12 20:00] VITALS: BP 135/85
[2021-09-12] MEDS: GABAPENTIN 100 MG CAP PO SCH (22:27)
[2021-09-13] VITALS: BP 130/70
--- NOTE | 2021-09-13 01:01 | NUR ---
PATIENT AWAKE WENT TO CT OF ABDOMEN PELVIS WITH OUT CONTRAST. PATIENT IS ALERT X4 IS PACING ON MONITOR. PATIENT HAS PACEMAKER HAS 22GA IN RIGHT F.A. HL. PATIENT C/O OF PAIN MEDICATED WITH MORPHINE 2 MG 2308 . 0000 PATIENT ASLEEP NO SIGNS OF ACUTE DISTRESS.
[2021-09-13] MEDS: MORPHINE SULFATE 2 MG/ML SYR IVP PRN ×3 (02:11→23:33)
[2021-09-13 04:00] VITALS: BP 128/72
[2021-09-13] MEDS: IPRATROPIUM 0.02% 0.5 MG/2.5 ML NEBU INH SCH ×3 (07:15→19:00)
--- NOTE | 2021-09-13 07:50 | NUR ---
RECEIVED PT FROM NIGHT RN, PT IS AWAKE AND SEATED ON THE BED WITH SIDE RAILS UP AND CALL LIGHT WITHIN REACH, IV LINE NOTED ON THE RIGHT HAND G. 22 ON SALINE LOCK, ON O2 3L NC, AND NO SIGN OF DISTRESS NOTED AND WILL CONTINUE TO MONITOR PT.
[2021-09-13 08:00] VITALS: BP 132/84
[2021-09-13] MEDS: POTASSIUM CHLORIDE 10 MEQ TABER PO SCH (08:59)
[2021-09-13] MEDS: LACTULOSE 20 GM/30 ML UDC PO SCH ×2 (08:59→21:09)
[2021-09-13] MEDS: AMIODARONE 200 MG TAB PO SCH (09:00)
[2021-09-13] MEDS: glipiZIDE 5 MG TAB PO SCH ×2 (09:00→18:47)
[2021-09-13] MEDS: lisinopriL 5 MG TAB PO SCH (09:01)
[2021-09-13] MEDS: predniSONE 20 MG TAB PO SCH ×2 (09:01→21:09)
[2021-09-13] MEDS: carvediloL 6.25 MG TAB PO SCH ×2 (09:01→18:48)
--- NOTE | 2021-09-13 09:01 | NUR ---
PT WAS GIVEN THE SCHEDULED AM MEDICATIONS NOW WELL PAIN MEDICATION FOR PAIN RATE OF 9/10 ON HER ABDOMEN. WILL MONITOR PT.
[2021-09-13] MEDS: RIVAROXABAN 15 MG TAB PO SCH (09:03)
[2021-09-13] MEDS: FUROSEMIDE 40 MG TAB PO SCH ×2 (09:07→18:48)
[2021-09-13 09:16] LABS: BASOPHILS % (AUTO) 0.1 % (0.0-2.0); HEMATOCRIT 20.4 % (36-48); LYMPHOCYTES # (AUTO) 0.6 K/uL (2.5-16.5); LYMPHOCYTES % (AUTO) 8.9 % (20.5-51.1); MEAN CORPUSCULAR HEMOGLOBIN 37 pg (27-31); MEAN CORPUSCULAR HGB CONC 34 g/dL (33-37); MONOCYTES # (AUTO) 0.3 K/uL (0.8-1.0); MONOCYTES % (AUTO) 4.3 % (1.7-9.3); NEUTROPHILS % (AUTO) 86.7 % (42.2-75.2); PLATELET COUNT (AUTO) 253 K/uL (140-450); RED BLOOD CELL COUNT(AUTO) 1.87 MIL/uL (4.20-5.40); RED CELL DISTRIBUTION WIDTH 19.5 % (11.6-13.7)
[2021-09-13 10:19] LABS: ANION GAP 21.7 (8-16); CARBON DIOXIDE 17.4 mmol/L (21-32); POTASSIUM 4.1 mmol/L (3.5-5.1)
[2021-09-13 10:28] LABS: CREATININE 1.4 mg/dL (0.6-1.3)
[2021-09-13 12:00] VITALS: BP 121/77
--- NOTE | 2021-09-13 12:06 | NUR ---
PT'S BLOOD GLUCOSE WAS CHECKED NOW AND IS 113. PT VERBALIZED THAT SHE FEELS FINE AND NOT FEELING SHAKY AT ALL.
[2021-09-13 12:12] LABS: HEMOGLOBIN 6.9 g/dL (12.0-16.0)
--- NOTE | 2021-09-13 15:48 | NUR ---
09/13/21 RD INITIAL ASSESSMENT COMPLETED PLEASE REFER TO NUTRITION ASSESSMENT UNDER CARE ACTIVITY FOR ESTIMATED NUTRITIONAL NEEDS. 1. CONTINUE CARDIAC, FLUID 1500 ML DIET TOLERATED 2. RECOMMEND GLUCERNA BID PER PROTOCOL 3. RD TO FOLLOW-UP 3-5 DAYS, MODERATE RISK LADY GUILLEN RD
[2021-09-13 16:00] VITALS: BP 125/75
--- NOTE | 2021-09-13 18:47 | NUR ---
PT WAS GIVEN THE SCHEDULED MEDICATIONS NOW, PARAMETER CHECKED
--- NOTE | 2021-09-13 19:45 | NUR ---
PT LAYING IN BED ASLEEP, BS CLEAR/DIMINISHED THROUGHOUT, NO SIGNS OF RESPIRATORY DISTRESS NOTED AT THIS TIME. PT RECEIVED HHN TX VIA NEBULIZER AND MASK. SHOWED IMPROVEMENT IN AERATION. PT IS CURRENTLY SATING 97% WILL CONTINUE TO MONITOR.
[2021-09-13] MEDS: DOCUSATE SODIUM 100 MG GELCAP PO SCH (21:08)
[2021-09-13] MEDS: GABAPENTIN 100 MG CAP PO SCH (21:09)
[2021-09-13 22:41] VITALS: BP 129/79
[2021-09-14] MEDS: IPRATROPIUM 0.02% 0.5 MG/2.5 ML NEBU INH SCH ×4 (01:00→19:00)
--- NOTE | 2021-09-14 01:00 | NUR ---
DID NOT GIVE HHN TX AT THIS TIME. PT STATES SHE RATHER REST, BS REVEALED CLEAR THROUGHOUT, NO DISTRESS NOTED AT THIS TIME SATING 97% ON 3L NC. WILL CONTINUE TO MONITOR.
[2021-09-14 05:58] VITALS: BP 130/69
--- NOTE | 2021-09-14 07:30 | NUR ---
RECEIVED REPORT FROM RETAIL ANALYTICS MANAGER NURSE FOR CONTINUITY OF CARE. PT ASLEEP IN BED, ON O2 VIA NC AT 3L. BREATHING SYMMETRICAL. FLACC 0. CALL LIGHT WITHIN REACH. ALL SAFETY MEASURES IN PLACE.
[2021-09-14 07:37] LABS: BASOPHILS % (AUTO) 0.1 % (0.0-2.0); HEMATOCRIT 20.5 % (36-48); LYMPHOCYTES # (AUTO) 0.7 K/uL (2.5-16.5); MEAN CORPUSCULAR HEMOGLOBIN 37 pg (27-31); MEAN CORPUSCULAR HGB CONC 34 g/dL (33-37); MEAN CORPUSCULAR VOLUME 108.8 fL (80-94); MONOCYTES # (AUTO) 0.4 K/uL (0.8-1.0); MONOCYTES % (AUTO) 6.7 % (1.7-9.3); NEUTROPHILS % (AUTO) 82.2 % (42.2-75.2); PLATELET COUNT (AUTO) 218 K/uL (140-450); RED BLOOD CELL COUNT(AUTO) 1.89 MIL/uL (4.20-5.40); RED CELL DISTRIBUTION WIDTH 19.4 % (11.6-13.7); WHITE BLOOD COUNT (AUTO) 6.1 K/uL (4.8-10.8)
[2021-09-14 08:00] VITALS: BP 108/69
[2021-09-14] MEDS: carvediloL 6.25 MG TAB PO SCH ×2 (08:00→17:00)
[2021-09-14] MEDS: glipiZIDE 5 MG TAB PO SCH (08:11)
[2021-09-14 08:20] LABS: CARBON DIOXIDE 20.4 mmol/L (21-32); CREATININE 1.5 mg/dL (0.6-1.3); POTASSIUM 3.4 mmol/L (3.5-5.1)
--- NOTE | 2021-09-14 08:25 | NUR ---
NOTED PT CONFUSED. PT HAS HX OF DM AND ALSO STATED SHE HAS DIABETES. CHECKED BLOOD SUGAR, VALUE IS 16. PT IS STILL RESPONSIVE, GIVEN ORANGE JUICE. DR RAI MADE AWARE WITH NEW ORDERS MADE.
[2021-09-14] MEDS ORDERED: INSULIN LISPRO SLIDING SCALE 100 UNITS/ML VIAL SUBQ PRN (08:40)
--- NOTE | 2021-09-14 08:45 | NUR ---
DEXTROSE 50ML IVP GIVEN FOR LOW BLOOD SUGAR LEVEL. PT REMAINS RESPONSIVE, WILL CONTINUE TO MONITOR.
[2021-09-14] MEDS: DEXTROSE 50% 50 ML SYR IVP PRN (08:51)
[2021-09-14] MEDS: lisinopriL 5 MG TAB PO SCH (09:00)
[2021-09-14] MEDS: CYANOCOBALAMIN 100 MCG TAB PO SCH (09:00)
[2021-09-14] MEDS: RIVAROXABAN 15 MG TAB PO SCH (09:00)
[2021-09-14] MEDS: LACTULOSE 20 GM/30 ML UDC PO SCH ×2 (09:15→21:00)
[2021-09-14] MEDS: predniSONE 20 MG TAB PO SCH ×2 (09:16→21:00)
[2021-09-14] MEDS: DOCUSATE SODIUM 100 MG GELCAP PO SCH ×2 (09:16→21:00)
[2021-09-14] MEDS: FOLIC ACID 1 MG TAB PO SCH (09:16)
[2021-09-14] MEDS: AMIODARONE 200 MG TAB PO SCH (09:16)
[2021-09-14] MEDS: POTASSIUM CHLORIDE 10 MEQ TABER PO SCH (09:17)
[2021-09-14] MEDS: POLYETHYLENE GLYCOL 17 GM/PKT PO SCH (09:17)
[2021-09-14] MEDS: FUROSEMIDE 40 MG TAB PO SCH ×2 (09:17→17:59)
--- NOTE | 2021-09-14 09:24 | NUR ---
REPORTED CRITICALLY LOW GLUCOSE LEVEL TO DR RAI. RE-ASSESSED PT'S BLOOD SUGAR LEVEL, 171. WILL CONTINUE TO MONITOR.
[2021-09-14] MEDS: BLOOD GLUCOSE MONITORING 1 DEV DEV FS SCH ×3 (11:40→21:00)
--- NOTE | 2021-09-14 11:41 | NUR ---
ACCUCHECK DONE, BLOOD SUGAR IS 131. PT IN BED, ASLEEP BUT RESPONSIVE. BREATHING SYMMETRICAL. ON 3L NC. WILL CONTINUE TO MONITOR.
[2021-09-14 12:00] VITALS: BP 108/73
--- NOTE | 2021-09-14 13:04 | NUR ---
REPORTED CRITICALLY LOW HEMOGLOBIN LEVEL [address] RAI, NO ORDERS MADE AT THIS TIME.
--- NOTE | 2021-09-14 13:15 | NUR ---
WHEN NURSE ENTERED ROOM, PT WAS ASLEEP AND NOT RESPONDING WHEN CALLED BY NAME. PT THROWN FOOD AND PHONE ON THE FLOOR. ROOM WAS CLEANED AND PT OFFERED ANOTHER FOOD TRAY BUT REFUSED.
--- NOTE | 2021-09-14 15:30 | NUR ---
PT IN BED, AWAKE. RESPIRATION EVEN AND UNLABORED. ON O2 VIA NC AT 3L. DENIES PAIN AT THIS TIME. CALL LIGHT WITHIN REACH. ALL SAFETY MEASURES IN PLACE. WILL CONTINUE TO MONITOR.
[2021-09-14 16:00] VITALS: BP 101/70
--- NOTE | 2021-09-14 18:10 | NUR ---
PT AWAKE, ALERT. BREATHING SYMMETRICAL. O2 VIA NC AT 3L, SATING AT 95% DENIES PAIN OR DISCOMFORT AT THIS TIME. ALL SAFETY MEASURES IN PLACE. WILL CONTINUE TO MONITOR
--- NOTE | 2021-09-14 18:43 | NUR ---
PT THREW HER FOOD TRAY AND PHONE ON THE FLOOR. PT WAS GIVEN HER FOOD BACK AND ROOM WAS CLEANED AND THREW IN THE TRASH, PT WAS CLEANED AND REFUSED ANOTHER DINNER FOOD TRAY STATING SHE WANTS CHOCOLATE.
--- NOTE | 2021-09-14 19:35 | NUR ---
RECEIVE PATIENT FROM AM NURSE. PT ON 3 L NC NO SOB NOTED,NO COMPLAIN OF PAIN CALL LIGHT WITHIN EASY REACH. WILL CONTINUE TO MONITOR.
[2021-09-14 20:00] VITALS: BP 116/73
[2021-09-14] MEDS: GABAPENTIN 100 MG CAP PO SCH (21:00)
--- NOTE | 2021-09-14 21:00 | NUR ---
ALL MEDICATIONS GIVEN TOLERATED WELL. BLD GLUCOSE 106,NO COMPLAIN OF PAIN,NO SOB. WILL CONTINUE TO MONITOR
[2021-09-15] VITALS: BP 121/79
--- NOTE | 2021-09-15 | NUR ---
PATIENT SLEEPING AT THIS TIME NO RESPIRATORY DISTRESS NOTED
[2021-09-15] MEDS: IPRATROPIUM 0.02% 0.5 MG/2.5 ML NEBU INH SCH ×3 (01:00→13:00)
--- NOTE | 2021-09-15 01:00 | NUR ---
Tx (ATRO) NOT GIVEN DUE TO COVID PROTOCOL
[2021-09-15 04:00] VITALS: BP 113/77
--- NOTE | 2021-09-15 07:25 | NUR ---
ENDORSED PATIENT TO AM NURSE FOR CONTINUITY OF CARE. PT. IS STABLE.
--- NOTE | 2021-09-15 07:26 | NUR ---
RECEIVED REPORT FROM INDIGO VAT TENDER CLOTH NURSE FOR CONTINUITY OF CARE. PT ASLEEP IN BED, ON O2 VIA NC AT 2L. BREATHING SYMMETRICAL. NO DISTRESS NOTED. SKIN IS WARM, DRY, AND INTACT. IV SITE ON RFA 20G INTACT AND PATENT. SALINE LOCKED. DENIES PAIN AT THE MOMENT. PLAN OF CARE DISCUSSED. SAFETY PRECAUTIONS IN PLACE. CALL LIGHT WITHIN REACH. ALL SAFETY MEASURES IN PLACE. WILL CONTINUE TO MONITOR.
[2021-09-15 08:00] VITALS: BP 128/88
[2021-09-15] MEDS: BLOOD GLUCOSE MONITORING 1 DEV DEV FS SCH ×3 (08:25→16:39)
[2021-09-15] MEDS: DEXTROSE 50% 50 ML SYR IVP PRN (08:54)
[2021-09-15] MEDS: carvediloL 6.25 MG TAB PO SCH ×2 (09:25→16:39)
[2021-09-15] MEDS: LACTULOSE 20 GM/30 ML UDC PO SCH (09:25)
[2021-09-15] MEDS: DOCUSATE SODIUM 100 MG GELCAP PO SCH (09:25)
[2021-09-15] MEDS: POLYETHYLENE GLYCOL 17 GM/PKT PO SCH (09:26)
[2021-09-15] MEDS: POTASSIUM CHLORIDE 10 MEQ TABER PO SCH (09:26)
[2021-09-15] MEDS: FUROSEMIDE 40 MG TAB PO SCH ×2 (09:26→16:39)
[2021-09-15] MEDS: AMIODARONE 200 MG TAB PO SCH (09:26)
[2021-09-15] MEDS: FOLIC ACID 1 MG TAB PO SCH (09:26)
[2021-09-15] MEDS: predniSONE 20 MG TAB PO SCH (09:26)
[2021-09-15] MEDS: lisinopriL 5 MG TAB PO SCH (09:26)
[2021-09-15] MEDS: RIVAROXABAN 15 MG TAB PO SCH (09:27)
[2021-09-15] MEDS: CYANOCOBALAMIN 100 MCG TAB PO SCH (09:29)
--- NOTE | 2021-09-15 09:55 | NUR ---
ALL SCHEDULED MEDS GIVEN. PT IS STABLE. NO DISTRESS NOTED. WILL CONTINUE TO MONITOR.
--- NOTE | 2021-09-15 10:27 | NUR ---
DC PLANNING: PATIENT KNOWN TO CM FROM PREVIOUS ADMISSIONS. THE PATIENT LIVES ALONE IN A GROUND FLOOR APARTMENT AND HAS DME OF O2, MOTORIZED WC, FWW, SHOWER BENCH AND GLUCOMETER. HER DAUGHTER JOSE IS HER IHSS WORKER AND IS WITH HER 5 HRS/DAY, 7 DAYS/WEEK. PATIENT IS ON SERVICE WITH [facility] ([phone] WHICH IS OVERSEEN BY [facility] ([phone]. WILL SEND ORDER AND PACKET TO [facility] AND [facility] TO RESUME HOME HEALTH UPON DC FAMILY WILL PICK THE PATIENT UP WHEN SHE HAS A DC ORDER. CM WILL FOLLOW. Addendum: 09/19/21 at 1326 by Lauren Johnson DC PLANNING SW CALL PATIENT TO DISCUSS NEEDED FOLLOW UP APPOINTMENT WITH PRIMARY DR. REX RAI. PER PATIENT SHE IS THE ONLY ONE THAT MAKES HER OWN FOLLOW UP APPOINTMENTS WITH HER PCP. PATIENT REPORTED SHE HAS NOT MADE HER APPOINTMENT AFTER HER DC FROM [facility] ON 09/15/2021. SW OFFERED PATIENT TO MAKE HER FOLLOW UP APPOINTMENT; HOWEVER PATIENT DECLINED AND STATED THAT SHE WILL DO IT HER SELF THANKED THE SW AND ENDED THE CALL.
[2021-09-15] MEDS: MORPHINE SULFATE 2 MG/ML SYR IVP PRN (10:33)
--- NOTE | 2021-09-15 10:33 | NUR ---
PT COMPLAINED OF 9/10 BACK PAIN. ADMINISTERED MORPHINE IVP PER MD ORDERED.
[2021-09-15 12:00] VITALS: BP 146/70
--- NOTE | 2021-09-15 12:30 | NUR ---
BLOOD GLUCOSE CHECK WAS 88. NO INSULIN COVERAGE NEEDED.
[2021-09-15] MEDS ORDERED: VITB12 PO (13:26)
[2021-09-15] MEDS ORDERED: DOCU-299 PO (13:26)
[2021-09-15] MEDS ORDERED: FOLI1TAB90 PO (13:26)
[2021-09-15] MEDS ORDERED: PRED20TA5 PO (13:26)
[2021-09-15 16:00] VITALS: BP_SYST 110; BP_SYST 146; BP_DIAS 70; BP_DIAS 71
--- NOTE | 2021-09-15 16:15 | NUR ---
ENDORSED DISCHARGE INSTRUCTIONS TO PATIENT. PT VERBALIZED UNDERSTANDING AND SIGNED DISCHARGE FORMS.
--- NOTE | 2021-09-15 17:45 | NUR ---
DISCHARGED PATIENT OFF THE UNIT. PATIENT PICKED UP BY FAMILY AT THE FRONT LOBBY. PT WAS STABLE UPON DISCHARGE.
== END 2021-09-15 17:45 | disposition home or self-care (01) | DRG 194 ==
LOC: MED 01:34 → MTU 03:49
PROVIDERS: ADMIT Internal Medicine; ATTEND Internal Medicine
PROC: 30233N1 Transfusion of Nonautologous Red Blood Cells into Peripheral Vein, Percutaneous Approach (ICD-10-PCS; principal; 2021-09-10)
DX: I13.0 Hypertensive heart and chronic kidney disease with heart failure and stage 1 through stage 4 chronic kidney disease, or unspecified chronic kidney disease (principal); J96.01 Acute respiratory failure with hypoxia; U07.1 COVID-19; D63.8 Anemia in other chronic diseases classified elsewhere; J44.1 Chronic obstructive pulmonary disease with (acute) exacerbation; E11.649 Type 2 diabetes mellitus with hypoglycemia without coma; E11.22 Type 2 diabetes mellitus with diabetic chronic kidney disease; D50.9 Iron deficiency anemia, unspecified; I34.0 Nonrheumatic mitral (valve) insufficiency; I25.5 Ischemic cardiomyopathy; K70.30 Alcoholic cirrhosis of liver without ascites; K57.30 Diverticulosis of large intestine without perforation or abscess without bleeding; E78.5 Hyperlipidemia, unspecified; K86.1 Other chronic pancreatitis; I44.7 Left bundle-branch block, unspecified; I50.23 Acute on chronic systolic (congestive) heart failure; N18.9 Chronic kidney disease, unspecified; Z88.0 Allergy status to penicillin; Z88.8 Allergy status to other drugs, medicaments and biological substances; Z79.899 Other long term (current) drug therapy; Z79.01 Long term (current) use of anticoagulants; Z95.0 Presence of cardiac pacemaker; Z83.3 Family history of diabetes mellitus; Z82.49 Family history of ischemic heart disease and other diseases of the circulatory system; Z84.89 Family history of other specified conditions; Z91.14 Patient's other noncompliance with medication regimen
CPT/HCPCS: 36415; 36430; 71045; 80048; 80053; 82607; 82746; 82948; 83735; 83880; 85025; 86886; 86900; 86901; 86920; 87081; 93005; 94003; 94640; 96365; 96375; 96376; 99291; J1940; J2270; J2930; J3475; J7512; J7644; P9016; Q0092

== ENCOUNTER 2021-10-17 16:31 | Emergency (ER) | payer OTHER, SELFPAY ==
[~2021-10-17] VITALS: Ht 165.1 cm; Wt 63.0 kg
[~2021-10-17 16:31] MED LIST changes: +ACET-10509 PO; +DOCU-299 PO; -ERYT200P5 BOTH EYES; +FERR-13 PO; -FERR325E14 PO; +FOLI1TAB90 PO; -GLIP5TAB14 PO; +NITR0.4T2 SL; -PHEN100C4 PO; +PHEN50CT5 PO; +PRED20TA5 PO; +VITA-16 PO; +VITB12 PO; -ZAR2.5 PO
[2021-10-17 17:02] VITALS: BP 111/62
--- NOTE | 2021-10-17 17:30 | NUR ---
PT C/O SOB, BLE SWELLING +3 PITTING EDEMA X3 DAYS. PT ON HOME 02 STATES INCREASED SOB. PT SPEAKING IN FULL SENTENCES. IV INSERTED TO LEFT HAND #[id number]. PENDING FURTHER ORDERS. NAD.
[2021-10-17 17:48] LABS: BASOPHILS % (AUTO) 0.6 % (0.0-2.0); EOSINOPHILS % (AUTO) 0.4 % (0.0-4.0); HEMATOCRIT 27.3 % (36-48); HEMOGLOBIN 8.7 g/dL (12.0-16.0); LYMPHOCYTES # (AUTO) 1.5 K/uL (2.5-16.5); LYMPHOCYTES % (AUTO) 35.5 % (20.5-51.1); MEAN CORPUSCULAR HEMOGLOBIN 34 pg (27-31); MEAN CORPUSCULAR HGB CONC 32 g/dL (33-37); MEAN CORPUSCULAR VOLUME 107.4 fL (80-94); MONOCYTES # (AUTO) 0.3 K/uL (0.8-1.0); MONOCYTES % (AUTO) 7.4 % (1.7-9.3); NEUTROPHILS # (AUTO) 2.4 K/uL (1.8-7.7); NEUTROPHILS % (AUTO) 56.1 % (42.2-75.2); PLATELET COUNT (AUTO) 230 K/uL (140-450); RED BLOOD CELL COUNT(AUTO) 2.54 MIL/uL (4.20-5.40); RED CELL DISTRIBUTION WIDTH 21.8 % (11.6-13.7); WHITE BLOOD COUNT (AUTO) 4.2 K/uL (4.8-10.8)
[2021-10-17 18:16] LABS: ALBUMIN 2.5 g/dL (3.4-5.0); ANION GAP 16.6 (8-16); CARBON DIOXIDE 20.2 mmol/L (21-32); CREATININE 1.1 mg/dL (0.6-1.3); POTASSIUM 3.8 mmol/L (3.5-5.1); TOTAL BILIRUBIN 0.3 mg/dL (0.0-1.0)
--- NOTE | 2021-10-17 19:24 | NUR ---
TRANSFER OF CARE REPORT RECIEVED BY LUCERO CEVALLOS
--- NOTE | 2021-10-17 20:49 | NUR ---
PT IS REFUSING TO GET COVID/BO SWAB STATING SHE "HAD COVID LAST WEEK."
--- NOTE | 2021-10-17 21:00 | NUR ---
PT'S DAUGHTER, ROSLYN, CONTACTED TO TRY TO ARRANGE FOR D/C TRANSPORT.
--- NOTE | 2021-10-17 21:50 | NUR ---
Patient discharged with v/s stable. Written and verbal after care instructions given and explained. Patient verbalized understanding. Wheel Chair Assisted with to car. All questions addressed prior to discharge. Advised to follow up with PMD. VSS, UNLABORED BREEATHING, A/OX4.
[2021-10-17 21:52] VITALS: BP 110/67
== END 2021-10-17 21:50 | disposition home or self-care (01) ==
LOC: MED 16:31
DX: I11.0 Hypertensive heart disease with heart failure (principal); I50.9 Heart failure, unspecified; R60.9 Edema, unspecified; E11.9 Type 2 diabetes mellitus without complications; J44.9 Chronic obstructive pulmonary disease, unspecified; E78.5 Hyperlipidemia, unspecified; Z95.0 Presence of cardiac pacemaker; Z79.899 Other long term (current) drug therapy; Z88.0 Allergy status to penicillin; Z88.1 Allergy status to other antibiotic agents
CPT/HCPCS: 36415; 71045; 80053; 83605; 83880; 84484; 85025; 87040; 93005; 99285; Q0092